=== PATIENT | male | born 1950 | race African-American/Black ===

== ENCOUNTER → 2016-12-09 | Outpatient (CLI) | payer MEDICARE, BC ==
[2016-10-29 12:58] VITALS: BP 147/98
[~2016-12-09] MED LIST: ALPR0.5T PO; AMLO10TA4 PO; ASPI-252 PO; ATOR40TA59 PO; BACL10TA PO; CARV25TA PO; CLON0.1T PO; CLOP75TA PO; DABI150C PO; FURO40TA4 PO; GABA600T2 PO; LANS30CA17 PO; LATA2.5D3 EACHEYE; LISI40TA PO; OLOP2.5D5 OP; OXYC10TA PO; PARO40TA45 PO; SPIR25TA3 PO; TAMS0.4C97 PO; TIZA4TAB PO
--- NOTE | 2016-12-11 20:16 | SLEEP ---
DATE OF STUDY: 12/09/2016 ATTENDING PHYSICIAN: Dr. Zamudio. The patient is a 66-year-old male who weighs 282 pounds with a BMI of 35. [place] score was 12. Sleep split night study was performed at [facility]. During the night study, the patient spent 412 minutes in bed and slept for 303 minutes with a sleep efficiency of 74%. Sleep latency was 40 minutes with an absent REM sleep. Overall, sleep architecture showed increased stage I and stage II sleep, absent slow wave and absent REM sleep. During the initial diagnostic portion of the study, the patient slept for 221 minutes. During this time, there were 29 obstructive apneas, 5 mixed and no central apneas. There were 176 hypopneas. The patient's apnea hypopnea index was 57 per hour with an absent REM and supine AHI due to lack of REM and supine sleep. EKG monitoring revealed irregular rhythm throughout. Appeared to be intermittent AFib. There were PACs were seen as well. I would recommend Cardiology followup. PLMS were seen at an index of 6 per hour and 2 per hour caused EEG arousals. Review of nocturnal oximetry study revealed a mean oxygen saturation of 80% with the lowest of 66%. 23% of time oxygen saturation remained between 80% and 89% and 77% of time between 70 and 79%. The patient met the criteria for CPAP initiation. He could not tolerate pressure lower than 9 cm of water and was placed on 9 cm of water; however, it did not correct his AHI at it was still 35 per hour from 35 minutes of sleep. The patient could not sleep further while on CPAP. Optimal CPAP pressure was not achieved. The patient also requested 2 liters of oxygen to be started on with the CPAP as he complained of shortness of breath. IMPRESSION: 1. Severe sleep apnea-hypopnea syndrome with an AHI of 57 per hour. 2. Nocturnal hypoxia secondary to obstructive sleep apnea. Not completely resolved with CPAP. 3. No clinically significant PLMS. RECOMMENDATIONS: 1. The patient should return to the sleep lab for CPAP/BiPAP titration study, starting at a CPAP pressure of 10 cm water and following the protocol. 2. Once optimum PAP pressure is achieved, then follow up in 4-6 weeks to assess compliance with a PAP therapy and to document clinical improvement. 3. Weight loss was strongly advised. 4. Avoid TIME RECORDER depressants. 5. Caution regarding driving until symptoms of sleep apnea have resolved with the use of PAP therapy. FANNY PAREDES MD DR: DASIA/veronica JOB#: [id number] / [id number] FELICITY
== END | disposition home or self-care (01) ==
LOC: SLPLAB 18:31
PROVIDERS: ATTEND Specialist
DX: R06.83 Snoring (principal); G47.30 Sleep apnea, unspecified; I48.91 Unspecified atrial fibrillation
CPT/HCPCS: 95810

== ENCOUNTER 2016-12-19 16:53 | Inpatient (IN) | payer MEDICARE, BC ==
[~2016-12-19] VITALS: Ht 190.5 cm; Wt 124.8 kg
[2016-12-19] MEDS ORDERED: IPRATRPIUM/ALBUTEROL 0.5/2.5MG 3 ML NEBU. NEB ONE (17:15)
[2016-12-19 17:24] LABS: BASO # 0.1 x10^3/uL (0.0-0.2); BASO % 1 % (0-3); EOS % 2 % (0-3); HEMATOCRIT 38.4 % (39.0-53.0); HEMOGLOBIN 12.6 g/dL (13.0-17.5); LYMPH # 1.5 x10^3/uL (1.0-4.8); LYMPH % 13 % (24-48); MEAN CORPUSCULAR HEMOGLOBIN 29 pg (25-35); MEAN CORPUSCULAR HGB CONC 33 g/dL (31-37); MEAN CORPUSCULAR VOLUME 88 fL (79-100); MONO % 6 % (0-9); NEUT % 78 % (31-73); PLATELET COUNT 256 x10^3/uL (140-400); RED BLOOD COUNT 4.37 x10^6/uL (4.30-5.70); RED CELL DISTRIBUTION WIDTH 15.8 % (11.5-14.5); WHITE BLOOD COUNT 11.8 x10^3/uL (4.0-11.0)
[2016-12-19 17:37] LABS: CALCIUM 9.1 mg/dL (8.5-10.1); CREATININE 1.2 mg/dL (0.7-1.3); GFR 72.9; POTASSIUM 3.5 mmol/L (3.5-5.1)
[2016-12-19 18:19] LABS: HCO3 ABG 27 mmol/L (21-28); PCO2 ABG 44 mmHg (35-46); PH ABG 7.41 (7.35-7.45); PO2 ABG 81 mmHg (65-108); SAT O2 ABG 94 % (92-99)
[2016-12-19 18:21] LABS: FIO2 ABG 40
--- NOTE | 2016-12-19 18:23 | PHYS DOC ---
Past Medical History Past Medical History: A-Fib, Anxiety, CAD, CHF, GERD, Hypertension Past Surgical History: Other Additional Past Surgical Histo: cardiac stents Alcohol Use: None Drug Use: None Adult General Chief Complaint Chief Complaint: SHORTNESS OF BREATH HPI HPI This is a 66 year-old male who was sent here for ongoing weakness and shortness of breath for the last few days and was sent here from Dr. Zamudio''s office. He does have history of atrial fibrillation and heart failure with an EF of 20- 30%. Patient does appear weak upon my exam but is in no acute distress and is mildly to. He is requiring supplementary oxygen at 3 L and he is normally not oxygen dependent. His O2 sat upon arrival was 92%. Eyes any fever or chills. He denies any abdominal pain. He denies any chest pain. Review of Systems Review of Systems Constitutional: Denies fever or chills [] Eyes: Denies change in visual acuity, redness, or eye pain [] HENT: Denies nasal congestion or sore throat [] Respiratory: Denies cough or shortness of breath [] Cardiovascular: No additional information not addressed in HPI [] GI: Denies abdominal pain, nausea, vomiting, bloody stools or diarrhea [] : Denies dysuria or hematuria [] Musculoskeletal: Denies back pain or joint pain [] Integument: Denies rash or skin lesions [] Neurologic: Denies headache, focal weakness or sensory changes [] Endocrine: Denies polyuria or polydipsia [] Current Medications Current Medications Current Medications Medications (Trade) Dose Ordered Sig/Manjula Start Time Stop Time Status Last Admin Dose Admin Albuterol/ Ipratropium (Duoneb) 3 ml 1X ONCE 12/19/16 17:15 12/19/16 17:16 DC 12/19/16 17:42 3 ML Allergies Allergies Allergies Coded Allergies Type Severity Reaction Last Updated Verified NSAIDS (Non-Steroidal Anti-Inflamma Adverse Reaction Mild BLEEDING 10/28/16 Yes Physical Exam Physical Exam Constitutional: Well developed, well nourished, no acute distress, non-toxic appearance. [] HENT: Normocephalic, atraumatic, bilateral external ears normal, oropharynx moist, no oral exudates, nose normal. [] Eyes: PERRLA, EOMI, conjunctiva normal, no discharge. [] Neck: Normal range of motion, no tenderness, supple, no stridor. [] Cardiovascular:Heart rate regular rhythm, no murmur [] Lungs & Thorax: Bilateral breath sounds clear to auscultation [] Abdomen: Bowel sounds normal, soft, no tenderness, no masses, no pulsatile masses. [] Skin: Warm, dry, no erythema, no rash. [] Back: No tenderness, no CVA tenderness. [] Extremities: No tenderness, no cyanosis, no clubbing, ROM intact, no edema. [] Neurologic: Alert and oriented X 3, normal motor function, normal sensory function, no focal deficits noted. [] Psychologic: Affect normal, judgement normal, mood normal. [] Current Patient Data Vital Signs Vital Signs Date Time Temp Pulse Resp B/P Pulse Ox O2 Delivery O2 Flow Rate FiO2 12/19/16 17:31 95 BiPAP/CPAP 12/19/16 17:05 98.4 73 24 161/101 4 98.4 Lab Values Laboratory Tests Test 12/19/16 17:14 12/19/16 17:25 12/19/16 18:15 White Blood Count 11.8x10^3/uL (4.0-11.0) H Red Blood Count 4.37x10^6/uL (4.30-5.70) Hemoglobin 12.6g/dL (13.0-17.5) L Hematocrit 38.4% (39.0-53.0) L Mean Corpuscular Volume 88fL (79-100) Mean Corpuscular Hemoglobin 29pg (25-35) Mean Corpuscular Hemoglobin Concent 33g/dL (31-37) Red Cell Distribution Width 15.8% (11.5-14.5) H Platelet Count 256x10^3/uL (140-400) Neutrophils (%) (Auto) 78% (31-73) H Lymphocytes (%) (Auto) 13% (24-48) L Monocytes (%) (Auto) 6% (0-9) Eosinophils (%) (Auto) 2% (0-3) Basophils (%) (Auto) 1% (0-3) Neutrophils # (Auto) 9.2x10^3uL (1.8-7.7) H Lymphocytes # (Auto) 1.5x10^3/uL (1.0-4.8) Monocytes # (Auto) 0.7x10^3/uL (0.0-1.1) Eosinophils # (Auto) 0.2x10^3/uL (0.0-0.7) Basophils # (Auto) 0.1x10^3/uL (0.0-0.2) Sodium Level 147mmol/L (136-145) H Potassium Level 3.5mmol/L (3.5-5.1) Chloride Level 107mmol/L (98-107) Carbon Dioxide Level 31mmol/L (21-32) Anion Gap 9 (6-14) Blood Urea Nitrogen 19mg/dL (8-26) Creatinine 1.2mg/dL (0.7-1.3) Estimated GFR (Cockcroft-Gault) 72.9 Glucose Level 113mg/dL (70-99) H Lactic Acid Level 0.8mmol/L (0.4-2.0) Calcium Level 9.1mg/dL (8.5-10.1) Troponin I Quantitative 0.028ng/mL (0.000-0.055) DB-Xkp-L-Type Natriuretic Peptide 1895pg/mL (0-124) H Influenza Type A Antigen Negative (NEGATIVE) Influenza Type B Antigen Positive (NEGATIVE) O2 Saturation 94% (92-99) Arterial Blood pH 7.41 (7.35-7.45) Arterial Blood pCO2 at Patient Temp 44mmHg (35-46) Arterial Blood pO2 at Patient Temp 81mmHg (65-108) Arterial Blood HCO3 27mmol/L (21-28) Arterial Blood Base Excess 2mmol/L (-3-3) FiO2 40 Laboratory Tests 12/19/16 17:14 Laboratory Tests 12/19/16 17:14 EKG EKG EKG shows an irregular rhythm with a rate of 85 bpm but no acute ST findings are seen. EKG is consistent with a rate controlled atrial fibrillation. Radiology/Procedures Radiology/Procedures Portable one view of the chest as interpreted by me shows signs consistent with mild congestive heart failure with cardiomegaly and vascular congestion seen. Course & Med Decision Making Course & Med Decision Making Pertinent Labs and Imaging studies reviewed. (See chart for details) This 66-year-old male with weakness and cough for the last 3-4 days has laboratory workup that is consistent with mild CHF exacerbation with a pro BNP of 1800 as well as influenza swabs that are positive for influenza type B. Patient is outside the window to treat. Influenza swabs did not result while in the ER. I discussed the case with Dr. mobley who agreed to accept the patient for ongoing shortness of breath. Patient was placed upon BiPAP therapy upon arrival to the ER and had significant improvement. He was sent to the [facility] on BiPAP therapy. His ABG was unremarkable. A dose of furosemide was given. Case is discussed with Dr. Zamudio, who agreed to accept for further evaluation and treatment. Dragon Disclaimer Dragon Disclaimer This electronic medical record was generated, in whole or in part, using a voice recognition dictation system. Departure Departure Impression: Primary Impression: CHF exacerbation Additional Impression: Influenza B Disposition: 09 ADMITTED INPATIENT Admitting Physician: Other Condition: STABLE Referrals: SAMANTHA LANGLEY (PCP) Problem Qualifiers JUAN R WINN DO Dec 19, 2016 18:23
[2016-12-19] MEDS ORDERED: ONDANSETRON PF 4 MG/2 ML VIAL. IV PRN (18:30)
[2016-12-19] MEDS ORDERED: FUROSEMIDE 40 MG/4 ML VIAL IVP ONE (18:30)
[2016-12-19 19:16] LABS: OBC FLU VALID
[2016-12-19 19:51] LABS: BILIRUBIN,URINE NEGATIVE (NEG); GLUCOSE,URINE NEGATIVE (NEG); NITRITE,URINE NEGATIVE (NEG); PROTEIN,URINE NEGATIVE (NEG-TRACE)
[2016-12-19 20:01] LABS: BACTERIA,URINE 0 /HPF (0-FEW); RBC,URINE 0 /HPF (0-2); SQUAMOUS EPITHELIAL CELL,UR FEW /LPF; WBC,URINE OCC /HPF (0-4)
[2016-12-19 20:47] VITALS: BP 145/96
[2016-12-19] MEDS ORDERED: ASPI81TA2 PO (21:03)
[2016-12-19] MEDS ORDERED: PARO20TA55 PO (21:15)
[2016-12-19] MEDS ORDERED: HYDR-2869 PO (21:15)
[2016-12-19] MEDS ORDERED: LOVA40TA2 PO (21:16)
[2016-12-19] MEDS ORDERED: NITR1PAT9 TD (21:28)
[2016-12-19] MEDS: IPRATRPIUM/ALBUTEROL 0.5/2.5MG 3 ML NEBU. NEB SCH (21:39)
[2016-12-19] MEDS ORDERED: TIZA4CAP3 PO (21:39)
[2016-12-19] MEDS ORDERED: BRIM5DRO EACHEYE (21:40)
--- NOTE | 2016-12-19 22:18 | ACF ---
Admission Forms Criteria HEART FAILURE Clinical Indications for Admission to Inpatient Care (Place 'X' for any and all applicable criteria): Admission is indicated by ANY ONE of the following(1)(2)(3)(4): [ ]I. Severe electrolyte abnormalities requiring inpatient care(9) [ ]II. Hemodynamic instability [ ]III. Anasarca [ ]IV. Acute cardiac ischemia causing or associated with failure (Also use Angina or Myocardial Infarction as appropriate) [ ]V. Cardiac arrhythmias of immediate concern [ ]. Precipitating cause for acute decompensation (eg, pneumonia, pulmonary embolism) requires inpatient care [X]VII. Pulmonary edema that is very severe (eg, mechanical ventilation needed, imminent or likely, need for 100% oxygen to keep oxygen saturation above 90%) [ ]VIII. Inpatient admission required rather than observation care (Also use Heart Failure: Observation Care as appropriate) because of ANY ONE of the following: [ ]a) Pulmonary edema that is severe or worsening as indicated by ALL of the following: [ ]i) New need for oxygen therapy to keep oxygen saturation above 90% (or increased FiO2 need from baseline) [ ]ii) Has not improved sufficiently with emergency department or observation care IV diuretics or other heart failure treatments[C] [ ]b) Cognitive impairment that is severe or persistent [ ]c) Increased creatinine (new on laboratory test) with reduction of more than 50% in estimated glomerular filtration rate from baseline. [ ]d) Acute renal insufficiency (progressively (ongoing) rising creatinine (known from past laboratory test) with reduction of more than 25% in estimated glomerular filtration rate from baseline) [ ]e) Acute peripheral ischemia (eg, pulseless, cool, mottled, or cyanotic extremity) [ ]f) Acute renal failure [ ]g) Supplemental O2 or respiratory treatment for >24 hr that are performable only in acute inpatient setting [ ]h) Pulmonary artery catheter monitoring [ ]i) Other condition, treatment or monitoring requiring inpatient admission [ ]IX. Contraindications and/or Inappropriate clinical situations for Observational Care in patients with Heart Failure, when ANY ONE of the following is required: [ ]a) Patient with High risk of cardiac embolism (e.g, patients with previous cardiac embolism, LVEF < 40%, age >75 and patients with prosthetic valve) 18 [ ]b) Patient with Moderate risk including DM patient, CAD and patient aged 65-75 [ ]c) Patient with any change in cardiac biomarker especially troponin should be managed as high risk in an inpatient setting 19 [ ]d) Physician judgement irrespective of ECG and other diagnostic findings 20 [ ]e) Patients with hyponatremia have high risk for mortality and require more extensive care and length of stay 21 [ ]f) Need for large volume diuresis 21 [ ]g) Presence of renal insufficiency or hypotension limiting speed of diuresis 21 [ ]h) Acute cardiac Ischemia in the elderly 21 [ ]i) Patients with a 30 day risk of mortality based on a multidimensional prognostic index (MPI) [J,]21 [ ]X. General contraindications and/or Inappropriate clinical situations for Observational Care in patients with Heart Failure, when ANY ONE of the following is required: [ ]a) Prediction of prolongation of LOS based on ANY ONE of the following may be considered as a contraindication for observational care 2, 3, 4, 5, 6, 7, 8 , 9, 10, 11 [ ]i) Age > 65 yrs. [ ]ii) Patient arriving by ambulance [ ]iii) Patient with high acuity [ ]iv) Patient requiring vital sign monitoring [ ]v) Patient on IV medication [ ]b) Systolic blood pressures 180mmHg 3,12 [ ]c) Patient with altered mental status including delirium and other alteration of consciousness, (3) [ ]d) Patient whose discharge disposition will be to a [place] [facility] home or rehabilitation home should not be managed in Emergency Department Observation Unit. CMS rule requires 3 days hospital stay before such placement.3,13 [ ]e) Patient with failure to thrive due to broad array of etiologies 3,16,17 [ ]f) Inability to ambulate 3,14 Extended stay beyond goal length of stay may be needed for(1)(3)(21)(25): [ ]a) Cardiac ischemia, confirmed or suspected as precipitant [ ]b) Cardiogenic shock or refractory pulmonary edema [ ]c) Acute kidney injury or renal failure [ ]d) Respiratory failure (eg, need for noninvasive or invasive mechanical ventilation) (23) [ ]e) Concomitant pneumonia or significant electrolyte abnormality (eg, severe hyponatremia) [ ]f) Newly diagnosed (new onset) atrial fibrillation [ ]g) Stage IV chronic kidney disease (estimated glomerular filtration rate of less than 30 mL/min/1.73m2 (0.50 mL/sec/1.73m2), and not previously on chronic dialysis The original [facility] content created by [facility] has been revised. The portions of the content which have been revised are identified through the use of italic text or in bold, and [facility] has neither reviewed nor approved the modified material. All other unmodified content is copyright [facility]. Please see references footnoted in the original [facility] edition 2016 Admission Criteria Met?: Yes GRAYSON BARFIELD Dec 19, 2016 22:18
[2016-12-19] MEDS ORDERED: CEFTRIAXONE 1GM IVPB FOR OMNI 50 ML IV SCH (22:30)
[2016-12-19] MEDS ORDERED: LEVOFLOXACIN 750 MG TABLET. PO SCH (23:00)
[2016-12-19 23:17] VITALS: BP 161/97
[2016-12-19] MEDS: CEFTRIAXONE SODIUM 1 GM in IV NORMAL SALINE 50ML 50 ML IV SCH (23:33)
[2016-12-19] MEDS: LEVOFLOXACIN 500 MG TABLET PO SCH (23:33)
[2016-12-19] MEDS: OSELTAMIVIR 75 MG CAPSULE PO SCH (23:33)
[2016-12-20] VITALS (10 sets, daily range): BP systolic 150–183; BP diastolic 95–110
[2016-12-20 04:33] LABS: BASO # 0.1 x10^3/uL (0.0-0.2); BASO % 1 % (0-3); EOS % 1 % (0-3); HEMATOCRIT 37.7 % (39.0-53.0); HEMOGLOBIN 12.2 g/dL (13.0-17.5); LYMPH # 1.3 x10^3/uL (1.0-4.8); LYMPH % 11 % (24-48); MEAN CORPUSCULAR HEMOGLOBIN 29 pg (25-35); MEAN CORPUSCULAR HGB CONC 32 g/dL (31-37); MEAN CORPUSCULAR VOLUME 90 fL (79-100); MONO % 6 % (0-9); NEUT % 80 % (31-73); PLATELET COUNT 238 x10^3/uL (140-400); RED CELL DISTRIBUTION WIDTH 15.7 % (11.5-14.5); WHITE BLOOD COUNT 11.5 x10^3/uL (4.0-11.0)
[2016-12-20 04:49] LABS: CALCIUM 9.2 mg/dL (8.5-10.1); CREATININE 1.1 mg/dL (0.7-1.3); GFR 80.5; POTASSIUM 3.5 mmol/L (3.5-5.1)
[2016-12-20] MEDS ORDERED: MORPHINE SULFATE 4 MG/ML DISP.SYRIN. IV ONE (06:00)
--- NOTE | 2016-12-20 06:26 | EKG ---
[facility] [address] [place] [address] Test Date: 2016-12-19 Test Time: 16:59:54 Pat Name: YAMILET BOLTON Department: Room: 267 1 Gender: M [employer] Supervisor: : [id number] Requested By: JUAN R WINN Order Number: [id number] Reading MD: Manas Dan Measurements Intervals [place] Rate: 85 P: MD: QRS: -21 QRSD: 94 T: -34 QT: 420 QTc: 500 Interpretive Statements ATRIAL FIBRILLATION. LEFTWARD AXIS R-S TRANSITION ZONE IN V LEADS DISPLACED TO THE LEFT PROLONGED QT RI6.01 Unconfirmed report No previous ECG available for comparison Electronically Signed On 12-23-2016 13:51:15 [employer] by Manas Dan
[2016-12-20] MEDS: IPRATRPIUM/ALBUTEROL 0.5/2.5MG 3 ML NEBU. NEB SCH ×4 (06:57→19:31)
[2016-12-20] MEDS: OXYCODONE IR 5 MG TABLET. PO PRN ×4 (08:25→20:23)
[2016-12-20] MEDS: OSELTAMIVIR 75 MG CAPSULE PO SCH ×2 (08:25→20:22)
--- NOTE | 2016-12-20 08:56 | RAD ---
Portable chest, 12/19/2016: History: Shortness of breath Comparison is made to a study from 04/20/2008. The heart is now enlarged. The pulmonary vascularity appears congested with loss of vascular margination. There are interstitial opacities in the lungs. There is left basilar infiltrate obscuring the hemidiaphragm. A calcified granuloma is present in the right base. No definite pleural fluid is seen. IMPRESSION: 1. Congestive heart failure with mild interstitial pulmonary edema. 2. Moderate left basilar infiltrate.
[2016-12-20] MEDS ORDERED: tiZANidine 4 MG TABLET. PO PRN (11:30)
[2016-12-20] MEDS ORDERED: ALPRAZOLAM 0.5 MG TABLET PO PRN (11:30)
[2016-12-20] MEDS ORDERED: ASPIRIN 81 MG TAB.CHEW PO ONE (12:00)
[2016-12-20] MEDS ORDERED: LISINOPRIL 20 MG TABLET PO SCH (12:00)
[2016-12-20] MEDS ORDERED: FUROSEMIDE 40 MG/4 ML VIAL IVP ONE ×2 (12:00→22:00)
[2016-12-20] MEDS ORDERED: AMLODIPINE BESYLATE 5 MG TABLET PO SCH (12:00)
[2016-12-20] MEDS: DABIGATRAN ETEXILATE 150 MG CAPSULE. PO SCH ×2 (12:05→20:22)
[2016-12-20] MEDS: PANTOPRAZOLE 40 MG TABLET. PO SCH (12:05)
[2016-12-20] MEDS: CLOPIDOGREL BISULFATE 75 MG TABLET PO SCH (14:18)
[2016-12-20] MEDS: CARVEDILOL 12.5 MG TABLET PO SCH ×2 (14:18→16:32)
[2016-12-20] MEDS ORDERED: CARVEDILOL 12.5 MG TABLET PO SCH (17:00)
[2016-12-20] MEDS: PAROXETINE 20 MG TABLET. PO SCH (17:52)
[2016-12-20] MEDS: ATORVASTATIN CALCIUM 40 MG TABLET. PO SCH (20:21)
--- NOTE | 2016-12-20 20:21 | CARD ---
APPROVED REPORT EXAM: Two-dimensional and M-mode echocardiogram with Doppler and color Doppler. Other Information Quality : Average INDICATION Congestive Heart Failure 2D DIMENSIONS RVDd3.5 (2.9-3.5cm)Left Atrium(2D)5.9 (1.6-4.0cm) IVSd1.1 (0.7-1.1cm)Aortic Root(2D)3.2 (2.0-3.7cm) LVDd6.7 (3.9-5.9cm)LVOT Diameter2.1 (1.8-2.4cm) PWd1.1 (0.7-1.1cm)LVDs5.7 (2.5-4.0cm) FS (%) 15.1 %SV71.2 ml LVEF(%)31.1 (>50%) Aortic Valve AoV Peak Marshal.115.4cm/sAoV VTI18.0cm AO Peak GR.5.3mmHgLVOT VTI 13.86cm AO Mean GR.3mmHgAVA (VTI)2.70cm2 Mitral Valve MV E Dcxlaynt531.7cm/sMV E Peak Gr.103mmHg MV DECEL [id number] E Mean Gr.4mmHg MV [id number] (PHT)5.24cm2 TDI Lateral E' P. V13.42cm/sMedial E' P. V9.38cm/s E/Lateral E'12.6E/Medial E'18.1 Tricuspid Valve TR P. [id number]/sRAP [id number] TR Peak Gr.89peBuDHDK58anRm LEFT VENTRICLE The Left Ventricle is severely dilated. There is normal left ventricular wall thickness. Left ventric le systolic function is moderately impaired. The Ejection Fraction is 25-30%. There is global hypokin esis of the left ventricle. Unable to assess diastolic function. RIGHT VENTRICLE The right ventricle is normal size. The right ventricular systolic function is normal. ATRIA The left atrium size is normal. The right atrium size is normal. The interatrial septum is intact wit h no evidence for an atrial septal defect or patent foramen ovale as noted on 2-D or Doppler imaging. AORTIC VALVE The aortic valve is calcified but opens well. The aortic valve is trileaflet. Doppler and Color Flow revealed no significant aortic regurgitation. There is no significant aortic valvular stenosis. MITRAL VALVE Mitral annular calcification is mild. The mitral valve leaflets are thickened. There is no mitral santiago ve stenosis. Doppler and Color Flow revealed severe mitral regurgitation. TRICUSPID VALVE The tricuspid valve is normal in structure. Doppler and Color Flow revealed moderate tricuspid regurg itation. The PA pressure was estimated at 56 mmHg moderate pulmonary hypertension There is no tricusp id valve stenosis. PULMONIC VALVE The pulmonic valve is not well visualized. Doppler and Color Flow revealed no pulmonic valvular regur gitation. There is no pulmonic valvular stenosis. GREAT VESSELS The aortic root is normal in size. The IVC is dilated and collapses <50% with inspiration. PERICARDIAL EFFUSION There is no evidence of significant pericardial effusion. Critical Notification Physician Notified Date: 12/20/2016 Time: 12:00 Physician Name:Dr. Zamudio Critical Value: Yes <Conclusion> The Left Ventricle is severely dilated. There is normal left ventricular wall thickness. Left ventricle systolic function is moderately impaired. The Ejection Fraction is 25-30%. There is global hypokinesis of the left ventricle. Unable to assess diastolic function but there is an increase ion the left atriak filling pressure There is no evidence of significant pericardial effusion. There is no mitral stenosis and a severe mitral regurgitation The left atrium is significantly enlarged to 6 cms. Doppler and Color Flow revealed moderate tricuspid regurgitation. The PA pressure was estimated at 56 mmHg. Doppler and Color Flow revealed moderate tricuspid regurgitation. The PA pressure was estimated at 56 mmHg moderate pulmonary hypertension The pulmonic valve is normal.
[2016-12-20] MEDS: LEVOFLOXACIN 500 MG TABLET PO SCH (20:22)
--- NOTE | 2016-12-20 21:53 | PDOC ---
Provider Note Provider Note Consult dictated STUART EMERY MD Dec 20, 2016 21:52
[2016-12-20] MEDS: CLONIDINE HCL 0.1 MG TABLET PO SCH (22:00)
[2016-12-20] MEDS ORDERED: AMLODIPINE BESYLATE 5 MG TABLET PO ONE (22:00)
[2016-12-20] MEDS ORDERED: LISINOPRIL 10 MG TABLET PO ONE (22:00)
[2016-12-20] MEDS ORDERED: CLONIDINE HCL 0.1 MG TABLET PO ONE (22:00)
[2016-12-20] MEDS ORDERED: CARVEDILOL 12.5 MG TABLET PO ONE (22:00)
[2016-12-20] MEDS ORDERED: POTASSIUM CHLORIDE 10 MEQ TABLET.ER. PO ONE (22:15)
[2016-12-20] MEDS: CEFTRIAXONE SODIUM 1 GM in IV NORMAL SALINE 50ML 50 ML IV SCH (22:36)
--- NOTE | 2016-12-20 23:00 | HP ---
ADMIT DATE: 12/20/2016 HISTORY OF PRESENT ILLNESS: This is a 66-year-old black male that I have known for several years. He first came to me about 10 years ago with hypertension. This was very difficult to control, but was controlled. Several years ago, he had chest pain. He underwent myocardial perfusion imaging study. It showed an inferior wall scar, but no ischemia. His ejection fraction was 40%. He did not want any further investigations or evaluation. In fact, I did not see him for several years. Last year around April, he was admitted to [facility] with congestive heart failure for the first time. There, he was told that his ejection fraction was 20%. He was given diuretics, LEI inhibitors and beta blockers, and sent home. He was asked to see his supervisor stripping and thus he came back to me. His ejection fraction was indeed low. He underwent a myocardial perfusion imaging study. He then underwent cardiac catheterization. He had a left main trunk obstruction. He was advised open heart surgery in another facility. He did not want to go to open heart surgery. I thus requested Dr. Moser to do stent with Impella support. This was carried out about 2 months ago. He was noted to be in atrial fibrillation. He continues to be in atrial fibrillation. He is on Coreg for his cardiomyopathy. The ventricular response is well controlled. He has had no episodes of RVR. Consideration was being given to cardioversion. He was placed on Pradaxa, which he has been taking regularly. The Pradaxa had to be discontinued both for his cardiac catheterization and for his coronary intervention temporarily. Because of this, any cardioversion was delayed. Recently, he saw me and said that he snores at night. He awakens at night all of a sudden. Because of this, I thought that he should have a sleep study before cardioverting him. He thus underwent a sleep study on 12/09. I do not have the report of it as of yet. I had placed him on amiodarone with the intention of cardioverting fairly soon. He said he could not tolerate the amiodarone and felt very poorly with it. I saw him in the office. He said that after the sleep study, the next morning he felt very poorly with aches and pains. He could not move around much. He was having trouble breathing. He has been having a cough, bringing up small amounts of yellowish sputum. When I saw him in the office, he appeared extremely weak. He could barely walk. He was being supported by his . This was very unusual for him. Whereas his oxygen saturation during his previous visits had always been more than 90%, it was only 86%, 82% and 80%. He was extremely short of breath and lethargic. The ambulance was called and he was sent to the Emergency Room. He gives history of hypertension which is under control. There is no history of diabetes mellitus. There is no history of myocardial infarction. There is no history of stroke. He does have a bad back and has severe pain from it. He takes narcotics for the same. He continues to smoke half a pack of cigarettes a day. PRESENT MEDICATIONS: 1. Alprazolam 3 times a day p.r.n. 2. Amlodipine 10 mg a day. 3. Aspirin 81 mg a day. 4. Atorvastatin 40 mg at night. 5. Baclofen 10 mg 4 times a day p.r.n. 6. Carvedilol 25 mg twice a day. 7. Clonidine 0.1 mg twice a day. 8. Plavix 75 mg a day. 9. Pradaxa 150 mg twice a day 10. Lasix 40 mg a day, which has kept him out of CHF for many months. 11. Gabapentin 600 mg 4 times a day. 12. Hydralazine 50 mg twice a day. 13. Prevacid. 14. Lisinopril 40 mg a day. 15. Oxycodone 10 mg p.r.n. 16. Paxil 40 mg twice a day. 17. Spironolactone 25 mg a day. 18. Tamsulosin 0.4 mg a day. 19. Tizanidine 4 mg at night. PHYSICAL EXAMINATION: GENERAL: As stated above, he was extremely lethargic. He had his eyes closed. He was tachypneic. VITAL SIGNS: The heart rate was 80 per minute and irregular. The blood pressure was 110/70. LUNGS: Showed decreased breath sounds. CARDIOVASCULAR: There is no edema. The heart sounds are normal. There was a grade 2/6 pansystolic murmur heard best at the apex. There was no S3. ABDOMEN: Soft. EXTREMITIES: There is no edema of the legs. IMAGING: A chest x-ray showed cardiomegaly and increased vascularity. LABORATORY DATA: The WBC count was 11,800. The hemoglobin was ____. The sodium was 147, potassium 3.5, BUN was 19, creatinine was 1.2. The troponin was normal at 0.028. The BNP was elevated to 1895. Influenza type A was negative. Influenza type B was positive. IMPRESSION: 1. Influenza type B. 2. ____ bronchitis in a smoker. 3. Nonischemic cardiomyopathy. 4. Congestive cardiac failure, probably precipitated by the influenza. 5. Chronic atrial fibrillation. 6. Severe coronary artery disease with recent stent placements. 7. Severe lumbar spondylosis. PLAN: We will place him on Tamiflu even though according to his history, the symptoms might have been more than 48 hours, but we do not know exactly when he contracted the flu. He said he did take the flu vaccine. We will also place him on antibiotics. We will diurese him. He would need to get over this acute illness before we cardiovert him. STUART EMERY MD DR: MARISABEL/veronica JOB#: [id number] / [id number]
[2016-12-20] MEDS ORDERED: ALBUTEROL SULFATE 2.5 MG/3 ML NEBU. NEB PRN (23:45)
[2016-12-21] VITALS (9 sets, daily range): BP systolic 144–172; BP diastolic 82–107
[2016-12-21] MEDS: ALPRAZOLAM 0.5 MG TABLET PO PRN ×2 (00:16→09:04)
[2016-12-21] MEDS: OXYCODONE IR 5 MG TABLET. PO PRN ×5 (00:17→22:07)
[2016-12-21] MEDS: CLONIDINE HCL 0.1 MG TABLET PO SCH ×3 (04:33→22:06)
[2016-12-21] MEDS: PAROXETINE 20 MG TABLET. PO SCH ×2 (04:33→18:14)
[2016-12-21] MEDS: IPRATRPIUM/ALBUTEROL 0.5/2.5MG 3 ML NEBU. NEB SCH ×4 (07:29→20:00)
[2016-12-21] MEDS: ASPIRIN 81 MG TAB.CHEW PO SCH (08:00)
[2016-12-21] MEDS ORDERED: CLOPIDOGREL BISULFATE 75 MG TABLET PO SCH (08:00)
[2016-12-21] MEDS: PANTOPRAZOLE 40 MG TABLET. PO SCH (08:08)
[2016-12-21] MEDS: CARVEDILOL 12.5 MG TABLET PO SCH ×2 (08:10→18:14)
[2016-12-21] MEDS: OSELTAMIVIR 75 MG CAPSULE PO SCH ×2 (08:11→20:32)
[2016-12-21] MEDS: AMLODIPINE BESYLATE 10 MG TABLET PO SCH (08:11)
[2016-12-21] MEDS: POTASSIUM CHLORIDE 20 MEQ TABLET.ER. PO SCH (08:11)
[2016-12-21] MEDS: DABIGATRAN ETEXILATE 150 MG CAPSULE. PO SCH ×2 (08:12→20:32)
[2016-12-21] MEDS: SPIRONOLACTONE 25 MG TABLET PO SCH (08:12)
[2016-12-21] MEDS: LISINOPRIL 40 MG TABLET. PO SCH (08:12)
[2016-12-21] MEDS: CLOPIDOGREL BISULFATE 75 MG TABLET PO SCH (08:12)
--- NOTE | 2016-12-21 10:17 | RAD ---
Examination: Single frontal view of the chest History: History of congestive heart failure. Comparison: 12/19/2016 Findings Moderate cardiomegaly. There is diffuse bilateral interstitial lung markings likely congestive changes with bibasal lung airspace opacities likely atelectasis or infiltrates. Impression: 1. Moderate congestive changes similar to prior exam. 2. Mild increase in bibasal lung airspace opacities likely atelectasis or infiltrates.
--- NOTE | 2016-12-21 10:37 | PDOC2 ---
CONSULT Date of Consult Date of Consult DATE: 12/21/16 TIME: 10:32 Reason for Consult Reason for Consult: medical mx Referring Physician [facility] Identification/Chief Complaint Chief Complaint none Source Source: Caregiver, Chart review, Patient History of Present Illness Reason for Visit: 66 y./o AA male with significant cardiac hx including cardiomyopathy low, ef, afib RVR, CAD? HTN, comes in bec of uri sxs, found to be Flu B positive, being treated with tamiflu though outside the window but given nevertheless given over all poor health (i agree). DEneis cp, soa or fevers now, just had a stool , significant , maybe constipated side - already has stool softener. BIPAP at bedside,. CIRILO and has done sleep study, unknown results. Afib rVR, now rate controlled, planned for rate control once over flu and respi status better/ compensated Past Medical History Cardiovascular: AFIB, CAD, CHF, HTN, Hyperlipidemia Pulmonary: Bronchitis Heme/Onc: Anemia NOS Musculoskeletal: low back pain ENT: Other (CIRILO) Past Surgical History Past Surgical History: Other (cardiac stents? IMpella) Family History Family History: No Significant Social History No ALCOHOL: none Drugs: None Lives: with Family Domestic Violence: Neg Current Problem List Problem List Problems Medical Problems: (1) CHF exacerbation Status: Acute (2) Influenza B Status: Acute Current Medications Current Medications Current Medications Albuterol/ Ipratropium (Duoneb) 3 ml 1X ONCE NEB Last administered on 17:42; Start 12/19/16 at 17:15; Stop 12/19/16 at 17:16; Status DC Furosemide (Lasix) 40 mg 1X ONCE IVP Last administered on 12/19/16 18:36; Start 12/19/16 at 18:30; Stop 12/19/16 at 18:31; Status DC Ondansetron HCl (Zofran) 4 mg PRN Q8HRS PRN IV NAUSEA/VOMITING; Start 12/19/16 at 18:30; Stop 12/20/16 at 18:29; Status DC Albuterol/ Ipratropium 3 ml 3 ml RTQID NEB Last administered on 12/21/16 07:29 ; Start 12/19/16 at 20:00; Stop 12/20/16 at 19:59; Status DC Ceftriaxone Sodium (Rocephin 1gm Ivpb For Omni) 50 ml @ 100 mls/hr DAILY IV ; Start 12/19/16 at 22:30; Status UNV Oseltamivir Phosphate (Tamiflu) 75 mg BID PO Last administered on 12/21/16 08: 11; Start 12/19/16 at 23:00; Stop 12/24/16 at 22:59 Levofloxacin 750 mg 750 mg QHS PO ; Start 12/19/16 at 23:00; Stop 12/19/16 at 23: 13; Status DC Ceftriaxone Sodium/Sodium Chloride (Rocephin/Iv Sodium Chloride 0.9% 50ml) 50 ml @ 100 mls/hr Q24H IV Last administered on 12/20/16 22:36; Start 12/19/16 at 23:00 Levofloxacin (Levaquin) 500 mg QHS PO Last administered on 12/20/16 20:22; Start 12/19/16 at 23:45 Oxycodone HCl (Roxicodone) 10 mg PRN Q4HRS PRN PO SEVERE PAIN Last administered on 12/21/16 04:34; Start 12/20/16 at 06:00 Morphine Sulfate 4 mg 1X ONCE IV Last administered on 12/20/16 06:03; Start at 06:00; Stop 12/20/16 at 06:01; Status DC Alprazolam (Xanax) 0.5 mg PRN Q8HRS PRN PO ANXIETY / AGITATION Last administered on 12/20/16 16:30; Start 12/20/16 at 11:30; Stop 12/20/16 at 23:34; Status DC Amlodipine Besylate (Norvasc) 5 mg DAILY PO Last administered on 12/20/16 12:05 ; Start 12/20/16 at 12:00; Stop 12/20/16 at 21:48; Status DC Aspirin (Children'S Aspirin) 81 mg 1X ONCE PO Last administered on 12/20/16 12 :01; Start 12/20/16 at 12:00; Stop 12/20/16 at 12:01; Status DC Aspirin (Children'S Aspirin) 81 mg DAILYWBKFT PO Last administered on 12/21/16 08:00; Start 12/21/16 at 08:00 Atorvastatin Calcium (Lipitor) 40 mg QHS PO Last administered on 12/20/16 20:21 ; Start 12/20/16 at 21:00 Carvedilol (Coreg) 12.5 mg BIDWMEALS PO ; Start 12/20/16 at 17:00; Stop 12/20/16 at 17:00; Status DC Clopidogrel Bisulfate (Plavix) 75 mg DAILYWBKFT PO ; Start 12/21/16 at 08:00; Stop 12/21/16 at 08:00; Status DC Dabigatran (Pradaxa) 150 mg BID PO Last administered on 12/21/16 08:12; Start 12/20/16 at 12:00 Furosemide (Lasix) 40 mg 1X ONCE IVP Last administered on 12/20/16 12:00; Start 12/20/16 at 12:00; Stop 12/20/16 at 12:01; Status DC Pantoprazole Sodium (Protonix) 40 mg DAILYAC PO Last administered on 12/21/16 08:08; Start 12/20/16 at 12:00 Lisinopril (Prinivil) 20 mg DAILY PO Last administered on 12/20/16 12:05; Start 12/20/16 at 12:00; Stop 12/20/16 at 21:48; Status DC Paroxetine HCl (Paxil) 40 mg BID76 PO Last administered on 12/21/16 04:33; Start 12/20/16 at 18:00 Tizanidine HCl (Zanaflex) 8 mg PRN Q8HRS PRN PO MUSCLE SPASMS; Start 12/20/16 at 11:30 Carvedilol (Coreg) 12.5 mg BIDWMEALS PO Last administered on 12/20/16 16:32; Start 12/20/16 at 08:00; Stop 12/20/16 at 21:52; Status DC Clopidogrel Bisulfate (Plavix) 75 mg DAILYWBKFT PO Last administered on 08:12; Start 12/20/16 at 12:30 Amlodipine Besylate (Norvasc) 5 mg 1X ONCE PO Last administered on 12/20/16 22 :47; Start 12/20/16 at 22:00; Stop 12/20/16 at 22:01; Status DC Amlodipine Besylate (Norvasc) 10 mg DAILY PO Last administered on 12/21/16 08: 11; Start 12/21/16 at 09:00 Carvedilol (Coreg) 12.5 mg 1X ONCE PO Last administered on 12/20/16 22:35; Start 12/20/16 at 22:00; Stop 12/20/16 at 22:01; Status DC Carvedilol (Coreg) 25 mg BIDWMEALS PO Last administered on 12/21/16 08:10; Start 12/21/16 at 08:00 Lisinopril (Prinivil) 20 mg 1X ONCE PO Last administered on 12/20/16 22:33; Start 12/20/16 at 22:00; Stop 12/20/16 at 22:01; Status DC Lisinopril (Prinivil) 40 mg DAILY PO Last administered on 12/21/16 08:12; Start 12/21/16 at 09:00 Clonidine HCl (Catapres) 0.1 mg 1X ONCE PO Last administered on 12/20/16 22:35 ; Start 12/20/16 at 22:00; Stop 12/20/16 at 22:01; Status DC Clonidine HCl (Catapres) 0.1 mg Q8HRS PO Last administered on 12/21/16 04:33; Start 12/20/16 at 22:00 Spironolactone (Aldactone) 25 mg DAILY PO Last administered on 12/21/16 08:12; Start 12/21/16 at 09:00 Furosemide (Lasix) 40 mg 1X ONCE IVP Last administered on 12/20/16 22:34; Start 12/20/16 at 22:00; Stop 12/20/16 at 22:01; Status DC Potassium Chloride (Klor-Con) 30 meq 1X ONCE PO Last administered on 12/20/16 22:34; Start 12/20/16 at 22:15; Stop 12/20/16 at 22:16; Status DC Potassium Chloride (Klor-Con) 20 meq DAILYWBKFT PO Last administered on 08:11; Start 12/21/16 at 08:00 Alprazolam (Xanax) 0.5 mg PRN Q6HRS PRN PO ANXIETY / AGITATION Last administered on 3/4/17at 09:04; Start 12/21/16 at 00:15 Albuterol Sulfate (Ventolin Neb Soln) 2.5 mg PRN Q2HR PRN NEB SHORTNESS OF BREATH; Start 12/20/16 at 23:45 Albuterol/ Ipratropium (Duoneb) 3 ml RTQID NEB ; Start 12/21/16 at 12:00 Active Scripts Active Reported Alphagan P (Brimonidine Tartrate) 5 Ml Drops 1 Drop EACHEYE BID Zanaflex (Tizanidine Hcl) 4 Mg Capsule 4 Mg PO PRN Q8HRS PRN NITRO-DUR 0.4mg/hr (Nitroglycerin) 1 Each Patch.td24 1 Each TD Lovastatin 40 Mg Tablet 40 Mg PO HS Hydralazine Hcl 50 Mg Tablet 1 Tab PO BID Paxil (Paroxetine Hcl) 20 Mg Tablet 1 Tab PO HS Aspirin 81 Mg Tab.chew 1 Tab PO DAILY Clopidogrel (Clopidogrel Bisulfate) 75 Mg Tablet 1 Tab PO DAILY Tizanidine Hcl 4 Mg Tablet 4 Mg PO TID PRN Atorvastatin Calcium 40 Mg Tablet 1 Tab PO DAILY Spironolactone 25 Mg Tablet 1 Tab PO HS Latanoprost 2.5 Ml Drops 1 Drop EACHEYE QHS [place] (Olopatadine HCl) 2.5 Ml Drops 2.5 Ml OP DAILY Furosemide 40 Mg Tablet 40 Mg PO [id number] Prevacid (Lansoprazole) 30 Mg Capsule.dr 1 Cap PO DAILY Oxycodone Hcl 10 Mg Tablet 1 Tab PO PRN Q4HRS PRN Lisinopril 40 Mg Tablet 0.5 Tab PO DAILY Coreg (Carvedilol) 25 Mg Tablet 1 Tab PO BIDBFRMEAL Norvasc (Amlodipine Besylate) 10 Mg Tablet 10 Mg PO DAILY Gabapentin 600 Mg Tablet 600 Mg PO QID Baclofen 10 Mg Tablet 1.5 Tab PO QID Xanax (Alprazolam) 0.5 Mg Tablet 1 Tab PO TID Paxil (Paroxetine Hcl) 40 Mg Tablet 1 Tab PO DAILY Clonidine Hcl 0.1 Mg Tablet 0.1 Mg PO BID Flomax (Tamsulosin Hcl) 0.4 Mg Cap.er.24h 0.4 Mg PO HS Pradaxa (Dabigatran Etexilate Mesylate) 150 Mg Capsule 150 Mg PO BID Allergies Allergies: Coded Allergies: NSAIDS (Non-Steroidal Anti-Inflamma (Verified Adverse Reaction, Mild, BLEEDING, 10/28/16) Bleeding ROS General: No: Appetite, Chills, Fatigue, Malaise, Night Sweats, Other PSYCHOLOGICAL ROS: No: Anxiety, Behavioral Disorder, Concentration difficultie , Decreased libido, Depression, Disorientation, Hallucinations, Hostility, Irritablity, Memory difficulties, Mood Swings, Obsessive thoughts, Other, Physical abuse, Sexual abuse, Sleep disturbances, Suicidal ideation Eyes: No Blurry vision, No Decreased vision, No Double vision, No Dry eyes, No Excessive tearing, No Eye Pain, No Itchy Eyes, No Loss of vision, No Other, No Photophobia, No Scotomata, No Uses contacts, No Uses glasses HEENT: No: Epistaxis, Heacaches, Hearing change, Nasal congestion, Nasal discharge, Oral lesions, Other, Sinus pain, Sneezing, Snoring, Sore Throat, Tinnitus, Vertigo, Visual Changes, Vocal changes ALLERGY AND IMMUNOLOGY: No: Hives, Insect Bite Sensitivity, Itchy/Watery Eyes, Nasal Congestion, Other, Post Nasal Drip, Seasonal Allergies Hematological and Lymphatic: No: Bleeding Problems, Blood Clots, Blood Transfusions, Brusing, Night Sweats, Other, Pallor, Swollen Lymph Nodes ENDOCRINE: No: Breast Changes, Galactorrhea, Hair Pattern Changes, Hot Flashes , Malaise/lethargy, Mood Swings, Other, Palpitations, Polydipsia/polyuria, Skin Changes, Temperature Intolerance, Unexpected Weight Changes Respiratory: No: Cough, Hemoptysis, Orthopnea, Other, Pleuritic Pain, SOB with excertion, Shortness of breath, Sputum Changes, Stridor, Tachypnea, Wheezing Cardiovascular: No Chest Pain, No Edema, No Lt Headedness, No Orthopnea, No Other, No Palpitations, No Paroxysmal Noc. Dyspnea Gastrointestinal: No Abdominal Pain, No Constipation, No Diarrhea, No Hematochezia, No Melena, No Nausea, No Other, No Vomiting Genitourinary: No , No , No , No , No , No , No , No Discharge, No Dysuria, No Flank Pain, No Frequency, No Hematuria, No Incontinence, No Other, No Pain, No Retention, No Urgency Musculoskeletal: No Gait Disturbance, No Joint Pain, No Joint Stiffness, No Joint Swelling, No Muscle Pain, No Muscular Weakness, No Other, No Pain In:, No Swelling In: Skin: No Acne, No Dry Skin, No Eczema, No Hair Changes, No Lumps, No Mole Changes, No Mottling, No Nail Changes, No Other, No Pruritus, No Rash, No Skin Lesion Changes Physical Exam General: Alert, Oriented X3, Cooperative, No acute distress HEENT: Atraumatic, PERRLA, EOMI, Other (dec BS) Lungs: Clear to auscultation, Normal air movement Heart: Regular rate, No murmurs Abdomen: Normal bowel sounds Extremities: No clubbing Skin: No rashes, No breakdown Neuro: Normal gait, Normal speech, Normal tone, Sensation intact, Reflexes 2+ Psych/Mental Status: Mental status NL, Mood NL MUSCULOSKELETAL: No joint tenderness Vitals VITALS Vital Signs Date Time Temp Pulse Resp B/P Pulse Ox O2 Delivery O2 Flow Rate FiO2 12/21/16 08:12 87 148/82 12/21/16 08:00 Nasal Cannula 5.0 12/21/16 07:25 95 12/21/16 06:50 97.1 97.1 12/21/16 05:36 22 Labs Labs Laboratory Tests Test 12/19/16 17:14 12/19/16 17:25 12/19/16 18:15 12/19/16 19:25 White Blood Count 11.8x10^3/uL (4.0-11.0) Red Blood Count 4.37x10^6/uL (4.30-5.70) Hemoglobin 12.6g/dL (13.0-17.5) Hematocrit 38.4% (39.0-53.0) Mean Corpuscular Volume 88fL (79-100) Mean Corpuscular Hemoglobin 29pg (25-35) Mean Corpuscular Hemoglobin Concent 33g/dL (31-37) Red Cell Distribution Width 15.8% (11.5-14.5) Platelet Count 256x10^3/uL (140-400) Neutrophils (%) (Auto) 78% (31-73) Lymphocytes (%) (Auto) 13% (24-48) Monocytes (%) (Auto) 6% (0-9) Eosinophils (%) (Auto) 2% (0-3) Basophils (%) (Auto) 1% (0-3) Neutrophils # (Auto) 9.2x10^3uL (1.8-7.7) Lymphocytes # (Auto) 1.5x10^3/uL (1.0-4.8) Monocytes # (Auto) 0.7x10^3/uL (0.0-1.1) Eosinophils # (Auto) 0.2x10^3/uL (0.0-0.7) Basophils # (Auto) 0.1x10^3/uL (0.0-0.2) Sodium Level 147mmol/L (136-145) Potassium Level 3.5mmol/L (3.5-5.1) Chloride Level 107mmol/L (98-107) Carbon Dioxide Level 31mmol/L (21-32) Anion Gap 9 (6-14) Blood Urea Nitrogen 19mg/dL (8-26) Creatinine 1.2mg/dL (0.7-1.3) Estimated GFR (Cockcroft-Gault) 72.9 Glucose Level 113mg/dL (70-99) Lactic Acid Level 0.8mmol/L (0.4-2.0) Calcium Level 9.1mg/dL (8.5-10.1) Troponin I Quantitative 0.028ng/mL (0.000-0.055) KM-Qto-C-Type Natriuretic Peptide 1895pg/mL (0-124) Influenza Type A Antigen Negative (NEGATIVE) Influenza Type B Antigen Positive (NEGATIVE) O2 Saturation 94% (92-99) Arterial Blood pH 7.41 (7.35-7.45) Arterial Blood pCO2 at Patient Temp 44mmHg (35-46) Arterial Blood pO2 at Patient Temp 81mmHg (65-108) Arterial Blood HCO3 27mmol/L (21-28) Arterial Blood Base Excess 2mmol/L (-3-3) FiO2 40 Urine Collection Type Unknown Urine Color Yellow Urine Clarity Clear Urine pH 6.0 Urine Specific [place] 1.015 Urine Protein Negativemg/dL (NEG-TRACE) Urine Glucose (UA) Negativemg/dL (NEG) Urine Ketones (Stick) Negativemg/dL (NEG) Urine Blood Negative (NEG) Urine Nitrite Negative (NEG) Urine Bilirubin Negative (NEG) Urine Urobilinogen Dipstick 1.0mg/dL (0.2 mg/dL) Urine Leukocyte Esterase Negative (NEG) Urine RBC 0/HPF (0-2) Urine WBC Occ/HPF (0-4) Urine Squamous Epithelial Cells Few/LPF Urine Bacteria 0/HPF (0-FEW) Urine Mucus Mod/LPF Test 12/20/16 04:00 White Blood Count 11.5x10^3/uL (4.0-11.0) Red Blood Count 4.20x10^6/uL (4.30-5.70) Hemoglobin 12.2g/dL (13.0-17.5) Hematocrit 37.7% (39.0-53.0) Mean Corpuscular Volume 90fL (79-100) Mean Corpuscular Hemoglobin 29pg (25-35) Mean Corpuscular Hemoglobin Concent 32g/dL (31-37) Red Cell Distribution Width 15.7% (11.5-14.5) Platelet Count 238x10^3/uL (140-400) Neutrophils (%) (Auto) 80% (31-73) Lymphocytes (%) (Auto) 11% (24-48) Monocytes (%) (Auto) 6% (0-9) Eosinophils (%) (Auto) 1% (0-3) Basophils (%) (Auto) 1% (0-3) Neutrophils # (Auto) 9.3x10^3uL (1.8-7.7) Lymphocytes # (Auto) 1.3x10^3/uL (1.0-4.8) Monocytes # (Auto) 0.7x10^3/uL (0.0-1.1) Eosinophils # (Auto) 0.1x10^3/uL (0.0-0.7) Basophils # (Auto) 0.1x10^3/uL (0.0-0.2) Sodium Level 148mmol/L (136-145) Potassium Level 3.5mmol/L (3.5-5.1) Chloride Level 108mmol/L (98-107) Carbon Dioxide Level 30mmol/L (21-32) Anion Gap 10 (6-14) Blood Urea Nitrogen 16mg/dL (8-26) Creatinine 1.1mg/dL (0.7-1.3) Estimated GFR (Cockcroft-Gault) 80.5 Glucose Level 136mg/dL (70-99) Calcium Level 9.2mg/dL (8.5-10.1) Assessment/Plan Assessment/Plan 1. Influenza type B. 2. Acute bronchitis in a smoker. 3. Nonischemic cardiomyopathy. 4. Congestive cardiac failure, probably precipitated by the influenza. 5. Chronic atrial fibrillation. 6. Severe coronary artery disease with recent stent placements. 7. Severe lumbar spondylosis. Plan: COnt tamiflu and other supportive meds CArdioversion planned by cards Resume meds PT/OT Thansk for consult, will follow Add pT/OT [place] pt and RN SIENA MARTEL MD Dec 21, 2016 10:37
[2016-12-21 10:43] LABS: ALBUMIN 3.1 g/dL (3.4-5.0); ALBUMIN/GLOBULIN RATIO 0.8 (1.0-1.7); CALCIUM 9.5 mg/dL (8.5-10.1); CREATININE 1.2 mg/dL (0.7-1.3); GFR 72.9; MAGNESIUM 1.7 mg/dL (1.8-2.4); TOTAL BILIRUBIN 1.4 mg/dL (0.2-1.0); TOTAL PROTEIN 6.9 g/dL (6.4-8.2)
[2016-12-21] MEDS ORDERED: ALPRAZOLAM 1 MG TABLET PO ONE (13:15)
--- NOTE | 2016-12-21 13:28 | PDOC ---
Provider Note Provider Note He feels much better and is more alert. BP is pressure elevated despite resuming all home meds. He is very anxious as usual. Lungs are clear. Chest x-ray continues to show pulmonary vascular congestion. Continue IV diuretics until his oxygenation improves. STUART EMERY MD Dec 21, 2016 13:28
[2016-12-21] MEDS ORDERED: FUROSEMIDE 40 MG/4 ML VIAL IVP ONE (14:00)
[2016-12-21] MEDS: LEVOFLOXACIN 500 MG TABLET PO SCH (20:33)
[2016-12-21] MEDS: ATORVASTATIN CALCIUM 40 MG TABLET. PO SCH (20:33)
[2016-12-21] MEDS ORDERED: ONDANSETRON PF 4 MG/2 ML VIAL. IV PRN (21:30)
[2016-12-21] MEDS: DOCUSATE SODIUM 100 MG CAPSULE PO PRN (22:06)
[2016-12-21] MEDS: CEFTRIAXONE SODIUM 1 GM in IV NORMAL SALINE 50ML 50 ML IV SCH (22:06)
[2016-12-21] MEDS: ALPRAZOLAM 1 MG TABLET PO PRN (22:07)
[2016-12-22 03:00] VITALS: BP 145/85
[2016-12-22] MEDS: DOCUSATE SODIUM 100 MG CAPSULE PO PRN (05:14)
[2016-12-22] MEDS: PAROXETINE 20 MG TABLET. PO SCH ×2 (05:14→17:53)
[2016-12-22] MEDS: OXYCODONE IR 5 MG TABLET. PO PRN ×3 (05:15→22:04)
[2016-12-22] MEDS: CLONIDINE HCL 0.1 MG TABLET PO SCH ×3 (05:15→22:03)
[2016-12-22 07:00] VITALS: BP 140/95
[2016-12-22] MEDS: CLOPIDOGREL BISULFATE 75 MG TABLET PO SCH (07:48)
[2016-12-22] MEDS: ASPIRIN 81 MG TAB.CHEW PO SCH (07:48)
[2016-12-22] MEDS: OSELTAMIVIR 75 MG CAPSULE PO SCH ×2 (07:48→20:53)
[2016-12-22] MEDS: AMLODIPINE BESYLATE 10 MG TABLET PO SCH (07:48)
[2016-12-22] MEDS: SPIRONOLACTONE 25 MG TABLET PO SCH (07:48)
[2016-12-22] MEDS: FUROSEMIDE 40 MG/4 ML VIAL IVP SCH (07:48)
[2016-12-22] MEDS: PANTOPRAZOLE 40 MG TABLET. PO SCH (07:48)
[2016-12-22] MEDS: CARVEDILOL 12.5 MG TABLET PO SCH ×2 (07:49→17:54)
[2016-12-22] MEDS: POTASSIUM CHLORIDE 20 MEQ TABLET.ER. PO SCH (07:49)
[2016-12-22] MEDS: ALPRAZOLAM 1 MG TABLET PO PRN ×2 (07:49→22:03)
[2016-12-22] MEDS: LISINOPRIL 40 MG TABLET. PO SCH (07:50)
[2016-12-22] MEDS: DABIGATRAN ETEXILATE 150 MG CAPSULE. PO SCH ×2 (07:50→20:53)
[2016-12-22] MEDS: IPRATRPIUM/ALBUTEROL 0.5/2.5MG 3 ML NEBU. NEB SCH ×4 (08:16→19:03)
[2016-12-22 11:00] VITALS: BP 165/112
--- NOTE | 2016-12-22 12:17 | PDOC ---
PROGRESS NOTES Chief Complaint Chief Complaint 1. Influenza type B. 2. Acute bronchitis in a smoker. 3. Nonischemic cardiomyopathy. 4. Congestive cardiac failure, probably precipitated by the influenza. 5. Chronic atrial fibrillation. 6. Severe coronary artery disease with recent stent placements. 7. Severe lumbar spondylosis. History of Present Illness History of Present Illness Breathing better Doing well GEtting IV lasix Also getting tamiflu- Flu positive Plan; per primary service WIll follow along with u NO new recs today Dw RN and pt Vitals Vitals Vital Signs Date Time Temp Pulse Resp B/P Pulse Ox O2 Delivery O2 Flow Rate FiO2 12/22/16 11:42 Nasal Cannula 4.0 12/22/16 11:00 98.5 94 22 165/112 90 98.5 Physical Exam General: Alert, Oriented X3, Cooperative, No acute distress Heart: Regular rate, No murmurs Abdomen: Normal bowel sounds Extremities: No clubbing Skin: No rashes, No breakdown Review of Systems Review of Systems no soa, cp or fevers Assessment and Plan Assessmemt and Plan Problems Medical Problems: (1) CHF exacerbation Status: Acute (2) Influenza B Status: Acute Problems: Comment Review of Relevant I have reviewed the following items rosas (where applicable) has been applied. Labs Laboratory Tests Test 12/21/16 10:20 Sodium Level 145mmol/L (136-145) Potassium Level 4.0mmol/L (3.5-5.1) Chloride Level 107mmol/L (98-107) Carbon Dioxide Level 30mmol/L (21-32) Anion Gap 8 (6-14) Blood Urea Nitrogen 18mg/dL (8-26) Creatinine 1.2mg/dL (0.7-1.3) Estimated GFR (Cockcroft-Gault) 72.9 BUN/Creatinine Ratio 15 (6-20) Glucose Level 178mg/dL (70-99) Calcium Level 9.5mg/dL (8.5-10.1) Magnesium Level 1.7mg/dL (1.8-2.4) Total Bilirubin 1.4mg/dL (0.2-1.0) Aspartate Amino Transf (AST/SGOT) 12U/L (15-37) Alanine Aminotransferase (ALT/SGPT) 20U/L (16-63) Alkaline Phosphatase 64U/L (46-116) Total Protein 6.9g/dL (6.4-8.2) Albumin 3.1g/dL (3.4-5.0) Albumin/Globulin Ratio 0.8 (1.0-1.7) Microbiology 12/19/16 Blood Culture - Preliminary, Resulted NO GROWTH AFTER 2 DAYS Medications Current Medications Albuterol/ Ipratropium (Duoneb) 3 ml 1X ONCE NEB Last administered on 17:42; Start 12/19/16 at 17:15; Stop 12/19/16 at 17:16; Status DC Furosemide (Lasix) 40 mg 1X ONCE IVP Last administered on 12/19/16 18:36; Start 12/19/16 at 18:30; Stop 12/19/16 at 18:31; Status DC Ondansetron HCl (Zofran) 4 mg PRN Q8HRS PRN IV NAUSEA/VOMITING; Start 12/19/16 at 18:30; Stop 12/20/16 at 18:29; Status DC Albuterol/ Ipratropium 3 ml 3 ml RTQID NEB Last administered on 12/21/16 07:29 ; Start 12/19/16 at 20:00; Stop 12/20/16 at 19:59; Status DC Ceftriaxone Sodium (Rocephin 1gm Ivpb For Omni) 50 ml @ 100 mls/hr DAILY IV ; Start 12/19/16 at 22:30; Status UNV Oseltamivir Phosphate (Tamiflu) 75 mg BID PO Last administered on 12/22/16 07: 48; Start 12/19/16 at 23:00; Stop 12/24/16 at 22:59 Levofloxacin 750 mg 750 mg QHS PO ; Start 12/19/16 at 23:00; Stop 12/19/16 at 23: 13; Status DC Ceftriaxone Sodium/Sodium Chloride (Rocephin/Iv Sodium Chloride 0.9% 50ml) 50 ml @ 100 mls/hr Q24H IV Last administered on 12/21/16 22:06; Start 12/19/16 at 23:00 Levofloxacin (Levaquin) 500 mg QHS PO Last administered on 12/21/16 20:33; Start 12/19/16 at 23:45 Oxycodone HCl (Roxicodone) 10 mg PRN Q4HRS PRN PO SEVERE PAIN Last administered on 12/22/16 05:15; Start 12/20/16 at 06:00 Morphine Sulfate 4 mg 1X ONCE IV Last administered on 12/20/16 06:03; Start at 06:00; Stop 12/20/16 at 06:01; Status DC Alprazolam (Xanax) 0.5 mg PRN Q8HRS PRN PO ANXIETY / AGITATION Last administered on 12/20/16 16:30; Start 12/20/16 at 11:30; Stop 12/20/16 at 23:34; Status DC Amlodipine Besylate (Norvasc) 5 mg DAILY PO Last administered on 12/20/16 12:05 ; Start 12/20/16 at 12:00; Stop 12/20/16 at 21:48; Status DC Aspirin (Children'S Aspirin) 81 mg 1X ONCE PO Last administered on 12/20/16 12 :01; Start 12/20/16 at 12:00; Stop 12/20/16 at 12:01; Status DC Aspirin (Children'S Aspirin) 81 mg DAILYWBKFT PO Last administered on 12/22/16 07:48; Start 12/21/16 at 08:00 Atorvastatin Calcium (Lipitor) 40 mg QHS PO Last administered on 12/21/16 20:33 ; Start 12/20/16 at 21:00 Carvedilol (Coreg) 12.5 mg BIDWMEALS PO ; Start 12/20/16 at 17:00; Stop 12/20/16 at 17:00; Status DC Clopidogrel Bisulfate (Plavix) 75 mg DAILYWBKFT PO ; Start 12/21/16 at 08:00; Stop 12/21/16 at 08:00; Status DC Dabigatran (Pradaxa) 150 mg BID PO Last administered on 12/22/16 07:50; Start 12/20/16 at 12:00 Furosemide (Lasix) 40 mg 1X ONCE IVP Last administered on 12/20/16 12:00; Start 12/20/16 at 12:00; Stop 12/20/16 at 12:01; Status DC Pantoprazole Sodium (Protonix) 40 mg DAILYAC PO Last administered on 12/22/16 07:48; Start 12/20/16 at 12:00 Lisinopril (Prinivil) 20 mg DAILY PO Last administered on 12/20/16 12:05; Start 12/20/16 at 12:00; Stop 12/20/16 at 21:48; Status DC Paroxetine HCl (Paxil) 40 mg [id number] PO Last administered on 12/22/16 05:14; Start 12/20/16 at 18:00 Tizanidine HCl (Zanaflex) 8 mg PRN Q8HRS PRN PO MUSCLE SPASMS; Start 12/20/16 at 11:30 Carvedilol (Coreg) 12.5 mg BIDWMEALS PO Last administered on 12/20/16 16:32; Start 12/20/16 at 08:00; Stop 12/20/16 at 21:52; Status DC Clopidogrel Bisulfate (Plavix) 75 mg DAILYWBKFT PO Last administered on 07:48; Start 12/20/16 at 12:30 Amlodipine Besylate (Norvasc) 5 mg 1X ONCE PO Last administered on 12/20/16 22 :47; Start 12/20/16 at 22:00; Stop 12/20/16 at 22:01; Status DC Amlodipine Besylate (Norvasc) 10 mg DAILY PO Last administered on 12/22/16 07: 48; Start 12/21/16 at 09:00 Carvedilol (Coreg) 12.5 mg 1X ONCE PO Last administered on 12/20/16 22:35; Start 12/20/16 at 22:00; Stop 12/20/16 at 22:01; Status DC Carvedilol (Coreg) 25 mg BIDWMEALS PO Last administered on 12/22/16 07:49; Start 12/21/16 at 08:00 Lisinopril (Prinivil) 20 mg 1X ONCE PO Last administered on 12/20/16 22:33; Start 12/20/16 at 22:00; Stop 12/20/16 at 22:01; Status DC Lisinopril (Prinivil) 40 mg DAILY PO Last administered on 12/22/16 07:50; Start 12/21/16 at 09:00 Clonidine HCl (Catapres) 0.1 mg 1X ONCE PO Last administered on 12/20/16 22:35 ; Start 12/20/16 at 22:00; Stop 12/20/16 at 22:01; Status DC Clonidine HCl (Catapres) 0.1 mg Q8HRS PO Last administered on 12/22/16 05:15; Start 12/20/16 at 22:00 Spironolactone (Aldactone) 25 mg DAILY PO Last administered on 12/22/16 07:48; Start 12/21/16 at 09:00 Furosemide (Lasix) 40 mg 1X ONCE IVP Last administered on 12/20/16 22:34; Start 12/20/16 at 22:00; Stop 12/20/16 at 22:01; Status DC Potassium Chloride (Klor-Con) 30 meq 1X ONCE PO Last administered on 12/20/16 22:34; Start 12/20/16 at 22:15; Stop 12/20/16 at 22:16; Status DC Potassium Chloride (Klor-Con) 20 meq DAILYWBKFT PO Last administered on 07:49; Start 12/21/16 at 08:00 Alprazolam (Xanax) 0.5 mg PRN Q6HRS PRN PO ANXIETY / AGITATION Last administered on 12/21/16 09:04; Start 12/21/16 at 00:15 Albuterol Sulfate (Ventolin Neb Soln) 2.5 mg PRN Q2HR PRN NEB SHORTNESS OF BREATH; Start 12/20/16 at 23:45 Albuterol/ Ipratropium (Duoneb) 3 ml RTQID NEB Last administered on 12/22/16 11 :38; Start 12/21/16 at 12:00 Alprazolam (Xanax) 1 mg Q8H PRN PO ANXIETY / AGITATION Last administered on 12/22 07:49; Start 12/21/16 at 13:15 Alprazolam (Xanax) 1 mg 1X ONCE PO Last administered on 12/21/16 13:38; Start 12/21/16 at 13:15; Stop 12/21/16 at 13:19; Status DC Furosemide (Lasix) 40 mg DAILY IVP Last administered on 12/22/16 07:48; Start 12/22/16 at 09:00 Furosemide (Lasix) 40 mg 1X ONCE IVP Last administered on 12/21/16 14:43; Start 12/21/16 at 14:00; Stop 12/21/16 at 14:02; Status DC Ondansetron HCl (Zofran) 4 mg PRN Q6HRS PRN IV NAUSEA/VOMITING Last administered on 12/21/16 22:07; Start 12/21/16 at 21:30 Docusate Sodium (Colace) 100 mg PRN DAILY PRN PO CONSTIPATION Last administered on 12/22/16 05:14; Start 12/21/16 at 21:30 Active Scripts Active Reported Alphagan P (Brimonidine Tartrate) 5 Ml Drops 1 Drop EACHEYE BID Zanaflex (Tizanidine Hcl) 4 Mg Capsule 4 Mg PO PRN Q8HRS PRN NITRO-DUR 0.4mg/hr (Nitroglycerin) 1 Each Patch.td24 1 Each TD Lovastatin 40 Mg Tablet 40 Mg PO HS Hydralazine Hcl 50 Mg Tablet 1 Tab PO BID Paxil (Paroxetine Hcl) 20 Mg Tablet 1 Tab PO HS Aspirin 81 Mg Tab.chew 1 Tab PO DAILY Clopidogrel (Clopidogrel Bisulfate) 75 Mg Tablet 1 Tab PO DAILY Tizanidine Hcl 4 Mg Tablet 4 Mg PO TID PRN Atorvastatin Calcium 40 Mg Tablet 1 Tab PO DAILY Spironolactone 25 Mg Tablet 1 Tab PO HS Latanoprost 2.5 Ml Drops 1 Drop EACHEYE QHS Pazeo (Olopatadine HCl) 2.5 Ml Drops 2.5 Ml OP DAILY Furosemide 40 Mg Tablet 40 Mg PO [id number] Prevacid (Lansoprazole) 30 Mg Capsule.dr 1 Cap PO DAILY Oxycodone Hcl 10 Mg Tablet 1 Tab PO PRN Q4HRS PRN Lisinopril 40 Mg Tablet 0.5 Tab PO DAILY Coreg (Carvedilol) 25 Mg Tablet 1 Tab PO BIDBFRMEAL Norvasc (Amlodipine Besylate) 10 Mg Tablet 10 Mg PO DAILY Gabapentin 600 Mg Tablet 600 Mg PO QID Baclofen 10 Mg Tablet 1.5 Tab PO QID Xanax (Alprazolam) 0.5 Mg Tablet 1 Tab PO TID Paxil (Paroxetine Hcl) 40 Mg Tablet 1 Tab PO DAILY Clonidine Hcl 0.1 Mg Tablet 0.1 Mg PO BID Flomax (Tamsulosin Hcl) 0.4 Mg Cap.er.24h 0.4 Mg PO HS Pradaxa (Dabigatran Etexilate Mesylate) 150 Mg Capsule 150 Mg PO BID Vitals/I & O Vital Sign - Last 24 Hours 12/21/16 12/21/16 12/21/16 12/21/16 13:32 15:00 16:10 18:14 Temp 97.9 97.9 Pulse 99 103 117 Resp 26 B/P 172/106 158/107 149/100 Pulse Ox 95 O2 Delivery Nasal Cannula Nasal Cannula O2 Flow Rate 5.0 3.0 12/21/16 12/21/16 12/21/16 12/21/16 19:00 19:15 21:03 22:06 Temp 98.1 98.1 Pulse 115 115 Resp 24 B/P 153/102 153/102 Pulse Ox 93 94 O2 Delivery Nasal Cannula Nasal Cannula Nasal Cannula O2 Flow Rate 5.0 5.0 3.0 12/21/16 12/21/16 12/21/16 12/22/16 22:07 23:07 23:13 03:00 Temp 98.1 97.8 98.1 97.8 Pulse 104 87 Resp 24 24 24 24 B/P 145/84 145/85 Pulse Ox 92 93 O2 Delivery Nasal Cannula Nasal Cannula Nasal Cannula O2 Flow Rate 5.0 5.0 5.0 12/22/16 12/22/16 12/22/16 12/22/16 05:15 05:15 06:15 07:00 Temp 98.2 98.2 Pulse 90 89 Resp 24 20 B/P 145/84 140/95 Pulse Ox 92 92 92 O2 Delivery Nasal Cannula Nasal Cannula Nasal Cannula O2 Flow Rate 5.0 5.0 5.0 12/22/16 12/22/16 12/22/16 12/22/16 07:48 07:49 07:50 08:00 Pulse 89 89 89 B/P 140/95 140/95 140/95 O2 Delivery Nasal Cannula O2 Flow Rate 5.0 12/22/16 12/22/16 12/22/16 08:16 11:00 11:42 Temp 98.5 98.5 Pulse 94 Resp 22 B/P 165/112 Pulse Ox 95 90 O2 Delivery Nasal Cannula Nasal Cannula O2 Flow Rate 3.0 5.0 4.0 Intake and Output 12/21/16 12/21/1617 15:00 23:00 07:00 Intake Total 1410 ml 0 ml Output Total 650 ml 1150 ml Balance 760 ml -1150 ml 0 ml SIENA MARTEL MD Dec 22, 2016 12:17
[2016-12-22 15:00] VITALS: BP 163/87
--- NOTE | 2016-12-22 15:52 | PDOC ---
PROGRESS NOTES Subjective Subjective Covering for Dr. Zamudio Patient feels very weak and has some dyspnea. Able to ambulate with physical therapy. Objective Objective Vital Signs Date Time Temp Pulse Resp B/P Pulse Ox O2 Delivery O2 Flow Rate FiO2 12/22/16 15:11 Nasal Cannula 3.0 12/22/16 15:00 98.1 101 14 163/87 97 98.1 Intake and Output 12/22/16 07:00 Intake Total 1410 ml Output Total 1800 ml Balance -390 ml Intake Oral 1410 ml Output Urine Total 1800 ml # Voids 1 Physical Exam Physical Exam No significant changes in cardiac exam Assessment Assessment Acute CHF improving. Home soon. Problems Medical Problems: (1) CHF exacerbation Status: Acute (2) Influenza B Status: Acute Comment Review of Relevant I have reviewed the following items rosas (where applicable) has been applied. Labs Laboratory Tests Test 12/21/16 10:20 Sodium Level 145mmol/L (136-145) Potassium Level 4.0mmol/L (3.5-5.1) Chloride Level 107mmol/L (98-107) Carbon Dioxide Level 30mmol/L (21-32) Anion Gap 8 (6-14) Blood Urea Nitrogen 18mg/dL (8-26) Creatinine 1.2mg/dL (0.7-1.3) Estimated GFR (Cockcroft-Gault) 72.9 BUN/Creatinine Ratio 15 (6-20) Glucose Level 178mg/dL (70-99) Calcium Level 9.5mg/dL (8.5-10.1) Magnesium Level 1.7mg/dL (1.8-2.4) Total Bilirubin 1.4mg/dL (0.2-1.0) Aspartate Amino Transf (AST/SGOT) 12U/L (15-37) Alanine Aminotransferase (ALT/SGPT) 20U/L (16-63) Alkaline Phosphatase 64U/L (46-116) Total Protein 6.9g/dL (6.4-8.2) Albumin 3.1g/dL (3.4-5.0) Albumin/Globulin Ratio 0.8 (1.0-1.7) Microbiology 12/19/16 Blood Culture - Preliminary, Resulted NO GROWTH AFTER 2 DAYS Medications Current Medications Albuterol/ Ipratropium (Duoneb) 3 ml 1X ONCE NEB Last administered on 17:42; Start 12/19/16 at 17:15; Stop 12/19/16 at 17:16; Status DC Furosemide (Lasix) 40 mg 1X ONCE IVP Last administered on 12/19/16 18:36; Start 12/19/16 at 18:30; Stop 12/19/16 at 18:31; Status DC Ondansetron HCl (Zofran) 4 mg PRN Q8HRS PRN IV NAUSEA/VOMITING; Start 12/19/16 at 18:30; Stop 12/20/16 at 18:29; Status DC Albuterol/ Ipratropium 3 ml 3 ml RTQID NEB Last administered on 12/21/16 07:29 ; Start 12/19/16 at 20:00; Stop 12/20/16 at 19:59; Status DC Ceftriaxone Sodium (Rocephin 1gm Ivpb For Omni) 50 ml @ 100 mls/hr DAILY IV ; Start 12/19/16 at 22:30; Status UNV Oseltamivir Phosphate (Tamiflu) 75 mg BID PO Last administered on 12/22/16 07: 48; Start 12/19/16 at 23:00; Stop 12/24/16 at 22:59 Levofloxacin 750 mg 750 mg QHS PO ; Start 12/19/16 at 23:00; Stop 12/19/16 at 23: 13; Status DC Ceftriaxone Sodium/Sodium Chloride (Rocephin/Iv Sodium Chloride 0.9% 50ml) 50 ml @ 100 mls/hr Q24H IV Last administered on 12/21/16 22:06; Start 12/19/16 at 23:00 Levofloxacin (Levaquin) 500 mg QHS PO Last administered on 12/21/16 20:33; Start 12/19/16 at 23:45 Oxycodone HCl (Roxicodone) 10 mg PRN Q4HRS PRN PO SEVERE PAIN Last administered on 12/22/16 05:15; Start 12/20/16 at 06:00 Morphine Sulfate 4 mg 1X ONCE IV Last administered on 12/20/16 06:03; Start at 06:00; Stop 12/20/16 at 06:01; Status DC Alprazolam (Xanax) 0.5 mg PRN Q8HRS PRN PO ANXIETY / AGITATION Last administered on 12/20/16 16:30; Start 12/20/16 at 11:30; Stop 12/20/16 at 23:34; Status DC Amlodipine Besylate (Norvasc) 5 mg DAILY PO Last administered on 12/20/16 12:05 ; Start 12/20/16 at 12:00; Stop 12/20/16 at 21:48; Status DC Aspirin (Children'S Aspirin) 81 mg 1X ONCE PO Last administered on 12/20/16 12 :01; Start 12/20/16 at 12:00; Stop 12/20/16 at 12:01; Status DC Aspirin (Children'S Aspirin) 81 mg DAILYWBKFT PO Last administered on 12/22/16 07:48; Start 12/21/16 at 08:00 Atorvastatin Calcium (Lipitor) 40 mg QHS PO Last administered on 12/21/16 20:33 ; Start 12/20/16 at 21:00 Carvedilol (Coreg) 12.5 mg BIDWMEALS PO ; Start 12/20/16 at 17:00; Stop 12/20/16 at 17:00; Status DC Clopidogrel Bisulfate (Plavix) 75 mg DAILYWBKFT PO ; Start 12/21/16 at 08:00; Stop 12/21/16 at 08:00; Status DC Dabigatran (Pradaxa) 150 mg BID PO Last administered on 12/22/16 07:50; Start 12/20/16 at 12:00 Furosemide (Lasix) 40 mg 1X ONCE IVP Last administered on 12/20/16 12:00; Start 12/20/16 at 12:00; Stop 12/20/16 at 12:01; Status DC Pantoprazole Sodium (Protonix) 40 mg DAILYAC PO Last administered on 12/22/16 07:48; Start 12/20/16 at 12:00 Lisinopril (Prinivil) 20 mg DAILY PO Last administered on 12/20/16 12:05; Start 12/20/16 at 12:00; Stop 12/20/16 at 21:48; Status DC Paroxetine HCl (Paxil) 40 mg [id number] PO Last administered on 12/22/16 05:14; Start 12/20/16 at 18:00 Tizanidine HCl (Zanaflex) 8 mg PRN Q8HRS PRN PO MUSCLE SPASMS; Start 12/20/16 at 11:30 Carvedilol (Coreg) 12.5 mg BIDWMEALS PO Last administered on 12/20/16 16:32; Start 12/20/16 at 08:00; Stop 12/20/16 at 21:52; Status DC Clopidogrel Bisulfate (Plavix) 75 mg DAILYWBKFT PO Last administered on 07:48; Start 12/20/16 at 12:30 Amlodipine Besylate (Norvasc) 5 mg 1X ONCE PO Last administered on 12/20/16 22 :47; Start 12/20/16 at 22:00; Stop 12/20/16 at 22:01; Status DC Amlodipine Besylate (Norvasc) 10 mg DAILY PO Last administered on 12/22/16 07: 48; Start 12/21/16 at 09:00 Carvedilol (Coreg) 12.5 mg 1X ONCE PO Last administered on 12/20/16 22:35; Start 12/20/16 at 22:00; Stop 12/20/16 at 22:01; Status DC Carvedilol (Coreg) 25 mg BIDWMEALS PO Last administered on 12/22/16 07:49; Start 12/21/16 at 08:00 Lisinopril (Prinivil) 20 mg 1X ONCE PO Last administered on 12/20/16 22:33; Start 12/20/16 at 22:00; Stop 12/20/16 at 22:01; Status DC Lisinopril (Prinivil) 40 mg DAILY PO Last administered on 12/22/16 07:50; Start 12/21/16 at 09:00 Clonidine HCl (Catapres) 0.1 mg 1X ONCE PO Last administered on 12/20/16 22:35 ; Start 12/20/16 at 22:00; Stop 12/20/16 at 22:01; Status DC Clonidine HCl (Catapres) 0.1 mg Q8HRS PO Last administered on 12/22/16 05:15; Start 12/20/16 at 22:00 Spironolactone (Aldactone) 25 mg DAILY PO Last administered on 12/22/16 07:48; Start 12/21/16 at 09:00 Furosemide (Lasix) 40 mg 1X ONCE IVP Last administered on 12/20/16 22:34; Start 12/20/16 at 22:00; Stop 12/20/16 at 22:01; Status DC Potassium Chloride (Klor-Con) 30 meq 1X ONCE PO Last administered on 12/20/16 22:34; Start 12/20/16 at 22:15; Stop 12/20/16 at 22:16; Status DC Potassium Chloride (Klor-Con) 20 meq DAILYWBKFT PO Last administered on 07:49; Start 12/21/16 at 08:00 Alprazolam (Xanax) 0.5 mg PRN Q6HRS PRN PO ANXIETY / AGITATION Last administered on 12/21/16 09:04; Start 12/21/16 at 00:15 Albuterol Sulfate (Ventolin Neb Soln) 2.5 mg PRN Q2HR PRN NEB SHORTNESS OF BREATH; Start 12/20/16 at 23:45 Albuterol/ Ipratropium (Duoneb) 3 ml RTQID NEB Last administered on 12/22/16 15 :09; Start 12/21/16 at 12:00 Alprazolam (Xanax) 1 mg Q8H PRN PO ANXIETY / AGITATION Last administered on 12/22 07:49; Start 12/21/16 at 13:15 Alprazolam (Xanax) 1 mg 1X ONCE PO Last administered on 12/21/16 13:38; Start 12/21/16 at 13:15; Stop 12/21/16 at 13:19; Status DC Furosemide (Lasix) 40 mg DAILY IVP Last administered on 12/22/16 07:48; Start 12/22/16 at 09:00 Furosemide (Lasix) 40 mg 1X ONCE IVP Last administered on 12/21/16 14:43; Start 12/21/16 at 14:00; Stop 12/21/16 at 14:02; Status DC Ondansetron HCl (Zofran) 4 mg PRN Q6HRS PRN IV NAUSEA/VOMITING Last administered on 12/21/16 22:07; Start 12/21/16 at 21:30 Docusate Sodium (Colace) 100 mg PRN DAILY PRN PO CONSTIPATION Last administered on 12/22/16t 05:14; Start 12/21/16 at 21:30 Active Scripts Active Reported Alphagan P (Brimonidine Tartrate) 5 Ml Drops 1 Drop EACHEYE BID Zanaflex (Tizanidine Hcl) 4 Mg Capsule 4 Mg PO PRN Q8HRS PRN NITRO-DUR 0.4mg/hr (Nitroglycerin) 1 Each Patch.td24 1 Each TD Lovastatin 40 Mg Tablet 40 Mg PO HS Hydralazine Hcl 50 Mg Tablet 1 Tab PO BID Paxil (Paroxetine Hcl) 20 Mg Tablet 1 Tab PO HS Aspirin 81 Mg Tab.chew 1 Tab PO DAILY Clopidogrel (Clopidogrel Bisulfate) 75 Mg Tablet 1 Tab PO DAILY Tizanidine Hcl 4 Mg Tablet 4 Mg PO TID PRN Atorvastatin Calcium 40 Mg Tablet 1 Tab PO DAILY Spironolactone 25 Mg Tablet 1 Tab PO HS Latanoprost 2.5 Ml Drops 1 Drop EACHEYE QHS Pazeo (Olopatadine HCl) 2.5 Ml Drops 2.5 Ml OP DAILY Furosemide 40 Mg Tablet 40 Mg PO [id number] Prevacid (Lansoprazole) 30 Mg Capsule.dr 1 Cap PO DAILY Oxycodone Hcl 10 Mg Tablet 1 Tab PO PRN Q4HRS PRN Lisinopril 40 Mg Tablet 0.5 Tab PO DAILY Coreg (Carvedilol) 25 Mg Tablet 1 Tab PO BIDBFRMEAL Norvasc (Amlodipine Besylate) 10 Mg Tablet 10 Mg PO DAILY Gabapentin 600 Mg Tablet 600 Mg PO QID Baclofen 10 Mg Tablet 1.5 Tab PO QID Xanax (Alprazolam) 0.5 Mg Tablet 1 Tab PO TID Paxil (Paroxetine Hcl) 40 Mg Tablet 1 Tab PO DAILY Clonidine Hcl 0.1 Mg Tablet 0.1 Mg PO BID Flomax (Tamsulosin Hcl) 0.4 Mg Cap.er.24h 0.4 Mg PO HS Pradaxa (Dabigatran Etexilate Mesylate) 150 Mg Capsule 150 Mg PO BID Vitals/I & O Vital Sign - Last 24 Hours 12/21/16 12/21/16 12/21/16 12/21/16 16:10 18:14 19:00 19:15 Temp 98.1 98.1 Pulse 117 115 Resp 24 B/P 149/100 153/102 Pulse Ox 95 93 O2 Delivery Nasal Cannula Nasal Cannula Nasal Cannula O2 Flow Rate 3.0 5.0 5.0 12/21/16 12/21/16 12/21/16 12/21/16 21:03 22:06 22:07 23:07 Pulse 115 Resp 24 24 B/P 153/102 Pulse Ox 94 O2 Delivery Nasal Cannula Nasal Cannula O2 Flow Rate 3.0 5.0 12/21/16 12/22/16 12/22/16 12/22/16 23:13 03:00 05:15 05:15 Temp 98.1 97.8 98.1 97.8 Pulse 104 87 90 Resp 24 24 B/P 145/84 145/85 145/84 Pulse Ox 92 93 92 O2 Delivery Nasal Cannula Nasal Cannula Nasal Cannula O2 Flow Rate 5.0 5.0 5.0 12/22/16 12/22/16 12/22/16 12/22/16 06:15 07:00 07:48 07:49 Temp 98.2 98.2 Pulse 89 89 89 Resp 20 B/P 140/95 140/95 140/95 Pulse Ox 92 92 O2 Delivery Nasal Cannula Nasal Cannula O2 Flow Rate 5.0 5.0 12/22/16 12/22/16 12/22/16 12/22/16 07:50 08:00 08:16 11:00 Temp 98.5 98.5 Pulse 89 94 Resp 22 B/P 140/95 165/112 Pulse Ox 95 90 O2 Delivery Nasal Cannula Nasal Cannula O2 Flow Rate 5.0 3.0 5.0 12/22/16 12/22/16 12/22/16 11:42 15:00 15:11 Temp 98.1 98.1 Pulse 101 Resp 14 B/P 163/87 Pulse Ox 97 O2 Delivery Nasal Cannula Nasal Cannula Nasal Cannula O2 Flow Rate 4.0 5.0 3.0 Intake and Output 12/21/16 12/21/16 12/22/16 15:00 23:00 07:00 Intake Total 1410 ml 0 ml Output Total 650 ml 1150 ml Balance 760 ml -1150 ml 0 ml REYNA WHITEHEAD MD Dec 22, 2016 15:52
[2016-12-22 19:00] VITALS: BP 134/90
[2016-12-22] MEDS: ATORVASTATIN CALCIUM 40 MG TABLET. PO SCH (20:53)
[2016-12-22] MEDS: LEVOFLOXACIN 500 MG TABLET PO SCH (20:54)
[2016-12-22] MEDS: CEFTRIAXONE SODIUM 1 GM in IV NORMAL SALINE 50ML 50 ML IV SCH (22:03)
[2016-12-22 22:43] VITALS: BP 137/93
[2016-12-23 03:00] VITALS: BP 157/101
[2016-12-23] MEDS: CLONIDINE HCL 0.1 MG TABLET PO SCH ×2 (04:59→13:16)
[2016-12-23] MEDS: PAROXETINE 20 MG TABLET. PO SCH (05:00)
[2016-12-23] MEDS: DOCUSATE SODIUM 100 MG CAPSULE PO PRN (05:00)
[2016-12-23] MEDS: OXYCODONE IR 5 MG TABLET. PO PRN ×2 (05:00→10:18)
[2016-12-23 07:00] VITALS: BP 146/68
[2016-12-23] MEDS: DABIGATRAN ETEXILATE 150 MG CAPSULE. PO SCH (07:58)
[2016-12-23] MEDS: IPRATRPIUM/ALBUTEROL 0.5/2.5MG 3 ML NEBU. NEB SCH ×3 (08:04→16:00)
--- NOTE | 2016-12-23 09:21 | PDOC ---
PROGRESS NOTES Subjective Subjective Covering for Dr. Zamudio Patient says he is breathing 100% better, would like to go home. States he does not feel he will get any better by staying in hospital. Denies dyspnea, fevers/ chills. Continues to use 3L oxygen by nasal canula, which he does not use at home. Patient denies any cardiac complaints. Objective Objective Vital Signs Date Time Temp Pulse Resp B/P Pulse Ox O2 Delivery O2 Flow Rate FiO2 12/23/16 08:05 96 Nasal Cannula 3.0 12/23/16 07:00 97.7 85 16 146/68 97.7 Intake and Output 12/23/16 07:00 Intake Total 1070 ml Output Total 1025 ml Balance 45 ml Intake Oral 1070 ml Output Urine Total 1025 ml Physical Exam Physical Exam No significant changes in cardiac exam Abdomen: No tenderness General: Alert, Cooperative, No acute distress Lungs: Clear to auscultation Assessment Assessment Problems Medical Problems: (1) CHF exacerbation Status: Acute (2) Influenza B Status: Acute Comment Review of Relevant I have reviewed the following items rosas (where applicable) has been applied. Labs Laboratory Tests Test 12/21/16 10:20 Sodium Level 145mmol/L (136-145) Potassium Level 4.0mmol/L (3.5-5.1) Chloride Level 107mmol/L (98-107) Carbon Dioxide Level 30mmol/L (21-32) Anion Gap 8 (6-14) Blood Urea Nitrogen 18mg/dL (8-26) Creatinine 1.2mg/dL (0.7-1.3) Estimated GFR (Cockcroft-Gault) 72.9 BUN/Creatinine Ratio 15 (6-20) Glucose Level 178mg/dL (70-99) Calcium Level 9.5mg/dL (8.5-10.1) Magnesium Level 1.7mg/dL (1.8-2.4) Total Bilirubin 1.4mg/dL (0.2-1.0) Aspartate Amino Transf (AST/SGOT) 12U/L (15-37) Alanine Aminotransferase (ALT/SGPT) 20U/L (16-63) Alkaline Phosphatase 64U/L (46-116) Total Protein 6.9g/dL (6.4-8.2) Albumin 3.1g/dL (3.4-5.0) Albumin/Globulin Ratio 0.8 (1.0-1.7) Microbiology 12/19/16 Blood Culture - Preliminary, Resulted NO GROWTH AFTER 3 DAYS Medications Current Medications Albuterol/ Ipratropium (Duoneb) 3 ml 1X ONCE NEB Last administered on 17:42; Start 12/19/16 at 17:15; Stop 12/19/16 at 17:16; Status DC Furosemide (Lasix) 40 mg 1X ONCE IVP Last administered on 12/19/16 18:36; Start 12/19/16 at 18:30; Stop 12/19/16 at 18:31; Status DC Ondansetron HCl (Zofran) 4 mg PRN Q8HRS PRN IV NAUSEA/VOMITING; Start 12/19/16 at 18:30; Stop 12/20/16 at 18:29; Status DC Albuterol/ Ipratropium 3 ml 3 ml RTQID NEB Last administered on 12/21/16 07:29 ; Start 12/19/16 at 20:00; Stop 12/20/16 at 19:59; Status DC Ceftriaxone Sodium (Rocephin 1gm Ivpb For Omni) 50 ml @ 100 mls/hr DAILY IV ; Start 12/19/16 at 22:30; Status UNV Oseltamivir Phosphate (Tamiflu) 75 mg BID PO Last administered on 12/22/16 20: 53; Start 12/19/16 at 23:00; Stop 12/24/16 at 22:59 Levofloxacin 750 mg 750 mg QHS PO ; Start 12/19/16 at 23:00; Stop 12/19/16 at 23: 13; Status DC Ceftriaxone Sodium/Sodium Chloride (Rocephin/Iv Sodium Chloride 0.9% 50ml) 50 ml @ 100 mls/hr Q24H IV Last administered on 12/22/16 22:03; Start 12/19/16 at 23:00 Levofloxacin (Levaquin) 500 mg QHS PO Last administered on 12/22/16 20:54; Start 12/19/16 at 23:45 Oxycodone HCl (Roxicodone) 10 mg PRN Q4HRS PRN PO SEVERE PAIN Last administered on 12/23/16 05:00; Start 12/20/16 at 06:00 Morphine Sulfate 4 mg 1X ONCE IV Last administered on 12/20/16 06:03; Start at 06:00; Stop 12/20/16 at 06:01; Status DC Alprazolam (Xanax) 0.5 mg PRN Q8HRS PRN PO ANXIETY / AGITATION Last administered on 12/20/16 16:30; Start 12/20/16 at 11:30; Stop 12/20/16 at 23:34; Status DC Amlodipine Besylate (Norvasc) 5 mg DAILY PO Last administered on 12/20/16 12:05 ; Start 12/20/16 at 12:00; Stop 12/20/16 at 21:48; Status DC Aspirin (Children'S Aspirin) 81 mg 1X ONCE PO Last administered on 12/20/16 12 :01; Start 12/20/16 at 12:00; Stop 12/20/16 at 12:01; Status DC Aspirin (Children'S Aspirin) 81 mg DAILYWBKFT PO Last administered on 12/22/16 07:48; Start 12/21/16 at 08:00 Atorvastatin Calcium (Lipitor) 40 mg QHS PO Last administered on 12/22/16 20:53 ; Start 12/20/16 at 21:00 Carvedilol (Coreg) 12.5 mg BIDWMEALS PO ; Start 12/20/16 at 17:00; Stop 12/20/16 at 17:00; Status DC Clopidogrel Bisulfate (Plavix) 75 mg DAILYWBKFT PO ; Start 12/21/16 at 08:00; Stop 12/21/16 at 08:00; Status DC Dabigatran (Pradaxa) 150 mg BID PO Last administered on 12/22/16 20:53; Start 12/20/16 at 12:00 Furosemide (Lasix) 40 mg 1X ONCE IVP Last administered on 12/20/16 12:00; Start 12/20/16 at 12:00; Stop 12/20/16 at 12:01; Status DC Pantoprazole Sodium (Protonix) 40 mg DAILYAC PO Last administered on 12/22/16 07:48; Start 12/20/16 at 12:00 Lisinopril (Prinivil) 20 mg DAILY PO Last administered on 12/20/16 12:05; Start 12/20/16 at 12:00; Stop 12/20/16 at 21:48; Status DC Paroxetine HCl (Paxil) 40 mg [id number] PO Last administered on 12/23/16 05:00; Start 12/20/16 at 18:00 Tizanidine HCl (Zanaflex) 8 mg PRN Q8HRS PRN PO MUSCLE SPASMS; Start 12/20/16 at 11:30 Carvedilol (Coreg) 12.5 mg BIDWMEALS PO Last administered on 12/20/16 16:32; Start 12/20/16 at 08:00; Stop 12/20/16 at 21:52; Status DC Clopidogrel Bisulfate (Plavix) 75 mg DAILYWBKFT PO Last administered on 07:48; Start 12/20/16 at 12:30 Amlodipine Besylate (Norvasc) 5 mg 1X ONCE PO Last administered on 12/20/16 22 :47; Start 12/20/16 at 22:00; Stop 12/20/16 at 22:01; Status DC Amlodipine Besylate (Norvasc) 10 mg DAILY PO Last administered on 12/22/16 07: 48; Start 12/21/16 at 09:00 Carvedilol (Coreg) 12.5 mg 1X ONCE PO Last administered on 12/20/16 22:35; Start 12/20/16 at 22:00; Stop 12/20/16 at 22:01; Status DC Carvedilol (Coreg) 25 mg BIDWMEALS PO Last administered on 12/22/16 17:54; Start 12/21/16 at 08:00 Lisinopril (Prinivil) 20 mg 1X ONCE PO Last administered on 12/20/16 22:33; Start 12/20/16 at 22:00; Stop 12/20/16 at 22:01; Status DC Lisinopril (Prinivil) 40 mg DAILY PO Last administered on 12/22/16 07:50; Start 12/21/16 at 09:00 Clonidine HCl (Catapres) 0.1 mg 1X ONCE PO Last administered on 12/20/16 22:35 ; Start 12/20/16 at 22:00; Stop 12/20/16 at 22:01; Status DC Clonidine HCl (Catapres) 0.1 mg Q8HRS PO Last administered on 12/23/16 04:59; Start 12/20/16 at 22:00 Spironolactone (Aldactone) 25 mg DAILY PO Last administered on 12/22/16 07:48; Start 12/21/16 at 09:00 Furosemide (Lasix) 40 mg 1X ONCE IVP Last administered on 12/20/16 22:34; Start 12/20/16 at 22:00; Stop 12/20/16 at 22:01; Status DC Potassium Chloride (Klor-Con) 30 meq 1X ONCE PO Last administered on 12/20/16 22:34; Start 12/20/16 at 22:15; Stop 12/20/16 at 22:16; Status DC Potassium Chloride (Klor-Con) 20 meq DAILYWBKFT PO Last administered on 07:49; Start 12/21/16 at 08:00 Alprazolam (Xanax) 0.5 mg PRN Q6HRS PRN PO ANXIETY / AGITATION Last administered on 12/21/16 09:04; Start 12/21/16 at 00:15 Albuterol Sulfate (Ventolin Neb Soln) 2.5 mg PRN Q2HR PRN NEB SHORTNESS OF BREATH; Start 12/20/16 at 23:45 Albuterol/ Ipratropium (Duoneb) 3 ml RTQID NEB Last administered on 12/23/16 08 :04; Start 12/21/16 at 12:00 Alprazolam (Xanax) 1 mg Q8H PRN PO ANXIETY / AGITATION Last administered on 12/22 22:03; Start 12/21/16 at 13:15 Alprazolam (Xanax) 1 mg 1X ONCE PO Last administered on 12/21/16 13:38; Start 12/21/16 at 13:15; Stop 12/21/16 at 13:19; Status DC Furosemide (Lasix) 40 mg DAILY IVP Last administered on 12/22/16 07:48; Start 12/22/16 at 09:00 Furosemide (Lasix) 40 mg 1X ONCE IVP Last administered on 12/21/16 14:43; Start 12/21/16 at 14:00; Stop 12/21/16 at 14:02; Status DC Ondansetron HCl (Zofran) 4 mg PRN Q6HRS PRN IV NAUSEA/VOMITING Last administered on 12/21/16 22:07; Start 12/21/16 at 21:30 Docusate Sodium (Colace) 100 mg PRN DAILY PRN PO CONSTIPATION Last administered on 12/23/16 05:00; Start 12/21/16 at 21:30 Active Scripts Active Reported Alphagan P (Brimonidine Tartrate) 5 Ml Drops 1 Drop EACHEYE BID Zanaflex (Tizanidine Hcl) 4 Mg Capsule 4 Mg PO PRN Q8HRS PRN NITRO-DUR 0.4mg/hr (Nitroglycerin) 1 Each Patch.td24 1 Each TD Lovastatin 40 Mg Tablet 40 Mg PO HS Hydralazine Hcl 50 Mg Tablet 1 Tab PO BID Paxil (Paroxetine Hcl) 20 Mg Tablet 1 Tab PO HS Aspirin 81 Mg Tab.chew 1 Tab PO DAILY Clopidogrel (Clopidogrel Bisulfate) 75 Mg Tablet 1 Tab PO DAILY Tizanidine Hcl 4 Mg Tablet 4 Mg PO TID PRN Atorvastatin Calcium 40 Mg Tablet 1 Tab PO DAILY Spironolactone 25 Mg Tablet 1 Tab PO HS Latanoprost 2.5 Ml Drops 1 Drop EACHEYE QHS Pazeo (Olopatadine HCl) 2.5 Ml Drops 2.5 Ml OP DAILY Furosemide 40 Mg Tablet 40 Mg PO [id number] Prevacid (Lansoprazole) 30 Mg Capsule.dr 1 Cap PO DAILY Oxycodone Hcl 10 Mg Tablet 1 Tab PO PRN Q4HRS PRN Lisinopril 40 Mg Tablet 0.5 Tab PO DAILY Coreg (Carvedilol) 25 Mg Tablet 1 Tab PO BIDBFRMEAL Norvasc (Amlodipine Besylate) 10 Mg Tablet 10 Mg PO DAILY Gabapentin 600 Mg Tablet 600 Mg PO QID Baclofen 10 Mg Tablet 1.5 Tab PO QID Xanax (Alprazolam) 0.5 Mg Tablet 1 Tab PO TID Paxil (Paroxetine Hcl) 40 Mg Tablet 1 Tab PO DAILY Clonidine Hcl 0.1 Mg Tablet 0.1 Mg PO BID Flomax (Tamsulosin Hcl) 0.4 Mg Cap.er.24h 0.4 Mg PO HS Pradaxa (Dabigatran Etexilate Mesylate) 150 Mg Capsule 150 Mg PO BID Vitals/I & O Vital Sign - Last 24 Hours 12/22/16 12/22/16 12/22/16 12/22/16 11:00 11:42 15:00 15:11 Temp 98.5 98.1 98.5 98.1 Pulse 94 101 Resp 22 14 B/P 165/112 163/87 Pulse Ox 90 97 O2 Delivery Nasal Cannula Nasal Cannula Nasal Cannula O2 Flow Rate 5.0 4.0 5.0 3.0 12/22/16 12/22/16 12/22/16 12/22/16 15:44 15:50 17:54 19:00 Temp 98.0 98.0 Pulse 101 101 98 Resp 18 B/P 163/87 163/87 134/90 Pulse Ox 95 O2 Delivery Nasal Cannula Nasal Cannula O2 Flow Rate 5.0 4.0 12/22/16 12/22/16 12/22/16 12/22/16 19:05 19:40 22:03 22:04 Pulse 98 Resp 20 B/P 134/90 Pulse Ox 99 95 O2 Delivery Nasal Cannula Nasal Cannula Nasal Cannula O2 Flow Rate 4.0 4.0 5.0 12/22/16 12/23/16 12/23/16 12/23/16 22:43 03:00 04:59 05:00 Temp 98.4 98.0 98.4 98.0 Pulse 96 96 96 Resp 20 20 20 B/P 137/93 157/101 157/101 Pulse Ox 96 96 95 O2 Delivery Nasal Cannula Nasal Cannula Nasal Cannula O2 Flow Rate 5.0 5.0 5.0 12/23/16 12/23/16 12/23/16 12/23/16 06:00 07:00 08:00 08:05 Temp 97.7 97.7 Pulse 85 Resp 24 16 B/P 146/68 Pulse Ox 95 96 96 O2 Delivery Nasal Cannula Nasal Cannula Nasal Cannula Nasal Cannula O2 Flow Rate 5.0 5.0 5.0 3.0 Intake and Output 12/22/16 12/22/16 12/23/16 15:00 23:00 07:00 Intake Total 470 ml 600 ml Output Total 650 ml 200 ml 175 ml Balance -650 ml 270 ml 425 ml REYNA WHITEHEAD MD Dec 23, 2016 09:21
--- NOTE | 2016-12-23 10:09 | PDOC ---
PROGRESS NOTES Chief Complaint Chief Complaint 1. Influenza type B. 2. Acute bronchitis in a smoker. 3. Nonischemic cardiomyopathy. 4. Congestive cardiac failure, probably precipitated by the influenza. 5. Chronic atrial fibrillation. 6. Severe coronary artery disease with recent stent placements. 7. Severe lumbar spondylosis. History of Present Illness History of Present Illness Breathing better Doing well GEtting IV lasix Also getting tamiflu- Flu positive Planned for cardioversion? PT recs home independent Plan; per primary service WIll follow along with u NO new recs today Dw RN and pt Vitals Vitals Vital Signs Date Time Temp Pulse Resp B/P Pulse Ox O2 Delivery O2 Flow Rate FiO2 12/23/16 08:05 96 Nasal Cannula 3.0 12/23/16 07:00 97.7 85 16 146/68 97.7 Physical Exam General: Alert, Cooperative, No acute distress Heart: Regular rate, No murmurs Abdomen: No tenderness Extremities: No clubbing Skin: No rashes, No breakdown Review of Systems Review of Systems no soa, cp or emesis Assessment and Plan Assessmemt and Plan Problems Medical Problems: (1) CHF exacerbation Status: Acute (2) Influenza B Status: Acute Problems: Comment Review of Relevant I have reviewed the following items rosas (where applicable) has been applied. Labs Laboratory Tests Test 12/21/16 10:20 Sodium Level 145mmol/L (136-145) Potassium Level 4.0mmol/L (3.5-5.1) Chloride Level 107mmol/L (98-107) Carbon Dioxide Level 30mmol/L (21-32) Anion Gap 8 (6-14) Blood Urea Nitrogen 18mg/dL (8-26) Creatinine 1.2mg/dL (0.7-1.3) Estimated GFR (Cockcroft-Gault) 72.9 BUN/Creatinine Ratio 15 (6-20) Glucose Level 178mg/dL (70-99) Calcium Level 9.5mg/dL (8.5-10.1) Magnesium Level 1.7mg/dL (1.8-2.4) Total Bilirubin 1.4mg/dL (0.2-1.0) Aspartate Amino Transf (AST/SGOT) 12U/L (15-37) Alanine Aminotransferase (ALT/SGPT) 20U/L (16-63) Alkaline Phosphatase 64U/L (46-116) Total Protein 6.9g/dL (6.4-8.2) Albumin 3.1g/dL (3.4-5.0) Albumin/Globulin Ratio 0.8 (1.0-1.7) Microbiology 12/19/16 Blood Culture - Preliminary, Resulted NO GROWTH AFTER 3 DAYS Medications Current Medications Albuterol/ Ipratropium (Duoneb) 3 ml 1X ONCE NEB Last administered on 17:42; Start 12/19/16 at 17:15; Stop 12/19/16 at 17:16; Status DC Furosemide (Lasix) 40 mg 1X ONCE IVP Last administered on 12/19/16 18:36; Start 12/19/16 at 18:30; Stop 12/19/16 at 18:31; Status DC Ondansetron HCl (Zofran) 4 mg PRN Q8HRS PRN IV NAUSEA/VOMITING; Start 12/19/16 at 18:30; Stop 12/20/16 at 18:29; Status DC Albuterol/ Ipratropium 3 ml 3 ml RTQID NEB Last administered on 12/21/16 07:29 ; Start 12/19/16 at 20:00; Stop 12/20/16 at 19:59; Status DC Ceftriaxone Sodium (Rocephin 1gm Ivpb For Omni) 50 ml @ 100 mls/hr DAILY IV ; Start 12/19/16 at 22:30; Status UNV Oseltamivir Phosphate (Tamiflu) 75 mg BID PO Last administered on 12/22/16 20: 53; Start 12/19/16 at 23:00; Stop 12/24/16 at 22:59 Levofloxacin 750 mg 750 mg QHS PO ; Start 12/19/16 at 23:00; Stop 12/19/16 at 23: 13; Status DC Ceftriaxone Sodium/Sodium Chloride (Rocephin/Iv Sodium Chloride 0.9% 50ml) 50 ml @ 100 mls/hr Q24H IV Last administered on 12/22/16 22:03; Start 12/19/16 at 23:00 Levofloxacin (Levaquin) 500 mg QHS PO Last administered on 12/22/16 20:54; Start 12/19/16 at 23:45 Oxycodone HCl (Roxicodone) 10 mg PRN Q4HRS PRN PO SEVERE PAIN Last administered on 12/23/16 05:00; Start 12/20/16 at 06:00 Morphine Sulfate 4 mg 1X ONCE IV Last administered on 12/20/16 06:03; Start at 06:00; Stop 12/20/16 at 06:01; Status DC Alprazolam (Xanax) 0.5 mg PRN Q8HRS PRN PO ANXIETY / AGITATION Last administered on 12/20/16 16:30; Start 12/20/16 at 11:30; Stop 12/20/16 at 23:34; Status DC Amlodipine Besylate (Norvasc) 5 mg DAILY PO Last administered on 12/20/16 12:05 ; Start 12/20/16 at 12:00; Stop 12/20/16 at 21:48; Status DC Aspirin (Children'S Aspirin) 81 mg 1X ONCE PO Last administered on 12/20/16 12 :01; Start 12/20/16 at 12:00; Stop 12/20/16 at 12:01; Status DC Aspirin (Children'S Aspirin) 81 mg DAILYWBKFT PO Last administered on 12/22/16 07:48; Start 12/21/16 at 08:00 Atorvastatin Calcium (Lipitor) 40 mg QHS PO Last administered on 12/22/16 20:53 ; Start 12/20/16 at 21:00 Carvedilol (Coreg) 12.5 mg BIDWMEALS PO ; Start 12/20/16 at 17:00; Stop 12/20/16 at 17:00; Status DC Clopidogrel Bisulfate (Plavix) 75 mg DAILYWBKFT PO ; Start 12/21/16 at 08:00; Stop 12/21/16 at 08:00; Status DC Dabigatran (Pradaxa) 150 mg BID PO Last administered on 12/22/16 20:53; Start 12/20/16 at 12:00 Furosemide (Lasix) 40 mg 1X ONCE IVP Last administered on 12/20/16 12:00; Start 12/20/16 at 12:00; Stop 12/20/16 at 12:01; Status DC Pantoprazole Sodium (Protonix) 40 mg DAILYAC PO Last administered on 12/22/16 07:48; Start 12/20/16 at 12:00 Lisinopril (Prinivil) 20 mg DAILY PO Last administered on 12/20/16 12:05; Start 12/20/16 at 12:00; Stop 12/20/16 at 21:48; Status DC Paroxetine HCl (Paxil) 40 mg [id number] PO Last administered on 12/23/16 05:00; Start 12/20/16 at 18:00 Tizanidine HCl (Zanaflex) 8 mg PRN Q8HRS PRN PO MUSCLE SPASMS; Start 12/20/16 at 11:30 Carvedilol (Coreg) 12.5 mg BIDWMEALS PO Last administered on 12/20/16 16:32; Start 12/20/16 at 08:00; Stop 12/20/16 at 21:52; Status DC Clopidogrel Bisulfate (Plavix) 75 mg DAILYWBKFT PO Last administered on 07:48; Start 12/20/16 at 12:30 Amlodipine Besylate (Norvasc) 5 mg 1X ONCE PO Last administered on 12/20/16 22 :47; Start 12/20/16 at 22:00; Stop 12/20/16 at 22:01; Status DC Amlodipine Besylate (Norvasc) 10 mg DAILY PO Last administered on 12/22/16 07: 48; Start 12/21/16 at 09:00 Carvedilol (Coreg) 12.5 mg 1X ONCE PO Last administered on 12/20/16 22:35; Start 12/20/16 at 22:00; Stop 12/20/16 at 22:01; Status DC Carvedilol (Coreg) 25 mg BIDWMEALS PO Last administered on 12/22/16 17:54; Start 12/21/16 at 08:00 Lisinopril (Prinivil) 20 mg 1X ONCE PO Last administered on 12/20/16 22:33; Start 12/20/16 at 22:00; Stop 12/20/16 at 22:01; Status DC Lisinopril (Prinivil) 40 mg DAILY PO Last administered on 12/22/16 07:50; Start 12/21/16 at 09:00 Clonidine HCl (Catapres) 0.1 mg 1X ONCE PO Last administered on 12/20/16 22:35 ; Start 12/20/16 at 22:00; Stop 12/20/16 at 22:01; Status DC Clonidine HCl (Catapres) 0.1 mg Q8HRS PO Last administered on 12/23/16 04:59; Start 12/20/16 at 22:00 Spironolactone (Aldactone) 25 mg DAILY PO Last administered on 12/22/16 07:48; Start 12/21/16 at 09:00 Furosemide (Lasix) 40 mg 1X ONCE IVP Last administered on 12/20/16 22:34; Start 12/20/16 at 22:00; Stop 12/20/16 at 22:01; Status DC Potassium Chloride (Klor-Con) 30 meq 1X ONCE PO Last administered on 12/20/16 22:34; Start 12/20/16 at 22:15; Stop 12/20/16 at 22:16; Status DC Potassium Chloride (Klor-Con) 20 meq DAILYWBKFT PO Last administered on 07:49; Start 12/21/16 at 08:00 Alprazolam (Xanax) 0.5 mg PRN Q6HRS PRN PO ANXIETY / AGITATION Last administered on 12/21/16 09:04; Start 12/21/16 at 00:15 Albuterol Sulfate (Ventolin Neb Soln) 2.5 mg PRN Q2HR PRN NEB SHORTNESS OF BREATH; Start 12/20/16 at 23:45 Albuterol/ Ipratropium (Duoneb) 3 ml RTQID NEB Last administered on 12/23/16 08 :04; Start 12/21/16 at 12:00 Alprazolam (Xanax) 1 mg Q8H PRN PO ANXIETY / AGITATION Last administered on 12/22 22:03; Start 12/21/16 at 13:15 Alprazolam (Xanax) 1 mg 1X ONCE PO Last administered on 12/21/16 13:38; Start 12/21/16 at 13:15; Stop 12/21/16 at 13:19; Status DC Furosemide (Lasix) 40 mg DAILY IVP Last administered on 12/22/16 07:48; Start 3/5/17 at 09:00 Furosemide (Lasix) 40 mg 1X ONCE IVP Last administered on 12/21/16 14:43; Start 12/21/16 at 14:00; Stop 12/21/16 at 14:02; Status DC Ondansetron HCl (Zofran) 4 mg PRN Q6HRS PRN IV NAUSEA/VOMITING Last administered on 12/21/16 22:07; Start 12/21/16 at 21:30 Docusate Sodium (Colace) 100 mg PRN DAILY PRN PO CONSTIPATION Last administered on 12/23/16 05:00; Start 12/21/16 at 21:30 Active Scripts Active Reported Alphagan P (Brimonidine Tartrate) 5 Ml Drops 1 Drop EACHEYE BID Zanaflex (Tizanidine Hcl) 4 Mg Capsule 4 Mg PO PRN Q8HRS PRN NITRO-DUR 0.4mg/hr (Nitroglycerin) 1 Each Patch.td24 1 Each TD Lovastatin 40 Mg Tablet 40 Mg PO HS Hydralazine Hcl 50 Mg Tablet 1 Tab PO BID Paxil (Paroxetine Hcl) 20 Mg Tablet 1 Tab PO HS Aspirin 81 Mg Tab.chew 1 Tab PO DAILY Clopidogrel (Clopidogrel Bisulfate) 75 Mg Tablet 1 Tab PO DAILY Tizanidine Hcl 4 Mg Tablet 4 Mg PO TID PRN Atorvastatin Calcium 40 Mg Tablet 1 Tab PO DAILY Spironolactone 25 Mg Tablet 1 Tab PO HS Latanoprost 2.5 Ml Drops 1 Drop EACHEYE QHS Pazeo (Olopatadine HCl) 2.5 Ml Drops 2.5 Ml OP DAILY Furosemide 40 Mg Tablet 40 Mg PO [id number] Prevacid (Lansoprazole) 30 Mg Capsule.dr 1 Cap PO DAILY Oxycodone Hcl 10 Mg Tablet 1 Tab PO PRN Q4HRS PRN Lisinopril 40 Mg Tablet 0.5 Tab PO DAILY Coreg (Carvedilol) 25 Mg Tablet 1 Tab PO BIDBFRMEAL Norvasc (Amlodipine Besylate) 10 Mg Tablet 10 Mg PO DAILY Gabapentin 600 Mg Tablet 600 Mg PO QID Baclofen 10 Mg Tablet 1.5 Tab PO QID Xanax (Alprazolam) 0.5 Mg Tablet 1 Tab PO TID Paxil (Paroxetine Hcl) 40 Mg Tablet 1 Tab PO DAILY Clonidine Hcl 0.1 Mg Tablet 0.1 Mg PO BID Flomax (Tamsulosin Hcl) 0.4 Mg Cap.er.24h 0.4 Mg PO HS Pradaxa (Dabigatran Etexilate Mesylate) 150 Mg Capsule 150 Mg PO BID Vitals/I & O Vital Sign - Last 24 Hours 12/22/16 12/22/16 12/22/16 12/22/16 11:00 11:42 15:00 15:11 Temp 98.5 98.1 98.5 98.1 Pulse 94 101 Resp 22 14 B/P 165/112 163/87 Pulse Ox 90 97 O2 Delivery Nasal Cannula Nasal Cannula Nasal Cannula O2 Flow Rate 5.0 4.0 5.0 3.0 12/22/16 12/22/16 12/22/16 12/22/16 15:44 15:50 17:54 19:00 Temp 98.0 98.0 Pulse 101 101 98 Resp 18 B/P 163/87 163/87 134/90 Pulse Ox 95 O2 Delivery Nasal Cannula Nasal Cannula O2 Flow Rate 5.0 4.0 12/22/16 12/22/16 12/22/16 12/22/16 19:05 19:40 22:03 22:04 Pulse 98 Resp 20 B/P 134/90 Pulse Ox 99 95 O2 Delivery Nasal Cannula Nasal Cannula Nasal Cannula O2 Flow Rate 4.0 4.0 5.0 12/22/16 12/23/16 12/23/16 12/23/16 22:43 03:00 04:59 05:00 Temp 98.4 98.0 98.4 98.0 Pulse 96 96 96 Resp 20 20 20 B/P 137/93 157/101 157/101 Pulse Ox 96 96 95 O2 Delivery Nasal Cannula Nasal Cannula Nasal Cannula O2 Flow Rate 5.0 5.0 5.0 12/23/16 12/23/16 12/23/16 12/23/16 06:00 07:00 08:00 08:05 Temp 97.7 97.7 Pulse 85 Resp 24 16 B/P 146/68 Pulse Ox 95 96 96 O2 Delivery Nasal Cannula Nasal Cannula Nasal Cannula Nasal Cannula O2 Flow Rate 5.0 5.0 5.0 3.0 Intake and Output 12/22/16 12/22/16 12/23/16 15:00 23:00 07:00 Intake Total 470 ml 600 ml Output Total 650 ml 200 ml 175 ml Balance -650 ml 270 ml 425 ml TERMULO,SIENA Y MD Dec 23, 2016 10:09
[2016-12-23] MEDS: ASPIRIN 81 MG TAB.CHEW PO SCH (10:16)
[2016-12-23] MEDS: CLOPIDOGREL BISULFATE 75 MG TABLET PO SCH (10:16)
[2016-12-23] MEDS: OSELTAMIVIR 75 MG CAPSULE PO SCH ×2 (10:16→16:34)
[2016-12-23] MEDS: AMLODIPINE BESYLATE 10 MG TABLET PO SCH (10:16)
[2016-12-23] MEDS: POTASSIUM CHLORIDE 20 MEQ TABLET.ER. PO SCH (10:16)
[2016-12-23] MEDS: PANTOPRAZOLE 40 MG TABLET. PO SCH (10:16)
[2016-12-23] MEDS: LISINOPRIL 40 MG TABLET. PO SCH (10:17)
[2016-12-23] MEDS: CARVEDILOL 12.5 MG TABLET PO SCH (10:17)
[2016-12-23] MEDS: SPIRONOLACTONE 25 MG TABLET PO SCH (10:18)
[2016-12-23] MEDS: FUROSEMIDE 40 MG/4 ML VIAL IVP SCH (10:19)
[2016-12-23 13:16] VITALS: BP 146/68
[2016-12-23] MEDS: ALPRAZOLAM 1 MG TABLET PO PRN (13:16)
[2016-12-23] MEDS ORDERED: CHOL100013 PO (15:39)
[2016-12-23] MEDS ORDERED: MULT-690 PO (15:40)
[2016-12-23] MEDS ORDERED: NICO1PAT21 TP (15:41)
[2016-12-23] MEDS ORDERED: CEFPODOXIME PROXETIL 200 MG TABLET PO SCH (21:00)
== END 2016-12-23 17:12 | disposition home or self-care (01) | DRG 871 ==
LOC: ER 16:53 → CVICU 18:21
PROVIDERS: ADMIT Specialist; ATTEND Specialist
PROC: 5A09357 Assistance with Respiratory Ventilation, Less than 24 Consecutive Hours, Continuous Positive Airway Pressure (ICD-10-PCS; principal; 2016-12-19)
DX: A41.9 Sepsis, unspecified organism (principal); I50.23 Acute on chronic systolic (congestive) heart failure; J96.00 Acute respiratory failure, unspecified whether with hypoxia or hypercapnia; I42.9 Cardiomyopathy, unspecified; J10.1 Influenza due to other identified influenza virus with other respiratory manifestations; J20.9 Acute bronchitis, unspecified; E78.5 Hyperlipidemia, unspecified; F17.210 Nicotine dependence, cigarettes, uncomplicated; G47.33 Obstructive sleep apnea (adult) (pediatric); I11.0 Hypertensive heart disease with heart failure; I25.10 Atherosclerotic heart disease of native coronary artery without angina pectoris; I48.2 Chronic atrial fibrillation; K21.9 Gastro-esophageal reflux disease without esophagitis; M47.816 Spondylosis without myelopathy or radiculopathy, lumbar region; Z79.899 Other long term (current) drug therapy; Z79.02 Long term (current) use of antithrombotics/antiplatelets; Z79.82 Long term (current) use of aspirin; Z95.5 Presence of coronary angioplasty implant and graft
CPT/HCPCS: 36415; 36600; 71010; 80048; 80053; 81001; 82805; 83605; 83735; 83880; 84484; 85027; 87040; 87804; 93005; 93306; 94250; 94620; 94640; 94660; 96374; 99406; J0696; J1940; J2270; J2405; J7620; 97116; 97530; 99285-25

== ENCOUNTER 2017-01-04 21:07 | Inpatient (IN) | payer MEDICARE, BC ==
[~2017-01-04] VITALS: Ht 190.5 cm; Wt 119.3 kg
[~2017-01-04 21:07] MED LIST changes: +ASPI81TA2 PO; +BRIM5DRO EACHEYE; +CHOL100013 PO; +HYDR-2869 PO; +LOVA40TA2 PO; +MULT-690 PO; +NICO1PAT21 TP; +NITR1PAT9 TD; +PARO20TA55 PO; +TIZA4CAP3 PO
[2017-01-04 22:01] LABS: BASO # 0.1 x10^3/uL (0.0-0.2); BASO % 1 % (0-3); EOS % 2 % (0-3); HEMATOCRIT 34.3 % (39.0-53.0); HEMOGLOBIN 11.3 g/dL (13.0-17.5); LYMPH # 1.3 x10^3/uL (1.0-4.8); LYMPH % 12 % (24-48); MEAN CORPUSCULAR HEMOGLOBIN 29 pg (25-35); MEAN CORPUSCULAR HGB CONC 33 g/dL (31-37); MEAN CORPUSCULAR VOLUME 89 fL (79-100); MONO % 7 % (0-9); NEUT % 78 % (31-73); PLATELET COUNT 439 x10^3/uL (140-400); RED BLOOD COUNT 3.86 x10^6/uL (4.30-5.70); WHITE BLOOD COUNT 11.7 x10^3/uL (4.0-11.0)
[2017-01-04 22:08] LABS: INR 1.8 (0.8-1.1); PROTHROMBIN TIME PATIENT 19.9 SEC (11.7-14.0)
[2017-01-04 22:23] LABS: OBC FLU VALID
--- NOTE | 2017-01-04 22:27 | RAD ---
INDICATION: Status post fall, on Plavix. COMPARISON: None TECHNIQUE: Axial, noncontrast CT images obtained through the head. One or more of the following individualized dose reduction techniques were utilized for this examination: 1. Automated exposure control; 2. Adjustment of the mA and/or kV according to patient size; 3. Use of iterative reconstruction technique. FINDINGS: No acute intracranial process is identified, specifically no acute blood products, midline shift, mass effect or extra-axial fluid collections. Ventricles and sulci appear appropriate for patient's age. Basilar cisterns are maintained. The visualized paranasal sinuses are clear. Mastoid air cells are clear. No calvarial fracture is present. Overlying scalp is intact. IMPRESSION: No acute intracranial process. Electronically signed by: Latonya Gamble (Jan 04, 2017 22:25:57)
[2017-01-04 23:07] LABS: CALCIUM 8.5 mg/dL (8.5-10.1); CREATININE 1.3 mg/dL (0.7-1.3); GFR 66.4; POTASSIUM 3.7 mmol/L (3.5-5.1)
[2017-01-04 23:13] LABS: ALBUMIN 2.8 g/dL (3.4-5.0); ALBUMIN/GLOBULIN RATIO 0.8 (1.0-1.7); TOTAL BILIRUBIN 0.9 mg/dL (0.2-1.0); TOTAL PROTEIN 6.3 g/dL (6.4-8.2)
[2017-01-05] VITALS (9 sets, daily range): BP systolic 102–147; BP diastolic 60–89
[2017-01-05] MEDS ORDERED: FUROSEMIDE 100 MG/10 ML VIAL IVP ONE (00:30)
--- NOTE | 2017-01-05 01:21 | ED.ADGEN ---
Past Medical History Past Medical History: A-Fib, Anxiety, CAD, CHF, GERD, Hypertension Past Surgical History: Other Additional Past Surgical Histo: cardiac stents Alcohol Use: None Drug Use: None Adult General Chief Complaint Chief Complaint: LOWER EXTREMITY EDEMA HPI HPI Patient is a 66 year old man, history of CHF, COPD on 3 L nasal cannula at baseline, atrial fibrillation on Pradaxa, hypertension, who presents to the emergency department with a complaint of swelling in his lower extremities, weakness, dyspnea on exertion over the past several days. Patient states that he fell yesterday, stated he attempted to stand up and "my legs gave out", he did strike his shoulder on the carpeted floor, denies striking his head, denies loss of consciousness. States he is feeling slightly weak all over, with significant swelling in his lower extremity, concern for recurrent congestive heart failure exacerbation. Patient denies any chest pain, nausea or vomiting, any focal weakness numbness or tingling, any headache, any blurry vision, states he has been compliant with all medications. No recent travel or surgery, history of DVT or PE. Patient's is at bedside. Patient states that he spoke to his surveillance monitor, Dr. Zamudio, who advised he come to the ED for evaluation. Review of Systems Review of Systems Constitutional: Denies fever or chills. [] Eyes: Denies change in visual acuity. [] HENT: Denies nasal congestion or sore throat. [] Respiratory: Denies cough, shortness of breath, dyspnea on exertion. Cardiovascular: Denies chest pain or edema. [] GI: Denies abdominal pain, nausea, vomiting, bloody stools or diarrhea. [] : Denies dysuria. [] Musculoskeletal: Denies back pain or joint pain. Swelling in the bilateral lower extremities. Integument: Denies rash. [] Neurologic: Denies headache, focal weakness or sensory changes. [] Endocrine: Denies polyuria or polydipsia. [] Lymphatic: Denies swollen glands. [] Psychiatric: Denies depression or anxiety. [] Current Medications Current Medications Current Medications Medications (Trade) Dose Ordered Sig/Manjula Start Time Stop Time Status Last Admin Dose Admin Furosemide (Lasix) 160 mg 1X ONCE 01/05/17 00:30 01/05/17 00:31 DC 01/05/17 00:32 160 MG Allergies Allergies Allergies Coded Allergies Type Severity Reaction Last Updated Verified NSAIDS (Non-Steroidal Anti-Inflamma Adverse Reaction Mild BLEEDING 10/28/16 Yes Physical Exam Physical Exam Constitutional: Well developed, well nourished, no acute distress, non-toxic appearance. Nasal cannula in place. HENT: Normocephalic, atraumatic, bilateral external ears normal, oropharynx moist, no oral exudates, nose normal. [] Eyes: PERRLA, EOMI, conjunctiva normal, no discharge. [] Neck: Normal range of motion, no tenderness, supple, no stridor. [] Cardiovascular:Heart rate regular rhythm, no murmur, S1, S2, rubs or gallops. Soft heart sounds. [] Lungs & Thorax: Diminished breath sounds at bases bilaterally, no rhonchi or rales identified. No crepitus. No tenderness. Abdomen: Bowel sounds normal, soft, no tenderness, no rebound, rigidity, no guarding, no masses, no pulsatile masses. [] Skin: Warm, dry, no erythema, no rash. [] Back: No tenderness, no CVA tenderness. [] Extremities: No tenderness, no cyanosis, no clubbing, ROM intact, patient with 2 + pitting pretibial edema bilaterally. Neurologic: Alert and oriented X 3, normal motor function, normal sensory function, no focal deficits noted. [] Psychologic: Affect normal, judgement normal, mood normal. [] Current Patient Data Vital Signs Vital Signs Date Time Temp Pulse Resp B/P Pulse Ox O2 Delivery O2 Flow Rate FiO2 01/05/17 00:33 56 16 125/79 94 Nasal Cannula 3 01/04/17 21:18 97.4 97.4 Lab Values Laboratory Tests Test 01/04/17 21:45 01/04/17 21:55 01/04/17 22:30 White Blood Count 11.7x10^3/uL (4.0-11.0) H Red Blood Count 3.86x10^6/uL (4.30-5.70) L Hemoglobin 11.3g/dL (13.0-17.5) L Hematocrit 34.3% (39.0-53.0) L Mean Corpuscular Volume 89fL (79-100) Mean Corpuscular Hemoglobin 29pg (25-35) Mean Corpuscular Hemoglobin Concent 33g/dL (31-37) Red Cell Distribution Width 16.0% (11.5-14.5) H Platelet Count 439x10^3/uL (140-400) H Neutrophils (%) (Auto) 78% (31-73) H Lymphocytes (%) (Auto) 12% (24-48) L Monocytes (%) (Auto) 7% (0-9) Eosinophils (%) (Auto) 2% (0-3) Basophils (%) (Auto) 1% (0-3) Neutrophils # (Auto) 9.1x10^3uL (1.8-7.7) H Lymphocytes # (Auto) 1.3x10^3/uL (1.0-4.8) Monocytes # (Auto) 0.8x10^3/uL (0.0-1.1) Eosinophils # (Auto) 0.3x10^3/uL (0.0-0.7) Basophils # (Auto) 0.1x10^3/uL (0.0-0.2) Prothrombin Time 19.9SEC (11.7-14.0) H Prothrombin Time INR 1.8 (0.8-1.1) H PTT 71SEC (24-38) H Influenza Type A Antigen Negative (NEGATIVE) Influenza Type B Antigen Negative (NEGATIVE) Sodium Level 147mmol/L (136-145) H Potassium Level 3.7mmol/L (3.5-5.1) Chloride Level 108mmol/L (98-107) H Carbon Dioxide Level 33mmol/L (21-32) H Anion Gap 6 (6-14) Blood Urea Nitrogen 15mg/dL (8-26) Creatinine 1.3mg/dL (0.7-1.3) Estimated GFR (Cockcroft-Gault) 66.4 BUN/Creatinine Ratio 12 (6-20) Glucose Level 143mg/dL (70-99) H Calcium Level 8.5mg/dL (8.5-10.1) Total Bilirubin 0.9mg/dL (0.2-1.0) Aspartate Amino Transferase (AST) 13U/L (15-37) L Alanine Aminotransferase (ALT) 19U/L (16-63) Alkaline Phosphatase 71U/L (46-116) Troponin I Quantitative 0.021ng/mL (0.000-0.055) EX-Duj-D-Type Natriuretic Peptide 1401pg/mL (0-124) H Total Protein 6.3g/dL (6.4-8.2) L Albumin 2.8g/dL (3.4-5.0) L Albumin/Globulin Ratio 0.8 (1.0-1.7) L Laboratory Tests 01/04/17 21:45 Laboratory Tests 01/04/17 22:30 EKG EKG EC: Irregular rhythm, atrial fibrillation, heart rate 64 beats minute, with moderate baseline artifact noted, QTc prolonged at 540, QRS of 96, patient with contour abnormalities noted in the inferior leads, left axis deviation. Abnormal ECG, does not meet STEMI criteria. As interpreted by me. [] Radiology/Procedures Radiology/Procedures [] [facility] [address] [place] [address] IMAGING REPORT Signed PATIENT: YAIMLET MOTA ACCOUNT: [id number] : 1950 LOCATION: ER AGE: 66 SEX: M EXAM STATUS: PRE ER ORD. PHYSICIAN: KEREN TAYLOR DO REASON: Fall/on Pradaxa PROCEDURE: HEAD WO CONTRAST INDICATION: Status post fall, on Plavix. COMPARISON: None TECHNIQUE: Axial, noncontrast CT images obtained through the head. One or more of the following individualized dose reduction techniques were utilized for this examination: 1. Automated exposure control; 2. Adjustment of the mA and/or kV according to patient size; 3. Use of iterative reconstruction technique. FINDINGS: No acute intracranial process is identified, specifically no acute blood products, midline shift, mass effect or extra-axial fluid collections. Ventricles and sulci appear appropriate for patient's age. Basilar cisterns are maintained. The visualized paranasal sinuses are clear. Mastoid air cells are clear. No calvarial fracture is present. Overlying scalp is intact. IMPRESSION: No acute intracranial process. Electronically signed by: Taj Gamble (Jan 04, 2017 22:25:57) DICTATED and SIGNED BY: TAJ GAMBLE MD DATE: 01/04/176 CC: SAMANTHA LANGLEY; KEREN TAYLOR DO ~ Chest x-ray: One view: Cardiomegaly, with cephalization noted, no pneumothorax, no infiltrate. Congestive heart failure. As interpreted by me. Course & Med Decision Making Course & Med Decision Making Pertinent Labs and Imaging studies reviewed. (See chart for details) Patient with significant pitting pretibial edema noted, which he states is new for him. Patient is stable on his baseline 2 L nasal cannula in the ED, chest x- ray concerning for cephalization consistent with CHF exacerbation, patient with a proBNP of greater than 1000. After discussion at bedside, as patient is on anticoagulation, with fall, complaining of weakness, CT of the head obtained which not reveal any evidence of acutely concerning findings. With diagnosis of congestive heart failure exacerbation, findings as above were discussed with Dr. Zamudio, who requested the patient be admitted to the cardiac telemetry floor as a full admission to her service, with administration of Lasix. As patient takes 40 mg twice a day daily, a total of 160 mg of Lasix IV was given. Patient's electrolytes are otherwise stable, repeat laboratory studies ordered for the morning per discussion with bridge orders entered as stated. Patient agreeable with plan, resting comfortably, awaiting transfer to floor. Dragon Disclaimer Dragon Disclaimer This electronic medical record was generated, in whole or in part, using a voice recognition dictation system. Departure Impression: Primary Impression: CHF exacerbation Disposition: ADMITTED INPATIENT Admitting Physician: Other Condition: IMPROVED KEREN TAYLOR DO Jan 05, 2017 01:21
--- NOTE | 2017-01-05 01:28 | ACF ---
Admit Criteria Forms Admit Criteria Forms Admit Criteria Forms HEART FAILURE: COMMON COMPLICATIONS Clinical Indications for Inpatient Care (Place 'X' for any and all applicable criteria): Ongoing inpatient care may be indicated for heart failure with ANY ONE of the following (1)(2)(3)(4)(5): [ ]I. Ongoing need for care for primary condition requiring frequent therapy adjustments because of changes in cardiac function (eg, drug dosage changes for drugs that are renally metabolized) [ ]II. New-onset heart failure [ ]III. Heart failure with decreased urine output not responsive to attempts to optimize volume status [ ]IV. Acute cardiac ischemia causing or associated with failure [X]V. Complications of heart failure, including ANY ONE of the following: [ ]a) Pericardial effusion [ ]b) Symptomatic pleural effusion [ ]c) O2 saturation <90% or PO2 < 60 mm Hg (8.0 kPa) on room air or require baseline supplemental O2 [ ]d) Tachypnea [X]e) Dyspnea [ ]f) Syncope [ ]g) Change in mental status [ ]h) Acute renal insufficiency that is severe (reduction of more than 50% in estimated glomerular filtration rate from baseline) or progressive reduction of more than 25% in estimated glomerular filtration rate from baseline, with creatinine continuing to rise) [ ]i) Hemodynamic instability [ ]j) Anasarca [ ]k) Clinically significant metabolic abnormalities due to heart failure (eg, new-onset metabolic acidosis) Extended stay beyond goal length of stay for primary condition may be needed until ALL of the following are present(1)(3): [ ]a) Stable and effective diuretic regimen established (or patient on stable dialysis regimen if in chronic renal failure) [ ]b) Breathing comfortably at rest [ ]c) Saturation of arterial oxygen greater than 90% or at acceptable baseline [ ]d) Pulmonary edema absent or improved [ ]e) Hemodynamic stability [ ]f) Volume status acceptable on oral medication [ ]g) Peripheral or sacral edema absent or improved [ ]h) Renal function stable and manageable at a lower level of care [ ]i) Complications (eg, pleural effusion) resolved or manageable at a lower level of care [ ]j) Patient or caregiver has received written discharge instructions or educational material addressing activity level, diet, discharge medications, follow-up appointment, weight monitoring, and what to do if symptoms worsen The original [employer] content created by [employer]ren[employer] has been revised. The portions of the content which have been revised are identified through the use of italic text or in bold, and [facility] has neither reviewed nor approved the modified material.All other unmodified content is copyright [facility] [employer]. Please see references footnoted in the original [facility] [employer] edition 2016 SANJANA HOLBROOK Jan 05, 2017 01:28
[2017-01-05] MEDS ORDERED: ACETAMINOPHEN 325 MG TABLET. PO PRN (02:00)
[2017-01-05] MEDS ORDERED: ALPRAZOLAM 1 MG TABLET PO PRN (02:00)
[2017-01-05] MEDS ORDERED: NITROGLYCERIN SUBLINGUAL 0.4 MG BOTTLE OF 25. SL PRN (02:00)
[2017-01-05] MEDS: HYDROCODONE/APAP 5/325MG TABLET. PO PRN ×4 (02:54→20:55)
--- NOTE | 2017-01-05 08:20 | RAD ---
Indication: Short of air. Weakness. Technique: Upright portable chest radiograph was obtained and compared to a study from 2 weeks earlier. Findings: Heart is enlarged. Pulmonary vasculature appears cephalized. Mild interstitial prominence is noted. Bony structures are intact. Leads overlie the patient. Impression: Mild CHF suspected, slightly improved from prior.
[2017-01-05] MEDS: IPRATRPIUM/ALBUTEROL 0.5/2.5MG 3 ML NEBU. NEB SCH ×4 (08:32→19:11)
--- NOTE | 2017-01-05 11:15 | EKG ---
[facility] [address] [place] [address] Test Date: 2017-01-04 Test Time: 21:48:42 Pat Name: YAMILET MOTA Department: Room: 201 1 Gender: M Zmt Operator: : 1950 Requested By: KEREN TAYLOR Order Number: [id number] Reading MD: Denise Zamudio Measurements Intervals [place] Rate: 64 P: MD: QRS: -19 QRSD: 96 T: -14 QT: 526 QTc: 548 Interpretive Statements ATRIAL FIBRILLATION LEFTWARD AXIS LOW LIMB LEAD VOLTAGE PROLONGED QT RI6.01 Unconfirmed report No previous ECG available for comparison Electronically Signed On 01-05-2017 15:18:38 CDT by Denise Zamudio
[2017-01-05] MEDS: GABAPENTIN 300 MG CAPSULE. PO SCH ×3 (13:33→20:55)
[2017-01-05] MEDS: ALPRAZOLAM 0.5 MG TABLET PO SCH ×2 (13:33→20:54)
[2017-01-05] MEDS ORDERED: HEPARIN PF for SUB-Q USE 5,000 UNIT/0.5 ML VIAL. SQ SCH (14:00)
[2017-01-05] MEDS ORDERED: FUROSEMIDE 40 MG TABLET PO SCH (16:00)
[2017-01-05] MEDS: OXYCODONE IR 5 MG TABLET. PO PRN (16:10)
[2017-01-05] MEDS: FUROSEMIDE 100 MG/10 ML VIAL IVP SCH (16:10)
[2017-01-05] MEDS: CARVEDILOL 12.5 MG TABLET PO SCH (17:30)
[2017-01-05] MEDS: AMIODARONE HCL 200 MG TABLET PO SCH (17:31)
--- NOTE | 2017-01-05 19:29 | HP ---
ADMIT DATE: 01/05/2017 HISTORY OF PRESENT ILLNESS: This is a 66-year-old black male who had been discharged on 12/23/2016 in my absence after he had come in with influenza and CHF. Since then, he had undergone a sleep study. It is significantly abnormal. He was to see Dr. Jimenez for this. I received a call from his stating that he had fallen. He had gone to the restroom and had come back and as coming back when his legs gave out and he fell. He was able to get up. He had no injuries. He was not short of breath. He fell because his legs gave out. When he was here the last time, he came in with no oxygen supplements but went home with O2 at I believe 3 liters per minute. This patient has a significant cardiac history. He was admitted to [facility] for the first time in around 05/2016 with CHF. He had never been in CHF before. He was in ejection fraction of 20%. He was discharged on beta blockers, LEI inhibitors, and diuretics. When he came to see me, I investigated him for an underlying coronary artery disease as the reason for the poor EF. He underwent a myocardial perfusion imaging study, thereafter cardiac catheterization. He had a left main trunk obstruction. Dr. Moser put a stent with Impella support in 11/2016. When I saw her in around June he was in atrial fibrillation for the first time. The ventricular response was controlled with carvedilol. Consultation was being given for cardioversion and he was placed on Pradaxa. Thereafter, he underwent stent placement and since then he has had the influenza and the pneumonia and I did not want to cardiovert him at that time. Now, he has sleep apnea. With sleep apnea even if I did cardioversion there would be a greater chance of recurrence. Thus the cardioversion has not been done until the sleep apnea is corrected. Also his left atrium is 6 cm in diameter, which is significantly enlarged. Sometime around October, I gave him amiodarone to be taken as an outpatient. He called back a few days later and said that the medication almost killed him. He is very difficult to get a history form. He could not tell me exactly what was the problem with amiodarone. He simply stopped taking the medication. He is very anxious to undergo the cardioversion because he believes that will make her feel better. He did feel much better after the stenting. He had been asked to take the Pradaxa, and he has been taking it very regularly. He has had hypertension for the last several years. He about 7 years ago had undergone myocardial perfusion imaging study, which showed scar in the inferior wall and mild cardiomyopathy with ejection fraction of 40%. He was totally asymptomatic and in fact I did not see him for several years until he came back to me after his hospitalization in [place]. MEDICATIONS: 1. Alprazolam 0.5 mg 3 times a day p.r.n. 2. Amlodipine 10 mg a day. 3. Aspirin 81 mg a day. 4. Atorvastatin 40 mg a day. 5. Baclofen 10 mg 4 times a day. 6. Carvedilol 25 mg twice a day. 7. Clonidine 0.1 mg twice a day. 8. Plavix 75 mg a day. 9. Pradaxa 150 mg twice a day. 10. Lasix 40 mg twice a day. 11. Gabapentin 600 mg 4 times a day. 12. Hydralazine 50 mg twice a day. 13. Prevacid. 14. Lisinopril 40 mg a day. 15. Oxycodone 10 mg q. 6 hours p.r.n. 16. Paxil 40 mg a day. 17. Spironolactone 25 mg a day. 18. Tamsulosin 0.4 mg a day. 19. Tizanidine 4 mg at night. PHYSICAL EXAMINATION: GENERAL: He was in no distress. He was able to lie down flat. VITAL SIGNS: The heart rate was 74 per minute and irregular. He was in atrial fibrillation. The QRS complexes were narrow. The blood pressure is 130/70. LUNGS: Clear. HEART: The heart sounds are normal with no murmur or gallop. EXTREMITIES: There is 1-2+ edema of the legs. IMPRESSION: 1. Ischemic cardiomyopathy with an ejection fraction of 25-30%. 2. Probable diastolic dysfunction. 3. Severe mitral regurgitation. 4. Left atrial enlargement. 5. Moderate pulmonary hypertension. 6. Lumbar spondylosis. 7. Gait abnormality and fall. 8. Probable permanent atrial fibrillation. During this hospitalization, we will give him IV diuretics to clear his CHF. When he was here the last time, he insisted on going home and thus he was sent home even while he was still in CHF. We will request Dr. Jimenez to see him during this hospitalization. He has very bad sleep apnea. He could not tolerate the BiPAP. We could put him on a BiPAP here and try to help him to adjust to it. Cardioversion is being given a consideration, but the obstacles to that are: A. Uncorrected sleep apnea. B. Severe enlargement of the left atrium. C. Intolerance to amiodarone. D. Severe mitral regurgitation. STUART EMERY MD DR: MARISABEL/veronica JOB#: [id number] / [id number]
[2017-01-05] MEDS: DABIGATRAN ETEXILATE 150 MG CAPSULE. PO SCH (20:54)
[2017-01-05] MEDS: SPIRONOLACTONE 25 MG TABLET PO SCH (20:54)
[2017-01-05] MEDS: TAMSULOSIN 0.4 MG CAP.ER.24H. PO SCH (20:55)
[2017-01-05] MEDS: CLONIDINE HCL 0.1 MG TABLET PO SCH (20:56)
[2017-01-05] MEDS: HYDRALAZINE 50 MG TABLET PO SCH (20:57)
[2017-01-05] MEDS: LATANOPROST 0.005% OPHTH SOLUTION 2.5ML BOTTLE. OU SCH (20:57)
[2017-01-05] MEDS: KETOTIFEN FUMARATE 0.025% OPHT SOLUTION 5ML BOTTLE. OU SCH (20:57)
[2017-01-05] MEDS: BRIMONIDINE 0.2% OPHTH SOLUTION 5ML BOTTLE. OU SCH (20:57)
[2017-01-05] MEDS ORDERED: ATORVASTATIN CALCIUM 10 MG TABLET. PO SCH (21:00)
--- NOTE | 2017-01-05 22:43 | CONS ---
DATE OF CONSULTATION: 01/05/2017 CONSULTING PHYSICIAN: Dr. Zamudio. CHIEF COMPLAINT: CHF exacerbation. HISTORY OF PRESENT ILLNESS: The patient is a 66-year-old current smoker with O2 dependent COPD, CHF, atrial fibrillation who presents to the Emergency Room with onset of lower extremity swelling for about one day. He relates that he was doing fairly well yesterday and suddenly noticed his leg swelling. He was very concerned. He denies any shortness of breath at rest; however, he had an episode with walking where his "legs gave out" and he fell to the floor. Denies any loss of consciousness, but felt generalized weakness. The patient therefore presented to the Emergency Room for further evaluation. PAST MEDICAL HISTORY: COPD, 3 liters O2 at home; CAD; atrial fibrillation on Pradaxa; CHF; hypertension; GERD and anxiety. FAMILY HISTORY: Positive for diabetes and heart disease. SOCIAL HISTORY: Continues to smoke a few cigarettes, even now denies any alcohol or drug use. ALLERGIES: NSAIDs. MEDICATIONS: Home medications reconciled with MAR. REVIEW OF SYSTEMS: The patient currently only complains of lower extremity edema, which apparently is improved. Denies any shortness of breath above baseline. PHYSICAL EXAMINATION: VITAL SIGNS: From today show a blood pressure of 132/80, heart rate of 64, respiratory rate at 24. He is afebrile. GENERAL: This is an obese 66-year-old -[place] gentleman, alert and oriented, in no acute distress. HEENT: Shows no scleral icterus. NECK: Supple. LUNGS: Fairly clear bilaterally. CARDIOVASCULAR: Has a regular rate and rhythm, mildly jose antonio. ABDOMEN: Obese, positive bowel sounds. EXTREMITIES: Show 1+ edema. Compression stockings in place. LABORATORY DATA: CBC with WBC of 11.7, hemoglobin 11.3, platelets of 439. Chemistries with a BUN and creatinine of 15 and 1.3, sodium at 147, potassium 3.7, chloride 108. BNP 1401. Troponin stable. Serology for flu is negative. IMAGING STUDIES: CT of the head was negative. Chest x-ray shows pulmonary vasculature with cephalization, interstitial prominence is noted. ASSESSMENT AND PLAN: The patient is a 66-year-old -[place] gentleman with chronic obstructive pulmonary disease, coronary artery disease, congestive heart failure, presenting with signs of fluid overload. He did receive IV Lasix dose of 160 mg. It is diuresing well. We will continue all his home medications otherwise. They will closely monitor his renal status with Lasix including his potassium level. He has mild hypernatremia, which will more than likely correct with diuresis. Monitor for now. For his COPD, he is on his home O2 at 3 liters. He will receive nebulizers as well. Continue all eye drops. Prophylaxis will be instituted with H2 blockers and heparin. CHUCKY VILLEGAS MD DR: LIVE/nts JOB#: [id number] / [id number] FELICITY
[2017-01-06] MEDS: OXYCODONE IR 5 MG TABLET. PO PRN ×4 (01:47→18:16)
[2017-01-06 03:50] VITALS: BP 147/81
[2017-01-06 04:42] LABS: BASO # 0.1 x10^3/uL (0.0-0.2); BASO % 1 % (0-3); EOS % 2 % (0-3); HEMATOCRIT 37.1 % (39.0-53.0); HEMOGLOBIN 11.8 g/dL (13.0-17.5); LYMPH # 1.6 x10^3/uL (1.0-4.8); LYMPH % 15 % (24-48); MEAN CORPUSCULAR HEMOGLOBIN 29 pg (25-35); MEAN CORPUSCULAR HGB CONC 32 g/dL (31-37); MEAN CORPUSCULAR VOLUME 91 fL (79-100); MONO % 7 % (0-9); NEUT % 75 % (31-73); PLATELET COUNT 261 x10^3/uL (140-400); RED BLOOD COUNT 4.09 x10^6/uL (4.30-5.70); RED CELL DISTRIBUTION WIDTH 16.1 % (11.5-14.5); WHITE BLOOD COUNT 10.3 x10^3/uL (4.0-11.0)
[2017-01-06 05:14] LABS: CALCIUM 9.2 mg/dL (8.5-10.1); CREATININE 1.2 mg/dL (0.7-1.3); GFR 72.9; POTASSIUM 3.3 mmol/L (3.5-5.1)
[2017-01-06 07:16] VITALS: BP 157/100
[2017-01-06] MEDS: IPRATRPIUM/ALBUTEROL 0.5/2.5MG 3 ML NEBU. NEB SCH ×3 (07:48→19:28)
[2017-01-06] MEDS: DABIGATRAN ETEXILATE 150 MG CAPSULE. PO SCH ×2 (08:53→21:35)
[2017-01-06] MEDS: PANTOPRAZOLE 40 MG TABLET. PO SCH (08:54)
[2017-01-06] MEDS: GABAPENTIN 300 MG CAPSULE. PO SCH ×4 (08:54→21:35)
[2017-01-06] MEDS: CHOLECALCIFEROL (VITAMIN D3) 1,000 UNIT TABLET PO SCH (08:54)
[2017-01-06] MEDS: PAROXETINE 20 MG TABLET. PO SCH (08:54)
[2017-01-06] MEDS: HYDRALAZINE 50 MG TABLET PO SCH ×2 (08:54→21:37)
[2017-01-06] MEDS: AMIODARONE HCL 200 MG TABLET PO SCH ×3 (08:54→16:55)
[2017-01-06] MEDS: ASPIRIN 81 MG TAB.CHEW PO SCH (08:55)
[2017-01-06] MEDS: ALPRAZOLAM 0.5 MG TABLET PO SCH ×3 (08:55→21:35)
[2017-01-06] MEDS: CLOPIDOGREL BISULFATE 75 MG TABLET PO SCH (08:55)
[2017-01-06] MEDS: CARVEDILOL 12.5 MG TABLET PO SCH ×2 (08:55→16:55)
[2017-01-06] MEDS: MULTIVITAMIN EYE FORMULA CAPSULE. PO SCH (08:55)
[2017-01-06] MEDS: CLONIDINE HCL 0.1 MG TABLET PO SCH ×2 (08:55→21:36)
[2017-01-06] MEDS: FUROSEMIDE 100 MG/10 ML VIAL IVP SCH ×2 (08:56→16:55)
[2017-01-06] MEDS: AMLODIPINE BESYLATE 10 MG TABLET PO SCH (08:56)
[2017-01-06] MEDS: ATORVASTATIN CALCIUM 40 MG TABLET. PO SCH (08:56)
[2017-01-06] MEDS: LISINOPRIL 40 MG TABLET. PO SCH (08:56)
[2017-01-06] MEDS: BRIMONIDINE 0.2% OPHTH SOLUTION 5ML BOTTLE. OU SCH ×2 (09:04→21:34)
[2017-01-06] MEDS: KETOTIFEN FUMARATE 0.025% OPHT SOLUTION 5ML BOTTLE. OU SCH ×2 (09:05→21:33)
[2017-01-06 10:12] VITALS: BP 160/84
[2017-01-06] MEDS ORDERED: POTASSIUM CHLORIDE 20 MEQ TABLET.ER. PO ONE ×2 (10:30→17:00)
--- NOTE | 2017-01-06 10:43 | PDOC ---
PROGRESS NOTES Subjective Subjective Covering for Dr. Zamudio No acute distress overnight. Pt resting in bed on 3L of O2 NC. Reports swelling in LE and unable to wear bipap mask bc of discomfort. Denies chest pain, shortness of breath or palpitation. Objective Objective Vital Signs Date Time Temp Pulse Resp B/P Pulse Ox O2 Delivery O2 Flow Rate FiO2 01/06/17 10:12 98.2 90 20 160/84 96 Nasal Cannula 3.0 98.2 Intake and Output 01/06/17 07:00 Intake Total 400 ml Output Total 3200 ml Balance -2800 ml Intake Oral 400 ml Output Urine Total 3200 ml # Bowel Movements 3 Physical Exam Physical Exam No changes in cardiac exam Assessment Assessment Problems Medical Problems: (1) CHF exacerbation Status: Acute Plan Plan of Care LE edema, improving COPD CAD CHF continue home meds continue cardiac monitoring per floor protocol Comment Review of Relevant I have reviewed the following items rosas (where applicable) has been applied. Labs Laboratory Tests Test 01/04/17 21:45 01/04/17 21:55 01/04/17 22:30 01/05/17 03:00 White Blood Count 11.7x10^3/uL (4.0-11.0) Red Blood Count 3.86x10^6/uL (4.30-5.70) Hemoglobin 11.3g/dL (13.0-17.5) Hematocrit 34.3% (39.0-53.0) Mean Corpuscular Volume 89fL (79-100) Mean Corpuscular Hemoglobin 29pg (25-35) Mean Corpuscular Hemoglobin Concent 33g/dL (31-37) Red Cell Distribution Width 16.0% (11.5-14.5) Platelet Count 439x10^3/uL (140-400) Neutrophils (%) (Auto) 78% (31-73) Lymphocytes (%) (Auto) 12% (24-48) Monocytes (%) (Auto) 7% (0-9) Eosinophils (%) (Auto) 2% (0-3) Basophils (%) (Auto) 1% (0-3) Neutrophils # (Auto) 9.1x10^3uL (1.8-7.7) Lymphocytes # (Auto) 1.3x10^3/uL (1.0-4.8) Monocytes # (Auto) 0.8x10^3/uL (0.0-1.1) Eosinophils # (Auto) 0.3x10^3/uL (0.0-0.7) Basophils # (Auto) 0.1x10^3/uL (0.0-0.2) Prothrombin Time 19.9SEC (11.7-14.0) Prothromb Time International Ratio 1.8 (0.8-1.1) Activated Partial Thromboplast Time 71SEC (24-38) Influenza Type A Antigen Negative (NEGATIVE) Influenza Type B Antigen Negative (NEGATIVE) Sodium Level 147mmol/L (136-145) Potassium Level 3.7mmol/L (3.5-5.1) Chloride Level 108mmol/L (98-107) Carbon Dioxide Level 33mmol/L (21-32) Anion Gap 6 (6-14) Blood Urea Nitrogen 15mg/dL (8-26) Creatinine 1.3mg/dL (0.7-1.3) Estimated GFR (Cockcroft-Gault) 66.4 BUN/Creatinine Ratio 12 (6-20) Glucose Level 143mg/dL (70-99) Calcium Level 8.5mg/dL (8.5-10.1) Total Bilirubin 0.9mg/dL (0.2-1.0) Aspartate Amino Transf (AST/SGOT) 13U/L (15-37) Alanine Aminotransferase (ALT/SGPT) 19U/L (16-63) Alkaline Phosphatase 71U/L (46-116) Troponin I Quantitative 0.021ng/mL (0.000-0.055) 0.030ng/mL (0.000-0.055) YP-Eqv-P-Type Natriuretic Peptide 1401pg/mL (0-124) Total Protein 6.3g/dL (6.4-8.2) Albumin 2.8g/dL (3.4-5.0) Albumin/Globulin Ratio 0.8 (1.0-1.7) Test 01/05/17 09:00 01/06/17 03:25 01/06/17 03:28 Troponin I Quantitative 0.028ng/mL (0.000-0.055) White Blood Count 10.3x10^3/uL (4.0-11.0) Red Blood Count 4.09x10^6/uL (4.30-5.70) Hemoglobin 11.8g/dL (13.0-17.5) Hematocrit 37.1% (39.0-53.0) Mean Corpuscular Volume 91fL (79-100) Mean Corpuscular Hemoglobin 29pg (25-35) Mean Corpuscular Hemoglobin Concent 32g/dL (31-37) Red Cell Distribution Width 16.1% (11.5-14.5) Platelet Count 261x10^3/uL (140-400) Neutrophils (%) (Auto) 75% (31-73) Lymphocytes (%) (Auto) 15% (24-48) Monocytes (%) (Auto) 7% (0-9) Eosinophils (%) (Auto) 2% (0-3) Basophils (%) (Auto) 1% (0-3) Neutrophils # (Auto) 7.7x10^3uL (1.8-7.7) Lymphocytes # (Auto) 1.6x10^3/uL (1.0-4.8) Monocytes # (Auto) 0.7x10^3/uL (0.0-1.1) Eosinophils # (Auto) 0.2x10^3/uL (0.0-0.7) Basophils # (Auto) 0.1x10^3/uL (0.0-0.2) Sodium Level 148mmol/L (136-145) Potassium Level 3.3mmol/L (3.5-5.1) Chloride Level 106mmol/L (98-107) Carbon Dioxide Level 34mmol/L (21-32) Anion Gap 8 (6-14) Blood Urea Nitrogen 14mg/dL (8-26) Creatinine 1.2mg/dL (0.7-1.3) Estimated GFR (Cockcroft-Gault) 72.9 Glucose Level 117mg/dL (70-99) Calcium Level 9.2mg/dL (8.5-10.1) Magnesium Level 2.0mg/dL (1.8-2.4) Laboratory Tests Test 01/06/17 03:25 01/06/17 03:28 White Blood Count 10.3x10^3/uL (4.0-11.0) Red Blood Count 4.09x10^6/uL (4.30-5.70) Hemoglobin 11.8g/dL (13.0-17.5) Hematocrit 37.1% (39.0-53.0) Mean Corpuscular Volume 91fL (79-100) Mean Corpuscular Hemoglobin 29pg (25-35) Mean Corpuscular Hemoglobin Concent 32g/dL (31-37) Red Cell Distribution Width 16.1% (11.5-14.5) Platelet Count 261x10^3/uL (140-400) Neutrophils (%) (Auto) 75% (31-73) Lymphocytes (%) (Auto) 15% (24-48) Monocytes (%) (Auto) 7% (0-9) Eosinophils (%) (Auto) 2% (0-3) Basophils (%) (Auto) 1% (0-3) Neutrophils # (Auto) 7.7x10^3uL (1.8-7.7) Lymphocytes # (Auto) 1.6x10^3/uL (1.0-4.8) Monocytes # (Auto) 0.7x10^3/uL (0.0-1.1) Eosinophils # (Auto) 0.2x10^3/uL (0.0-0.7) Basophils # (Auto) 0.1x10^3/uL (0.0-0.2) Sodium Level 148mmol/L (136-145) Potassium Level 3.3mmol/L (3.5-5.1) Chloride Level 106mmol/L (98-107) Carbon Dioxide Level 34mmol/L (21-32) Anion Gap 8 (6-14) Blood Urea Nitrogen 14mg/dL (8-26) Creatinine 1.2mg/dL (0.7-1.3) Estimated GFR (Cockcroft-Gault) 72.9 Glucose Level 117mg/dL (70-99) Calcium Level 9.2mg/dL (8.5-10.1) Magnesium Level 2.0mg/dL (1.8-2.4) Medications Current Medications Furosemide (Lasix) 160 mg 1X ONCE IVP Last administered on 01/05/17t 00:32; Start 01/05/17 at 00:30; Stop 01/05/17 at 00:31; Status DC Acetaminophen (Tylenol) 650 mg PRN Q4HRS PRN PO FEVER Last administered on 01/05 02:53; Start 01/05/17 at 02:00; Stop 01/06/17 at 01:59; Status DC Nitroglycerin (Nitrostat) 0.4 mg PRN Q5MIN PRN SL CHEST PAIN; Start 01/05/17 at 02:00; Stop 01/06/17 at 01:59; Status DC Albuterol/ Ipratropium (Duoneb) 3 ml RTQID NEB Last administered on 01/06/17 07:48; Start 01/05/17 at 08:00; Stop 01/06/17 at 07:59; Status DC Acetaminophen/ Hydrocodone Bitart (Lortab 5/325) 1 tab PRN Q4HRS PRN PO SEVERE PAIN Last administered on 01/05/17 20:55; Start 01/05/17 at 02:00 Alprazolam (Xanax) 2 mg PRN Q8HRS PRN PO ANXIETY / AGITATION; Start 01/05/17 at 02:00 Alprazolam (Xanax) 0.5 mg TID PO Last administered on 01/06/17 08:55; Start at 14:00 Amlodipine Besylate (Norvasc) 10 mg DAILY PO Last administered on 01/06/17 08: 56; Start 01/06/17 at 09:00 Aspirin (Children'S Aspirin) 81 mg DAILY PO Last administered on 01/06/17 08: 55; Start 01/06/17 at 09:00 Atorvastatin Calcium (Lipitor) 40 mg DAILY PO Last administered on 01/06/17 08 :56; Start 01/06/17 at 09:00 Clonidine HCl (Catapres) 0.1 mg BID PO Last administered on 01/06/17 08:55; Start 01/05/17 at 21:00 Clopidogrel Bisulfate (Plavix) 75 mg DAILY PO Last administered on 01/06/17 08 :55; Start 01/06/17 at 09:00 Dabigatran (Pradaxa) 150 mg BID PO Last administered on 01/06/17 08:53; Start 01/05/17 at 21:00 Furosemide (Lasix) 40 mg [id number] PO ; Start 01/05/17 at 16:00; Stop 01/05/17 at 16 :00; Status DC Hydralazine HCl (Apresoline) 50 mg BID PO Last administered on 01/06/17 08:54 ; Start 01/05/17 at 21:00 Latanoprost (Xalatan) 1 drop QHS OU Last administered on 01/05/17 20:57; Start 01/05/17 at 21:00 Lisinopril (Prinivil) 40 mg DAILY PO Last administered on 01/06/17 08:56; Start 01/06/17 at 09:00 Spironolactone (Aldactone) 25 mg HS PO Last administered on 01/05/17 20:54; Start 01/05/17 at 21:00 Tamsulosin HCl (Flomax) 0.4 mg HS PO Last administered on 01/05/17 20:55; Start 01/05/17 at 21:00 Brimonidine Tartrate (Alphagan) 1 drop BID OU Last administered on 01/06/17 09 :04; Start 01/05/17 at 21:00 Carvedilol (Coreg) 12.5 mg BIDWMEALS PO Last administered on 01/06/17 08:55; Start 01/05/17 at 17:00 Vitamin D (Vitamin D3) 1,000 unit DAILY PO Last administered on 01/06/17 08:54 ; Start 01/06/17 at 09:00 Gabapentin (Neurontin) 600 mg QID PO Last administered on 01/06/17 08:54; Start 01/05/17 at 14:00 Pantoprazole Sodium (Protonix) 40 mg DAILYAC PO Last administered on 01/06/17 08:54; Start 01/06/17 at 07:30 Atorvastatin Calcium (Lipitor) 10 mg QHS PO ; Start 01/05/17 at 21:00; Stop at 21:00; Status DC Multivitamins/ Minerals (Ocuvite Lutein) 1 cap DAILY PO Last administered on 08:55; Start 01/06/17 at 09:00 Ketotifen Fumarate (Zaditor) 1 drop BID OU Last administered on 01/06/17 09:05 ; Start 01/05/17 at 21:00 Oxycodone HCl (Roxicodone) 10 mg PRN Q4HRS PRN PO PAIN Last administered on 09:11; Start 01/05/17 at 13:15 Paroxetine HCl (Paxil) 40 mg DAILY PO Last administered on 01/06/17 08:54; Start 01/06/17 at 09:00 Heparin Sodium (Porcine) 5,000 unit Q8HRS SQ ; Start 01/05/17 at 14:00; Stop at 14:00; Status DC Furosemide (Lasix) 80 mg [id number] IVP Last administered on 01/06/17 08:56; Start 01/05/17 at 16:00 Amiodarone HCl (Cordarone) 200 mg TIDAC PO Last administered on 01/06/17 08:54 ; Start 01/05/17 at 17:30 Potassium Chloride (Klor-Con) 40 meq 1X ONCE PO ; Start 01/06/17 at 10:30; Stop 01/06/17 at 10:31; Status DC Active Scripts Active Reported NICODERM CQ 21mg (Nicotine) 1 Each Patch.td24 1 Patch TP DAILY Centrum Silver Men Tablet (Multivit-Min/FA/Lycopen/Lutein) 1 Each Tablet 1 Each PO DAILY Vitamin D (Cholecalciferol (Vitamin D3)) 1,000 Unit Capsule 5 Cap PO DAILY Alphagan P (Brimonidine Tartrate) 5 Ml Drops 1 Drop EACHEYE BID Lovastatin 40 Mg Tablet 40 Mg PO HS Hydralazine Hcl 50 Mg Tablet 1 Tab PO BID Paxil (Paroxetine Hcl) 20 Mg Tablet 1 Tab PO HS Aspirin 81 Mg Tab.chew 1 Tab PO DAILY Clopidogrel (Clopidogrel Bisulfate) 75 Mg Tablet 1 Tab PO DAILY Atorvastatin Calcium 40 Mg Tablet 1 Tab PO DAILY Spironolactone 25 Mg Tablet 1 Tab PO HS Latanoprost 2.5 Ml Drops 1 Drop EACHEYE QHS [place] (Olopatadine HCl) 2.5 Ml Drops 2.5 Ml OP DAILY Furosemide 40 Mg Tablet 40 Mg PO [id number] Prevacid (Lansoprazole) 30 Mg Capsule.dr 1 Cap PO DAILY Oxycodone Hcl 10 Mg Tablet 1 Tab PO PRN Q4HRS PRN Lisinopril 40 Mg Tablet 0.5 Tab PO DAILY Coreg (Carvedilol) 25 Mg Tablet 1 Tab PO BIDBFRMEAL Norvasc (Amlodipine Besylate) 10 Mg Tablet 10 Mg PO DAILY Gabapentin 600 Mg Tablet 600 Mg PO QID Baclofen 10 Mg Tablet 1.5 Tab PO QID Xanax (Alprazolam) 0.5 Mg Tablet 1 Tab PO TID Paxil (Paroxetine Hcl) 40 Mg Tablet 1 Tab PO DAILY Clonidine Hcl 0.1 Mg Tablet 0.1 Mg PO BID Flomax (Tamsulosin Hcl) 0.4 Mg Cap.er.24h 0.4 Mg PO HS Pradaxa (Dabigatran Etexilate Mesylate) 150 Mg Capsule 150 Mg PO BID Vitals/I & O Vital Sign - Last 24 Hours 01/05/17 01/05/17 01/05/17 01/05/17 11:11 11:29 12:17 13:15 Temp 97.7 97.7 Pulse 64 B/P 132/80 Pulse Ox 93 93 93 O2 Delivery Nasal Cannula Nasal Cannula Nasal Cannula Nasal Cannula O2 Flow Rate 3.0 2.0 2.0 2.0 01/05/17 01/05/17 01/05/17 01/05/17 14:37 15:50 15:55 16:00 Temp 97.3 97.3 Pulse 78 70 80 82 Resp 20 B/P 129/73 131/78 125/74 143/82 O2 Delivery Room Air 01/05/17 01/05/17 01/05/17 01/05/17 16:04 16:10 17:10 17:30 Pulse 75 B/P 136/80 Pulse Ox 93 93 O2 Delivery Nasal Cannula Nasal Cannula Nasal Cannula O2 Flow Rate 2.0 2.0 2.0 01/05/17 01/05/17 01/05/17 01/05/17 17:31 19:11 19:30 20:13 Temp 97.9 97.9 Pulse 75 68 Resp 18 B/P 136/80 142/89 Pulse Ox 95 O2 Delivery Nasal Cannula Nasal Cannula Nasal Cannula O2 Flow Rate 2.0 2.0 2.0 01/05/17 01/05/17 01/05/17 01/06/17 20:56 20:57 22:50 03:50 Temp 97.2 98.3 97.2 98.3 Pulse 68 68 75 80 Resp 20 20 B/P 142/89 142/89 141/81 147/81 Pulse Ox 96 92 O2 Delivery BiPAP/CPAP Nasal Cannula O2 Flow Rate 2.0 01/06/17 01/06/17 01/06/17 01/06/17 07:16 07:50 08:54 08:54 Temp 98.1 98.1 Pulse 77 87 91 Resp 20 B/P 157/100 157/100 157/100 Pulse Ox 92 95 O2 Delivery Nasal Cannula Nasal Cannula O2 Flow Rate 3.0 3.0 01/06/17 01/06/17 01/06/17 01/06/17 08:55 08:55 08:56 08:56 Pulse 82 82 81 82 B/P 157/100 157/100 157/100 157/100 01/06/17 01/06/17 09:11 10:12 Temp 98.2 98.2 Pulse 90 Resp 18 20 B/P 160/84 Pulse Ox 96 O2 Delivery Nasal Cannula Nasal Cannula O2 Flow Rate 3.0 3.0 Intake and Output 01/05/17 01/05/17 01/06/17 15:00 23:00 07:00 Intake Total 0 ml 400 ml Output Total 2550 ml 650 ml Balance -2550 ml -250 ml REYNA WHITEHEAD MD Jan 06, 2017 10:42
--- NOTE | 2017-01-06 11:23 | PDOC ---
PROGRESS NOTES Chief Complaint Chief Complaint 1. Ischemic cardiomyopathy with an ejection fraction of 25-30%. 2. Probable diastolic dysfunction. 3. Severe mitral regurgitation. 4. Left atrial enlargement. 5. Moderate pulmonary hypertension. 6. Lumbar spondylosis. 7. Gait abnormality and fall. 8. Probable permanent atrial fibrillation. 9. hypokalemia History of Present Illness History of Present Illness No inc in SOA no CP K 3.3 on lasix Eager to go home today PLAN: Start PO kcl 40 qD Non objections to dc per primary Need O2 script? has home O2 already Vitals Vitals Vital Signs Date Time Temp Pulse Resp B/P Pulse Ox O2 Delivery O2 Flow Rate FiO2 01/06/17 10:12 98.2 90 20 160/84 96 Nasal Cannula 3.0 98.2 Physical Exam General: Alert, Oriented X3, Cooperative Heart: Regular rate, Normal S1, Normal S2 Lungs: Clear Abdomen: Normal bowel sounds, Soft Extremities: No clubbing, No cyanosis Skin: No rashes, No breakdown Labs LABS Laboratory Tests Test 01/06/17 03:25 01/06/17 03:28 White Blood Count 10.3x10^3/uL (4.0-11.0) Red Blood Count 4.09x10^6/uL (4.30-5.70) Hemoglobin 11.8g/dL (13.0-17.5) Hematocrit 37.1% (39.0-53.0) Mean Corpuscular Volume 91fL (79-100) Mean Corpuscular Hemoglobin 29pg (25-35) Mean Corpuscular Hemoglobin Concent 32g/dL (31-37) Red Cell Distribution Width 16.1% (11.5-14.5) Platelet Count 261x10^3/uL (140-400) Neutrophils (%) (Auto) 75% (31-73) Lymphocytes (%) (Auto) 15% (24-48) Monocytes (%) (Auto) 7% (0-9) Eosinophils (%) (Auto) 2% (0-3) Basophils (%) (Auto) 1% (0-3) Neutrophils # (Auto) 7.7x10^3uL (1.8-7.7) Lymphocytes # (Auto) 1.6x10^3/uL (1.0-4.8) Monocytes # (Auto) 0.7x10^3/uL (0.0-1.1) Eosinophils # (Auto) 0.2x10^3/uL (0.0-0.7) Basophils # (Auto) 0.1x10^3/uL (0.0-0.2) Sodium Level 148mmol/L (136-145) Potassium Level 3.3mmol/L (3.5-5.1) Chloride Level 106mmol/L (98-107) Carbon Dioxide Level 34mmol/L (21-32) Anion Gap 8 (6-14) Blood Urea Nitrogen 14mg/dL (8-26) Creatinine 1.2mg/dL (0.7-1.3) Estimated GFR (Cockcroft-Gault) 72.9 Glucose Level 117mg/dL (70-99) Calcium Level 9.2mg/dL (8.5-10.1) Magnesium Level 2.0mg/dL (1.8-2.4) Review of Systems Review of Systems no SOA, no CP, no abd pain Assessment and Plan Assessmemt and Plan Problems Medical Problems: (1) CHF exacerbation Status: Acute Problems: Comment Review of Relevant I have reviewed the following items rosas (where applicable) has been applied. Labs Laboratory Tests Test 01/04/17 21:45 01/04/17 21:55 01/04/17 22:30 01/05/17 03:00 White Blood Count 11.7x10^3/uL (4.0-11.0) Red Blood Count 3.86x10^6/uL (4.30-5.70) Hemoglobin 11.3g/dL (13.0-17.5) Hematocrit 34.3% (39.0-53.0) Mean Corpuscular Volume 89fL (79-100) Mean Corpuscular Hemoglobin 29pg (25-35) Mean Corpuscular Hemoglobin Concent 33g/dL (31-37) Red Cell Distribution Width 16.0% (11.5-14.5) Platelet Count 439x10^3/uL (140-400) Neutrophils (%) (Auto) 78% (31-73) Lymphocytes (%) (Auto) 12% (24-48) Monocytes (%) (Auto) 7% (0-9) Eosinophils (%) (Auto) 2% (0-3) Basophils (%) (Auto) 1% (0-3) Neutrophils # (Auto) 9.1x10^3uL (1.8-7.7) Lymphocytes # (Auto) 1.3x10^3/uL (1.0-4.8) Monocytes # (Auto) 0.8x10^3/uL (0.0-1.1) Eosinophils # (Auto) 0.3x10^3/uL (0.0-0.7) Basophils # (Auto) 0.1x10^3/uL (0.0-0.2) Prothrombin Time 19.9SEC (11.7-14.0) Prothromb Time International Ratio 1.8 (0.8-1.1) Activated Partial Thromboplast Time 71SEC (24-38) Influenza Type A Antigen Negative (NEGATIVE) Influenza Type B Antigen Negative (NEGATIVE) Sodium Level 147mmol/L (136-145) Potassium Level 3.7mmol/L (3.5-5.1) Chloride Level 108mmol/L (98-107) Carbon Dioxide Level 33mmol/L (21-32) Anion Gap 6 (6-14) Blood Urea Nitrogen 15mg/dL (8-26) Creatinine 1.3mg/dL (0.7-1.3) Estimated GFR (Cockcroft-Gault) 66.4 BUN/Creatinine Ratio 12 (6-20) Glucose Level 143mg/dL (70-99) Calcium Level 8.5mg/dL (8.5-10.1) Total Bilirubin 0.9mg/dL (0.2-1.0) Aspartate Amino Transf (AST/SGOT) 13U/L (15-37) Alanine Aminotransferase (ALT/SGPT) 19U/L (16-63) Alkaline Phosphatase 71U/L (46-116) Troponin I Quantitative 0.021ng/mL (0.000-0.055) 0.030ng/mL (0.000-0.055) VN-Sov-X-Type Natriuretic Peptide 1401pg/mL (0-124) Total Protein 6.3g/dL (6.4-8.2) Albumin 2.8g/dL (3.4-5.0) Albumin/Globulin Ratio 0.8 (1.0-1.7) Test 01/05/17 09:00 01/06/17 03:25 01/06/17 03:28 Troponin I Quantitative 0.028ng/mL (0.000-0.055) White Blood Count 10.3x10^3/uL (4.0-11.0) Red Blood Count 4.09x10^6/uL (4.30-5.70) Hemoglobin 11.8g/dL (13.0-17.5) Hematocrit 37.1% (39.0-53.0) Mean Corpuscular Volume 91fL (79-100) Mean Corpuscular Hemoglobin 29pg (25-35) Mean Corpuscular Hemoglobin Concent 32g/dL (31-37) Red Cell Distribution Width 16.1% (11.5-14.5) Platelet Count 261x10^3/uL (140-400) Neutrophils (%) (Auto) 75% (31-73) Lymphocytes (%) (Auto) 15% (24-48) Monocytes (%) (Auto) 7% (0-9) Eosinophils (%) (Auto) 2% (0-3) Basophils (%) (Auto) 1% (0-3) Neutrophils # (Auto) 7.7x10^3uL (1.8-7.7) Lymphocytes # (Auto) 1.6x10^3/uL (1.0-4.8) Monocytes # (Auto) 0.7x10^3/uL (0.0-1.1) Eosinophils # (Auto) 0.2x10^3/uL (0.0-0.7) Basophils # (Auto) 0.1x10^3/uL (0.0-0.2) Sodium Level 148mmol/L (136-145) Potassium Level 3.3mmol/L (3.5-5.1) Chloride Level 106mmol/L (98-107) Carbon Dioxide Level 34mmol/L (21-32) Anion Gap 8 (6-14) Blood Urea Nitrogen 14mg/dL (8-26) Creatinine 1.2mg/dL (0.7-1.3) Estimated GFR (Cockcroft-Gault) 72.9 Glucose Level 117mg/dL (70-99) Calcium Level 9.2mg/dL (8.5-10.1) Magnesium Level 2.0mg/dL (1.8-2.4) Laboratory Tests Test 01/06/17 03:25 01/06/17 03:28 White Blood Count 10.3x10^3/uL (4.0-11.0) Red Blood Count 4.09x10^6/uL (4.30-5.70) Hemoglobin 11.8g/dL (13.0-17.5) Hematocrit 37.1% (39.0-53.0) Mean Corpuscular Volume 91fL (79-100) Mean Corpuscular Hemoglobin 29pg (25-35) Mean Corpuscular Hemoglobin Concent 32g/dL (31-37) Red Cell Distribution Width 16.1% (11.5-14.5) Platelet Count 261x10^3/uL (140-400) Neutrophils (%) (Auto) 75% (31-73) Lymphocytes (%) (Auto) 15% (24-48) Monocytes (%) (Auto) 7% (0-9) Eosinophils (%) (Auto) 2% (0-3) Basophils (%) (Auto) 1% (0-3) Neutrophils # (Auto) 7.7x10^3uL (1.8-7.7) Lymphocytes # (Auto) 1.6x10^3/uL (1.0-4.8) Monocytes # (Auto) 0.7x10^3/uL (0.0-1.1) Eosinophils # (Auto) 0.2x10^3/uL (0.0-0.7) Basophils # (Auto) 0.1x10^3/uL (0.0-0.2) Sodium Level 148mmol/L (136-145) Potassium Level 3.3mmol/L (3.5-5.1) Chloride Level 106mmol/L (98-107) Carbon Dioxide Level 34mmol/L (21-32) Anion Gap 8 (6-14) Blood Urea Nitrogen 14mg/dL (8-26) Creatinine 1.2mg/dL (0.7-1.3) Estimated GFR (Cockcroft-Gault) 72.9 Glucose Level 117mg/dL (70-99) Calcium Level 9.2mg/dL (8.5-10.1) Magnesium Level 2.0mg/dL (1.8-2.4) Medications Current Medications Furosemide (Lasix) 160 mg 1X ONCE IVP Last administered on 01/05/17 00:32; Start 01/05/17 at 00:30; Stop 01/05/17 at 00:31; Status DC Acetaminophen (Tylenol) 650 mg PRN Q4HRS PRN PO FEVER Last administered on 01/05 02:53; Start 01/05/17 at 02:00; Stop 01/06/17 at 01:59; Status DC Nitroglycerin (Nitrostat) 0.4 mg PRN Q5MIN PRN SL CHEST PAIN; Start 01/05/17 at 02:00; Stop 01/06/17 at 01:59; Status DC Albuterol/ Ipratropium (Duoneb) 3 ml RTQID NEB Last administered on 01/06/17 07:48; Start 01/05/17 at 08:00; Stop 01/06/17 at 07:59; Status DC Acetaminophen/ Hydrocodone Bitart (Lortab 5/325) 1 tab PRN Q4HRS PRN PO SEVERE PAIN Last administered on 01/05/17 20:55; Start 01/05/17 at 02:00 Alprazolam (Xanax) 2 mg PRN Q8HRS PRN PO ANXIETY / AGITATION; Start 01/05/17 at 02:00 Alprazolam (Xanax) 0.5 mg TID PO Last administered on 01/06/17 08:55; Start at 14:00 Amlodipine Besylate (Norvasc) 10 mg DAILY PO Last administered on 01/06/17 08: 56; Start 01/06/17 at 09:00 Aspirin (Children'S Aspirin) 81 mg DAILY PO Last administered on 01/06/17 08: 55; Start 01/06/17 at 09:00 Atorvastatin Calcium (Lipitor) 40 mg DAILY PO Last administered on 01/06/17 08 :56; Start 01/06/17 at 09:00 Clonidine HCl (Catapres) 0.1 mg BID PO Last administered on 01/06/17 08:55; Start 01/05/17 at 21:00 Clopidogrel Bisulfate (Plavix) 75 mg DAILY PO Last administered on 01/06/17 08 :55; Start 01/06/17 at 09:00 Dabigatran (Pradaxa) 150 mg BID PO Last administered on 01/06/17 08:53; Start 01/05/17 at 21:00 Furosemide (Lasix) 40 mg BID94 PO ; Start 01/05/17 at 16:00; Stop 01/05/17 at 16 :00; Status DC Hydralazine HCl (Apresoline) 50 mg BID PO Last administered on 01/06/17 08:54 ; Start 01/05/17 at 21:00 Latanoprost (Xalatan) 1 drop QHS OU Last administered on 01/05/17 20:57; Start 01/05/17 at 21:00 Lisinopril (Prinivil) 40 mg DAILY PO Last administered on 01/06/17 08:56; Start 01/06/17 at 09:00 Spironolactone (Aldactone) 25 mg HS PO Last administered on 01/05/17 20:54; Start 01/05/17 at 21:00 Tamsulosin HCl (Flomax) 0.4 mg HS PO Last administered on 01/05/17 20:55; Start 01/05/17 at 21:00 Brimonidine Tartrate (Alphagan) 1 drop BID OU Last administered on 01/06/17 09 :04; Start 01/05/17 at 21:00 Carvedilol (Coreg) 12.5 mg BIDWMEALS PO Last administered on 01/06/17 08:55; Start 01/05/17 at 17:00 Vitamin D (Vitamin D3) 1,000 unit DAILY PO Last administered on 01/06/17 08:54 ; Start 01/06/17 at 09:00 Gabapentin (Neurontin) 600 mg QID PO Last administered on 01/06/17 08:54; Start 01/05/17 at 14:00 Pantoprazole Sodium (Protonix) 40 mg DAILYAC PO Last administered on 01/06/17 08:54; Start 01/06/17 at 07:30 Atorvastatin Calcium (Lipitor) 10 mg QHS PO ; Start 01/05/17 at 21:00; Stop at 21:00; Status DC Multivitamins/ Minerals (Ocuvite Lutein) 1 cap DAILY PO Last administered on 08:55; Start 01/06/17 at 09:00 Ketotifen Fumarate (Zaditor) 1 drop BID OU Last administered on 01/06/17 09:05 ; Start 01/05/17 at 21:00 Oxycodone HCl (Roxicodone) 10 mg PRN Q4HRS PRN PO PAIN Last administered on 09:11; Start 01/05/17 at 13:15 Paroxetine HCl (Paxil) 40 mg DAILY PO Last administered on 01/06/17 08:54; Start 01/06/17 at 09:00 Heparin Sodium (Porcine) 5,000 unit Q8HRS SQ ; Start 01/05/17 at 14:00; Stop at 14:00; Status DC Furosemide (Lasix) 80 mg BID94 IVP Last administered on 01/06/17 08:56; Start 01/05/17 at 16:00 Amiodarone HCl (Cordarone) 200 mg TIDAC PO Last administered on 01/06/17 08:54 ; Start 01/05/17 at 17:30 Potassium Chloride (Klor-Con) 40 meq 1X ONCE PO ; Start 01/06/17 at 10:30; Stop 01/06/17 at 10:31; Status DC Potassium Chloride (Klor-Con) 40 meq DAILYWBKFT PO ; Start 01/06/17 at 11:00 Active Scripts Active Reported NICODERM CQ 21mg (Nicotine) 1 Each Patch.td24 1 Patch TP DAILY Centrum Silver Men Tablet (Multivit-Min/FA/Lycopen/Lutein) 1 Each Tablet 1 Each PO DAILY Vitamin D (Cholecalciferol (Vitamin D3)) 1,000 Unit Capsule 5 Cap PO DAILY Alphagan P (Brimonidine Tartrate) 5 Ml Drops 1 Drop EACHEYE BID Lovastatin 40 Mg Tablet 40 Mg PO HS Hydralazine Hcl 50 Mg Tablet 1 Tab PO BID Paxil (Paroxetine Hcl) 20 Mg Tablet 1 Tab PO HS Aspirin 81 Mg Tab.chew 1 Tab PO DAILY Clopidogrel (Clopidogrel Bisulfate) 75 Mg Tablet 1 Tab PO DAILY Atorvastatin Calcium 40 Mg Tablet 1 Tab PO DAILY Spironolactone 25 Mg Tablet 1 Tab PO HS Latanoprost 2.5 Ml Drops 1 Drop EACHEYE QHS Pazeo (Olopatadine HCl) 2.5 Ml Drops 2.5 Ml OP DAILY Furosemide 40 Mg Tablet 40 Mg PO BID94 Prevacid (Lansoprazole) 30 Mg Capsule.dr 1 Cap PO DAILY Oxycodone Hcl 10 Mg Tablet 1 Tab PO PRN Q4HRS PRN Lisinopril 40 Mg Tablet 0.5 Tab PO DAILY Coreg (Carvedilol) 25 Mg Tablet 1 Tab PO BIDBFRMEAL Norvasc (Amlodipine Besylate) 10 Mg Tablet 10 Mg PO DAILY Gabapentin 600 Mg Tablet 600 Mg PO QID Baclofen 10 Mg Tablet 1.5 Tab PO QID Xanax (Alprazolam) 0.5 Mg Tablet 1 Tab PO TID Paxil (Paroxetine Hcl) 40 Mg Tablet 1 Tab PO DAILY Clonidine Hcl 0.1 Mg Tablet 0.1 Mg PO BID Flomax (Tamsulosin Hcl) 0.4 Mg Cap.er.24h 0.4 Mg PO HS Pradaxa (Dabigatran Etexilate Mesylate) 150 Mg Capsule 150 Mg PO BID Vitals/I & O Vital Sign - Last 24 Hours 01/05/17 01/05/17 01/05/17 01/05/17 11:29 12:17 13:15 14:37 Temp 97.3 97.3 Pulse 78 Resp 20 B/P 129/73 Pulse Ox 93 93 O2 Delivery Nasal Cannula Nasal Cannula Nasal Cannula Room Air O2 Flow Rate 2.0 2.0 2.0 01/05/17 01/05/17 01/05/17 01/05/17 15:50 15:55 16:00 16:04 Pulse 70 80 82 B/P 131/78 125/74 143/82 O2 Delivery Nasal Cannula O2 Flow Rate 2.0 01/05/17 01/05/17 01/05/17 01/05/17 16:10 17:10 17:30 17:31 Pulse 75 75 B/P 136/80 136/80 Pulse Ox 93 93 O2 Delivery Nasal Cannula Nasal Cannula O2 Flow Rate 2.0 2.0 01/05/17 01/05/17 01/05/17 01/05/17 19:11 19:30 20:13 20:56 Temp 97.9 97.9 Pulse 68 68 Resp 18 B/P 142/89 142/89 Pulse Ox 95 O2 Delivery Nasal Cannula Nasal Cannula Nasal Cannula O2 Flow Rate 2.0 2.0 2.0 01/05/17 01/05/17 01/06/17 01/06/17 20:57 22:50 03:50 07:16 Temp 97.2 98.3 98.1 97.2 98.3 98.1 Pulse 68 75 80 77 Resp 20 20 20 B/P 142/89 141/81 147/81 157/100 Pulse Ox 96 92 92 O2 Delivery BiPAP/CPAP Nasal Cannula Nasal Cannula O2 Flow Rate 2.0 3.0 01/06/17 01/06/17 01/06/17 01/06/17 07:50 08:00 08:54 08:54 Pulse 87 91 B/P 157/100 157/100 Pulse Ox 95 O2 Delivery Nasal Cannula Nasal Cannula O2 Flow Rate 3.0 3.0 01/06/17 01/06/17 01/06/17 01/06/17 08:55 08:55 08:56 08:56 Pulse 82 82 81 82 B/P 157/100 157/100 157/100 157/100 01/06/17 01/06/17 09:11 10:12 Temp 98.2 98.2 Pulse 90 Resp 18 20 B/P 160/84 Pulse Ox 96 O2 Delivery Nasal Cannula Nasal Cannula O2 Flow Rate 3.0 3.0 Intake and Output 01/05/17 01/05/17 01/06/17 15:00 23:00 07:00 Intake Total 0 ml 400 ml Output Total 2550 ml 650 ml Balance -2550 ml -250 ml SIENA MARTEL MD Jan 06, 2017 11:23
--- NOTE | 2017-01-06 12:10 | PDOC ---
PULMONARY PROGRESS NOTES Vitals Vital Signs Date Time Temp Pulse Resp B/P Pulse Ox O2 Delivery O2 Flow Rate FiO2 01/06/17 10:12 98.2 90 20 160/84 96 Nasal Cannula 3.0 98.2 Lungs: Clear Labs Laboratory Tests Test 01/04/17 21:45 01/04/17 21:55 01/04/17 22:30 01/05/17 03:00 White Blood Count 11.7x10^3/uL (4.0-11.0) Red Blood Count 3.86x10^6/uL (4.30-5.70) Hemoglobin 11.3g/dL (13.0-17.5) Hematocrit 34.3% (39.0-53.0) Mean Corpuscular Volume 89fL (79-100) Mean Corpuscular Hemoglobin 29pg (25-35) Mean Corpuscular Hemoglobin Concent 33g/dL (31-37) Red Cell Distribution Width 16.0% (11.5-14.5) Platelet Count 439x10^3/uL (140-400) Neutrophils (%) (Auto) 78% (31-73) Lymphocytes (%) (Auto) 12% (24-48) Monocytes (%) (Auto) 7% (0-9) Eosinophils (%) (Auto) 2% (0-3) Basophils (%) (Auto) 1% (0-3) Neutrophils # (Auto) 9.1x10^3uL (1.8-7.7) Lymphocytes # (Auto) 1.3x10^3/uL (1.0-4.8) Monocytes # (Auto) 0.8x10^3/uL (0.0-1.1) Eosinophils # (Auto) 0.3x10^3/uL (0.0-0.7) Basophils # (Auto) 0.1x10^3/uL (0.0-0.2) Prothrombin Time 19.9SEC (11.7-14.0) Prothromb Time International Ratio 1.8 (0.8-1.1) Activated Partial Thromboplast Time 71SEC (24-38) Influenza Type A Antigen Negative (NEGATIVE) Influenza Type B Antigen Negative (NEGATIVE) Sodium Level 147mmol/L (136-145) Potassium Level 3.7mmol/L (3.5-5.1) Chloride Level 108mmol/L (98-107) Carbon Dioxide Level 33mmol/L (21-32) Anion Gap 6 (6-14) Blood Urea Nitrogen 15mg/dL (8-26) Creatinine 1.3mg/dL (0.7-1.3) Estimated GFR (Cockcroft-Gault) 66.4 BUN/Creatinine Ratio 12 (6-20) Glucose Level 143mg/dL (70-99) Calcium Level 8.5mg/dL (8.5-10.1) Total Bilirubin 0.9mg/dL (0.2-1.0) Aspartate Amino Transf (AST/SGOT) 13U/L (15-37) Alanine Aminotransferase (ALT/SGPT) 19U/L (16-63) Alkaline Phosphatase 71U/L (46-116) Troponin I Quantitative 0.021ng/mL (0.000-0.055) 0.030ng/mL (0.000-0.055) GF-Rsz-[id number]-Type Natriuretic Peptide 1401pg/mL (0-124) Total Protein 6.3g/dL (6.4-8.2) Albumin 2.8g/dL (3.4-5.0) Albumin/Globulin Ratio 0.8 (1.0-1.7) Test 01/05/17 09:00 01/06/17 03:25 01/06/17 03:28 Troponin I Quantitative 0.028ng/mL (0.000-0.055) White Blood Count 10.3x10^3/uL (4.0-11.0) Red Blood Count 4.09x10^6/uL (4.30-5.70) Hemoglobin 11.8g/dL (13.0-17.5) Hematocrit 37.1% (39.0-53.0) Mean Corpuscular Volume 91fL (79-100) Mean Corpuscular Hemoglobin 29pg (25-35) Mean Corpuscular Hemoglobin Concent 32g/dL (31-37) Red Cell Distribution Width 16.1% (11.5-14.5) Platelet Count 261x10^3/uL (140-400) Neutrophils (%) (Auto) 75% (31-73) Lymphocytes (%) (Auto) 15% (24-48) Monocytes (%) (Auto) 7% (0-9) Eosinophils (%) (Auto) 2% (0-3) Basophils (%) (Auto) 1% (0-3) Neutrophils # (Auto) 7.7x10^3uL (1.8-7.7) Lymphocytes # (Auto) 1.6x10^3/uL (1.0-4.8) Monocytes # (Auto) 0.7x10^3/uL (0.0-1.1) Eosinophils # (Auto) 0.2x10^3/uL (0.0-0.7) Basophils # (Auto) 0.1x10^3/uL (0.0-0.2) Sodium Level 148mmol/L (136-145) Potassium Level 3.3mmol/L (3.5-5.1) Chloride Level 106mmol/L (98-107) Carbon Dioxide Level 34mmol/L (21-32) Anion Gap 8 (6-14) Blood Urea Nitrogen 14mg/dL (8-26) Creatinine 1.2mg/dL (0.7-1.3) Estimated GFR (Cockcroft-Gault) 72.9 Glucose Level 117mg/dL (70-99) Calcium Level 9.2mg/dL (8.5-10.1) Magnesium Level 2.0mg/dL (1.8-2.4) Laboratory Tests Test 01/06/17 03:25 01/06/17 03:28 White Blood Count 10.3x10^3/uL (4.0-11.0) Red Blood Count 4.09x10^6/uL (4.30-5.70) Hemoglobin 11.8g/dL (13.0-17.5) Hematocrit 37.1% (39.0-53.0) Mean Corpuscular Volume 91fL (79-100) Mean Corpuscular Hemoglobin 29pg (25-35) Mean Corpuscular Hemoglobin Concent 32g/dL (31-37) Red Cell Distribution Width 16.1% (11.5-14.5) Platelet Count 261x10^3/uL (140-400) Neutrophils (%) (Auto) 75% (31-73) Lymphocytes (%) (Auto) 15% (24-48) Monocytes (%) (Auto) 7% (0-9) Eosinophils (%) (Auto) 2% (0-3) Basophils (%) (Auto) 1% (0-3) Neutrophils # (Auto) 7.7x10^3uL (1.8-7.7) Lymphocytes # (Auto) 1.6x10^3/uL (1.0-4.8) Monocytes # (Auto) 0.7x10^3/uL (0.0-1.1) Eosinophils # (Auto) 0.2x10^3/uL (0.0-0.7) Basophils # (Auto) 0.1x10^3/uL (0.0-0.2) Sodium Level 148mmol/L (136-145) Potassium Level 3.3mmol/L (3.5-5.1) Chloride Level 106mmol/L (98-107) Carbon Dioxide Level 34mmol/L (21-32) Anion Gap 8 (6-14) Blood Urea Nitrogen 14mg/dL (8-26) Creatinine 1.2mg/dL (0.7-1.3) Estimated GFR (Cockcroft-Gault) 72.9 Glucose Level 117mg/dL (70-99) Calcium Level 9.2mg/dL (8.5-10.1) Magnesium Level 2.0mg/dL (1.8-2.4) Medications Active Scripts Medications Dose Route/Sig Days Date Category NICODERM CQ 21mg (Nicotine) 1 Each Patch.td24 1 Patch TP DAILY 12/23/16 Reported Centrum Silver Men Tablet (Multivit-Min/FA/Lycopen/Lutein) 1 Each Tablet 1 Each PO DAILY 12/23/16 Reported Vitamin D (Cholecalciferol (Vitamin D3)) 1,000 Unit Capsule 5 Cap PO DAILY 12/23/16 Reported Alphagan P (Brimonidine Tartrate) 5 Ml Drops 1 Drop EACHEYE BID 12/19/16 Reported Lovastatin 40 Mg Tablet 40 Mg PO HS 12/19/16 Reported Hydralazine Hcl 50 Mg Tablet 1 Tab PO BID 12/19/16 Reported Paxil (Paroxetine Hcl) 20 Mg Tablet 1 Tab PO HS 12/19/16 Reported Aspirin 81 Mg Tab.chew 1 Tab PO DAILY 12/19/16 Reported Clopidogrel (Clopidogrel Bisulfate) 75 Mg Tablet 1 Tab PO DAILY 10/29/16 Reported Atorvastatin Calcium 40 Mg Tablet 1 Tab PO DAILY 10/28/16 Reported Spironolactone 25 Mg Tablet 1 Tab PO HS 10/28/16 Reported Latanoprost 2.5 Ml Drops 1 Drop EACHEYE QHS 10/28/16 Reported [place]azeo (Olopatadine HCl) 2.5 Ml Drops 2.5 Ml OP DAILY 10/28/16 Reported Furosemide 40 Mg Tablet 40 Mg PO BID94 10/28/16 Reported Prevacid (Lansoprazole) 30 Mg Capsule.dr 1 Cap PO DAILY 10/28/16 Reported Oxycodone Hcl 10 Mg Tablet 1 Tab PO PRN Q4HRS PRN 10/28/16 Reported Lisinopril 40 Mg Tablet 0.5 Tab PO DAILY 10/28/16 Reported Coreg (Carvedilol) 25 Mg Tablet 1 Tab PO BIDBFRMEAL 10/28/16 Reported Norvasc (Amlodipine Besylate) 10 Mg Tablet 10 Mg PO DAILY 10/28/16 Reported Gabapentin 600 Mg Tablet 600 Mg PO QID 10/28/16 Reported Baclofen 10 Mg Tablet 1.5 Tab PO QID 10/28/16 Reported Xanax (Alprazolam) 0.5 Mg Tablet 1 Tab PO TID 10/28/16 Reported Paxil (Paroxetine Hcl) 40 Mg Tablet 1 Tab PO DAILY 10/28/16 Reported Clonidine Hcl 0.1 Mg Tablet 0.1 Mg PO BID 10/28/16 Reported Flomax (Tamsulosin Hcl) 0.4 Mg Cap.er.24h 0.4 Mg PO HS 10/28/16 Reported Pradaxa (Dabigatran Etexilate Mesylate) 150 Mg Capsule 150 Mg PO BID 10/28/16 Reported Impression . CIRILO will try Nasal Pillows acute resp failure multifactorial D/W BINA Blevins MD Jan 06, 2017 12:10
[2017-01-06] MEDS: POTASSIUM CHLORIDE 20 MEQ TABLET.ER. PO SCH (12:19)
[2017-01-06 15:10] VITALS: BP 143/81
[2017-01-06] MEDS: ANTI-COAG MONITOR BY PHARMACY. MC PRN (15:23)
[2017-01-06] MEDS ORDERED: NICOTINE 21MG PATCH. TD PRN (16:15)
[2017-01-06] MEDS: NICOTINE 14MG PATCH. TD SCH (16:53)
[2017-01-06 19:20] VITALS: BP 134/83
[2017-01-06] MEDS: LATANOPROST 0.005% OPHTH SOLUTION 2.5ML BOTTLE. OU SCH (21:33)
[2017-01-06] MEDS: TAMSULOSIN 0.4 MG CAP.ER.24H. PO SCH (21:35)
[2017-01-06] MEDS: SPIRONOLACTONE 25 MG TABLET PO SCH (21:35)
[2017-01-06] MEDS: HYDROCODONE/APAP 5/325MG TABLET. PO PRN (21:37)
[2017-01-06 23:05] VITALS: BP 144/77
[2017-01-07 03:35] VITALS: BP 149/100
[2017-01-07] MEDS: OXYCODONE IR 5 MG TABLET. PO PRN ×4 (03:53→21:28)
[2017-01-07] MEDS: CLONIDINE HCL 0.1 MG TABLET PO SCH (03:54)
--- NOTE | 2017-01-07 04:52 | CONS ---
DATE OF CONSULTATION: ATTENDING PHYSICIAN: Dr. Zamudio. DATE OF SERVICE: 01/06/2017 REASON FOR CONSULTATION: The patient is seen in pulmonary consultation at the request of Dr. Zamudio for obstructive sleep apnea. HISTORY OF PRESENT ILLNESS: The patient is a 66-year-old that had a sleep study approximately 3 weeks ago, was diagnosed with CIRILO. He does not have a CPAP machine at home, presented with lower extremity edema. He is currently in acute heart failure and new onset AFib. I was asked to see him in consultation. He is intolerant to the current mask. In fact, last evening, he was placed on CPAP at 8 cm of water pressure and could not tolerate the mask. The patient reports oxygen use at home, smoking 3-4 cigarettes, no productive cough. PAST MEDICAL HISTORY: Otherwise remarkable for ischemic cardiomyopathy, ejection fraction 25-30%, severe mitral regurg, left atrial enlargement, moderate pulmonary hypertension, COPD, hypertension, gastroesophageal reflux and anxiety. PAST SURGICAL HISTORY: No recent major surgeries. FAMILY HISTORY: Remarkable for diabetes and heart failure. SOCIAL HISTORY: He smokes a few cigarettes a day. ALLERGIES: NSAIDS. HOME MEDICATIONS: List was reviewed. Please see the MRAD. CURRENT MEDICATIONS: List was likewise reviewed. REVIEW OF SYSTEMS: As indicated above, otherwise a 10-point system was reviewed and negative. PHYSICAL EXAMINATION: GENERAL: The patient was in no respiratory distress. VITAL SIGNS: Stable. O2 saturation was greater than 92%. HEENT: Eyes, the sclerae were nonicteric. NECK: Jugular venous distention was not elevated. No lymphadenopathy. CHEST: Full expansion. LUNGS: Crackles bilaterally with no wheezes. CARDIOVASCULAR: Regular rate and rhythm with S1, S2, no S3. ABDOMEN: Obese. EXTREMITIES: 1+ edema. NEUROLOGIC: The patient was awake, alert, following commands. A detailed neuro exam was not performed. LABORATORY DATA: Reviewed. Chest x-ray revealed bilateral infiltrates compatible with CHF. IMPRESSION: 1. Acute on chronic hypoxemic respiratory failure, multifactorial secondary to chronic obstructive pulmonary disease and acute heart failure. 2. Cardiomyopathy, ejection fraction 25-30%. 3. Acute on chronic systolic and diastolic congestive heart failure. 4. Obstructive sleep apnea. 5. Secondary pulmonary hypertension. 6. Tobacco dependence. 7. Obesity. 8. Atrial fibrillation. PLAN: 1. We will attempt CPAP tonight with nasal pillows. 2. Obtain polysomnogram results. 3. Continue diuresis. 4. Continue oxygen supplementation. 5. The patient instructed on the importance of discontinuing his tobacco use. 6. Nicotine patch. Dr. Zamudio, I do appreciate the privilege in sharing in this patient's care. BINA EDWARD MD DR: MEE/veronica JOB#: [id number] / [id number]
[2017-01-07 07:15] VITALS: BP 148/87
[2017-01-07] MEDS: IPRATRPIUM/ALBUTEROL 0.5/2.5MG 3 ML NEBU. NEB SCH ×4 (08:08→19:20)
[2017-01-07] MEDS: GABAPENTIN 300 MG CAPSULE. PO SCH ×4 (08:22→21:29)
[2017-01-07] MEDS: MULTIVITAMIN EYE FORMULA CAPSULE. PO SCH (08:22)
[2017-01-07] MEDS: POTASSIUM CHLORIDE 20 MEQ TABLET.ER. PO SCH (08:23)
[2017-01-07] MEDS: CARVEDILOL 12.5 MG TABLET PO SCH ×2 (08:23→17:38)
[2017-01-07] MEDS: DABIGATRAN ETEXILATE 150 MG CAPSULE. PO SCH ×2 (08:23→21:28)
[2017-01-07] MEDS: AMLODIPINE BESYLATE 10 MG TABLET PO SCH (08:24)
[2017-01-07] MEDS: HYDRALAZINE 50 MG TABLET PO SCH ×2 (08:24→21:00)
[2017-01-07] MEDS: ALPRAZOLAM 0.5 MG TABLET PO SCH ×3 (08:24→21:29)
[2017-01-07] MEDS: CLOPIDOGREL BISULFATE 75 MG TABLET PO SCH (08:25)
[2017-01-07] MEDS: PAROXETINE 20 MG TABLET. PO SCH (08:25)
[2017-01-07] MEDS: ATORVASTATIN CALCIUM 40 MG TABLET. PO SCH (08:25)
[2017-01-07] MEDS: CHOLECALCIFEROL (VITAMIN D3) 1,000 UNIT TABLET PO SCH (08:25)
[2017-01-07] MEDS: LISINOPRIL 40 MG TABLET. PO SCH (08:25)
[2017-01-07] MEDS: ASPIRIN 81 MG TAB.CHEW PO SCH (08:25)
[2017-01-07] MEDS: NICOTINE 14MG PATCH. TD SCH (08:26)
[2017-01-07] MEDS: AMIODARONE HCL 200 MG TABLET PO SCH ×4 (08:26→21:29)
[2017-01-07] MEDS: BRIMONIDINE 0.2% OPHTH SOLUTION 5ML BOTTLE. OU SCH ×2 (08:26→21:27)
[2017-01-07] MEDS: PANTOPRAZOLE 40 MG TABLET. PO SCH (08:26)
[2017-01-07] MEDS: KETOTIFEN FUMARATE 0.025% OPHT SOLUTION 5ML BOTTLE. OU SCH ×2 (08:26→21:26)
[2017-01-07] MEDS: FUROSEMIDE 100 MG/10 ML VIAL IVP SCH ×2 (08:26→16:24)
[2017-01-07 10:22] VITALS: BP 151/87
--- NOTE | 2017-01-07 10:38 | PDOC ---
PULMONARY PROGRESS NOTES Subjective PT FEELS BETTER Vitals Vital Signs Date Time Temp Pulse Resp B/P Pulse Ox O2 Delivery O2 Flow Rate FiO2 01/07/17 10:22 98.5 76 20 151/87 93 Nasal Cannula 2.0 98.5 ROS: No Nausea, No Chest Pain, No Abdominal Pain, No Increase Cough Lungs: Clear Cardiovascular: S1, S2 Abdomen: Soft Neuro Exam: Alert Extremities: No Edema Skin: Warm Labs Laboratory Tests Test 01/06/17 03:25 01/06/17 03:28 White Blood Count 10.3x10^3/uL (4.0-11.0) Red Blood Count 4.09x10^6/uL (4.30-5.70) Hemoglobin 11.8g/dL (13.0-17.5) Hematocrit 37.1% (39.0-53.0) Mean Corpuscular Volume 91fL (79-100) Mean Corpuscular Hemoglobin 29pg (25-35) Mean Corpuscular Hemoglobin Concent 32g/dL (31-37) Red Cell Distribution Width 16.1% (11.5-14.5) Platelet Count 261x10^3/uL (140-400) Neutrophils (%) (Auto) 75% (31-73) Lymphocytes (%) (Auto) 15% (24-48) Monocytes (%) (Auto) 7% (0-9) Eosinophils (%) (Auto) 2% (0-3) Basophils (%) (Auto) 1% (0-3) Neutrophils # (Auto) 7.7x10^3uL (1.8-7.7) Lymphocytes # (Auto) 1.6x10^3/uL (1.0-4.8) Monocytes # (Auto) 0.7x10^3/uL (0.0-1.1) Eosinophils # (Auto) 0.2x10^3/uL (0.0-0.7) Basophils # (Auto) 0.1x10^3/uL (0.0-0.2) Sodium Level 148mmol/L (136-145) Potassium Level 3.3mmol/L (3.5-5.1) Chloride Level 106mmol/L (98-107) Carbon Dioxide Level 34mmol/L (21-32) Anion Gap 8 (6-14) Blood Urea Nitrogen 14mg/dL (8-26) Creatinine 1.2mg/dL (0.7-1.3) Estimated GFR (Cockcroft-Gault) 72.9 Glucose Level 117mg/dL (70-99) Calcium Level 9.2mg/dL (8.5-10.1) Magnesium Level 2.0mg/dL (1.8-2.4) Medications Active Scripts Medications Dose Route/Sig Days Date Category NICODERM CQ 21mg (Nicotine) 1 Each Patch.td24 1 Patch TP DAILY 12/23/16 Reported Centrum Silver Men Tablet (Multivit-Min/FA/Lycopen/Lutein) 1 Each Tablet 1 Each PO DAILY 12/23/16 Reported Vitamin D (Cholecalciferol (Vitamin D3)) 1,000 Unit Capsule 5 Cap PO DAILY 12/23/16 Reported Alphagan P (Brimonidine Tartrate) 5 Ml Drops 1 Drop EACHEYE BID 12/19/16 Reported Lovastatin 40 Mg Tablet 40 Mg PO HS 12/19/16 Reported Hydralazine Hcl 50 Mg Tablet 1 Tab PO BID 12/19/16 Reported Paxil (Paroxetine Hcl) 20 Mg Tablet 1 Tab PO HS 12/19/16 Reported Aspirin 81 Mg Tab.chew 1 Tab PO DAILY 12/19/16 Reported Clopidogrel (Clopidogrel Bisulfate) 75 Mg Tablet 1 Tab PO DAILY 10/29/16 Reported Atorvastatin Calcium 40 Mg Tablet 1 Tab PO DAILY 10/28/16 Reported Spironolactone 25 Mg Tablet 1 Tab PO HS 10/28/16 Reported Latanoprost 2.5 Ml Drops 1 Drop EACHEYE QHS 10/28/16 Reported Pazeo (Olopatadine HCl) 2.5 Ml Drops 2.5 Ml OP DAILY 10/28/16 Reported Furosemide 40 Mg Tablet 40 Mg PO BID94 10/28/16 Reported Prevacid (Lansoprazole) 30 Mg Capsule.dr 1 Cap PO DAILY 10/28/16 Reported Oxycodone Hcl 10 Mg Tablet 1 Tab PO PRN Q4HRS PRN 10/28/16 Reported Lisinopril 40 Mg Tablet 0.5 Tab PO DAILY 10/28/16 Reported Coreg (Carvedilol) 25 Mg Tablet 1 Tab PO BIDBFRMEAL 10/28/16 Reported Norvasc (Amlodipine Besylate) 10 Mg Tablet 10 Mg PO DAILY 10/28/16 Reported Gabapentin 600 Mg Tablet 600 Mg PO QID 10/28/16 Reported Baclofen 10 Mg Tablet 1.5 Tab PO QID 10/28/16 Reported Xanax (Alprazolam) 0.5 Mg Tablet 1 Tab PO TID 10/28/16 Reported Paxil (Paroxetine Hcl) 40 Mg Tablet 1 Tab PO DAILY 10/28/16 Reported Clonidine Hcl 0.1 Mg Tablet 0.1 Mg PO BID 10/28/16 Reported Flomax (Tamsulosin Hcl) 0.4 Mg Cap.er.24h 0.4 Mg PO HS 10/28/16 Reported Pradaxa (Dabigatran Etexilate Mesylate) 150 Mg Capsule 150 Mg PO BID 10/28/16 Reported Impression . 1. Acute on chronic hypoxemic respiratory failure, multifactorial secondary to chronic obstructive pulmonary disease and acute heart failure. 2. Cardiomyopathy, ejection fraction 25-30%. 3. Acute on chronic systolic and diastolic congestive heart failure. 4. Obstructive sleep apnea. 5. Secondary pulmonary hypertension. 6. Tobacco dependence. 7. Obesity. 8. Atrial fibrillation. Plan . PT DID WELL WITH NASAL PILLOWS SPOKE WITH LAB HE WILL RETURN FOR BIPAP TITRATION FOR NOW HOME WITH CPAP AT 10 CM D/W DR EMERY 1. We will attempt CPAP tonight with nasal pillows. 2. Polysomnogram results NOTED 3. Continue diuresis. 4. Continue oxygen supplementation. 5. The patient instructed on the importance of discontinuing his tobacco use. 6. Nicotine patch. BINA EDWARD MD Jan 07, 2017 10:38
[2017-01-07 14:35] VITALS: BP 141/81
[2017-01-07 19:05] VITALS: BP 149/95
--- NOTE | 2017-01-07 20:14 | PDOC ---
Provider Note Provider Note He feels better probably after the diuresis. Edema of the legs is much better. He walked the hallways on oxygen. He tolerated the nasal pillows BiPAP last night. Discussed with Dr. Cedeño. As per his note we will place him on CPAP tonight at 10 cm water. Arrangements have already been made for his CPAP titration on 01/13/17. Lungs are clear. Atrial fibrillation with a ventricular response of 82 bpm. Plan to discharge him tomorrow Bring him back next week for an outpatient cardioversion. He will follow-up with Dr. Harrington regarding the results of his CPAP. Hopefully RT would be able to arrange for him to get nasal CPAP when he is discharged tomorrow. STUART EMERY MD Jan 07, 2017 20:14
[2017-01-07] MEDS ORDERED: CLONIDINE HCL 0.1 MG TABLET PO SCH (21:00)
[2017-01-07] MEDS: LATANOPROST 0.005% OPHTH SOLUTION 2.5ML BOTTLE. OU SCH (21:26)
[2017-01-07] MEDS: TAMSULOSIN 0.4 MG CAP.ER.24H. PO SCH (21:27)
[2017-01-07] MEDS: SPIRONOLACTONE 25 MG TABLET PO SCH (21:28)
[2017-01-07 22:40] VITALS: BP 141/84
[2017-01-08 02:45] VITALS: BP 153/93
[2017-01-08 04:50] LABS: CALCIUM 9.3 mg/dL (8.5-10.1); CREATININE 1.3 mg/dL (0.7-1.3); GFR 66.4; MAGNESIUM 1.9 mg/dL (1.8-2.4); POTASSIUM 3.7 mmol/L (3.5-5.1)
[2017-01-08] MEDS: OXYCODONE IR 5 MG TABLET. PO PRN ×2 (06:07→10:55)
[2017-01-08] MEDS: IPRATRPIUM/ALBUTEROL 0.5/2.5MG 3 ML NEBU. NEB SCH ×2 (07:06→11:41)
[2017-01-08 07:32] VITALS: BP 156/102
[2017-01-08] MEDS ORDERED: CARVEDILOL 6.25 MG TABLET PO SCH (08:00)
[2017-01-08] MEDS: ANTI-COAG MONITOR BY PHARMACY. MC PRN (08:05)
[2017-01-08] MEDS: PANTOPRAZOLE 40 MG TABLET. PO SCH (08:39)
[2017-01-08] MEDS: NICOTINE 14MG PATCH. TD SCH (08:39)
[2017-01-08] MEDS: CLOPIDOGREL BISULFATE 75 MG TABLET PO SCH (08:39)
[2017-01-08] MEDS: POTASSIUM CHLORIDE 20 MEQ TABLET.ER. PO SCH (08:40)
[2017-01-08] MEDS: HYDRALAZINE 50 MG TABLET PO SCH (08:40)
[2017-01-08] MEDS: LISINOPRIL 40 MG TABLET. PO SCH (08:42)
[2017-01-08] MEDS: DABIGATRAN ETEXILATE 150 MG CAPSULE. PO SCH (08:42)
[2017-01-08] MEDS: ASPIRIN 81 MG TAB.CHEW PO SCH (08:42)
[2017-01-08] MEDS: GABAPENTIN 300 MG CAPSULE. PO SCH ×2 (08:44→13:00)
[2017-01-08] MEDS: ALPRAZOLAM 0.5 MG TABLET PO SCH (08:44)
[2017-01-08] MEDS: CHOLECALCIFEROL (VITAMIN D3) 1,000 UNIT TABLET PO SCH (08:46)
[2017-01-08] MEDS: PAROXETINE 20 MG TABLET. PO SCH (08:46)
[2017-01-08] MEDS: MULTIVITAMIN EYE FORMULA CAPSULE. PO SCH (08:47)
[2017-01-08] MEDS ORDERED: FUROSEMIDE 80 MG TABLET PO SCH (09:00)
[2017-01-08] MEDS ORDERED: AMLODIPINE BESYLATE 5 MG TABLET PO SCH (09:00)
[2017-01-08] MEDS: KETOTIFEN FUMARATE 0.025% OPHT SOLUTION 5ML BOTTLE. OU SCH (09:03)
--- NOTE | 2017-01-08 09:03 | RAD ---
Chest, 2 views, 01/08/2017: History: Shortness of breath, congestive heart failure Comparison is made to a study from 01/04/2017. The heart is enlarged. The aorta is mildly tortuous. There is mild interstitial and fissural prominence in the lungs, more so on the right, compatible with mild ongoing pulmonary edema. Similar findings were present on the previous study. No pulmonary consolidation is seen. No definite pleural fluid is evident. IMPRESSION: Ongoing congestive heart failure with mild interstitial pulmonary edema.
[2017-01-08] MEDS: BRIMONIDINE 0.2% OPHTH SOLUTION 5ML BOTTLE. OU SCH (09:04)
[2017-01-08] MEDS: HYDROCODONE/APAP 5/325MG TABLET. PO PRN (09:11)
--- NOTE | 2017-01-08 09:38 | PDOC ---
PULMONARY PROGRESS NOTES Subjective PT FEELS BETTER Vitals Vital Signs Date Time Temp Pulse Resp B/P Pulse Ox O2 Delivery O2 Flow Rate FiO2 01/08/17 09:11 18 93 Nasal Cannula 3.0 01/08/17 08:42 101 156/102 01/08/17 07:32 98.1 98.1 ROS: No Nausea, No Chest Pain, No Abdominal Pain, No Increase Cough Lungs: Clear Cardiovascular: S1, S2 Abdomen: Soft Neuro Exam: Alert Extremities: No Edema Skin: Warm Labs Laboratory Tests Test 01/08/17 04:00 Sodium Level 145mmol/L (136-145) Potassium Level 3.7mmol/L (3.5-5.1) Chloride Level 105mmol/L (98-107) Carbon Dioxide Level 33mmol/L (21-32) Anion Gap 7 (6-14) Blood Urea Nitrogen 16mg/dL (8-26) Creatinine 1.3mg/dL (0.7-1.3) Estimated GFR (Cockcroft-Gault) 66.4 Glucose Level 126mg/dL (70-99) Calcium Level 9.3mg/dL (8.5-10.1) Magnesium Level 1.9mg/dL (1.8-2.4) Thyroid Stimulating Hormone (TSH) 3.528uIU/mL (0.358-3.74) Laboratory Tests Test 01/08/17 04:00 Sodium Level 145mmol/L (136-145) Potassium Level 3.7mmol/L (3.5-5.1) Chloride Level 105mmol/L (98-107) Carbon Dioxide Level 33mmol/L (21-32) Anion Gap 7 (6-14) Blood Urea Nitrogen 16mg/dL (8-26) Creatinine 1.3mg/dL (0.7-1.3) Estimated GFR (Cockcroft-Gault) 66.4 Glucose Level 126mg/dL (70-99) Calcium Level 9.3mg/dL (8.5-10.1) Magnesium Level 1.9mg/dL (1.8-2.4) Thyroid Stimulating Hormone (TSH) 3.528uIU/mL (0.358-3.74) Medications Active Scripts Medications Dose Route/Sig Days Date Category NICODERM CQ 21mg (Nicotine) 1 Each Patch.td24 1 Patch TP DAILY 12/23/16 Reported Centrum Silver Men Tablet (Multivit-Min/FA/Lycopen/Lutein) 1 Each Tablet 1 Each PO DAILY 12/23/16 Reported Vitamin D (Cholecalciferol (Vitamin D3)) 1,000 Unit Capsule 5 Cap PO DAILY 12/23/16 Reported Alphagan P (Brimonidine Tartrate) 5 Ml Drops 1 Drop EACHEYE BID 12/19/16 Reported Lovastatin 40 Mg Tablet 40 Mg PO HS 12/19/16 Reported Hydralazine Hcl 50 Mg Tablet 1 Tab PO BID 12/19/16 Reported Paxil (Paroxetine Hcl) 20 Mg Tablet 1 Tab PO HS 12/19/16 Reported Aspirin 81 Mg Tab.chew 1 Tab PO DAILY 12/19/16 Reported Clopidogrel (Clopidogrel Bisulfate) 75 Mg Tablet 1 Tab PO DAILY 10/29/16 Reported Atorvastatin Calcium 40 Mg Tablet 1 Tab PO DAILY 10/28/16 Reported Spironolactone 25 Mg Tablet 1 Tab PO HS 10/28/16 Reported Latanoprost 2.5 Ml Drops 1 Drop EACHEYE QHS 10/28/16 Reported Pazeo (Olopatadine HCl) 2.5 Ml Drops 2.5 Ml OP DAILY 10/28/16 Reported Furosemide 40 Mg Tablet 40 Mg PO BID94 10/28/16 Reported Prevacid (Lansoprazole) 30 Mg Capsule.dr 1 Cap PO DAILY 10/28/16 Reported Oxycodone Hcl 10 Mg Tablet 1 Tab PO PRN Q4HRS PRN 10/28/16 Reported Lisinopril 40 Mg Tablet 0.5 Tab PO DAILY 10/28/16 Reported Coreg (Carvedilol) 25 Mg Tablet 1 Tab PO BIDBFRMEAL 10/28/16 Reported Norvasc (Amlodipine Besylate) 10 Mg Tablet 10 Mg PO DAILY 10/28/16 Reported Gabapentin 600 Mg Tablet 600 Mg PO QID 10/28/16 Reported Baclofen 10 Mg Tablet 1.5 Tab PO QID 10/28/16 Reported Xanax (Alprazolam) 0.5 Mg Tablet 1 Tab PO TID 10/28/16 Reported Paxil (Paroxetine Hcl) 40 Mg Tablet 1 Tab PO DAILY 10/28/16 Reported Clonidine Hcl 0.1 Mg Tablet 0.1 Mg PO BID 10/28/16 Reported Flomax (Tamsulosin Hcl) 0.4 Mg Cap.er.24h 0.4 Mg PO HS 10/28/16 Reported Pradaxa (Dabigatran Etexilate Mesylate) 150 Mg Capsule 150 Mg PO BID 10/28/16 Reported Impression . 1. Acute on chronic hypoxemic respiratory failure, multifactorial secondary to chronic obstructive pulmonary disease and acute heart failure. 2. Cardiomyopathy, ejection fraction 25-30%. 3. Acute on chronic systolic and diastolic congestive heart failure. 4. Obstructive sleep apnea. 5. Secondary pulmonary hypertension. 6. Tobacco dependence. 7. Obesity. 8. Atrial fibrillation. Plan . OK TO D/C FOR NOW HOME WITH CPAP AT 10 CM D/W BINA LYNN MD Jan 08, 2017 09:38
[2017-01-08 10:15] VITALS: BP 130/70
[2017-01-08 10:54] VITALS: BP 130/70
[2017-01-08] MEDS: AMIODARONE HCL 200 MG TABLET PO SCH (10:54)
[2017-01-08] MEDS ORDERED: POTA10TA PO (13:28)
[2017-01-08] MEDS ORDERED: FURO80TA72 PO (13:35)
[2017-01-08] MEDS ORDERED: AMIODARONE HCL 200 MG TABLET. PO SCH (16:30)
[2017-01-08] MEDS ORDERED: ATORVASTATIN CALCIUM 40 MG TABLET. PO SCH (21:00)
--- NOTE | 2017-01-09 02:09 | DS ---
DATE OF DISCHARGE: HOSPITAL COURSE: This is a 66-year-old black male who came into the Emergency Room with severe swelling of the legs and having fallen. He has systolic congestive heart failure with EF of 20%. He was recently hospitalized after flu like syndrome and having flu positive. This had decreased his EF to 20%. He was in congestive heart failure for the first time after about 8 months. He was diuresed. His chest x-ray continued to show pulmonary vascular congestion, but he was very anxious to go home and thus he was discharged. Whereas he was taking Lasix 40 mg once a day, he was asked to take it twice a day. This was not sufficient. His legs got swollen. He thus came in. He was placed on IV Lasix. With this, he did improve. He had had a sleep study done which showed that he has severe sleep apnea. He was placed on a CPAP at 8 cm of water. He could not tolerate it. He was seen in consultation by Dr. Iraheta who placed him on BiPAP with nasal pillows. He tolerated that very well and kept it on for about 6 hours. The next day, he was placed on CPAP at 10 cm of water with nasal pillows. Again, he tolerated it well. He was very anxious to go home. He required 2-3 liters of oxygen at rest. He was able to walk the length of the [place] with oxygen with no significant shortness of breath. The edema of legs had subsided. The chest x-ray which showed pulmonary vascular congestion had not significantly improved. His labs on admission showed sodium of 147, potassium 3.7, BUN of 15 and creatinine of 1.3. His BNP was elevated to 1401. His troponin was 0.03, but this was all due to congestive heart failure. The albumin was 2.8. After diuresis, the sodium was 145, potassium 3.7, BUN 16 and creatinine was 1.3. The TSH was 3.5. The total cholesterol was 107, triglycerides 67, LDL cholesterol 67 and HDL cholesterol was 27. He had informed me that he could not take the amiodarone when I prescribed it at home. Here, he was placed on amiodarone 200 mg 3 times a day with food and he tolerated it well. He has been in atrial fibrillation for the last several months. We have been wanting to cardiovert him. He first had the stent placed in his left main trunk. We then found out that he has symptoms of severe sleep apnea and we wanted that corrected before we cardiovert him. He has been taking the Pradaxa regularly at 150 mg twice a day. FINAL DIAGNOSES: 1. Acute on chronic systolic congestive heart failure. 2. Ischemic and nonischemic cardiomyopathy. 3. Coronary artery disease. 4. Atrial fibrillation. 5. Hypertension. 6. Severe lumbar spondylosis. He has received several injections and has had surgery. It was felt that that was the reason why his legs give out. He was seen by physical therapy who thought that he could go home with home health. HOMEGOING INSTRUCTIONS: 1. Activities to tolerance. 2. A 2-gram sodium diet. 3. Alprazolam 1 mg twice a day. 4. Aspirin 81 mg a day. 5. Lovastatin 40 mg a day. 6. Baclofen 10 mg 4 times a day. 7. Eye drops. 8. Calcium with vitamin D. 9. Clonidine 0.1 mg twice a day. 10. Plavix 75 mg a day. 11. Dabigatran 150 mg twice a day 12. Lasix 80 mg twice a day. 13. Gabapentin 600 mg 4 times a day. 14. Hydralazine 50 mg twice a day. 15. Prevacid 30 mg a day. 16. Lisinopril 40 mg a day. 17. Nicotine patches. 18. Oxycodone 10 mg q. 4 hours p.r.n. 19. Paxil 40 mg in the morning and 20 mg at night. 20. Spironolactone 25 mg twice a day 21. Potassium chloride 20 mEq twice a day Flomax 0.4 mg a day.22. 23. Amlodipine 20 mg a day 24. Coreg 12.5 mg twice a day. Arrangements were made for him to be seen by the [facility]. He will have his blood drawn at least once a week and fax it to me. That way we can keep an eye on his potassium. He was to see me on the . He was to have the sleep study done on the . We will see if we can correct his sleep apnea before we cardiovert him. Obstacles to the cardioversion: 1. Sleep apnea which has not been corrected. 2. Left atrium that is significantly enlarged to 6 cm. 3. His initial reluctance to take amiodarone, but he is now taking it. 4. Severe mitral regurgitation. STUART EMERY MD DR: MARISABEL/veronica JOB#: [id number] / [id number]
== END 2017-01-08 19:00 | disposition home health service (06) | DRG 291 ==
LOC: ER 21:07 → 2 NORTH 01-05 00:16 → ER 01-05 01:00
PROVIDERS: ADMIT Specialist; ATTEND Specialist
PROC: 5A09357 Assistance with Respiratory Ventilation, Less than 24 Consecutive Hours, Continuous Positive Airway Pressure (ICD-10-PCS; principal; 2017-01-06)
DX: I50.43 Acute on chronic combined systolic (congestive) and diastolic (congestive) heart failure (principal); J96.21 Acute and chronic respiratory failure with hypoxia; E87.0 Hyperosmolality and hypernatremia; I11.0 Hypertensive heart disease with heart failure; E66.9 Obesity, unspecified; W18.30XA Fall on same level, unspecified, initial encounter; M47.816 Spondylosis without myelopathy or radiculopathy, lumbar region; K21.9 Gastro-esophageal reflux disease without esophagitis; J44.9 Chronic obstructive pulmonary disease, unspecified; I48.2 Chronic atrial fibrillation; I27.2 Other secondary pulmonary hypertension; I25.5 Ischemic cardiomyopathy; I25.10 Atherosclerotic heart disease of native coronary artery without angina pectoris; G47.33 Obstructive sleep apnea (adult) (pediatric); F17.210 Nicotine dependence, cigarettes, uncomplicated; E87.6 Hypokalemia; I34.0 Nonrheumatic mitral (valve) insufficiency; Z99.81 Dependence on supplemental oxygen; Z95.5 Presence of coronary angioplasty implant and graft; Z83.3 Family history of diabetes mellitus; Z82.49 Family history of ischemic heart disease and other diseases of the circulatory system; Z79.899 Other long term (current) drug therapy; Z79.82 Long term (current) use of aspirin; Z79.02 Long term (current) use of antithrombotics/antiplatelets; Z68.32 Body mass index [BMI] 32.0-32.9, adult; Z88.8 Allergy status to other drugs, medicaments and biological substances
CPT/HCPCS: 36415; 70450; 71010; 71020; 80048; 80053; 80061; 83735; 83880; 84443; 84484; 85027; 85610; 85730; 87804; 93005; 94250; 94640; 94660; 94760; 96374; J7620; 97116; 99285-25

== ENCOUNTER → 2017-01-13 | Outpatient (CLI) | payer MEDICARE, BC ==
[2017-01-08 10:54] VITALS: BP 130/70
[~2017-01-13] MED LIST changes: +FURO80TA72 PO; +POTA10TA PO
--- NOTE | 2017-01-14 20:35 | SLEEP ---
DATE OF STUDY: 01/13/2017 ATTENDING PHYSICIAN: Dr. Zamudio. The patient is a 66-year-old, who weighs 280 pounds with a BMI of 35. The patient had a previous sleep study on 12/09/2016, and was found to have severe CIRILO with an AHI of 57 per hour. He was advised to return to the sleep lab for CPAP /BiPAP titration study as optimum CPAP pressure was not achieved on the split night study. Review of the patient's medications also reveals use of oxycodone on a chronic basis. During the night study, the patient spent 421 minutes in bed and slept for 388 minutes with a sleep efficiency of 92%. Sleep latency was 14 minutes with the absence of REM sleep. Overall, sleep architecture showed increased stage I and stage II sleep, absent slow wave and absent REM sleep. The patient was started on CPAP at a pressure of 10 cm of water and the pressure was gradually increased up to 15 cm of water. However, due to persistent respiratory events with predominantly mixed apneas with a long central component, BiPAP was initiated at a rate of 17/12. Later the patient was added with a backup rate of 12 due to persistent hypoventilation. BiPAP was titrated all the way up to 30/21 with a backup rate of 12. The best results were seen at this pressure. The patient had 52 minutes of sleep. Supine sleep was seen, but no REM sleep was observed. AHI was reduced to 5 per hour, mostly from the leak and oxygen saturations remained above 88%, which was a significant improvement. The patient used medium size nasal pillows. PLMS were not seen. EKG monitoring revealed normal sinus rhythm with occasional PACs, average heart rate was 66 beats per minute. IMPRESSION: 1. Severe sleep apnea diagnosed by previous sleep study. 2. No clinically significant PLMS. 3. Nocturnal hypoxia secondary to obstructive sleep apnea, and suspected obesity hypoventilation syndrome. Significantly improved with final BiPAP pressure. RECOMMENDATIONS: 1. BiPAP at 30/21 with a backup rate of 12 should be used on a nightly basis. 2. Follow up in 4-6 weeks to assess compliance with BiPAP and to document clinical improvement. 3. Weight loss is strongly advised. 4. Minimize the use of narcotics to avoid narcotic induced hypoventilation. 5. Caution regarding driving until symptoms of sleep apnea resolve with the use of BiPAP. 6. The patient used medium size nasal pillows [employer]. FANNY PAREDES MD DR: DASIA/veronica JOB#: [id number] / [id number] STUART Jones MD MTDD
== END | disposition home or self-care (01) ==
LOC: RT 18:49
PROVIDERS: ATTEND Specialist
DX: G47.33 Obstructive sleep apnea (adult) (pediatric) (principal)
CPT/HCPCS: 95811

== ENCOUNTER → 2017-04-25 | Outpatient (CLI) | payer MEDICARE, BC ==
[~2017-04-25] MED LIST changes: +ASPI-630 PO; -ASPI81TA2 PO; -LANS30CA17 PO; +LANS30CA66 PO; -PARO20TA55 PO; +PARO20TA99 PO; -PARO40TA45 PO; +PARO40TA61 PO
[2017-04-25 14:25] LABS: CALCIUM 8.9 mg/dL (8.5-10.1); CREATININE 1.5 mg/dL (0.7-1.3); GFR 56.3; MAGNESIUM 1.7 mg/dL (1.8-2.4); POTASSIUM 3.4 mmol/L (3.5-5.1)
== END | disposition home or self-care (01) ==
LOC: LAB 13:36
PROVIDERS: ATTEND Specialist
DX: I50.9 Heart failure, unspecified (principal)
CPT/HCPCS: 36415; 80048; 83735; 84443

== ENCOUNTER → 2017-05-13 | Outpatient (CLI) | payer MEDICARE, BC ==
--- NOTE | 2017-05-13 16:29 | KCIC ---
EXAM: Chest 2 views. HISTORY: Shortness of breath. COMPARISON: None. FINDINGS: Frontal and lateral views of the chest are obtained. There are mild diffuse interstitial and airspace opacities. There is a calcified granuloma on the right. There is no pneumothorax or pleural effusion. The heart is moderately enlarged. IMPRESSION: 1. Mild diffuse infiltrates indicate mild pulmonary edema or atypical pneumonia. 2. Moderate cardiomegaly. Electronically signed by: Jhon Winkler MD (05/13/2017 4:25 PM) [facility]
== END | disposition home or self-care (01) ==
LOC: KCIC 16:00
PROVIDERS: ATTEND Specialist
DX: I51.7 Cardiomegaly (principal); R91.8 Other nonspecific abnormal finding of lung field; J81.1 Chronic pulmonary edema
CPT/HCPCS: 71020

== ENCOUNTER 2018-08-23 22:53 | Inpatient (IN) | payer MEDICARE, BC ==
[~2018-08-23] VITALS: Ht 190.5 cm; Wt 137.0 kg
[~2018-08-23 22:53] MED LIST changes: +LISI-130 PO; -LISI40TA PO; -SPIR25TA3 PO; +SPIR25TA5 PO
[2018-08-23] MEDS ORDERED: IV NORMAL SALINE 1000ML BAG 1,000 ML IV ONE (23:00)
[2018-08-23] MEDS ORDERED: ACETAMINOPHEN 500 MG TABLET PO ONE (23:15)
[2018-08-23] MEDS ORDERED: IPRATRPIUM/ALBUTEROL 0.5/2.5MG 3 ML NEBU. NEB ONE (23:15)
--- NOTE | 2018-08-23 23:15 | EKG ---
[facility] [address] [place] [address] Test Date: 2018-08-23 Test Time: 23:04:09 Pat Name: YAMILET MOTA Department: Room: Gender: M Infrastructure Architect: : [id number] Requested By: GAYLA PRADO Order Number: [id number] Reading MD: Jarocho Hu MD Measurements Intervals [place] Rate: 83 P: 51 AL: 176 QRS: -20 QRSD: 106 T: 9 QT: 396 QTc: 471 Interpretive Statements SINUS RHYTHM NON-SPECIFIC ST/T CHANGES Electronically Signed On 08-24-2018 15:32:58 ENGRAVER PANTOGRAPH by Jarocho Hu MD
--- NOTE | 2018-08-23 23:34 | PHYS DOC ---
Past Medical History Past Medical History: A-Fib, Anxiety, CAD, CHF, GERD, Hypertension Past Surgical History: Other Additional Past Surgical Histo: cardiac stents Smoking: Quit Less Than 1 Year Alcohol Use: None Drug Use: None Adult General Chief Complaint Chief Complaint: WEAKNESS/GENERALIZED HPI HPI Patient is a 67 year old male presenting to the ED due to weakness. His symptoms started yesterday when he started feeling cold. He states that when he tried to get out of bed to go to the bathroom today, his legs gave out and he slid out of bed. He denies head trauma. He states that similar symptoms happened to him last year when he had his HI. He denies loss consciousness. Currently he feels weak and dizzy. Denies chest pain, headache, abdominal pain, leg swelling, leg pain. Reports shortness of breath. Patient lives at home with , and is walker dependent. Patient does not wear oxygen at home, but does use CPAP at night for sleep apnea. Review of Systems Review of Systems Constitutional: Reports fever and chills. Eyes: Denies change in visual acuity, redness, or eye pain [] HENT: Denies nasal congestion or sore throat [] Respiratory: Reports shortness of breath and cough Cardiovascular Denies chest pain or palpitations] GI: Denies abdominal pain, nausea, vomiting, or diarrhea [] : Denies dysuria or hematuria [] Musculoskeletal: Denies back pain or joint pain [] Integument: Denies rash or skin lesions [] Neurologic: Denies headache, focal weakness or sensory changes; Reports generalized weakness and dizziness Complete systems were reviewed and found to be within normal limits, except as documented in this note. Current Medications Current Medications Current Medications Medications (Trade) Dose Ordered Sig/Manjula Start Time Stop Time Status Last Admin Dose Admin Acetaminophen (Tylenol) 650 mg PRN Q4HRS PRN 08/24/18 01:00 08/25/18 00:59 Albuterol/ Ipratropium (Duoneb) 3 ml 1X ONCE 08/23/18 23:15 08/23/18 23:16 DC 08/23/18 23:20 3 ML Aspirin (Theo Aspirin) 325 mg 1X ONCE 08/24/18 00:45 08/24/18 00:46 DC 08/24/18 01:01 325 MG Dexamethasone Sodium Phosphate (Decadron) 10 mg 1X ONCE 08/24/18 01:00 08/24/18 01:02 DC 08/24/18 01:13 10 MG Fentanyl Citrate (Fentanyl 2ml Vial) 50 mcg PRN Q2HR PRN 08/24/18 01:00 08/25/18 00:59 Levofloxacin/ Dextrose 150 ml @ 100 mls/hr 1X ONCE 08/24/18 00:30 08/24/18 01:59 DC 08/24/18 00:48 100 MLS/HR Ondansetron HCl (Zofran) 4 mg PRN Q8HRS PRN 08/24/18 01:00 08/25/18 00:59 Piperacillin Sod/ Tazobactam Sod 4.5 gm/Sodium Chloride 100 ml @ 200 mls/hr 1X ONCE 08/24/18 00:30 08/24/18 00:59 DC 08/24/18 00:47 200 MLS/HR Sodium Chloride 1,000 ml @ 1,000 mls/hr 1X ONCE 08/23/18 23:00 08/23/18 23:59 DC 08/23/18 23:44 1,000 MLS/HR Allergies Allergies Allergies Coded Allergies Type Severity Reaction Last Updated Verified NSAIDS (Non-Steroidal Anti-Inflamma Adverse Reaction Intermediate BLEEDING Yes Physical Exam Physical Exam Constitutional: Well developed, well nourished, moderate distress HENT: Normocephalic, atraumatic, bilateral external ears normal, oropharynx dry Eyes: PERRL, EOMI, conjunctiva normal, no discharge. [] Neck: Normal range of motion, no tenderness, supple, no stridor. [] Cardiovascular:Heart rate regular rhythm, no murmur [] Lungs & Thorax: Coarse breath sounds bilaterally with rhonchi Abdomen: Bowel sounds normal, nontender, distended. Skin: Warm, dry, no erythema, no rash. [] Back: No tenderness, no CVA tenderness. [] Extremities: No tenderness, no cyanosis, no clubbing, ROM intact, no edema. [] Neurologic: Alert and oriented X 3, normal motor function, normal sensory function, no focal deficits noted. [] Psychologic: Affect normal, judgement normal, mood normal. [] Current Patient Data Vital Signs Vital Signs Date Time Temp Pulse Resp B/P (MAP) Pulse Ox O2 Delivery O2 Flow Rate FiO2 08/24/18 01:00 20 92 08/24/18 00:44 Venturi Mask 15.0 08/23/18 23:00 102.2 81 148/60 (89) 102.2 Lab Values Laboratory Tests Test 08/23/18 23:30 08/24/18 00:10 08/24/18 00:55 White Blood Count 18.8 x10^3/uL (4.0-11.0) H Red Blood Count 4.05 x10^6/uL (4.30-5.70) L Hemoglobin 12.1 g/dL (13.0-17.5) L Hematocrit 36.0 % (39.0-53.0) L Mean Corpuscular Volume 89 fL (79-100) Mean Corpuscular Hemoglobin 30 pg (25-35) Mean Corpuscular Hemoglobin Concent 34 g/dL (31-37) Red Cell Distribution Width 14.9 % (11.5-14.5) H Platelet Count 194 x10^3/uL (140-400) Neutrophils (%) (Auto) 87 % (31-73) H Lymphocytes (%) (Auto) 7 % (24-48) L Monocytes (%) (Auto) 5 % (0-9) Eosinophils (%) (Auto) 1 % (0-3) Basophils (%) (Auto) 1 % (0-3) Neutrophils # (Auto) 16.2 x10^3uL (1.8-7.7) H Lymphocytes # (Auto) 1.3 x10^3/uL (1.0-4.8) Monocytes # (Auto) 1.0 x10^3/uL (0.0-1.1) Eosinophils # (Auto) 0.1 x10^3/uL (0.0-0.7) Basophils # (Auto) 0.2 x10^3/uL (0.0-0.2) Segmented Neutrophils % 90 % (35-66) H Band Neutrophils % 2 % (0-9) Lymphocytes % 4 % (24-48) L Monocytes % 4 % (0-10) Platelet Estimate Adequate (ADEQUATE) Giant Platelets Occ Sodium Level 140 mmol/L (136-145) Potassium Level 3.6 mmol/L (3.5-5.1) Chloride Level 100 mmol/L (98-107) Carbon Dioxide Level 30 mmol/L (21-32) Anion Gap 10 (6-14) Blood Urea Nitrogen 24 mg/dL (8-26) Creatinine 1.9 mg/dL (0.7-1.3) H Estimated GFR (Cockcroft-Gault) 42.7 BUN/Creatinine Ratio 13 (6-20) Glucose Level 235 mg/dL (70-99) H Lactic Acid Level 1.3 mmol/L (0.4-2.0) Calcium Level 8.6 mg/dL (8.5-10.1) Magnesium Level 1.8 mg/dL (1.8-2.4) Total Bilirubin 0.6 mg/dL (0.2-1.0) Aspartate Amino Transferase (AST) 22 U/L (15-37) Alanine Aminotransferase (ALT) 23 U/L (16-63) Alkaline Phosphatase 63 U/L (46-116) Ammonia 20 mcmol/L (11-34) Creatine Kinase 274 U/L (39-308) Creatine Kinase MB (Mass) 1.2 ng/mL (0.0-3.6) Creatine Kinase MB Relative Index 0.4 % (0-4) Troponin I Quantitative 0.119 ng/mL (0.000-0.055) VO-[id number]-G-Type Natriuretic Peptide 584 pg/mL (0-124) H Total Protein 6.6 g/dL (6.4-8.2) Albumin 3.0 g/dL (3.4-5.0) L Albumin/Globulin Ratio 0.8 (1.0-1.7) L Urine Collection Type Unknown Urine Color Yellow Urine Clarity Clear Urine pH 5.5 Urine Specific [place] 1.020 Urine Protein Negative mg/dL (NEG-TRACE) Urine Glucose (UA) Negative mg/dL (NEG) Urine Ketones (Stick) Negative mg/dL (NEG) Urine Blood Negative (NEG) Urine Nitrite Negative (NEG) Urine Bilirubin Negative (NEG) Urine Urobilinogen Dipstick 1.0 mg/dL (0.2 mg/dL) Urine Leukocyte Esterase Negative (NEG) Urine RBC 0 /HPF (0-2) Urine WBC Occ /HPF (0-4) Urine Squamous Epithelial Cells Occ /LPF Urine Bacteria 0 /HPF (0-FEW) Urine Hyaline Casts Few /HPF Urine Mucus Slight /LPF Urine Sperm Present /HPF Influenza Type A Antigen Negative (NEGATIVE) Influenza Type B Antigen Negative (NEGATIVE) Laboratory Tests 08/23/18 23:30 Laboratory Tests 08/23/18 23:30 EKG EKG @2204:NSR at 83 bpm, no ST elevations Radiology/Procedures Radiology/Procedures PROCEDURE: CT HEAD WO CONTRAST PQRS Compliance Statement: One or more of the following individualized dose reduction techniques were utilized for this examination: 1. Automated exposure control 2. Adjustment of the mA and/or kV according to patient size 3. Use of iterative reconstruction technique CT HEAD WITHOUT CONTRAST History: altered mental status, confusion, weakness Comparison: CT head without contrast, January 04, 2017. Procedure: Axial images are obtained of the head from the skull base through the vertex without IV contrast. Findings: The ventricles and sulci are normal for the patient's age. No mass-effect, midline shift, hemorrhage, extra-axial fluid collection, or obvious acute infarction is identified. Basilar cisterns are patent. Bone windows demonstrate no acute calvarial abnormality. The visualized paranasal sinuses are clear. Mastoid air cells are well aerated. IMPRESSION: No acute intracranial abnormality. Electronically signed by: Alverto Parra MD (08/24/2018 12:08 AM) [facility] CXR AP: (preliminary interpretation by ED physician): Prominent interstitial markings noted, LLL opacity/infiltration noted concerning for pneumonia. Course & Med Decision Making Course & Med Decision Making Pertinent Labs and Imaging studies reviewed. (See chart for details) Patient presents with report of generalized weakness. Auscultation notes significant rhonchi and patient found to be hypoxic. Supplemental O2 provided as well as DuoNeb with stabilization. Fever addressed. EKG stable. Chest x-ray concerning for pneumonia was some bilateral interstitial markings. Labs obtained and posted to chart. WBC greater than 18.8 with 2% bands. Lactic acid within normal limits. Troponin 0.11. Aspirin provided. BNP 586. SIRS criteria met with source of infection = Sepsis. Empiric antibiotics given with Zosyn and Levaquin. IVF hydration given. Patient requiring admission for further evaluation and treatment. Cardiology consult placed. Discussed with Dr. Nieto (hospitalist) who is in agreement with admission. Discussed findings and plan with patient and family, who acknowledge understanding and agreement. Dragon Disclaimer Dragon Disclaimer This electronic medical record was generated, in whole or in part, using a voice recognition dictation system. Departure Departure Impression: Primary Impression: Sepsis Additional Impressions: Pneumonia Elevated troponin Acute renal insufficiency Hypoxia Weakness Disposition: 09 ADMITTED INPATIENT Admitting Physician: Tl Escobedo Condition: GUARDED Referrals: SAMANTHA LANGLEY MD (PCP) NIHSS Stroke Scale NIH Stroke Scale: NIH Stroke Scale Response (Comments) Value Level of Consciousness: 0 Alert/Responsive 0 LOC Questions: 0 Answers both correctly 0 LOC Commands: 0 Performs both tasks 0 Best Gaze: 0 Normal 0 Visual: 0 No visual loss 0 Facial Palsy: 0 Normal, symmetrical 0 Motor - Left Arm 0 No drift 0 Motor - Right Arm 0 No drift 0 Motor - Left Leg 0 No drift 0 Motor: Right Leg 0 No drift 0 Limb Ataxia: 0 Absent 0 Sensory: 0 No loss 0 Best Language: 0 Normal 0 Dysathria: 0 Normal 0 Extinction and Inattention: 0 Normal 0 Total 0 Critical Care Time Critical care time was 30 minutes which includes time at bedside, spent in discussion of patient's care with specialists and/or family members, with interpretation of laboratory and/or radiological studies and is exclusive of procedures. Problem Qualifiers Primary Impression: Sepsis Sepsis type: sepsis due to unspecified organism Qualified Codes: A41.9 - Sepsis, unspecified organism Additional Impressions: Pneumonia Pneumonia type: due to unspecified organism Laterality: left Lung location : lower lobe of lung Qualified Codes: J18.1 - Lobar pneumonia, unspecified organism GAYLA PRADO DO Aug 23, 2018 23:34
[2018-08-23 23:47] LABS: BASO # 0.2 x10^3/uL (0.0-0.2); BASO % 1 % (0-3); EOS # 0.1 x10^3/uL (0.0-0.7); EOS % 1 % (0-3); HEMOGLOBIN 12.1 g/dL (13.0-17.5); LYMPH # 1.3 x10^3/uL (1.0-4.8); LYMPH % 7 % (24-48); MEAN CORPUSCULAR HEMOGLOBIN 30 pg (25-35); MEAN CORPUSCULAR HGB CONC 34 g/dL (31-37); MEAN CORPUSCULAR VOLUME 89 fL (79-100); MONO % 5 % (0-9); NEUT # 16.2 x10^3uL (1.8-7.7); NEUT % 87 % (31-73); PLATELET COUNT 194 x10^3/uL (140-400); RED BLOOD COUNT 4.05 x10^6/uL (4.30-5.70); RED CELL DISTRIBUTION WIDTH 14.9 % (11.5-14.5); WHITE BLOOD COUNT 18.8 x10^3/uL (4.0-11.0)
[2018-08-23 23:57] LABS: CALCIUM 8.6 mg/dL (8.5-10.1); CREATININE 1.9 mg/dL (0.7-1.3); GFR 42.7; POTASSIUM 3.6 mmol/L (3.5-5.1)
[2018-08-24 00:11] LABS: ALBUMIN/GLOBULIN RATIO 0.8 (1.0-1.7); MAGNESIUM 1.8 mg/dL (1.8-2.4); TOTAL BILIRUBIN 0.6 mg/dL (0.2-1.0); TOTAL PROTEIN 6.6 g/dL (6.4-8.2)
--- NOTE | 2018-08-24 00:11 | RAD ---
RS Compliance Statement: One or more of the following individualized dose reduction techniques were utilized for this examination: 1. Automated exposure control 2. Adjustment of the mA and/or kV according to patient size 3. Use of iterative reconstruction technique CT HEAD WITHOUT CONTRAST History: altered mental status, confusion, weakness Comparison: CT head without contrast, January 04, 2017. Procedure: Axial images are obtained of the head from the skull base through the vertex without IV contrast. Findings: The ventricles and sulci are normal for the patient's age. No mass-effect, midline shift, hemorrhage, extra-axial fluid collection, or obvious acute infarction is identified. Basilar cisterns are patent. Bone windows demonstrate no acute calvarial abnormality. The visualized paranasal sinuses are clear. Mastoid air cells are well aerated. IMPRESSION: No acute intracranial abnormality. Electronically signed by: Alverto Parra MD (08/24/2018 12:08 AM) [facility]
[2018-08-24 00:27] LABS: BILIRUBIN,URINE NEGATIVE (NEG); CLARITY,URINE CLEAR; COLOR,URINE YELLOW; NITRITE,URINE NEGATIVE (NEG); PH,URINE 5.5; PROTEIN,URINE NEGATIVE (NEG-TRACE)
[2018-08-24] MEDS ORDERED: PIPERACILLIN/TAZOBACTAM 4.5 GM in IV NORMAL SALINE 100ML 100 ML IV ONE (00:30)
[2018-08-24] MEDS ORDERED: fentaNYL PF VIAL 100 MCG/2 ML VIAL IV ONE (00:30)
[2018-08-24 00:42] LABS: BACTERIA,URINE 0 /HPF (0-FEW); HYALINE CASTS, URINE FEW /HPF; RBC,URINE 0 /HPF (0-2); SPERM,URINE PRESENT /HPF; SQUAMOUS EPITHELIAL CELL,UR OCC /LPF; WBC,URINE OCC /HPF (0-4)
[2018-08-24] MEDS ORDERED: ASPIRIN 325 MG TABLET PO ONE (00:45)
[2018-08-24 00:46] LABS: % BANDS 2 % (0-9); % LYMPHS 4 % (24-48); % MONOS 4 % (0-10); % SEGS 90 % (35-66)
[2018-08-24 00:47] LABS: PLT ESTIMATE ADEQUATE (ADEQUATE)
[2018-08-24] MEDS ORDERED: ACETAMINOPHEN 325 MG TABLET. PO PRN ×2 (01:00→11:00)
[2018-08-24] MEDS ORDERED: fentaNYL PF VIAL 100 MCG/2 ML VIAL IV PRN (01:00)
[2018-08-24] MEDS ORDERED: DEXAMETHASONE SOD PHOS 20 MG/5 ML VIAL. IV ONE (01:00)
[2018-08-24] MEDS ORDERED: ONDANSETRON PF 4 MG/2 ML VIAL. IV PRN ×2 (01:00→11:00)
[2018-08-24 01:22] LABS: INFLUENZA A PATIENT NEGATIVE (NEGATIVE); INFLUENZA B PATIENT NEGATIVE (NEGATIVE)
[2018-08-24 02:17] VITALS: BP 126/49
--- NOTE | 2018-08-24 02:37 | RAD ---
CHEST AP ONLY Clinical Indication: COUGH, SHORT OF BREATH, WEAKNESS, FEVER Comparison: Two-view chest, May 13, 2017. Findings: Stable cardiomegaly. Pulmonary vasculature upper limits of normal. Interstitial opacities in the left midlung and bilateral lung bases. Left hemidiaphragm is partially obscured. No pleural effusion or pneumothorax. IMPRESSION: Left midlung and bibasilar interstitial opacities. Considerations include pulmonary edema or interstitial pneumonia. Electronically signed by: Alverto Parra MD (08/24/2018 2:33 AM) [facility]
[2018-08-24 07:00] VITALS: BP 140/61
[2018-08-24] MEDS: IPRATRPIUM/ALBUTEROL 0.5/2.5MG 3 ML NEBU. NEB SCH ×4 (07:52→18:26)
[2018-08-24] MEDS ORDERED: INSULIN LISPRO 300 UNITS/3 ML INSULN.PEN. SQ ONE ×2 (08:00→21:30)
[2018-08-24 09:44] LABS: CALCIUM 8.8 mg/dL (8.5-10.1); CREATININE 1.8 mg/dL (0.7-1.3); GFR 45.5; MAGNESIUM 2.1 mg/dL (1.8-2.4); POTASSIUM 4.4 mmol/L (3.5-5.1)
--- NOTE | 2018-08-24 09:50 | PDOC2 ---
CARDIAC CONSULT DATE OF CONSULT Date of Consult DATE: 08/24/18 TIME: 09:17 REASON FOR CONSULT Reason for Consult: indeterminate trop REFERRING PHYSICIAN Referring Physician: Mariano SOURCE Source: Chart review, Patient HISTORY OF PRESENT ILLNESS HISTORY OF PRESENT ILLNESS This is a 67 yo male admitted for complains of weakness. Reports initially noted self with nasal congestion. He has been feeling weak and sometimes dizzy in the last 2 days. Positive for chills. Positive for cough with brownish sputum. No complains of any chest pain, nausea or vomiting. There has been no complains of significant SOA. 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 He is compliant with his medications. PAST MEDICAL HISTORY Cardiovascular: AFIB, CAD, CHF, HTN, Hyperlipidemia, Valve insufficiency ( severe MR), Pulmonary hypertension, Other (ICM;NICM) Pulmonary: Other (CIRILO) CENTRAL NERVOUS SYSTEM: Other (No pertinent history) GI: GERD Psych: Anxiety Musculoskeletal: low back pain, Osteoarthritis Infectious disease: No pertinent hx ENT: Other (glaucoma) Renal/: Benign prostatic enlarg. Endocrine: No pertinent hx Dermatology: No pertinent hx PAST SURGICAL HISTORY Past Surgical History: Other (Cardiac ablation; PCI/stents; back surgery) SOCIAL HISTORY Smoke: Quit CURRENT MEDICATIONS CURRENT MEDICATIONS Current Medications Medications (Trade) Dose Ordered Sig/Manjula Route PRN Reason Start Time Stop Time Status Last Admin Dose Admin Sodium Chloride 1,000 ml @ 1,000 mls/hr 1X ONCE IV 08/23/18 23:00 08/23/18 23:59 DC 08/23/18 23:44 Acetaminophen (Tylenol) 500 mg 1X ONCE PO 08/23/18 23:15 08/23/18 23:16 DC 08/23/18 23:42 Albuterol/ Ipratropium (Duoneb) 3 ml 1X ONCE NEB 08/23/18 23:15 08/23/18 23:16 DC 08/23/18 23:20 Piperacillin Sod/ Tazobactam Sod 4.5 gm/Sodium Chloride 100 ml @ 200 mls/hr 1X ONCE IV 08/24/18 00:30 08/24/18 00:59 DC 08/24/18 00:47 Levofloxacin/ Dextrose 150 ml @ 100 mls/hr 1X ONCE IV 08/24/18 00:30 11/5/18 01:59 DC 08/24/18 00:48 Fentanyl Citrate (Fentanyl 2ml Vial) 50 mcg 1X ONCE IV 08/24/18 00:30 08/24/18 00:31 DC 08/24/18 00:44 Aspirin (Theo Aspirin) 325 mg 1X ONCE PO 08/24/18 00:45 08/24/18 00:46 DC 08/24/18 01:01 Fentanyl Citrate (Fentanyl 2ml Vial) 50 mcg PRN Q2HR PRN IV PAIN 08/24/18 01:00 08/25/18 00:59 08/24/18 08:19 Albuterol/ Ipratropium (Duoneb) 3 ml RTQID NEB 08/24/18 08:00 08/25/18 07:59 08/24/18 07:52 Dexamethasone Sodium Phosphate (Decadron) 10 mg 1X ONCE IV 08/24/18 01:00 08/24/18 01:02 DC 08/24/18 01:13 Influenza Virus Vaccine (Afluria Trivalent [id number] Syringe) 0.5 ml ONCE ONCE VAX IM 08/24/18 09:00 08/24/18 09:01 DC 08/24/18 08:23 ALLERGIES ALLERGIES: Coded Allergies: NSAIDS (Non-Steroidal Anti-Inflamma (Verified Adverse Reaction, Intermediate, BLEEDING, 01/08/17) Bleeding ROS Review of System 14 point ROS evaluated with pertinent positives noted per HPI PHYSICAL EXAM General: Alert, Oriented X3, Cooperative, No acute distress HEENT: Atraumatic, Mucous membr. moist/pink Lungs: Other (faint basilar crackles) Heart: Regular rate (SR), Other (distant heart sounds) Abdomen: Soft, No tenderness, Other (obese) Extremities: No cyanosis Skin: No breakdown, No significant lesion Neuro: Normal speech, Sensation intact Psych/Mental Status: Mental status NL, Mood NL MUSCULOSKELETAL: Osteoarthritic changes both hands VITALS VITALS Vital Signs Date Time Temp Pulse Resp B/P (MAP) Pulse Ox O2 Delivery O2 Flow Rate FiO2 08/24/18 08:19 94 Nasal Cannula 9.0 08/24/18 07:00 97.2 56 17 140/61 (87) 97.2 LABS Lab: Laboratory Tests Test 08/23/18 23:30 08/24/18 00:10 08/24/18 00:55 08/24/18 03:50 White Blood Count 18.8 x10^3/uL (4.0-11.0) Red Blood Count 4.05 x10^6/uL (4.30-5.70) Hemoglobin 12.1 g/dL (13.0-17.5) Hematocrit 36.0 % (39.0-53.0) Mean Corpuscular Volume 89 fL (79-100) Mean Corpuscular Hemoglobin 30 pg (25-35) Mean Corpuscular Hemoglobin Concent 34 g/dL (31-37) Red Cell Distribution Width 14.9 % (11.5-14.5) Platelet Count 194 x10^3/uL (140-400) Neutrophils (%) (Auto) 87 % (31-73) Lymphocytes (%) (Auto) 7 % (24-48) Monocytes (%) (Auto) 5 % (0-9) Eosinophils (%) (Auto) 1 % (0-3) Basophils (%) (Auto) 1 % (0-3) Neutrophils # (Auto) 16.2 x10^3uL (1.8-7.7) Lymphocytes # (Auto) 1.3 x10^3/uL (1.0-4.8) Monocytes # (Auto) 1.0 x10^3/uL (0.0-1.1) Eosinophils # (Auto) 0.1 x10^3/uL (0.0-0.7) Basophils # (Auto) 0.2 x10^3/uL (0.0-0.2) Segmented Neutrophils % 90 % (35-66) Band Neutrophils % 2 % (0-9) Lymphocytes % 4 % (24-48) Monocytes % 4 % (0-10) Platelet Estimate Adequate (ADEQUATE) Giant Platelets Occ Sodium Level 140 mmol/L (136-145) Potassium Level 3.6 mmol/L (3.5-5.1) Chloride Level 100 mmol/L (98-107) Carbon Dioxide Level 30 mmol/L (21-32) Anion Gap 10 (6-14) Blood Urea Nitrogen 24 mg/dL (8-26) Creatinine 1.9 mg/dL (0.7-1.3) Estimated GFR (Cockcroft-Gault) 42.7 BUN/Creatinine Ratio 13 (6-20) Glucose Level 235 mg/dL (70-99) Lactic Acid Level 1.3 mmol/L (0.4-2.0) Calcium Level 8.6 mg/dL (8.5-10.1) Magnesium Level 1.8 mg/dL (1.8-2.4) Total Bilirubin 0.6 mg/dL (0.2-1.0) Aspartate Amino Transf (AST/SGOT) 22 U/L (15-37) Alanine Aminotransferase (ALT/SGPT) 23 U/L (16-63) Alkaline Phosphatase 63 U/L (46-116) Ammonia 20 mcmol/L (11-34) Creatine Kinase 274 U/L (39-308) Creatine Kinase MB (Mass) 1.2 ng/mL (0.0-3.6) Creatine Kinase MB Relative Index 0.4 % (0-4) Troponin I Quantitative 0.119 ng/mL (0.000-0.055) 0.128 ng/mL (0.000-0.055) [id number]-Type Natriuretic Peptide 584 pg/mL (0-124) Total Protein 6.6 g/dL (6.4-8.2) Albumin 3.0 g/dL (3.4-5.0) Albumin/Globulin Ratio 0.8 (1.0-1.7) Urine Collection Type Unknown Urine Color Yellow Urine Clarity Clear Urine pH 5.5 Urine Specific [place] 1.020 Urine Protein Negative mg/dL (NEG-TRACE) Urine Glucose (UA) Negative mg/dL (NEG) Urine Ketones (Stick) Negative mg/dL (NEG) Urine Blood Negative (NEG) Urine Nitrite Negative (NEG) Urine Bilirubin Negative (NEG) Urine Urobilinogen Dipstick 1.0 mg/dL (0.2 mg/dL) Urine Leukocyte Esterase Negative (NEG) Urine RBC 0 /HPF (0-2) Urine WBC Occ /HPF (0-4) Urine Squamous Epithelial Cells Occ /LPF Urine Bacteria 0 /HPF (0-FEW) Urine Hyaline Casts Few /HPF Urine Mucus Slight /LPF Urine Sperm Present /HPF Influenza Type A Antigen Negative (NEGATIVE) Influenza Type B Antigen Negative (NEGATIVE) Test 08/24/18 07:05 Troponin I Quantitative 0.070 ng/mL (0.000-0.055) ECHOCARDIOGRAM ECHOCARDIOGRAM <Conclusion> The Left Ventricle is severely dilated. There is normal left ventricular wall thickness. Left ventricle systolic function is moderately impaired. The Ejection Fraction is 25-30%. There is global hypokinesis of the left ventricle. Unable to assess diastolic function but there is an increase ion the left atriak filling pressure There is no evidence of significant pericardial effusion. There is no mitral stenosis and a severe mitral regurgitation The left atrium is significantly enlarged to 6 cms. Doppler and Color Flow revealed moderate tricuspid regurgitation. The PA pressure was estimated at 56 mmHg. Doppler and Color Flow revealed moderate tricuspid regurgitation. The PA pressure was estimated at 56 mmHg moderate pulmonary hypertension The pulmonic valve is normal. DATE: 12/20/162020 HEART CATH HEART CATH Conclusion Successful high risk PCI/drug-eluting stent placement to the left main coronary artery extending into the left anterior descending artery and successful PTCA to the left circumflex artery with hemodynamic support from Impella percutaneous ventricular assist device. Recommendations 1. Aspirin 81 mg daily (patient has history of GI bleeding and hence baby aspirin) 2. Plavix 75 mg daily for atleast one year 3. Cardiovascular risk factor modification. 4. Repeat 2D echo in three months to evaluate the need for AICD implantation. DATE: 10/28/16 1623 ASSESSMENT/PLAN ASSESSMENT/PLAN 1. Fever with possible pneumonia 2. Weakness with aborted mechanical fall 3. Renal insufficiency: Cr at 1.9, possible volume depletion 4. Elevated troponin: minimal peaked at 0.12, EKG SR without acute changes. No cardiac symptoms. suspect demand mediated type 2 5. Hx of NICM/ICM: past known EF at 40%. Compensated 6. CAD; 2017 PCI as noted above 7. PAFIB: prior ablation Maintaining SR. no ectopies. 8. HTN: controlled 9. HLP 10. Morbid obesity with CIRILO: CPAP use at home 11. New DM Recommendations 1. TTE, BMP, Mg. A1C 2. Maintain hydration adequacy. 3. Antibiotics per PCP. 4. Continue pradaxa, will eval CrCl and will make changes if need. Continue home plavix and secondary prevention measures. 5. Continue daily amiodarone. PANDA PULIDO SENSOR TECHNICIAN Aug 24, 2018 09:50
[2018-08-24] MEDS ORDERED: AMIO200T4 PO (09:56)
[2018-08-24] MEDS ORDERED: ATOR20TA58 PO (09:56)
[2018-08-24] MEDS ORDERED: TIMO10DR5 EACHEYE (09:56)
[2018-08-24] MEDS ORDERED: AMLO5TAB7 PO (09:56)
[2018-08-24] MEDS ORDERED: HYDR100T24 PO (09:56)
[2018-08-24] MEDS ORDERED: ISOS60TA2 PO (09:56)
[2018-08-24] MEDS ORDERED: GABA800T2 PO (09:56)
[2018-08-24] MEDS ORDERED: TIZA4CAP PO (09:56)
[2018-08-24 10:59] VITALS: BP 151/68
[2018-08-24] MEDS ORDERED: MORPHINE SULFATE 2 MG/ML VIAL. IV PRN (11:00)
[2018-08-24] MEDS ORDERED: PIP/TAZO PER PHARMACY MC PRN (11:00)
[2018-08-24] MEDS ORDERED: traMADol 50 MG TABLET PO PRN (11:00)
[2018-08-24] MEDS ORDERED: DOCUSATE SODIUM 100 MG CAPSULE. PO PRN (11:00)
[2018-08-24] MEDS ORDERED: tiZANidine 4 MG TABLET. PO PRN (11:15)
[2018-08-24] MEDS ORDERED: oxyCODONE IR 5 MG TABLET PO PRN (11:15)
[2018-08-24] MEDS ORDERED: PARO30TA3 PO (11:20)
[2018-08-24] MEDS: TIMOLOL 0.5% OPHTH SOLUTION 5ML BOTTLE. OU SCH ×2 (11:30→21:00)
[2018-08-24] MEDS: NICOTINE 21MG PATCH. TD SCH (11:30)
[2018-08-24] MEDS: amLODIPine BESYLATE 5 MG TABLET PO SCH (12:15)
[2018-08-24] MEDS: PANTOPRAZOLE 40 MG TABLET.DR. PO SCH (12:15)
[2018-08-24] MEDS: CLOPIDOGREL BISULFATE 75 MG TABLET PO SCH (12:15)
[2018-08-24] MEDS: FUROSEMIDE 80 MG TABLET. PO SCH ×2 (12:15→16:00)
[2018-08-24] MEDS: ASPIRIN CHEWABLE 81 MG TABLET. PO SCH (12:15)
[2018-08-24] MEDS: ISOSORBIDE MONONITRATE ER 30 MG TAB.ER.24H PO SCH (12:16)
[2018-08-24] MEDS: AMIODARONE HCL 200 MG TABLET. PO SCH (12:16)
[2018-08-24] MEDS: POTASSIUM CHLORIDE 20 MEQ TABLET.ER. PO SCH (12:16)
[2018-08-24] MEDS: cloNIDine HCL 0.1 MG TABLET PO SCH ×2 (12:16→20:39)
--- NOTE | 2018-08-24 12:16 | CARD ---
MR#: [id number] Date of Study: 08/24/2018 Ordering Physician: PANDA PULIDO, Referring Physician: RAMBO CALL, Tech: Latonya Peralta APPROVED REPORT EXAM: Two-dimensional and M-mode echocardiogram with Doppler and color Doppler. Other Information Quality : GoodHR: 60bpm INDICATION Cardiomyopathy 2D DIMENSIONS Left Atrium(2D)4.6 (1.6-4.0cm)IVSd1.1 (0.7-1.1cm) Aortic Root(2D)3.6 (2.0-3.7cm)LVDd6.8 (3.9-5.9cm) LVOT Diameter2.3 (1.8-2.4cm)PWd1.3 (0.7-1.1cm) LVDs3.4 (2.5-4.0cm)FS (%) 50.4 % SV194.1 ml Aortic Valve AoV Peak Marshal.208.6cm/sAoV VTI41.9cm AO Peak GR.17.4mmHgLVOT Peak Marshal.134.7cm/s LVOT VTI 30.76cmAO Mean GR.8mmHg JOSE (VMAX)1.78dh8UBR (VTI)3.06cm2 Mitral Valve MV E Czdunhjn521.2cm/sMV DECEL FKJO238hx MV A Zmsavnri426.9cm/sMV GFF28nb E/A Ratio0.9MVA (PHT)2.59cm2 TDI E/Lateral E'15.1E/Medial E'16.8 Pulmonary Valve PV Peak Bijjnemc796.0cm/sPV Peak Grad.7mmHg Tricuspid Valve TR P. Lczwkaqb571ym/sRAP VOOXOLBY4zjYn TR Peak Gr.78dlZeXADM77gxAd Pulmonary Vein S1 Zymirqmg74.3cm/sD2 Qpfkeued54.3cm/s PVa [id number] LEFT VENTRICLE The Left Ventricle is borderline dilated. There is borderline to mild concentric left ventricular hyp ertrophy. The left ventricular systolic function is normal and the ejection fraction is within normal range. The Ejection Fraction is 50-55%. There is normal LV segmental wall motion. Transmitral Dopple r flow pattern is Grade I-abnormal relaxation pattern. RIGHT VENTRICLE The right ventricle is normal size. There is normal right ventricular wall thickness. The right ventr icular systolic function is normal. ATRIA The left atrium size is normal. The right atrium size is normal. The interatrial septum is intact wit h no evidence for an atrial septal defect or patent foramen ovale as noted on 2-D or Doppler imaging. AORTIC VALVE The aortic valve is thickened but opens well. Doppler and Color Flow revealed trace aortic regurgitat ion. There is no significant aortic valvular stenosis. Calculated aortic valve area is 3 cm2 with max imum pressure gradient of 18 mmHg and mean pressure gradient of 8 mmHg. MITRAL VALVE The mitral valve is normal in structure and function. Doppler and Color-flow revealed mild mitral reg urgitation. TRICUSPID VALVE The tricuspid valve is not well visualized. Doppler and Color Flow revealed trace to mild tricuspid r egurgitation. PULMONIC VALVE The pulmonic valve is not well visualized. Doppler and Color Flow revealed no pulmonic valvular regur gitation. GREAT VESSELS The aortic root is normal in size. Normal pulmonary venous flow (Doppler). The IVC is normal in size and collapses >50% with inspiration. PERICARDIAL EFFUSION There is no evidence of significant pericardial effusion. Critical Notification Critical Value: No <Conclusion> The Left Ventricle is borderline dilated. The left ventricular systolic function is normal and the ejection fraction is within normal range. The Ejection Fraction is 50-55%. There is borderline to mild concentric left ventricular hypertrophy. There is no significant aortic valvular stenosis. Doppler and Color Flow revealed trace aortic regurgitation. Doppler and Color-flow revealed mild mitral regurgitation. Doppler and Color Flow revealed trace to mild tricuspid regurgitation. Signed by : Manas Dan MD Electronically Approved : 08/24/2018 12:16:06
[2018-08-24] MEDS ORDERED: CHOL100013 PO (12:19)
--- NOTE | 2018-08-24 12:58 | PDOC ---
PULMONARY PROGRESS NOTES Vitals Vital Signs Date Time Temp Pulse Resp B/P (MAP) Pulse Ox O2 Delivery O2 Flow Rate FiO2 08/24/18 12:29 Nasal Cannula 5.0 08/24/18 12:16 63 151/68 08/24/18 12:03 92 08/24/18 10:59 98.3 17 98.3 Lungs: Clear Cardiovascular: S1, S2 Abdomen: Soft Extremities: No Edema Labs Laboratory Tests Test 08/23/18 23:30 08/24/18 00:10 08/24/18 00:55 08/24/18 03:50 White Blood Count 18.8 x10^3/uL (4.0-11.0) Red Blood Count 4.05 x10^6/uL (4.30-5.70) Hemoglobin 12.1 g/dL (13.0-17.5) Hematocrit 36.0 % (39.0-53.0) Mean Corpuscular Volume 89 fL (79-100) Mean Corpuscular Hemoglobin 30 pg (25-35) Mean Corpuscular Hemoglobin Concent 34 g/dL (31-37) Red Cell Distribution Width 14.9 % (11.5-14.5) Platelet Count 194 x10^3/uL (140-400) Neutrophils (%) (Auto) 87 % (31-73) Lymphocytes (%) (Auto) 7 % (24-48) Monocytes (%) (Auto) 5 % (0-9) Eosinophils (%) (Auto) 1 % (0-3) Basophils (%) (Auto) 1 % (0-3) Neutrophils # (Auto) 16.2 x10^3uL (1.8-7.7) Lymphocytes # (Auto) 1.3 x10^3/uL (1.0-4.8) Monocytes # (Auto) 1.0 x10^3/uL (0.0-1.1) Eosinophils # (Auto) 0.1 x10^3/uL (0.0-0.7) Basophils # (Auto) 0.2 x10^3/uL (0.0-0.2) Segmented Neutrophils % 90 % (35-66) Band Neutrophils % 2 % (0-9) Lymphocytes % 4 % (24-48) Monocytes % 4 % (0-10) Platelet Estimate Adequate (ADEQUATE) Giant Platelets Occ Sodium Level 140 mmol/L (136-145) Potassium Level 3.6 mmol/L (3.5-5.1) Chloride Level 100 mmol/L (98-107) Carbon Dioxide Level 30 mmol/L (21-32) Anion Gap 10 (6-14) Blood Urea Nitrogen 24 mg/dL (8-26) Creatinine 1.9 mg/dL (0.7-1.3) Estimated GFR (Cockcroft-Gault) 42.7 BUN/Creatinine Ratio 13 (6-20) Glucose Level 235 mg/dL (70-99) Lactic Acid Level 1.3 mmol/L (0.4-2.0) Calcium Level 8.6 mg/dL (8.5-10.1) Magnesium Level 1.8 mg/dL (1.8-2.4) Total Bilirubin 0.6 mg/dL (0.2-1.0) Aspartate Amino Transf (AST/SGOT) 22 U/L (15-37) Alanine Aminotransferase (ALT/SGPT) 23 U/L (16-63) Alkaline Phosphatase 63 U/L (46-116) Ammonia 20 mcmol/L (11-34) Creatine Kinase 274 U/L (39-308) Creatine Kinase MB (Mass) 1.2 ng/mL (0.0-3.6) Creatine Kinase MB Relative Index 0.4 % (0-4) Troponin I Quantitative 0.119 ng/mL (0.000-0.055) 0.128 ng/mL (0.000-0.055) JP-Iww-C-Type Natriuretic Peptide 584 pg/mL (0-124) Total Protein 6.6 g/dL (6.4-8.2) Albumin 3.0 g/dL (3.4-5.0) Albumin/Globulin Ratio 0.8 (1.0-1.7) Urine Collection Type Unknown Urine Color Yellow Urine Clarity Clear Urine pH 5.[address] 1.020 Urine Protein Negative mg/dL (NEG-TRACE) Urine Glucose (UA) Negative mg/dL (NEG) Urine Ketones (Stick) Negative mg/dL (NEG) Urine Blood Negative (NEG) Urine Nitrite Negative (NEG) Urine Bilirubin Negative (NEG) Urine Urobilinogen Dipstick 1.0 mg/dL (0.2 mg/dL) Urine Leukocyte Esterase Negative (NEG) Urine RBC 0 /HPF (0-2) Urine WBC Occ /HPF (0-4) Urine Squamous Epithelial Cells Occ /LPF Urine Bacteria 0 /HPF (0-FEW) Urine Hyaline Casts Few /HPF Urine Mucus Slight /LPF Urine Sperm Present /HPF Influenza Type A Antigen Negative (NEGATIVE) Influenza Type B Antigen Negative (NEGATIVE) Test 08/24/18 07:05 Sodium Level 142 mmol/L (136-145) Potassium Level 4.4 mmol/L (3.5-5.1) Chloride Level 103 mmol/L (98-107) Carbon Dioxide Level 29 mmol/L (21-32) Anion Gap 10 (6-14) Blood Urea Nitrogen 22 mg/dL (8-26) Creatinine 1.8 mg/dL (0.7-1.3) Estimated GFR (Cockcroft-Gault) 45.5 Glucose Level 252 mg/dL (70-99) Calcium Level 8.8 mg/dL (8.5-10.1) Magnesium Level 2.1 mg/dL (1.8-2.4) Troponin I Quantitative 0.070 ng/mL (0.000-0.055) Laboratory Tests Test 08/23/18 23:30 08/24/18 00:10 08/24/18 00:55 08/24/18 03:50 White Blood Count 18.8 x10^3/uL (4.0-11.0) Red Blood Count 4.05 x10^6/uL (4.30-5.70) Hemoglobin 12.1 g/dL (13.0-17.5) Hematocrit 36.0 % (39.0-53.0) Mean Corpuscular Volume 89 fL (79-100) Mean Corpuscular Hemoglobin 30 pg (25-35) Mean Corpuscular Hemoglobin Concent 34 g/dL (31-37) Red Cell Distribution Width 14.9 % (11.5-14.5) Platelet Count 194 x10^3/uL (140-400) Neutrophils (%) (Auto) 87 % (31-73) Lymphocytes (%) (Auto) 7 % (24-48) Monocytes (%) (Auto) 5 % (0-9) Eosinophils (%) (Auto) 1 % (0-3) Basophils (%) (Auto) 1 % (0-3) Neutrophils # (Auto) 16.2 x10^3uL (1.8-7.7) Lymphocytes # (Auto) 1.3 x10^3/uL (1.0-4.8) Monocytes # (Auto) 1.0 x10^3/uL (0.0-1.1) Eosinophils # (Auto) 0.1 x10^3/uL (0.0-0.7) Basophils # (Auto) 0.2 x10^3/uL (0.0-0.2) Segmented Neutrophils % 90 % (35-66) Band Neutrophils % 2 % (0-9) Lymphocytes % 4 % (24-48) Monocytes % 4 % (0-10) Platelet Estimate Adequate (ADEQUATE) Giant Platelets Occ Sodium Level 140 mmol/L (136-145) Potassium Level 3.6 mmol/L (3.5-5.1) Chloride Level 100 mmol/L (98-107) Carbon Dioxide Level 30 mmol/L (21-32) Anion Gap 10 (6-14) Blood Urea Nitrogen 24 mg/dL (8-26) Creatinine 1.9 mg/dL (0.7-1.3) Estimated GFR (Cockcroft-Gault) 42.7 BUN/Creatinine Ratio 13 (6-20) Glucose Level 235 mg/dL (70-99) Lactic Acid Level 1.3 mmol/L (0.4-2.0) Calcium Level 8.6 mg/dL (8.5-10.1) Magnesium Level 1.8 mg/dL (1.8-2.4) Total Bilirubin 0.6 mg/dL (0.2-1.0) Aspartate Amino Transf (AST/SGOT) 22 U/L (15-37) Alanine Aminotransferase (ALT/SGPT) 23 U/L (16-63) Alkaline Phosphatase 63 U/L (46-116) Ammonia 20 mcmol/L (11-34) Creatine Kinase 274 U/L (39-308) Creatine Kinase MB (Mass) 1.2 ng/mL (0.0-3.6) Creatine Kinase MB Relative Index 0.4 % (0-4) Troponin I Quantitative 0.119 ng/mL (0.000-0.055) 0.128 ng/mL (0.000-0.055) DN-Ast-P-Type Natriuretic Peptide 584 pg/mL (0-124) Total Protein 6.6 g/dL (6.4-8.2) Albumin 3.0 g/dL (3.4-5.0) Albumin/Globulin Ratio 0.8 (1.0-1.7) Urine Collection Type Unknown Urine Color Yellow Urine Clarity Clear Urine pH 5.[address] 1.020 Urine Protein Negative mg/dL (NEG-TRACE) Urine Glucose (UA) Negative mg/dL (NEG) Urine Ketones (Stick) Negative mg/dL (NEG) Urine Blood Negative (NEG) Urine Nitrite Negative (NEG) Urine Bilirubin Negative (NEG) Urine Urobilinogen Dipstick 1.0 mg/dL (0.2 mg/dL) Urine Leukocyte Esterase Negative (NEG) Urine RBC 0 /HPF (0-2) Urine WBC Occ /HPF (0-4) Urine Squamous Epithelial Cells Occ /LPF Urine Bacteria 0 /HPF (0-FEW) Urine Hyaline Casts Few /HPF Urine Mucus Slight /LPF Urine Sperm Present /HPF Influenza Type A Antigen Negative (NEGATIVE) Influenza Type B Antigen Negative (NEGATIVE) Test 08/24/18 07:05 Sodium Level 142 mmol/L (136-145) Potassium Level 4.4 mmol/L (3.5-5.1) Chloride Level 103 mmol/L (98-107) Carbon Dioxide Level 29 mmol/L (21-32) Anion Gap 10 (6-14) Blood Urea Nitrogen 22 mg/dL (8-26) Creatinine 1.8 mg/dL (0.7-1.3) Estimated GFR (Cockcroft-Gault) 45.5 Glucose Level 252 mg/dL (70-99) Calcium Level 8.8 mg/dL (8.5-10.1) Magnesium Level 2.1 mg/dL (1.8-2.4) Troponin I Quantitative 0.070 ng/mL (0.000-0.055) Medications Active Scripts Medications Dose Route/Sig Max Daily Dose Days Date Category Vitamin D (Cholecalciferol (Vitamin D3)) 1,000 Unit Capsule 1 Cap PO DAILY 08/24/18 Reported Paroxetine Hcl 30 Mg Tablet 30 Mg PO DAILY 08/24/18 Reported Tizanidine Hcl 4 Mg Capsule 4 Mg PO QID PRN 08/24/18 Reported Isosorbide Mononitrate Er (Isosorbide Mononitrate) 60 Mg Tab.er.24h 1 Tab PO DAILY 08/24/18 Reported Timoptic 0.5% (Timolol Maleate) 10 Ml Drops 1 Drop EACHEYE BID 08/24/18 Reported Amiodarone Hcl 200 Mg Tablet 1 Tab PO DAILY 08/24/18 Reported Amlodipine Besylate 5 Mg Tablet 5 Mg PO DAILY 08/24/18 Reported Gabapentin 800 Mg Tablet 800 Mg PO QID 08/24/18 Reported Hydralazine Hcl 100 Mg Tablet 1 Tab PO TID 08/24/18 Reported Atorvastatin Calcium 20 Mg Tablet 1 Tab PO QHS 08/24/18 Reported Lasix (Furosemide) 80 Mg Tablet 1 Tab PO BID 01/08/17 Reported K-Tab (Potassium Chloride) 10 Meq Tablet.er 20 Meq PO DAILY 01/08/17 Reported NICODERM CQ 21mg (Nicotine) 1 Each Patch.td24 1 Patch TP DAILY 12/23/16 Reported Alphagan P (Brimonidine Tartrate) 5 Ml Drops 1 Drop EACHEYE BID 12/19/16 Reported Paxil (Paroxetine Hcl) 20 Mg Tablet 1 Tab PO HS 12/19/16 Reported Aspirin 81 Mg Tab.chew 1 Tab PO DAILY 12/19/16 Reported Clopidogrel (Clopidogrel Bisulfate) 75 Mg Tablet 1 Tab PO DAILY 10/29/16 Reported Spironolactone 25 Mg Tablet 1 Tab PO HS 10/28/16 Reported Latanoprost 2.5 Ml Drops 1 Drop EACHEYE QHS 10/28/16 Reported Pazeo (Olopatadine HCl) 2.5 Ml Drops 2.5 Ml OP DAILY 10/28/16 Reported Prevacid (Lansoprazole) 30 Mg Capsule.dr 1 Cap PO DAILY 10/28/16 Reported Oxycodone Hcl 10 Mg Tablet 1 Tab PO PRN Q4HRS PRN 10/28/16 Reported Baclofen 10 Mg Tablet 1.5 Tab PO QID 10/28/16 Reported Xanax (Alprazolam) 0.5 Mg Tablet 1 Tab PO TID 10/28/16 Reported Clonidine Hcl 0.1 Mg Tablet 0.1 Mg PO BID 10/28/16 Reported Pradaxa (Dabigatran Etexilate Mesylate) 150 Mg Capsule 150 Mg PO BID 10/28/16 Reported Impression . FULL CONSULT DICTATED ACUTE RESP FAILURE/CHF PNEUMONIA HEMOPTYSIS SEE ORDERS THANKS BINA EDWARD MD Aug 24, 2018 12:58
[2018-08-24] MEDS: BRIMONIDINE 0.2% OPHTH SOLUTION 5ML BOTTLE. OU SCH ×2 (13:28→20:42)
[2018-08-24] MEDS: KETOTIFEN FUMARATE 0.025% OPHTH SOLUTION BOTTLE. OU SCH ×2 (13:29→20:30)
[2018-08-24] MEDS: AZITHROMYCIN 250 MG TABLET. PO SCH (13:29)
[2018-08-24] MEDS: PARoxetine 10 MG TABLET PO SCH (13:29)
[2018-08-24] MEDS: DABIGATRAN ETEXILATE 150 MG CAPSULE. PO SCH ×2 (13:29→20:37)
[2018-08-24] MEDS: BACLOFEN 10 MG TABLET. PO SCH ×3 (13:30→20:38)
[2018-08-24] MEDS: GABAPENTIN 400 MG CAPSULE. PO SCH ×3 (13:30→20:37)
[2018-08-24] MEDS: PIPERACILLIN/TAZOBACTAM 3.375 GM in IV NORMAL SALINE 50ML 50 ML IV SCH ×3 (13:31→23:52)
[2018-08-24] MEDS ORDERED: TAMS0.4C97 PO (13:49)
[2018-08-24] MEDS ORDERED: ALPRAZolam 0.5 MG TABLET PO SCH (14:00)
[2018-08-24] MEDS ORDERED: DEXTROSE 50% 25 GM / 50ML DISP.SYRIN. IV PRN ×2 (15:15→17:15)
--- NOTE | 2018-08-24 15:20 | PDOC1 ---
History and Physical Date of Admission Date of Admission 08/24/18 Identification/Chief Complaint Chief Complaint weakness Source Source: Chart review, Patient History of Present Illness History of Present Illness HPI HPI Patient is a 67 year old male presenting to the ED due to weakness. PT STARTED to feel generalized weakness yesterday, could not get out of bed. has chronic cough for months, with brownish sputum. Denies chest pain, denies fever, chills, T 102 in ER. denies runny nose, sore throat, sick contact. He coughed some bloody today. Denies chest pain, headache, abdominal pain, leg swelling, leg pain. Reports shortness of breath. Patient lives at home with , and is walker dependent. Patient does not wear oxygen at home, but does use CPAP at night for sleep apnea. wbc 18 in ER. Past Medical History Cardiovascular: AFIB, CAD, CHF, HTN, Hyperlipidemia, Valve insufficiency ( severe MR), Pulmonary hypertension, Other (ICM;NICM) Pulmonary: Other (CIRILO) CENTRAL NERVOUS SYSTEM: Other (No pertinent history) GI: GERD Heme/Onc: Anemia NOS Psych: Anxiety Infectious disease: No pertinent hx ENT: Other (glaucoma) Renal/: Benign prostatic enlarg. Endocrine: No pertinent hx Dermatology: No pertinent hx Past Surgical History Past Surgical History: Other (Cardiac ablation; PCI/stents; back surgery) Family History Family History: Hypertension Social History Smoke: No ALCOHOL: none Drugs: None Current Problem List Problem List Problems Medical Problems: (1) Acute renal insufficiency Status: Acute (2) Elevated troponin Status: Acute (3) Hypoxia Status: Acute (4) Pneumonia Status: Acute (5) Weakness Status: Acute Current Medications Current Medications Current Medications Medications (Trade) Dose Ordered Sig/Manjula Start Time Stop Time Status Last Admin Dose Admin Acetaminophen (Tylenol) 650 mg PRN Q6HRS PRN 08/24/18 11:00 Albuterol/ Ipratropium (Duoneb) 3 ml RTQID 08/24/18 08:00 08/25/18 07:59 08/24/18 12:02 3 ML Alprazolam (Xanax) 0.5 mg TID 08/24/18 14:00 08/24/18 13:34 0.5 MG Amiodarone HCl (Cordarone) 200 mg DAILY 08/24/18 11:30 08/24/18 12:16 200 MG Amlodipine Besylate (Norvasc) 5 mg DAILY 08/24/18 11:30 08/24/18 12:15 5 MG Aspirin (Theo Aspirin) 325 mg 1X ONCE 08/24/18 00:45 08/24/18 00:46 DC 08/24/18 01:01 325 MG Aspirin (Children'S Aspirin) 81 mg DAILY 08/24/18 11:30 08/24/18 12:15 81 MG Atorvastatin Calcium (Lipitor) 20 mg QHS 08/24/18 21:00 Azithromycin (Zithromax) 250 mg DAILY 08/24/18 13:00 08/24/18 13:29 250 MG Baclofen (Lioresal) 15 mg QID 08/24/18 13:00 08/24/18 13:30 15 MG Brimonidine Tartrate (Alphagan) 1 drop BID 08/24/18 11:30 08/24/18 13:28 1 DROP Clonidine HCl (Catapres) 0.1 mg BID 08/24/18 11:30 08/24/18 12:16 0.1 MG Clopidogrel Bisulfate (Plavix) 75 mg DAILY 08/24/18 11:30 08/24/18 12:15 75 MG Dabigatran (Pradaxa) 150 mg BID 08/24/18 11:30 08/24/18 13:29 150 MG Dexamethasone Sodium Phosphate (Decadron) 10 mg 1X ONCE 08/24/18 01:00 08/24/18 01:02 DC 08/24/18 01:13 10 MG Docusate Sodium (Colace) 100 mg PRN DAILY PRN 08/24/18 11:00 08/24/18 12:29 100 MG Fentanyl Citrate (Fentanyl 2ml Vial) 50 mcg PRN Q2HR PRN 08/24/18 01:00 08/25/18 00:59 08/24/18 08:19 50 MCG Furosemide (Lasix) 80 mg [id number] 08/24/18 11:30 08/24/18 12:15 80 MG Gabapentin (Neurontin) 800 mg QID 08/24/18 13:00 08/24/18 13:30 800 MG Hydralazine HCl (Apresoline) 100 mg TID 08/24/18 14:00 08/24/18 13:34 100 MG Influenza Virus Vaccine (Afluria Trivalent [id number] Syringe) 0.5 ml ONCE ONCE 08/24/18 09:00 08/24/18 09:01 DC 08/24/18 08:23 0.5 ML Isosorbide Mononitrate (Imdur) 60 mg DAILY 08/24/18 11:30 08/24/18 12:16 60 MG Ketotifen Fumarate (Zaditor) 1 drop BID 08/24/18 11:30 08/24/18 13:29 1 DROP Latanoprost (Xalatan) 1 drop QHS 08/24/18 21:00 Levofloxacin/ Dextrose 150 ml @ 100 mls/hr 1X ONCE 08/24/18 00:30 08/24/18 01:59 DC 08/24/18 00:48 100 MLS/HR Linezolid/Dextrose 300 ml @ 300 mls/hr Q12HR 08/24/18 11:30 08/24/18 12:52 DC 08/24/18 12:14 300 MLS/HR Morphine Sulfate (Morphine Sulfate) 2 mg PRN Q2HR PRN 08/24/18 11:00 Nicotine (Nicoderm Cq 21mg) 1 patch DAILY 08/24/18 11:30 Ondansetron HCl (Zofran) 4 mg PRN Q6HRS PRN 08/24/18 11:00 Oxycodone HCl (Roxicodone) 10 mg PRN Q4HRS PRN 08/24/18 11:15 08/24/18 12:29 10 MG Pantoprazole Sodium (Protonix) 40 mg DAILYAC 08/24/18 11:30 08/24/18 12:15 40 MG Paroxetine HCl (Paxil) 30 mg DAILY 08/24/18 11:30 08/24/18 13:29 30 MG Piperacillin Sod/ Tazobactam Sod (Zosyn Per Pharmacy) 1 each PRN DAILY PRN 08/24/18 11:00 Piperacillin Sod/ Tazobactam Sod 3.375 gm/Sodium Chloride 50 ml @ 100 mls/hr Q6HRS 08/24/18 12:00 08/24/18 13:31 100 MLS/HR Piperacillin Sod/ Tazobactam Sod 4.5 gm/Sodium Chloride 100 ml @ 200 mls/hr 1X ONCE 08/24/18 00:30 08/24/18 00:59 DC 08/24/18 00:47 200 MLS/HR Potassium Chloride (Klor-Con) 20 meq [id number] 08/24/18 11:30 08/24/18 12:16 20 MEQ Sodium Chloride 1,000 ml @ 1,000 mls/hr 1X ONCE 08/23/18 23:00 08/23/18 23:59 DC 08/23/18 23:44 1,000 MLS/HR Spironolactone (Aldactone) 25 mg QHS 08/24/18 21:00 Timolol Maleate (Timoptic 0.5% Ophth) 1 drop BID 08/24/18 11:30 Tizanidine HCl (Zanaflex) 4 mg PRN QID PRN 08/24/18 11:15 Tramadol HCl (Ultram) 50 mg PRN Q6HRS PRN 08/24/18 11:00 Allergies Allergies Allergies Coded Allergies Type Severity Reaction Last Updated Verified No Known Medication Allergies Allergy Unknown 08/24/18 Yes NSAIDS (Non-Steroidal Anti-Inflamma Adverse Reaction Intermediate BLEEDING Yes ROS Review of System CONSTITUTIONAL: No fever or chills EYES: No recent changes SKIN: No rash or itching CARDIOVASCULAR: No chest pain, syncope, palpitations, or edema RESPIRATORY: No SOB or cough GASTROINTESTINAL: No nausea, vomiting or abdominal pain NEUROLOGICAL: No headaches or weakness ENDOCRINE: No cold or heat intolerance GENITOURINARY: No urgency or frequency of urination MUSCULOSKELETAL: No back pain or joint pain LYMPHATICS: No enlarged lymph nodes PSYCHIATRIC: No anxiety or depression Physical Exam Physical Exam GEN.: No apparent distress. Alert and oriented. HEENT: Head is normocephalic, atraumatic NECK: Supple. LUNGS: bl coarse bs. HEART: RRR, S1, S2 present. Peripheral pulses intact ABDOMEN: Soft, nontender. Positive bowel sounds. EXTREMITIES: Without any cyanosis. NEUROLOGIC: Normal speech, normal tone PSYCHIATRIC: Normal affect, normal mood. SKIN: No ulcerations Vitals Vitals Vital Signs Date Time Temp Pulse Resp B/P (MAP) Pulse Ox O2 Delivery O2 Flow Rate FiO2 08/24/18 13:35 92 Nasal Cannula 5.0 08/24/18 13:34 63 151/68 08/24/18 10:59 98.3 17 98.3 Labs Labs Laboratory Tests Test 08/23/18 23:30 08/24/18 00:10 08/24/18 00:55 08/24/18 03:50 White Blood Count 18.8 x10^3/uL (4.0-11.0) Red Blood Count 4.05 x10^6/uL (4.30-5.70) Hemoglobin 12.1 g/dL (13.0-17.5) Hematocrit 36.0 % (39.0-53.0) Mean Corpuscular Volume 89 fL (79-100) Mean Corpuscular Hemoglobin 30 pg (25-35) Mean Corpuscular Hemoglobin Concent 34 g/dL (31-37) Red Cell Distribution Width 14.9 % (11.5-14.5) Platelet Count 194 x10^3/uL (140-400) Neutrophils (%) (Auto) 87 % (31-73) Lymphocytes (%) (Auto) 7 % (24-48) Monocytes (%) (Auto) 5 % (0-9) Eosinophils (%) (Auto) 1 % (0-3) Basophils (%) (Auto) 1 % (0-3) Neutrophils # (Auto) 16.2 x10^3uL (1.8-7.7) Lymphocytes # (Auto) 1.3 x10^3/uL (1.0-4.8) Monocytes # (Auto) 1.0 x10^3/uL (0.0-1.1) Eosinophils # (Auto) 0.1 x10^3/uL (0.0-0.7) Basophils # (Auto) 0.2 x10^3/uL (0.0-0.2) Segmented Neutrophils % 90 % (35-66) Band Neutrophils % 2 % (0-9) Lymphocytes % 4 % (24-48) Monocytes % 4 % (0-10) Platelet Estimate Adequate (ADEQUATE) Giant Platelets Occ Sodium Level 140 mmol/L (136-145) Potassium Level 3.6 mmol/L (3.5-5.1) Chloride Level 100 mmol/L (98-107) Carbon Dioxide Level 30 mmol/L (21-32) Anion Gap 10 (6-14) Blood Urea Nitrogen 24 mg/dL (8-26) Creatinine 1.9 mg/dL (0.7-1.3) Estimated GFR (Cockcroft-Gault) 42.7 BUN/Creatinine Ratio 13 (6-20) Glucose Level 235 mg/dL (70-99) Lactic Acid Level 1.3 mmol/L (0.4-2.0) Calcium Level 8.6 mg/dL (8.5-10.1) Magnesium Level 1.8 mg/dL (1.8-2.4) Total Bilirubin 0.6 mg/dL (0.2-1.0) Aspartate Amino Transf (AST/SGOT) 22 U/L (15-37) Alanine Aminotransferase (ALT/SGPT) 23 U/L (16-63) Alkaline Phosphatase 63 U/L (46-116) Ammonia 20 mcmol/L (11-34) Creatine Kinase 274 U/L (39-308) Creatine Kinase MB (Mass) 1.2 ng/mL (0.0-3.6) Creatine Kinase MB Relative Index 0.4 % (0-4) Troponin I Quantitative 0.119 ng/mL (0.000-0.055) 0.128 ng/mL (0.000-0.055) SJ-Ctg-J-Type Natriuretic Peptide 584 pg/mL (0-124) Total Protein 6.6 g/dL (6.4-8.2) Albumin 3.0 g/dL (3.4-5.0) Albumin/Globulin Ratio 0.8 (1.0-1.7) Urine Collection Type Unknown Urine Color Yellow Urine Clarity Clear Urine pH 5.5 Urine Specific Dagmar 1.020 Urine Protein Negative mg/dL (NEG-TRACE) Urine Glucose (UA) Negative mg/dL (NEG) Urine Ketones (Stick) Negative mg/dL (NEG) Urine Blood Negative (NEG) Urine Nitrite Negative (NEG) Urine Bilirubin Negative (NEG) Urine Urobilinogen Dipstick 1.0 mg/dL (0.2 mg/dL) Urine Leukocyte Esterase Negative (NEG) Urine RBC 0 /HPF (0-2) Urine WBC Occ /HPF (0-4) Urine Squamous Epithelial Cells Occ /LPF Urine Bacteria 0 /HPF (0-FEW) Urine Hyaline Casts Few /HPF Urine Mucus Slight /LPF Urine Sperm Present /HPF Influenza Type A Antigen Negative (NEGATIVE) Influenza Type B Antigen Negative (NEGATIVE) Test 08/24/18 07:05 Sodium Level 142 mmol/L (136-145) Potassium Level 4.4 mmol/L (3.5-5.1) Chloride Level 103 mmol/L (98-107) Carbon Dioxide Level 29 mmol/L (21-32) Anion Gap 10 (6-14) Blood Urea Nitrogen 22 mg/dL (8-26) Creatinine 1.8 mg/dL (0.7-1.3) Estimated GFR (Cockcroft-Gault) 45.5 Glucose Level 252 mg/dL (70-99) Calcium Level 8.8 mg/dL (8.5-10.1) Magnesium Level 2.1 mg/dL (1.8-2.4) Troponin I Quantitative 0.070 ng/mL (0.000-0.055) Laboratory Tests Test 08/23/18 23:30 08/24/18 00:10 08/24/18 00:55 08/24/18 03:50 White Blood Count 18.8 x10^3/uL (4.0-11.0) Red Blood Count 4.05 x10^6/uL (4.30-5.70) Hemoglobin 12.1 g/dL (13.0-17.5) Hematocrit 36.0 % (39.0-53.0) Mean Corpuscular Volume 89 fL (79-100) Mean Corpuscular Hemoglobin 30 pg (25-35) Mean Corpuscular Hemoglobin Concent 34 g/dL (31-37) Red Cell Distribution Width 14.9 % (11.5-14.5) Platelet Count 194 x10^3/uL (140-400) Neutrophils (%) (Auto) 87 % (31-73) Lymphocytes (%) (Auto) 7 % (24-48) Monocytes (%) (Auto) 5 % (0-9) Eosinophils (%) (Auto) 1 % (0-3) Basophils (%) (Auto) 1 % (0-3) Neutrophils # (Auto) 16.2 x10^3uL (1.8-7.7) Lymphocytes # (Auto) 1.3 x10^3/uL (1.0-4.8) Monocytes # (Auto) 1.0 x10^3/uL (0.0-1.1) Eosinophils # (Auto) 0.1 x10^3/uL (0.0-0.7) Basophils # (Auto) 0.2 x10^3/uL (0.0-0.2) Segmented Neutrophils % 90 % (35-66) Band Neutrophils % 2 % (0-9) Lymphocytes % 4 % (24-48) Monocytes % 4 % (0-10) Platelet Estimate Adequate (ADEQUATE) Giant Platelets Occ Sodium Level 140 mmol/L (136-145) Potassium Level 3.6 mmol/L (3.5-5.1) Chloride Level 100 mmol/L (98-107) Carbon Dioxide Level 30 mmol/L (21-32) Anion Gap 10 (6-14) Blood Urea Nitrogen 24 mg/dL (8-26) Creatinine 1.9 mg/dL (0.7-1.3) Estimated GFR (Cockcroft-Gault) 42.7 BUN/Creatinine Ratio 13 (6-20) Glucose Level 235 mg/dL (70-99) Lactic Acid Level 1.3 mmol/L (0.4-2.0) Calcium Level 8.6 mg/dL (8.5-10.1) Magnesium Level 1.8 mg/dL (1.8-2.4) Total Bilirubin 0.6 mg/dL (0.2-1.0) Aspartate Amino Transf (AST/SGOT) 22 U/L (15-37) Alanine Aminotransferase (ALT/SGPT) 23 U/L (16-63) Alkaline Phosphatase 63 U/L (46-116) Ammonia 20 mcmol/L (11-34) Creatine Kinase 274 U/L (39-308) Creatine Kinase MB (Mass) 1.2 ng/mL (0.0-3.6) Creatine Kinase MB Relative Index 0.4 % (0-4) Troponin I Quantitative 0.119 ng/mL (0.000-0.055) 0.128 ng/mL (0.000-0.055) VQ-Gpf-C-Type Natriuretic Peptide 584 pg/mL (0-124) Total Protein 6.6 g/dL (6.4-8.2) Albumin 3.0 g/dL (3.4-5.0) Albumin/Globulin Ratio 0.8 (1.0-1.7) Urine Collection Type Unknown Urine Color Yellow Urine Clarity Clear Urine pH 5.5 Urine Specific Dagmar 1.020 Urine Protein Negative mg/dL (NEG-TRACE) Urine Glucose (UA) Negative mg/dL (NEG) Urine Ketones (Stick) Negative mg/dL (NEG) Urine Blood Negative (NEG) Urine Nitrite Negative (NEG) Urine Bilirubin Negative (NEG) Urine Urobilinogen Dipstick 1.0 mg/dL (0.2 mg/dL) Urine Leukocyte Esterase Negative (NEG) Urine RBC 0 /HPF (0-2) Urine WBC Occ /HPF (0-4) Urine Squamous Epithelial Cells Occ /LPF Urine Bacteria 0 /HPF (0-FEW) Urine Hyaline Casts Few /HPF Urine Mucus Slight /LPF Urine Sperm Present /HPF Influenza Type A Antigen Negative (NEGATIVE) Influenza Type B Antigen Negative (NEGATIVE) Test 08/24/18 07:05 Sodium Level 142 mmol/L (136-145) Potassium Level 4.4 mmol/L (3.5-5.1) Chloride Level 103 mmol/L (98-107) Carbon Dioxide Level 29 mmol/L (21-32) Anion Gap 10 (6-14) Blood Urea Nitrogen 22 mg/dL (8-26) Creatinine 1.8 mg/dL (0.7-1.3) Estimated GFR (Cockcroft-Gault) 45.5 Glucose Level 252 mg/dL (70-99) Calcium Level 8.8 mg/dL (8.5-10.1) Magnesium Level 2.1 mg/dL (1.8-2.4) Troponin I Quantitative 0.070 ng/mL (0.000-0.055) VTE Prophylaxis Ordered VTE Prophylaxis Devices: Yes VTE Pharmacological Prophylaxi: Yes Assessment/Plan Assessment/Plan generalized weakness, 2/2 CAP possibly sepsis with CAP leukocytosis, fever pafib on pradaxa h/o CAD h/o CHF diastolic gerd HTN anxiety quit smoking morbid obesity chronic lumbago on opoids elevated trop, possible diastolic CHF exacerbation, also sepsis plan: fu with card, pulm cont home meds check hba1c given hyperglycemia monitor hemoptysis, on pradaxa add zosyn, add maycol , chest CT as per pulm labs daily NICOLAS FLYNN MD Aug 24, 2018 15:20
[2018-08-24 15:39] VITALS: BP 156/71
--- NOTE | 2018-08-24 16:29 | RAD ---
CT of the chest without contrast 08/24/2018 INDICATION: Hemoptysis COMPARISON STUDY: Chest radiograph, earlier today Discussion: Noncontrast enhanced CT of the chest was obtained. Heart size is top normal. No significant pericardial effusion is seen. Dense coronary calcification noted. Scattered small mediastinal lymph nodes are noted. These nodes are not individually pathologically enlarged but are somewhat prominent in regards number. Be reactive. Small hypodensity noted in the right thyroid gland. Ultrasound could be performed for further characterization as clinically indicated. There is no pneumothorax. No significant pleural effusion is identified. Centrilobular emphysematous changes are noted. Groundglass infiltrate appears to be present throughout the left lung including the upper and lower lobes. Also seen are areas of apparent septal thickening. The appearance is nonspecific and can be associated with multiple conditions. Given unilateral nature of findings, pulmonary hemorrhage, lymphangitic carcinomatosis in patients with a primary malignancy, interstitial pneumonia, including infectious pneumonia with atypical organisms such as mycoplasma or viral infections as well as bacterial infections, should be considered. Evidence of prior granulomatous disease including calcified granuloma in the right lower lobe as well as hilar calcifications on the right noted. Limited visualization of the upper abdomen demonstrates no acute abnormality. A renal cyst is noted on the right. No acute osseous changes are seen IMPRESSION: Diffuse left-sided groundglass infiltrates with areas of intralobular septal thickening. Differential considerations include but are not limited to pulmonary alveolar hemorrhage, interstitial pneumonia, infectious pneumonia with atypical organisms such as mycoplasma or viral infections , and lymphangitic carcinomatosis (in patients with a primary malignancy), should be considered. CT DOSING PQRS STATEMENT: One or more of the following individualized dose reduction techniques were utilized for this examination: 1. Automated exposure control 2. Adjustment of the mA and/or kV according to patient size 3. Use of iterative reconstruction technique Electronically signed by: London Gill MD (08/24/2018 4:26 PM) [id number]
[2018-08-24] MEDS ORDERED: INSULIN LISPRO 300 UNITS/3 ML INSULN.PEN. SQ SCH (17:00)
[2018-08-24] MEDS: ALPRAZolam 0.5 MG TABLET PO SCH ×2 (17:31→20:38)
[2018-08-24] MEDS: oxyCODONE IR 5 MG TABLET PO SCH ×2 (17:32→20:36)
[2018-08-24 19:59] VITALS: BP 119/57
[2018-08-24] MEDS: PARoxetine 20 MG TABLET PO SCH (20:37)
[2018-08-24] MEDS: SPIRONOLACTONE 25 MG TABLET PO SCH (20:38)
[2018-08-24] MEDS: ATORVASTATIN CALCIUM 20 MG TABLET PO SCH (20:38)
[2018-08-24] MEDS ORDERED: INSULIN GLARGINE 300 UNITS/3 ML INSULN.PEN. SQ SCH ×2 (21:00→22:00)
[2018-08-24] MEDS: LATANOPROST 0.005% OPHTH SOLUTION 2.5ML BOTTLE. OU SCH (21:00)
[2018-08-24 23:11] VITALS: BP 113/56
[2018-08-24 23:13] LABS: HEMOGLOBIN A1C 9.1 % (4.8-5.6)
--- NOTE | 2018-08-25 01:12 | CONS ---
DATE OF CONSULTATION: 08/24/2018 ATTENDING PHYSICIAN: Tl Nieto M.D. REASON FOR CONSULTATION: The patient seen in Pulmonary consultation at the request of Dr. Nieto for abnormal x-ray and possible pneumonia. HISTORY OF PRESENT ILLNESS: The patient is a 67-year-old male who presented to the Emergency Room with increasing shortness of breath, has been going on now for quite some time. He has been coughing up some discolored mucus. Today, he had a cough productive of mucus mixed in with blood. He was concerned and he presented to the Emergency Room. He normally does not wear oxygen except for while napping; otherwise, he uses CPAP at bedtime for obstructive sleep apnea. He has chronic heart failure. Quit tobacco a year ago. Does not utilize any metered dose inhalers at home. His x-ray was obtained. A chest x-ray reviewed, left mid lung and basilar interstitial opacities compatible with either pneumonia or CHF. His white count was elevated at 18,000. Serology was negative. His troponin level was elevated. His BNP was elevated. I was asked to see him in consultation for further evaluation and management. PAST MEDICAL HISTORY: Otherwise remarkable for ischemic cardiomyopathy, ejection fraction 25%-30% and severe mitral regurg. He has had moderate pulmonary hypertension; COPD; systemic hypertension; gastric esophageal reflux; anxiety and tobacco dependence, quit approximately a year ago. PAST SURGICAL HISTORY: No recent major surgeries. ALLERGIES: To NONSTEROIDALS. FAMILY HISTORY: No family history of lung cancer. There is a history of diabetes and heart failure. SOCIAL HISTORY: Socially, he quit tobacco a year ago HOME MEDICATIONS: List was reviewed. CURRENT MEDICATIONS: List was reviewed. REVIEW OF SYSTEMS: CONSTITUTIONAL: No fever. EYES: No change in visual acuity. HENT: No nasal congestion or sore throat. PULMONARY: As indicated above. CARDIOVASCULAR: No chest pain. No pressure. GASTROINTESTINAL: No nausea, vomiting or diarrhea. GENITOURINARY: No dysuria or frequency. MUSCULOSKELETAL: No localized muscle aches or joint pains. SKIN: No new skin rashes. NEUROLOGICAL: No headaches, diplopia or blurred vision. LABORATORY DATA: Labs as indicated above. RADIOLOGICAL DATA: Chest x-ray as indicated above. IMPRESSION: 1. Acute respiratory failure. 2. [id number] systolic heart failure. 3. Possible pneumonia. 4. Hemoptysis. 5. Acute exacerbation of chronic obstructive pulmonary disease. 6. Fever. 7. Chronic renal insufficiency. 8. Elevated troponin secondary to a type 2 demand ischemia. 9. History of nonischemic or ischemic cardiomyopathy. 10. Systemic hypertension. 11. Morbid obesity. 12. Obstructive sleep apnea. PLAN: 1. We will continue antibiotics, discontinue Zyvox and add Zithromax. 2. Continue Zosyn. 3. CT chest. 4. Follow Cardiology input. 5. The patient on amiodarone. We will consider possibility of amiodarone-induced lung injury. 6. DVT and GI prophylaxis. 7. Nebulized treatments. 8. The patient instructed on the importance of avoiding tobacco, weight reduction and exercise program. I do appreciate the privilege in sharing in the patient's care. BINA EDWARD MD DR: MEE/veronica JOB#: [id number] / [id number]
[2018-08-25 03:37] VITALS: BP 143/71
[2018-08-25 04:29] LABS: BASO % 0 % (0-3); EOS % 0 % (0-3); HEMATOCRIT 34.1 % (39.0-53.0); HEMOGLOBIN 11.3 g/dL (13.0-17.5); LYMPH # 0.9 x10^3/uL (1.0-4.8); LYMPH % 5 % (24-48); MEAN CORPUSCULAR HEMOGLOBIN 29 pg (25-35); MEAN CORPUSCULAR HGB CONC 33 g/dL (31-37); MEAN CORPUSCULAR VOLUME 89 fL (79-100); MONO # 0.9 x10^3/uL (0.0-1.1); MONO % 5 % (0-9); NEUT # 15.3 x10^3uL (1.8-7.7); NEUT % 90 % (31-73); PLATELET COUNT 184 x10^3/uL (140-400); RED BLOOD COUNT 3.85 x10^6/uL (4.30-5.70); RED CELL DISTRIBUTION WIDTH 14.8 % (11.5-14.5); WHITE BLOOD COUNT 17.1 x10^3/uL (4.0-11.0)
[2018-08-25 04:52] LABS: CREATININE 1.6 mg/dL (0.7-1.3); GFR 52.1; POTASSIUM 4.1 mmol/L (3.5-5.1)
[2018-08-25] MEDS: PIPERACILLIN/TAZOBACTAM 3.375 GM in IV NORMAL SALINE 50ML 50 ML IV SCH ×4 (05:59→21:28)
[2018-08-25 07:00] VITALS: BP 146/74
[2018-08-25] MEDS: amLODIPine BESYLATE 5 MG TABLET PO SCH (07:59)
[2018-08-25] MEDS: PANTOPRAZOLE 40 MG TABLET.DR. PO SCH (07:59)
[2018-08-25] MEDS: oxyCODONE IR 5 MG TABLET PO SCH ×4 (08:00→21:26)
[2018-08-25] MEDS: AMIODARONE HCL 200 MG TABLET. PO SCH (08:01)
[2018-08-25] MEDS: POTASSIUM CHLORIDE 20 MEQ TABLET.ER. PO SCH (08:01)
[2018-08-25] MEDS: DABIGATRAN ETEXILATE 150 MG CAPSULE. PO SCH ×2 (08:01→21:25)
[2018-08-25] MEDS: ISOSORBIDE MONONITRATE ER 30 MG TAB.ER.24H PO SCH (08:01)
[2018-08-25] MEDS: GABAPENTIN 400 MG CAPSULE. PO SCH ×4 (08:02→21:22)
[2018-08-25] MEDS: cloNIDine HCL 0.1 MG TABLET PO SCH ×2 (08:02→21:23)
[2018-08-25] MEDS: AZITHROMYCIN 250 MG TABLET. PO SCH (08:02)
[2018-08-25] MEDS: BACLOFEN 10 MG TABLET. PO SCH ×4 (08:02→21:22)
[2018-08-25] MEDS: ALPRAZolam 0.5 MG TABLET PO SCH ×5 (08:03→21:23)
[2018-08-25] MEDS: CLOPIDOGREL BISULFATE 75 MG TABLET PO SCH (08:03)
[2018-08-25] MEDS: FUROSEMIDE 80 MG TABLET. PO SCH ×2 (08:03→15:05)
[2018-08-25] MEDS: ASPIRIN CHEWABLE 81 MG TABLET. PO SCH (08:03)
[2018-08-25] MEDS: PARoxetine 10 MG TABLET PO SCH (08:04)
[2018-08-25] MEDS: KETOTIFEN FUMARATE 0.025% OPHTH SOLUTION BOTTLE. OU SCH ×2 (08:05→21:17)
[2018-08-25] MEDS: BRIMONIDINE 0.2% OPHTH SOLUTION 5ML BOTTLE. OU SCH ×2 (08:05→21:16)
[2018-08-25] MEDS: TIMOLOL 0.5% OPHTH SOLUTION 5ML BOTTLE. OU SCH ×2 (08:05→21:17)
[2018-08-25] MEDS: IPRATRPIUM/ALBUTEROL 0.5/2.5MG 3 ML NEBU. NEB SCH ×4 (08:15→19:29)
[2018-08-25] MEDS: INSULIN LISPRO 300 UNITS/3 ML INSULN.PEN. SQ SCH ×5 (08:16→18:00)
[2018-08-25] MEDS: NICOTINE 21MG PATCH. TD SCH (08:17)
--- NOTE | 2018-08-25 08:36 | PDOC ---
PULMONARY PROGRESS NOTES Subjective PT WITH SMALL AMOUNT OF OLD BLOOD MIXED WITH MUCUS Vitals Vital Signs Date Time Temp Pulse Resp B/P (MAP) Pulse Ox O2 Delivery O2 Flow Rate FiO2 08/25/18 08:15 92 Nasal Cannula 3.0 08/25/18 08:03 60 08/25/18 07:00 97.4 20 146/74 (98) 97.4 ROS: No Nausea, No Chest Pain, No Abdominal Pain, No Increase Cough General: Alert Lungs: Crackles Cardiovascular: S1, S2 Abdomen: Soft Neuro Exam: Alert Extremities: No Edema Skin: Warm Labs Laboratory Tests Test 08/23/18 23:30 08/24/18 00:10 08/24/18 00:55 08/24/18 03:50 White Blood Count 18.8 x10^3/uL (4.0-11.0) Red Blood Count 4.05 x10^6/uL (4.30-5.70) Hemoglobin 12.1 g/dL (13.0-17.5) Hematocrit 36.0 % (39.0-53.0) Mean Corpuscular Volume 89 fL (79-100) Mean Corpuscular Hemoglobin 30 pg (25-35) Mean Corpuscular Hemoglobin Concent 34 g/dL (31-37) Red Cell Distribution Width 14.9 % (11.5-14.5) Platelet Count 194 x10^3/uL (140-400) Neutrophils (%) (Auto) 87 % (31-73) Lymphocytes (%) (Auto) 7 % (24-48) Monocytes (%) (Auto) 5 % (0-9) Eosinophils (%) (Auto) 1 % (0-3) Basophils (%) (Auto) 1 % (0-3) Neutrophils # (Auto) 16.2 x10^3uL (1.8-7.7) Lymphocytes # (Auto) 1.3 x10^3/uL (1.0-4.8) Monocytes # (Auto) 1.0 x10^3/uL (0.0-1.1) Eosinophils # (Auto) 0.1 x10^3/uL (0.0-0.7) Basophils # (Auto) 0.2 x10^3/uL (0.0-0.2) Segmented Neutrophils % 90 % (35-66) Band Neutrophils % 2 % (0-9) Lymphocytes % 4 % (24-48) Monocytes % 4 % (0-10) Platelet Estimate Adequate (ADEQUATE) Giant Platelets Occ Sodium Level 140 mmol/L (136-145) Potassium Level 3.6 mmol/L (3.5-5.1) Chloride Level 100 mmol/L (98-107) Carbon Dioxide Level 30 mmol/L (21-32) Anion Gap 10 (6-14) Blood Urea Nitrogen 24 mg/dL (8-26) Creatinine 1.9 mg/dL (0.7-1.3) Estimated GFR (Cockcroft-Gault) 42.7 BUN/Creatinine Ratio 13 (6-20) Glucose Level 235 mg/dL (70-99) Lactic Acid Level 1.3 mmol/L (0.4-2.0) Calcium Level 8.6 mg/dL (8.5-10.1) Magnesium Level 1.8 mg/dL (1.8-2.4) Total Bilirubin 0.6 mg/dL (0.2-1.0) Aspartate Amino Transf (AST/SGOT) 22 U/L (15-37) Alanine Aminotransferase (ALT/SGPT) 23 U/L (16-63) Alkaline Phosphatase 63 U/L (46-116) Ammonia 20 mcmol/L (11-34) Creatine Kinase 274 U/L (39-308) Creatine Kinase MB (Mass) 1.2 ng/mL (0.0-3.6) Creatine Kinase MB Relative Index 0.4 % (0-4) Troponin I Quantitative 0.119 ng/mL (0.000-0.055) 0.128 ng/mL (0.000-0.055) DG-Spx-S-Type Natriuretic Peptide 584 pg/mL (0-124) Total Protein 6.6 g/dL (6.4-8.2) Albumin 3.0 g/dL (3.4-5.0) Albumin/Globulin Ratio 0.8 (1.0-1.7) Urine Collection Type Unknown Urine Color Yellow Urine Clarity Clear Urine pH 5.5 Urine Specific Wendell 1.020 Urine Protein Negative mg/dL (NEG-TRACE) Urine Glucose (UA) Negative mg/dL (NEG) Urine Ketones (Stick) Negative mg/dL (NEG) Urine Blood Negative (NEG) Urine Nitrite Negative (NEG) Urine Bilirubin Negative (NEG) Urine Urobilinogen Dipstick 1.0 mg/dL (0.2 mg/dL) Urine Leukocyte Esterase Negative (NEG) Urine RBC 0 /HPF (0-2) Urine WBC Occ /HPF (0-4) Urine Squamous Epithelial Cells Occ /LPF Urine Bacteria 0 /HPF (0-FEW) Urine Hyaline Casts Few /HPF Urine Mucus Slight /LPF Urine Sperm Present /HPF Influenza Type A Antigen Negative (NEGATIVE) Influenza Type B Antigen Negative (NEGATIVE) Test 08/24/18 07:05 08/24/18 16:59 08/24/18 20:53 08/25/18 04:05 Sodium Level 142 mmol/L (136-145) 142 mmol/L (136-145) Potassium Level 4.4 mmol/L (3.5-5.1) 4.1 mmol/L (3.5-5.1) Chloride Level 103 mmol/L (98-107) 104 mmol/L (98-107) Carbon Dioxide Level 29 mmol/L (21-32) 29 mmol/L (21-32) Anion Gap 10 (6-14) 9 (6-14) Blood Urea Nitrogen 22 mg/dL (8-26) 25 mg/dL (8-26) Creatinine 1.8 mg/dL (0.7-1.3) 1.6 mg/dL (0.7-1.3) Estimated GFR (Cockcroft-Gault) 45.5 52.1 Glucose Level 252 mg/dL (70-99) 260 mg/dL (70-99) Hemoglobin A1c 9.1 % (4.8-5.6) Calcium Level 8.8 mg/dL (8.5-10.1) 9.0 mg/dL (8.5-10.1) Magnesium Level 2.1 mg/dL (1.8-2.4) Troponin I Quantitative 0.070 ng/mL (0.000-0.055) Glucose (Fingerstick) 403 mg/dL (70-99) 366 mg/dL (70-99) White Blood Count 17.1 x10^3/uL (4.0-11.0) Red Blood Count 3.85 x10^6/uL (4.30-5.70) Hemoglobin 11.3 g/dL (13.0-17.5) Hematocrit 34.1 % (39.0-53.0) Mean Corpuscular Volume 89 fL (79-100) Mean Corpuscular Hemoglobin 29 pg (25-35) Mean Corpuscular Hemoglobin Concent 33 g/dL (31-37) Red Cell Distribution Width 14.8 % (11.5-14.5) Platelet Count 184 x10^3/uL (140-400) Neutrophils (%) (Auto) 90 % (31-73) Lymphocytes (%) (Auto) 5 % (24-48) Monocytes (%) (Auto) 5 % (0-9) Eosinophils (%) (Auto) 0 % (0-3) Basophils (%) (Auto) 0 % (0-3) Neutrophils # (Auto) 15.3 x10^3uL (1.8-7.7) Lymphocytes # (Auto) 0.9 x10^3/uL (1.0-4.8) Monocytes # (Auto) 0.9 x10^3/uL (0.0-1.1) Eosinophils # (Auto) 0.0 x10^3/uL (0.0-0.7) Basophils # (Auto) 0.0 x10^3/uL (0.0-0.2) Test 08/25/18 07:46 Glucose (Fingerstick) 272 mg/dL (70-99) Laboratory Tests Test 08/24/18 16:59 08/24/18 20:53 08/25/18 04:05 08/25/18 07:46 Glucose (Fingerstick) 403 mg/dL (70-99) 366 mg/dL (70-99) 272 mg/dL (70-99) White Blood Count 17.1 x10^3/uL (4.0-11.0) Red Blood Count 3.85 x10^6/uL (4.30-5.70) Hemoglobin 11.3 g/dL (13.0-17.5) Hematocrit 34.1 % (39.0-53.0) Mean Corpuscular Volume 89 fL (79-100) Mean Corpuscular Hemoglobin 29 pg (25-35) Mean Corpuscular Hemoglobin Concent 33 g/dL (31-37) Red Cell Distribution Width 14.8 % (11.5-14.5) Platelet Count 184 x10^3/uL (140-400) Neutrophils (%) (Auto) 90 % (31-73) Lymphocytes (%) (Auto) 5 % (24-48) Monocytes (%) (Auto) 5 % (0-9) Eosinophils (%) (Auto) 0 % (0-3) Basophils (%) (Auto) 0 % (0-3) Neutrophils # (Auto) 15.3 x10^3uL (1.8-7.7) Lymphocytes # (Auto) 0.9 x10^3/uL (1.0-4.8) Monocytes # (Auto) 0.9 x10^3/uL (0.0-1.1) Eosinophils # (Auto) 0.0 x10^3/uL (0.0-0.7) Basophils # (Auto) 0.0 x10^3/uL (0.0-0.2) Sodium Level 142 mmol/L (136-145) Potassium Level 4.1 mmol/L (3.5-5.1) Chloride Level 104 mmol/L (98-107) Carbon Dioxide Level 29 mmol/L (21-32) Anion Gap 9 (6-14) Blood Urea Nitrogen 25 mg/dL (8-26) Creatinine 1.6 mg/dL (0.7-1.3) Estimated GFR (Cockcroft-Gault) 52.1 Glucose Level 260 mg/dL (70-99) Calcium Level 9.0 mg/dL (8.5-10.1) Medications Active Scripts Medications Dose Route/Sig Max Daily Dose Days Date Category Vitamin D (Cholecalciferol (Vitamin D3)) 1,000 Unit Capsule 1 Cap PO DAILY 08/24/18 Reported Paroxetine Hcl 30 Mg Tablet 30 Mg PO DAILY 08/24/18 Reported Tizanidine Hcl 4 Mg Capsule 4 Mg PO QID PRN 08/24/18 Reported Isosorbide Mononitrate Er (Isosorbide Mononitrate) 60 Mg Tab.er.24h 1 Tab PO DAILY 08/24/18 Reported Timoptic 0.5% (Timolol Maleate) 10 Ml Drops 1 Drop EACHEYE BID 08/24/18 Reported Amiodarone Hcl 200 Mg Tablet 1 Tab PO DAILY 08/24/18 Reported Amlodipine Besylate 5 Mg Tablet 5 Mg PO DAILY 11/5/18 Reported Gabapentin 800 Mg Tablet 800 Mg PO QID 08/24/18 Reported Hydralazine Hcl 100 Mg Tablet 1 Tab PO TID 08/24/18 Reported Atorvastatin Calcium 20 Mg Tablet 1 Tab PO QHS 08/24/18 Reported Lasix (Furosemide) 80 Mg Tablet 1 Tab PO BID 01/08/17 Reported K-Tab (Potassium Chloride) 10 Meq Tablet.er 20 Meq PO DAILY 01/08/17 Reported NICODERM CQ 21mg (Nicotine) 1 Each Patch.td24 1 Patch TP DAILY 12/23/16 Reported Alphagan P (Brimonidine Tartrate) 5 Ml Drops 1 Drop EACHEYE BID 12/19/16 Reported Paxil (Paroxetine Hcl) 20 Mg Tablet 1 Tab PO HS 12/19/16 Reported Aspirin 81 Mg Tab.chew 1 Tab PO DAILY 12/19/16 Reported Clopidogrel (Clopidogrel Bisulfate) 75 Mg Tablet 1 Tab PO DAILY 10/29/16 Reported Spironolactone 25 Mg Tablet 1 Tab PO HS 10/28/16 Reported Latanoprost 2.5 Ml Drops 1 Drop EACHEYE QHS 10/28/16 Reported Pazeo (Olopatadine HCl) 2.5 Ml Drops 2.5 Ml OP DAILY 10/28/16 Reported Prevacid (Lansoprazole) 30 Mg Capsule.dr 1 Cap PO DAILY 10/28/16 Reported Oxycodone Hcl 10 Mg Tablet 1 Tab PO PRN Q4HRS PRN 10/28/16 Reported Baclofen 10 Mg Tablet 1.5 Tab PO QID 10/28/16 Reported Xanax (Alprazolam) 0.5 Mg Tablet 1 Tab PO TID 10/28/16 Reported Clonidine Hcl 0.1 Mg Tablet 0.1 Mg PO BID 10/28/16 Reported Pradaxa (Dabigatran Etexilate Mesylate) 150 Mg Capsule 150 Mg PO BID 10/28/16 Reported Impression . 1. Acute respiratory failure. 2. Msxeq-do-horlumv systolic heart failure. 3. Possible pneumonia. 4. Hemoptysis. 5. Acute exacerbation of chronic obstructive pulmonary disease. 6. Fever. 7. Chronic renal insufficiency. 8. Elevated troponin secondary to a type 2 demand ischemia. 9. History of nonischemic or ischemic cardiomyopathy. 10. Systemic hypertension. 11. Morbid obesity. 12. Obstructive sleep apnea. Plan . CT REVIEWED COMPATIBLE WITH ALVEOLAR HEMORRHAGE AND PNEUMOBILIA WILL D/W CARD ON USE OF PRADAXA OR DIFFERENT AGENT FOR NOW CLINICALLY PT HAS LESS HEMOPTYSIS 1. We will continue antibiotics, discontinue Zyvox and add Zithromax. 2. Continue Zosyn. 3. CT chest.REVIEWED 4. Follow Cardiology input. 5. NOT AMIODARONE LUNG INJURY 6. DVT and GI prophylaxis. 7. Nebulized treatments. 8. The patient instructed on the importance of avoiding tobacco, weight reduction and exercise program. BINA EDWARD MD Aug 25, 2018 08:35
--- NOTE | 2018-08-25 09:28 | PDOC ---
CARDIO Progress Notes Date and Time Date of Service 08/25/18 Time of Evaluation 0920 Subjective Subjective: No Chest Pain, No shortness of breath, Other (anxious- complains that Xanax was decreased) Vitals Vitals Vital Signs Date Time Temp Pulse Resp B/P (MAP) Pulse Ox O2 Delivery O2 Flow Rate FiO2 08/25/18 08:15 92 Nasal Cannula 3.0 08/25/18 08:03 60 08/25/18 07:00 97.4 20 146/74 (98) 97.4 Weight Weight [ ] Input and Output Intake and Output Intake and Output 08/25/18 07:00 Intake Total 1170 ml Output Total 1825 ml Balance -655 ml Intake Oral 820 ml IV Total 350 ml Output Urine Total 1825 ml # Voids 1 # Bowel Movements 1 Laboratory Labs Laboratory Tests Test 08/24/18 16:59 08/24/18 20:53 08/25/18 04:05 08/25/18 07:46 Glucose (Fingerstick) 403 mg/dL (70-99) 366 mg/dL (70-99) 272 mg/dL (70-99) White Blood Count 17.1 x10^3/uL (4.0-11.0) Red Blood Count 3.85 x10^6/uL (4.30-5.70) Hemoglobin 11.3 g/dL (13.0-17.5) Hematocrit 34.1 % (39.0-53.0) Mean Corpuscular Volume 89 fL (79-100) Mean Corpuscular Hemoglobin 29 pg (25-35) Mean Corpuscular Hemoglobin Concent 33 g/dL (31-37) Red Cell Distribution Width 14.8 % (11.5-14.5) Platelet Count 184 x10^3/uL (140-400) Neutrophils (%) (Auto) 90 % (31-73) Lymphocytes (%) (Auto) 5 % (24-48) Monocytes (%) (Auto) 5 % (0-9) Eosinophils (%) (Auto) 0 % (0-3) Basophils (%) (Auto) 0 % (0-3) Neutrophils # (Auto) 15.3 x10^3uL (1.8-7.7) Lymphocytes # (Auto) 0.9 x10^3/uL (1.0-4.8) Monocytes # (Auto) 0.9 x10^3/uL (0.0-1.1) Eosinophils # (Auto) 0.0 x10^3/uL (0.0-0.7) Basophils # (Auto) 0.0 x10^3/uL (0.0-0.2) Sodium Level 142 mmol/L (136-145) Potassium Level 4.1 mmol/L (3.5-5.1) Chloride Level 104 mmol/L (98-107) Carbon Dioxide Level 29 mmol/L (21-32) Anion Gap 9 (6-14) Blood Urea Nitrogen 25 mg/dL (8-26) Creatinine 1.6 mg/dL (0.7-1.3) Estimated GFR (Cockcroft-Gault) 52.1 Glucose Level 260 mg/dL (70-99) Calcium Level 9.0 mg/dL (8.5-10.1) Microbiology Micro Microbiology 08/23/18 Blood Culture - Preliminary, Resulted NO GROWTH AFTER 1 DAY Physical Exam HEENT: Neck Supple W Full Motion Chest: Symmetric LUNGS: Clear to Auscultation Heart: S1S2, RRR, murmurs (2/6 systolic murmur ) Abdomen: Soft N/T Extremities: Other (trace bilateral LE edema ) Neurology: alert, oriented, follow commands, other (anxious ) Assessment Assessment 1. Acute respiratory failure secondary to PNA; fevers resolved. pulmonary following 2. Renal insufficiency: improved Cr at 1.6 3. Elevated troponin: 0.12, most probably type II, demand ischemia. EKG SR without acute changes. No cardiac symptoms. Echo shows improvement in LV systolic function. 4. Hx of NICM/ICM: LVEF previously 40%- now 50-55% per echo.Compensated 5. CAD; 2017 PCI as noted above. Continue secondary prevention measures. 6. PAFIB: previous ablation. Maintaining SR. no ectopies. Continue Amiodarone for rhythm maintenance. Pradaxa for stroke prevention. 7. HTN: controlled 8. HLP; statin 9. Morbid obesity with CIRILO: CPAP use at home 10. DM, II; new. Management as per PCP HELDER FRANCIS APRN Aug 25, 2018 09:28
[2018-08-25] MEDS ORDERED: ALPRAZolam 0.5 MG TABLET PO ONE (09:45)
[2018-08-25 11:00] VITALS: BP 138/76
--- NOTE | 2018-08-25 13:41 | PDOC ---
PROGRESS NOTES Chief Complaint Chief Complaint generalized weakness, 2/2 CAP possibly sepsis with CAP leukocytosis, fever pafib on pradaxa h/o CAD h/o CHF diastolic gerd HTN anxiety quit smoking morbid obesity chronic lumbago on opoids elevated trop, possible diastolic CHF exacerbation, also sepsis PTSD , anxiety new onset DM2, hba1c 9 plan: fu with card, pulm cont home meds check sputum cx, legi and strep urine IGg add lantus 30u qhs, aspart 10u tid, glimepiride, ssi monitor hemoptysis, on pradaxa,. asa, plavix add zosyn, add maycol , chest CT as per pulm showed left lung infiltrates with multiple possibilities increase xanax to 1mg qid as home dose, but told pt many times if pulm functions decrease, will only give 0.5mg labs daily PTOT recommend home with assistance History of Present Illness History of Present Illness ROS: no fever, chills chest pain still hemoptysis, mild home on o2 NC 2l WHEN taking a nap, CPAP now NC 3l c/o on xanax 1mg qid at home for PTSD, here 0.5mg which didnot help Vitals Vitals Vital Signs Date Time Temp Pulse Resp B/P (MAP) Pulse Ox O2 Delivery O2 Flow Rate FiO2 08/25/18 11:33 91 Nasal Cannula 3.0 08/25/18 11:00 97.5 57 20 138/76 (96) 97.5 Physical Exam General: Alert, Oriented X3, Cooperative, No acute distress Heart: Regular rate (SR), Other (distant heart sounds) Lungs: Clear Abdomen: Soft, No tenderness, Other (obese) Extremities: No cyanosis Skin: No breakdown, No significant lesion Labs LABS Laboratory Tests Test 08/24/18 16:59 08/24/18 20:53 08/25/18 04:05 08/25/18 07:46 Glucose (Fingerstick) 403 mg/dL (70-99) 366 mg/dL (70-99) 272 mg/dL (70-99) White Blood Count 17.1 x10^3/uL (4.0-11.0) Red Blood Count 3.85 x10^6/uL (4.30-5.70) Hemoglobin 11.3 g/dL (13.0-17.5) Hematocrit 34.1 % (39.0-53.0) Mean Corpuscular Volume 89 fL (79-100) Mean Corpuscular Hemoglobin 29 pg (25-35) Mean Corpuscular Hemoglobin Concent 33 g/dL (31-37) Red Cell Distribution Width 14.8 % (11.5-14.5) Platelet Count 184 x10^3/uL (140-400) Neutrophils (%) (Auto) 90 % (31-73) Lymphocytes (%) (Auto) 5 % (24-48) Monocytes (%) (Auto) 5 % (0-9) Eosinophils (%) (Auto) 0 % (0-3) Basophils (%) (Auto) 0 % (0-3) Neutrophils # (Auto) 15.3 x10^3uL (1.8-7.7) Lymphocytes # (Auto) 0.9 x10^3/uL (1.0-4.8) Monocytes # (Auto) 0.9 x10^3/uL (0.0-1.1) Eosinophils # (Auto) 0.0 x10^3/uL (0.0-0.7) Basophils # (Auto) 0.0 x10^3/uL (0.0-0.2) Sodium Level 142 mmol/L (136-145) Potassium Level 4.1 mmol/L (3.5-5.1) Chloride Level 104 mmol/L (98-107) Carbon Dioxide Level 29 mmol/L (21-32) Anion Gap 9 (6-14) Blood Urea Nitrogen 25 mg/dL (8-26) Creatinine 1.6 mg/dL (0.7-1.3) Estimated GFR (Cockcroft-Gault) 52.1 Glucose Level 260 mg/dL (70-99) Calcium Level 9.0 mg/dL (8.5-10.1) Test 08/25/18 11:49 Glucose (Fingerstick) 227 mg/dL (70-99) Assessment and Plan Assessmemt and Plan Problems Medical Problems: (1) Acute renal insufficiency Status: Acute (2) Elevated troponin Status: Acute (3) Hypoxia Status: Acute (4) Pneumonia Status: Acute (5) Weakness Status: Acute Comment Review of Relevant I have reviewed the following items rosas (where applicable) has been applied. Labs Laboratory Tests Test 08/23/18 23:30 08/24/18 00:10 08/24/18 00:55 08/24/18 03:50 White Blood Count 18.8 x10^3/uL (4.0-11.0) Red Blood Count 4.05 x10^6/uL (4.30-5.70) Hemoglobin 12.1 g/dL (13.0-17.5) Hematocrit 36.0 % (39.0-53.0) Mean Corpuscular Volume 89 fL (79-100) Mean Corpuscular Hemoglobin 30 pg (25-35) Mean Corpuscular Hemoglobin Concent 34 g/dL (31-37) Red Cell Distribution Width 14.9 % (11.5-14.5) Platelet Count 194 x10^3/uL (140-400) Neutrophils (%) (Auto) 87 % (31-73) Lymphocytes (%) (Auto) 7 % (24-48) Monocytes (%) (Auto) 5 % (0-9) Eosinophils (%) (Auto) 1 % (0-3) Basophils (%) (Auto) 1 % (0-3) Neutrophils # (Auto) 16.2 x10^3uL (1.8-7.7) Lymphocytes # (Auto) 1.3 x10^3/uL (1.0-4.8) Monocytes # (Auto) 1.0 x10^3/uL (0.0-1.1) Eosinophils # (Auto) 0.1 x10^3/uL (0.0-0.7) Basophils # (Auto) 0.2 x10^3/uL (0.0-0.2) Segmented Neutrophils % 90 % (35-66) Band Neutrophils % 2 % (0-9) Lymphocytes % 4 % (24-48) Monocytes % 4 % (0-10) Platelet Estimate Adequate (ADEQUATE) Giant Platelets Occ Sodium Level 140 mmol/L (136-145) Potassium Level 3.6 mmol/L (3.5-5.1) Chloride Level 100 mmol/L (98-107) Carbon Dioxide Level 30 mmol/L (21-32) Anion Gap 10 (6-14) Blood Urea Nitrogen 24 mg/dL (8-26) Creatinine 1.9 mg/dL (0.7-1.3) Estimated GFR (Cockcroft-Gault) 42.7 BUN/Creatinine Ratio 13 (6-20) Glucose Level 235 mg/dL (70-99) Lactic Acid Level 1.3 mmol/L (0.4-2.0) Calcium Level 8.6 mg/dL (8.5-10.1) Magnesium Level 1.8 mg/dL (1.8-2.4) Total Bilirubin 0.6 mg/dL (0.2-1.0) Aspartate Amino Transf (AST/SGOT) 22 U/L (15-37) Alanine Aminotransferase (ALT/SGPT) 23 U/L (16-63) Alkaline Phosphatase 63 U/L (46-116) Ammonia 20 mcmol/L (11-34) Creatine Kinase 274 U/L (39-308) Creatine Kinase MB (Mass) 1.2 ng/mL (0.0-3.6) Creatine Kinase MB Relative Index 0.4 % (0-4) Troponin I Quantitative 0.119 ng/mL (0.000-0.055) 0.128 ng/mL (0.000-0.055) KS-Wmf-S-Type Natriuretic Peptide 584 pg/mL (0-124) Total Protein 6.6 g/dL (6.4-8.2) Albumin 3.0 g/dL (3.4-5.0) Albumin/Globulin Ratio 0.8 (1.0-1.7) Urine Collection Type Unknown Urine Color Yellow Urine Clarity Clear Urine pH 5.5 Urine Specific [place] 1.020 Urine Protein Negative mg/dL (NEG-TRACE) Urine Glucose (UA) Negative mg/dL (NEG) Urine Ketones (Stick) Negative mg/dL (NEG) Urine Blood Negative (NEG) Urine Nitrite Negative (NEG) Urine Bilirubin Negative (NEG) Urine Urobilinogen Dipstick 1.0 mg/dL (0.2 mg/dL) Urine Leukocyte Esterase Negative (NEG) Urine RBC 0 /HPF (0-2) Urine WBC Occ /HPF (0-4) Urine Squamous Epithelial Cells Occ /LPF Urine Bacteria 0 /HPF (0-FEW) Urine Hyaline Casts Few /HPF Urine Mucus Slight /LPF Urine Sperm Present /HPF Influenza Type A Antigen Negative (NEGATIVE) Influenza Type B Antigen Negative (NEGATIVE) Test 08/24/18 07:05 08/24/18 16:59 08/24/18 20:53 08/25/18 04:05 Sodium Level 142 mmol/L (136-145) 142 mmol/L (136-145) Potassium Level 4.4 mmol/L (3.5-5.1) 4.1 mmol/L (3.5-5.1) Chloride Level 103 mmol/L (98-107) 104 mmol/L (98-107) Carbon Dioxide Level 29 mmol/L (21-32) 29 mmol/L (21-32) Anion Gap 10 (6-14) 9 (6-14) Blood Urea Nitrogen 22 mg/dL (8-26) 25 mg/dL (8-26) Creatinine 1.8 mg/dL (0.7-1.3) 1.6 mg/dL (0.7-1.3) Estimated GFR (Cockcroft-Gault) 45.5 52.1 Glucose Level 252 mg/dL (70-99) 260 mg/dL (70-99) Hemoglobin A1c 9.1 % (4.8-5.6) Calcium Level 8.8 mg/dL (8.5-10.1) 9.0 mg/dL (8.5-10.1) Magnesium Level 2.1 mg/dL (1.8-2.4) Troponin I Quantitative 0.070 ng/mL (0.000-0.055) Glucose (Fingerstick) 403 mg/dL (70-99) 366 mg/dL (70-99) White Blood Count 17.1 x10^3/uL (4.0-11.0) Red Blood Count 3.85 x10^6/uL (4.30-5.70) Hemoglobin 11.3 g/dL (13.0-17.5) Hematocrit 34.1 % (39.0-53.0) Mean Corpuscular Volume 89 fL (79-100) Mean Corpuscular Hemoglobin 29 pg (25-35) Mean Corpuscular Hemoglobin Concent 33 g/dL (31-37) Red Cell Distribution Width 14.8 % (11.5-14.5) Platelet Count 184 x10^3/uL (140-400) Neutrophils (%) (Auto) 90 % (31-73) Lymphocytes (%) (Auto) 5 % (24-48) Monocytes (%) (Auto) 5 % (0-9) Eosinophils (%) (Auto) 0 % (0-3) Basophils (%) (Auto) 0 % (0-3) Neutrophils # (Auto) 15.3 x10^3uL (1.8-7.7) Lymphocytes # (Auto) 0.9 x10^3/uL (1.0-4.8) Monocytes # (Auto) 0.9 x10^3/uL (0.0-1.1) Eosinophils # (Auto) 0.0 x10^3/uL (0.0-0.7) Basophils # (Auto) 0.0 x10^3/uL (0.0-0.2) Test 08/25/18 07:46 08/25/18 11:49 Glucose (Fingerstick) 272 mg/dL (70-99) 227 mg/dL (70-99) Laboratory Tests Test 08/24/18 16:59 08/24/18 20:53 08/25/18 04:05 08/25/18 07:46 Glucose (Fingerstick) 403 mg/dL (70-99) 366 mg/dL (70-99) 272 mg/dL (70-99) White Blood Count 17.1 x10^3/uL (4.0-11.0) Red Blood Count 3.85 x10^6/uL (4.30-5.70) Hemoglobin 11.3 g/dL (13.0-17.5) Hematocrit 34.1 % (39.0-53.0) Mean Corpuscular Volume 89 fL (79-100) Mean Corpuscular Hemoglobin 29 pg (25-35) Mean Corpuscular Hemoglobin Concent 33 g/dL (31-37) Red Cell Distribution Width 14.8 % (11.5-14.5) Platelet Count 184 x10^3/uL (140-400) Neutrophils (%) (Auto) 90 % (31-73) Lymphocytes (%) (Auto) 5 % (24-48) Monocytes (%) (Auto) 5 % (0-9) Eosinophils (%) (Auto) 0 % (0-3) Basophils (%) (Auto) 0 % (0-3) Neutrophils # (Auto) 15.3 x10^3uL (1.8-7.7) Lymphocytes # (Auto) 0.9 x10^3/uL (1.0-4.8) Monocytes # (Auto) 0.9 x10^3/uL (0.0-1.1) Eosinophils # (Auto) 0.0 x10^3/uL (0.0-0.7) Basophils # (Auto) 0.0 x10^3/uL (0.0-0.2) Sodium Level 142 mmol/L (136-145) Potassium Level 4.1 mmol/L (3.5-5.1) Chloride Level 104 mmol/L (98-107) Carbon Dioxide Level 29 mmol/L (21-32) Anion Gap 9 (6-14) Blood Urea Nitrogen 25 mg/dL (8-26) Creatinine 1.6 mg/dL (0.7-1.3) Estimated GFR (Cockcroft-Gault) 52.1 Glucose Level 260 mg/dL (70-99) Calcium Level 9.0 mg/dL (8.5-10.1) Test 08/25/18 11:49 Glucose (Fingerstick) 227 mg/dL (70-99) Microbiology 08/23/18 Blood Culture - Preliminary, Resulted NO GROWTH AFTER 1 DAY Medications Current Medications Sodium Chloride 1,000 ml @ 1,000 mls/hr 1X ONCE IV Last administered on at 23:44; Start 08/23/18 at 23:00; Stop 08/23/18 at 23:59; Status DC Acetaminophen (Tylenol) 500 mg 1X ONCE PO Last administered on 08/23/18at 23:42 ; Start 08/23/18 at 23:15; Stop 08/23/18 at 23:16; Status DC Albuterol/ Ipratropium (Duoneb) 3 ml 1X ONCE NEB Last administered on at 23:20; Start 08/23/18 at 23:15; Stop 08/23/18 at 23:16; Status DC Piperacillin Sod/ Tazobactam Sod 4.5 gm/Sodium Chloride 100 ml @ 200 mls/hr 1X ONCE IV Last administered on 08/24/18at 00:47; Start 08/24/18 at 00:30; Stop 08/24/18 at 00:59; Status DC Levofloxacin/ Dextrose 150 ml @ 100 mls/hr 1X ONCE IV Last administered on at 00:48; Start 08/24/18 at 00:30; Stop 08/24/18 at 01:59; Status DC Fentanyl Citrate (Fentanyl 2ml Vial) 50 mcg 1X ONCE IV Last administered on at 00:44; Start 08/24/18 at 00:30; Stop 08/24/18 at 00:31; Status DC Aspirin (Theo Aspirin) 325 mg 1X ONCE PO Last administered on 08/24/18at 01:01 ; Start 08/24/18 at 00:45; Stop 08/24/18 at 00:46; Status DC Ondansetron HCl (Zofran) 4 mg PRN Q8HRS PRN IV NAUSEA/VOMITING; Start 08/24/18 at 01:00; Stop 08/24/18 at 11:04; Status DC Fentanyl Citrate (Fentanyl 2ml Vial) 50 mcg PRN Q2HR PRN IV PAIN Last administered on 08/24/18at 08:19; Start 08/24/18 at 01:00; Stop 08/25/18 at 00:59 ; Status DC Acetaminophen (Tylenol) 650 mg PRN Q4HRS PRN PO FEVER; Start 08/24/18 at 01:00 ; Stop 08/24/18 at 11:04; Status DC Albuterol/ Ipratropium (Duoneb) 3 ml RTQID NEB Last administered on 08/25/18at 08:15; Start 08/24/18 at 08:00; Stop 08/25/18 at 07:59; Status DC Dexamethasone Sodium Phosphate (Decadron) 10 mg 1X ONCE IV Last administered on 08/24/18at 01:13; Start 08/24/18 at 01:00; Stop 08/24/18 at 01:02; Status DC Influenza Virus Vaccine (Afluria Trivalent [id number] Syringe) 0.5 ml ONCE ONCE VAX IM Last administered on 08/24/18at 08:23; Start 08/24/18 at 09:00; Stop 08/24/18 at 09:01; Status DC Alprazolam (Xanax) 0.5 mg TID PO Last administered on 08/24/18at 13:34; Start 08/24/18 at 14:00; Stop 08/24/18 at 17:10; Status DC Amiodarone HCl (Cordarone) 200 mg DAILY PO Last administered on 08/25/18 08:01 ; Start 08/24/18 at 11:30 Amlodipine Besylate (Norvasc) 5 mg DAILY PO Last administered on 08/25/18 07: 59; Start 08/24/18 at 11:30 Aspirin (Children'S Aspirin) 81 mg DAILY PO Last administered on 08/25/18 08: 03; Start 08/24/18 at 11:30 Atorvastatin Calcium (Lipitor) 20 mg QHS PO Last administered on 08/24/18at 20: 38; Start 08/24/18 at 21:00 Baclofen (Lioresal) 15 mg QID PO Last administered on 08/25/18 13:13; Start 08/24/18 at 13:00 Clonidine HCl (Catapres) 0.1 mg BID PO Last administered on 08/25/18 08:02; Start 08/24/18 at 11:30 Clopidogrel Bisulfate (Plavix) 75 mg DAILY PO Last administered on 08/25/18 08 :03; Start 08/24/18 at 11:30 Dabigatran (Pradaxa) 150 mg BID PO Last administered on 08/25/18 08:01; Start 08/24/18 at 11:30 Furosemide (Lasix) 80 mg [id number] PO Last administered on 08/25/18 08:03; Start 08/24/18 at 11:30 Brimonidine Tartrate (Alphagan) 1 drop BID OU Last administered on 08/25/18 08 :05; Start 08/24/18 at 11:30 Gabapentin (Neurontin) 800 mg QID PO Last administered on 08/25/18 13:13; Start 08/24/18 at 13:00 Hydralazine HCl (Apresoline) 100 mg TID PO Last administered on 08/25/18 08:03 ; Start 08/24/18 at 14:00 Isosorbide Mononitrate (Imdur) 60 mg DAILY PO Last administered on 08/25/18 08 :01; Start 08/24/18 at 11:30 Pantoprazole Sodium (Protonix) 40 mg DAILYAC PO Last administered on 08/25/18 07:59; Start 08/24/18 at 11:30 Latanoprost (Xalatan) 1 drop QHS OU ; Start 08/24/18 at 21:00 Nicotine (Nicoderm Cq 21mg) 1 patch DAILY TD ; Start 08/24/18 at 11:30 Ketotifen Fumarate (Zaditor) 1 drop BID OU Last administered on 08/25/18at 08:05 ; Start 08/24/18 at 11:30 Oxycodone HCl (Roxicodone) 10 mg PRN Q4HRS PRN PO PAIN Last administered on 08/24/18at 12:29; Start 08/24/18 at 11:15; Stop 08/24/18 at 17:10; Status DC Paroxetine HCl (Paxil) 20 mg QHS PO Last administered on 08/24/18at 20:37; Start 08/24/18 at 21:00 Paroxetine HCl (Paxil) 30 mg DAILY PO Last administered on 08/25/18at 08:04; Start 08/24/18 at 11:30 Potassium Chloride (Klor-Con) 20 meq [id number] PO Last administered on at 08:01; Start 08/24/18 at 11:30 Spironolactone (Aldactone) 25 mg QHS PO Last administered on 08/24/18at 20:38; Start 08/24/18 at 21:00 Timolol Maleate (Timoptic 0.5% [facility] [place]) 1 drop BID OU Last administered on at 08:05; Start 08/24/18 at 11:30 Tizanidine HCl (Zanaflex) 4 mg PRN QID PRN PO MUSCLE SPASMS; Start 08/24/18 at 11:15 Linezolid/Dextrose 300 ml @ 300 mls/hr Q12HR IV Last administered on at 12:14; Start 08/24/18 at 11:30; Stop 08/24/18 at 12:52; Status DC Piperacillin Sod/ Tazobactam Sod 3.375 gm/Sodium Chloride 50 ml @ 100 mls/hr Q6HRS IV Last administered on 08/25/18at 12:15; Start 08/24/18 at 12:00 Piperacillin Sod/ Tazobactam Sod (Zosyn Per Pharmacy) 1 each PRN DAILY PRN MC SEE COMMENTS; Start 08/24/18 at 11:00 Acetaminophen (Tylenol) 650 mg PRN Q6HRS PRN PO FEVER; Start 08/24/18 at 11:00 Ondansetron HCl (Zofran) 4 mg PRN Q6HRS PRN IV NAUSEA/VOMITING; Start 08/24/18 at 11:00 Morphine Sulfate (Morphine Sulfate) 2 mg PRN Q2HR PRN IV MODERATE TO SEVERE PAIN; Start 08/24/18 at 11:00 Tramadol HCl (Ultram) 50 mg PRN Q6HRS PRN PO MILD TO MODERATE PAIN; Start 08/24 at 11:00 Docusate Sodium (Colace) 100 mg PRN DAILY PRN PO CONSTIPATION Last administered on 08/24/18at 12:29; Start 08/24/18 at 11:00 Azithromycin (Zithromax) 250 mg DAILY PO Last administered on 08/25/18at 08:02; Start 08/24/18 at 13:00 Insulin Human Lispro (HumaLOG) 0-9 UNITS TIDWMEALS SQ ; Start 08/24/18 at 17:00 ; Stop 08/25/18 at 05:59; Status DC Dextrose (Dextrose 50%-Water Syringe) 12.5 gm PRN Q15MIN PRN IV SEE COMMENTS; Start 08/24/18 at 15:15; Stop 08/25/18 at 09:19; Status DC Alprazolam (Xanax) 0.5 mg QID PO Last administered on 08/25/18at 08:03; Start 08/24/18 at 17:00; Stop 08/25/18 at 09:27; Status DC Oxycodone HCl (Roxicodone) 10 mg QID PO Last administered on 08/25/18at 13:13; Start 08/24/18 at 17:00 Insulin Human Lispro (HumaLOG) 0-9 UNITS TIDWMEALS SQ Last administered on 08/25at 12:21; Start 08/25/18 at 08:00 Dextrose (Dextrose 50%-Water Syringe) 12.5 gm PRN Q15MIN PRN IV SEE COMMENTS; Start 08/24/18 at 17:15 Insulin Human Lispro (HumaLOG) 15 units 1X ONCE SQ Last administered on at 17:41; Start 08/24/18 at 08:00; Stop 08/24/18 at 17:15; Status DC Insulin Glargine (Lantus) 20 units QHS SQ ; Start 08/24/18 at 21:00; Stop at 21:00; Status DC Insulin Human Lispro (HumaLOG) 15 units 1X ONCE SQ Last administered on at 22:15; Start 08/24/18 at 21:30; Stop 08/24/18 at 21:31; Status DC Insulin Glargine (Lantus) 20 units QHS SQ Last administered on 08/24/18at 22:16 ; Start 08/24/18 at 22:00; Stop 08/25/18 at 09:27; Status DC Albuterol/ Ipratropium (Duoneb) 3 ml RTQID NEB Last administered on 08/25/18at 11:33; Start 08/25/18 at 12:00 Alprazolam (Xanax) 1 mg QID PO Last administered on 08/25/18at 13:13; Start 08/25/18 at 09:30 Insulin Glargine (Lantus) 30 units QHS SQ ; Start 08/25/18 at 21:00 Insulin Human Lispro (HumaLOG) 10 units TIDAC SQ Last administered on at 12:22; Start 08/25/18 at 11:30 Alprazolam (Xanax) 0.5 mg 1X ONCE PO Last administered on 08/25/18at 10:04; Start 08/25/18 at 09:45; Stop 08/25/18 at 09:51; Status DC Lactobacillus Rhamnosus (Culturelle) 1 cap BID PO ; Start 08/25/18 at 21:00 Active Scripts Active Reported Flomax (Tamsulosin Hcl) 0.4 Mg Cap.er.24h 1 Cap PO DAILY Vitamin D (Cholecalciferol (Vitamin D3)) 1,000 Unit Capsule 1 Cap PO DAILY Paroxetine Hcl 30 Mg Tablet 30 Mg PO DAILY Tizanidine Hcl 4 Mg Capsule 4 Mg PO QID PRN Isosorbide Mononitrate Er (Isosorbide Mononitrate) 60 Mg Tab.er.24h 1 Tab PO DAILY Timoptic 0.5% (Timolol Maleate) 10 Ml Drops 1 Drop EACHEYE BID Amiodarone Hcl 200 Mg Tablet 1 Tab PO DAILY Amlodipine Besylate 5 Mg Tablet 5 Mg PO DAILY Gabapentin 800 Mg Tablet 800 Mg PO QID Hydralazine Hcl 100 Mg Tablet 1 Tab PO TID Atorvastatin Calcium 20 Mg Tablet 1 Tab PO QHS Lasix (Furosemide) 80 Mg Tablet 1 Tab PO BID K-Tab (Potassium Chloride) 10 Meq Tablet.er 20 Meq PO DAILY NICODERM CQ 21mg (Nicotine) 1 Each Patch.td24 1 Patch TP DAILY Alphagan P (Brimonidine Tartrate) 5 Ml Drops 1 Drop EACHEYE BID Paxil (Paroxetine Hcl) 20 Mg Tablet 1 Tab PO HS Aspirin 81 Mg Tab.chew 1 Tab PO DAILY Clopidogrel (Clopidogrel Bisulfate) 75 Mg Tablet 1 Tab PO DAILY Spironolactone 25 Mg Tablet 1 Tab PO HS Latanoprost 2.5 Ml Drops 1 Drop EACHEYE QHS [place] (Olopatadine HCl) 2.5 Ml Drops 2.5 Ml OP DAILY Prevacid (Lansoprazole) 30 Mg Capsule.dr 1 Cap PO DAILY Oxycodone Hcl 10 Mg Tablet 1 Tab PO PRN Q4HRS PRN Baclofen 10 Mg Tablet 1.5 Tab PO QID Xanax (Alprazolam) 0.5 Mg Tablet 1 Tab PO TID Clonidine Hcl 0.1 Mg Tablet 0.1 Mg PO BID Pradaxa (Dabigatran Etexilate Mesylate) 150 Mg Capsule 150 Mg PO BID Vitals/I & O Vital Sign - Last 24 Hours 08/24/18 08/24/18 08/24/18 08/24/18 15:39 15:48 17:32 18:26 Temp 98.2 98.2 Pulse 60 Resp 17 B/P (MAP) 156/71 (99) Pulse Ox 95 94 94 94 O2 Delivery Nasal Cannula Nasal Cannula Nasal Cannula Nasal Cannula O2 Flow Rate 5.0 4.0 4.0 4.0 08/24/18 08/24/18 08/24/18 08/24/18 19:59 20:00 20:36 20:37 Temp 98.1 98.1 Pulse 53 53 Resp 16 18 B/P (MAP) 119/57 (77) 119/57 Pulse Ox 93 93 O2 Delivery Nasal Cannula Nasal Cannula Nasal Cannula O2 Flow Rate 3.0 9.0 3.0 08/24/18 08/24/18 08/24/18 08/25/18 20:39 21:40 23:11 00:10 Temp 97.5 97.5 Pulse 53 56 Resp 18 18 B/P (MAP) 119/57 113/56 (75) Pulse Ox 93 97 96 O2 Delivery Nasal Cannula Nasal Cannula BiPAP/CPAP O2 Flow Rate 3.0 3.0 08/25/18 08/25/18 08/25/18 08/25/18 01:55 03:37 03:59 07:00 Temp 97.6 97.4 97.6 97.4 Pulse 56 56 Resp 20 20 B/P (MAP) 143/71 (95) 146/74 (98) Pulse Ox 96 95 96 89 O2 Delivery BiPAP/CPAP BiPAP/CPAP BiPAP/CPAP Nasal Cannula 08/25/18 08/25/18 08/25/18 08/25/18 07:59 08:01 08:01 08:02 Pulse 60 60 60 60 08/25/18 08/25/18 08/25/18 08/25/18 08:03 08:10 08:15 11:00 Temp 97.5 97.5 Pulse 60 57 Resp 20 B/P (MAP) 138/76 (96) Pulse Ox 92 92 O2 Delivery Nasal Cannula Nasal Cannula Nasal Cannula O2 Flow Rate 4.0 3.0 08/25/18 11:33 Pulse Ox 91 O2 Delivery Nasal Cannula O2 Flow Rate 3.0 Intake and Output 08/24/18 08/24/18 08/25/18 15:00 23:00 07:00 Intake Total 300 ml 370 ml 500 ml Output Total 1200 ml 425 ml 200 ml Balance -900 ml -55 ml 300 ml NICOLAS FLYNN MD Aug 25, 2018 13:41
[2018-08-25 15:00] VITALS: BP 154/76
[2018-08-25] MEDS: GLIMEPIRIDE 2 MG TABLET. PO SCH (15:05)
[2018-08-25] MEDS ORDERED: POLYVINYL ALCOHOL 1.4% OPHTH SOLUTION 15ML BOTTLE. OU PRN (15:15)
[2018-08-25 17:06] LABS: PROTHROMBIN TIME PATIENT 14.6 SEC (11.7-14.0)
[2018-08-25 19:25] VITALS: BP 145/65
[2018-08-25] MEDS: LATANOPROST 0.005% OPHTH SOLUTION 2.5ML BOTTLE. OU SCH (21:16)
[2018-08-25] MEDS: SPIRONOLACTONE 25 MG TABLET PO SCH (21:20)
[2018-08-25] MEDS: LACTOBACILLUS RHAMNOSUS GG 1 CAPSULE. PO SCH (21:22)
[2018-08-25] MEDS: ATORVASTATIN CALCIUM 20 MG TABLET PO SCH (21:24)
[2018-08-25] MEDS: PARoxetine 20 MG TABLET PO SCH (21:26)
[2018-08-25] MEDS: INSULIN GLARGINE 300 UNITS/3 ML INSULN.PEN. SQ SCH (22:25)
[2018-08-25 22:45] VITALS: BP 132/67
[2018-08-26 03:00] VITALS: BP 169/77
[2018-08-26 05:27] LABS: BASO # 0.1 x10^3/uL (0.0-0.2); BASO % 1 % (0-3); EOS # 0.2 x10^3/uL (0.0-0.7); EOS % 2 % (0-3); HEMATOCRIT 33.1 % (39.0-53.0); HEMOGLOBIN 10.8 g/dL (13.0-17.5); LYMPH # 1.8 x10^3/uL (1.0-4.8); LYMPH % 17 % (24-48); MEAN CORPUSCULAR HEMOGLOBIN 29 pg (25-35); MEAN CORPUSCULAR HGB CONC 33 g/dL (31-37); MEAN CORPUSCULAR VOLUME 90 fL (79-100); MONO # 0.6 x10^3/uL (0.0-1.1); MONO % 6 % (0-9); NEUT # 8.1 x10^3uL (1.8-7.7); NEUT % 75 % (31-73); PLATELET COUNT 216 x10^3/uL (140-400); RED BLOOD COUNT 3.68 x10^6/uL (4.30-5.70); WHITE BLOOD COUNT 10.8 x10^3/uL (4.0-11.0)
[2018-08-26 05:49] LABS: CALCIUM 9.1 mg/dL (8.5-10.1); CREATININE 1.9 mg/dL (0.7-1.3); GFR 42.7; POTASSIUM 3.3 mmol/L (3.5-5.1)
[2018-08-26] MEDS: PIPERACILLIN/TAZOBACTAM 3.375 GM in IV NORMAL SALINE 50ML 50 ML IV SCH ×2 (06:42→13:39)
[2018-08-26 07:00] VITALS: BP 189/81
[2018-08-26] MEDS: INSULIN LISPRO 300 UNITS/3 ML INSULN.PEN. SQ SCH ×6 (08:00→17:00)
[2018-08-26] MEDS: IPRATRPIUM/ALBUTEROL 0.5/2.5MG 3 ML NEBU. NEB SCH ×4 (08:18→20:27)
[2018-08-26] MEDS: DABIGATRAN ETEXILATE 150 MG CAPSULE. PO SCH ×2 (08:39→20:43)
[2018-08-26] MEDS: oxyCODONE IR 5 MG TABLET PO SCH ×4 (08:39→20:42)
[2018-08-26] MEDS: POTASSIUM CHLORIDE 20 MEQ TABLET.ER. PO SCH (08:39)
[2018-08-26] MEDS: LACTOBACILLUS RHAMNOSUS GG 1 CAPSULE. PO SCH ×2 (08:39→20:43)
[2018-08-26] MEDS: PARoxetine 10 MG TABLET PO SCH (08:39)
[2018-08-26] MEDS: CLOPIDOGREL BISULFATE 75 MG TABLET PO SCH (08:40)
[2018-08-26] MEDS: FUROSEMIDE 80 MG TABLET. PO SCH ×2 (08:40→17:12)
[2018-08-26] MEDS: BACLOFEN 10 MG TABLET. PO SCH ×4 (08:40→20:43)
[2018-08-26] MEDS: GABAPENTIN 400 MG CAPSULE. PO SCH ×4 (08:40→20:43)
[2018-08-26] MEDS: ALPRAZolam 0.5 MG TABLET PO SCH ×4 (08:40→20:42)
[2018-08-26] MEDS: GLIMEPIRIDE 2 MG TABLET. PO SCH (08:41)
[2018-08-26] MEDS: amLODIPine BESYLATE 5 MG TABLET PO SCH (08:41)
[2018-08-26] MEDS: AZITHROMYCIN 250 MG TABLET. PO SCH (08:41)
[2018-08-26] MEDS: cloNIDine HCL 0.1 MG TABLET PO SCH ×2 (08:41→20:43)
[2018-08-26] MEDS: AMIODARONE HCL 200 MG TABLET. PO SCH (08:42)
[2018-08-26] MEDS: ISOSORBIDE MONONITRATE ER 30 MG TAB.ER.24H PO SCH (08:42)
[2018-08-26] MEDS: PANTOPRAZOLE 40 MG TABLET.DR. PO SCH (08:42)
[2018-08-26] MEDS: ASPIRIN CHEWABLE 81 MG TABLET. PO SCH (08:42)
[2018-08-26] MEDS: KETOTIFEN FUMARATE 0.025% OPHTH SOLUTION BOTTLE. OU SCH ×2 (08:43→20:44)
[2018-08-26] MEDS: TIMOLOL 0.5% OPHTH SOLUTION 5ML BOTTLE. OU SCH ×2 (08:43→20:44)
[2018-08-26] MEDS: BRIMONIDINE 0.2% OPHTH SOLUTION 5ML BOTTLE. OU SCH ×2 (08:43→20:44)
[2018-08-26] MEDS: NICOTINE 21MG PATCH. TD SCH (09:00)
[2018-08-26] MEDS ORDERED: POTASSIUM CHLORIDE 20 MEQ TABLET.ER. PO ONE (09:15)
[2018-08-26 10:47] VITALS: BP 169/72
--- NOTE | 2018-08-26 11:56 | PDOC ---
PROGRESS NOTES Chief Complaint Chief Complaint generalized weakness, 2/2 CAP possibly hemoptysis sepsis with CAP leukocytosis, fever pafib on pradaxa h/o CAD h/o CHF diastolic gerd HTN anxiety quit smoking morbid obesity chronic lumbago on opoids elevated trop, possible diastolic CHF exacerbation, also sepsis PTSD , anxiety new onset DM2, hba1c 9 plan: fu with card, pulm cont home meds check sputum cx, legi and strep urine IGg add lantus 30u qhs, aspart 10u tid, glimepiride, ssi monitor hemoptysis, on pradaxa,. asa, plavix, defer to card to see if can dc some of them add zosyn, add maycol , chest CT as per pulm showed left lung infiltrates with multiple possibilities increase xanax to 1mg qid as home dose, but told pt many times if pulm functions decrease, will only give 0.5mg labs daily PTOT recommend home with assistance check cdiff History of Present Illness History of Present Illness ROS: no fever, chills chest pain still hemoptysis, mild, better. on asa, plavix, pradaxa, with h/o Stents, afib, sinus now home on o2 NC 2l WHEN taking a nap, CPAP now NC 3l here c/o on xanax 1mg qid at home for PTSD, here 0.5mg which didnot help 08/26: several times of watery diarrhea today, wbc better tho bp high Vitals Vitals Vital Signs Date Time Temp Pulse Resp B/P (MAP) Pulse Ox O2 Delivery O2 Flow Rate FiO2 08/26/18 10:47 98.7 55 22 169/72 (104) 96 Nasal Cannula 2.0 98.7 Physical Exam General: Alert, Oriented X3, Cooperative, No acute distress Heart: Regular rate (SR), Other (distant heart sounds) Lungs: Crackles Abdomen: Soft, No tenderness, Other (obese) Extremities: No cyanosis Skin: No breakdown, No significant lesion Labs LABS Laboratory Tests Test 08/25/18 16:45 08/25/18 16:56 08/25/18 20:38 08/26/18 04:50 Prothrombin Time 14.6 SEC (11.7-14.0) Prothromb Time International Ratio 1.2 (0.8-1.1) Glucose (Fingerstick) 122 mg/dL (70-99) 141 mg/dL (70-99) White Blood Count 10.8 x10^3/uL (4.0-11.0) Red Blood Count 3.68 x10^6/uL (4.30-5.70) Hemoglobin 10.8 g/dL (13.0-17.5) Hematocrit 33.1 % (39.0-53.0) Mean Corpuscular Volume 90 fL (79-100) Mean Corpuscular Hemoglobin 29 pg (25-35) Mean Corpuscular Hemoglobin Concent 33 g/dL (31-37) Red Cell Distribution Width 15.0 % (11.5-14.5) Platelet Count 216 x10^3/uL (140-400) Neutrophils (%) (Auto) 75 % (31-73) Lymphocytes (%) (Auto) 17 % (24-48) Monocytes (%) (Auto) 6 % (0-9) Eosinophils (%) (Auto) 2 % (0-3) Basophils (%) (Auto) 1 % (0-3) Neutrophils # (Auto) 8.1 x10^3uL (1.8-7.7) Lymphocytes # (Auto) 1.8 x10^3/uL (1.0-4.8) Monocytes # (Auto) 0.6 x10^3/uL (0.0-1.1) Eosinophils # (Auto) 0.2 x10^3/uL (0.0-0.7) Basophils # (Auto) 0.1 x10^3/uL (0.0-0.2) Sodium Level 146 mmol/L (136-145) Potassium Level 3.3 mmol/L (3.5-5.1) Chloride Level 107 mmol/L (98-107) Carbon Dioxide Level 33 mmol/L (21-32) Anion Gap 6 (6-14) Blood Urea Nitrogen 28 mg/dL (8-26) Creatinine 1.9 mg/dL (0.7-1.3) Estimated GFR (Cockcroft-Gault) 42.7 Glucose Level 148 mg/dL (70-99) Calcium Level 9.1 mg/dL (8.5-10.1) Test 08/26/18 07:15 08/26/18 11:31 Glucose (Fingerstick) 135 mg/dL (70-99) 186 mg/dL (70-99) Assessment and Plan Assessmemt and Plan Problems Medical Problems: (1) Acute renal insufficiency Status: Acute (2) Elevated troponin Status: Acute (3) Hypoxia Status: Acute (4) Pneumonia Status: Acute (5) Weakness Status: Acute Comment Review of Relevant I have reviewed the following items rosas (where applicable) has been applied. Labs Laboratory Tests Test 08/24/18 16:59 08/24/18 20:53 08/25/18 04:05 08/25/18 07:46 Glucose (Fingerstick) 403 mg/dL (70-99) 366 mg/dL (70-99) 272 mg/dL (70-99) White Blood Count 17.1 x10^3/uL (4.0-11.0) Red Blood Count 3.85 x10^6/uL (4.30-5.70) Hemoglobin 11.3 g/dL (13.0-17.5) Hematocrit 34.1 % (39.0-53.0) Mean Corpuscular Volume 89 fL (79-100) Mean Corpuscular Hemoglobin 29 pg (25-35) Mean Corpuscular Hemoglobin Concent 33 g/dL (31-37) Red Cell Distribution Width 14.8 % (11.5-14.5) Platelet Count 184 x10^3/uL (140-400) Neutrophils (%) (Auto) 90 % (31-73) Lymphocytes (%) (Auto) 5 % (24-48) Monocytes (%) (Auto) 5 % (0-9) Eosinophils (%) (Auto) 0 % (0-3) Basophils (%) (Auto) 0 % (0-3) Neutrophils # (Auto) 15.3 x10^3uL (1.8-7.7) Lymphocytes # (Auto) 0.9 x10^3/uL (1.0-4.8) Monocytes # (Auto) 0.9 x10^3/uL (0.0-1.1) Eosinophils # (Auto) 0.0 x10^3/uL (0.0-0.7) Basophils # (Auto) 0.0 x10^3/uL (0.0-0.2) Sodium Level 142 mmol/L (136-145) Potassium Level 4.1 mmol/L (3.5-5.1) Chloride Level 104 mmol/L (98-107) Carbon Dioxide Level 29 mmol/L (21-32) Anion Gap 9 (6-14) Blood Urea Nitrogen 25 mg/dL (8-26) Creatinine 1.6 mg/dL (0.7-1.3) Estimated GFR (Cockcroft-Gault) 52.1 Glucose Level 260 mg/dL (70-99) Calcium Level 9.0 mg/dL (8.5-10.1) Test 08/25/18 11:49 08/25/18 16:45 08/25/18 16:56 08/25/18 20:38 Glucose (Fingerstick) 227 mg/dL (70-99) 122 mg/dL (70-99) 141 mg/dL (70-99) Prothrombin Time 14.6 SEC (11.7-14.0) Prothromb Time International Ratio 1.2 (0.8-1.1) Test 08/26/18 04:50 08/26/18 07:15 08/26/18 11:31 White Blood Count 10.8 x10^3/uL (4.0-11.0) Red Blood Count 3.68 x10^6/uL (4.30-5.70) Hemoglobin 10.8 g/dL (13.0-17.5) Hematocrit 33.1 % (39.0-53.0) Mean Corpuscular Volume 90 fL (79-100) Mean Corpuscular Hemoglobin 29 pg (25-35) Mean Corpuscular Hemoglobin Concent 33 g/dL (31-37) Red Cell Distribution Width 15.0 % (11.5-14.5) Platelet Count 216 x10^3/uL (140-400) Neutrophils (%) (Auto) 75 % (31-73) Lymphocytes (%) (Auto) 17 % (24-48) Monocytes (%) (Auto) 6 % (0-9) Eosinophils (%) (Auto) 2 % (0-3) Basophils (%) (Auto) 1 % (0-3) Neutrophils # (Auto) 8.1 x10^3uL (1.8-7.7) Lymphocytes # (Auto) 1.8 x10^3/uL (1.0-4.8) Monocytes # (Auto) 0.6 x10^3/uL (0.0-1.1) Eosinophils # (Auto) 0.2 x10^3/uL (0.0-0.7) Basophils # (Auto) 0.1 x10^3/uL (0.0-0.2) Sodium Level 146 mmol/L (136-145) Potassium Level 3.3 mmol/L (3.5-5.1) Chloride Level 107 mmol/L (98-107) Carbon Dioxide Level 33 mmol/L (21-32) Anion Gap 6 (6-14) Blood Urea Nitrogen 28 mg/dL (8-26) Creatinine 1.9 mg/dL (0.7-1.3) Estimated GFR (Cockcroft-Gault) 42.7 Glucose Level 148 mg/dL (70-99) Calcium Level 9.1 mg/dL (8.5-10.1) Glucose (Fingerstick) 135 mg/dL (70-99) 186 mg/dL (70-99) Laboratory Tests Test 08/25/18 16:45 08/25/18 16:56 08/25/18 20:38 08/26/18 04:50 Prothrombin Time 14.6 SEC (11.7-14.0) Prothromb Time International Ratio 1.2 (0.8-1.1) Glucose (Fingerstick) 122 mg/dL (70-99) 141 mg/dL (70-99) White Blood Count 10.8 x10^3/uL (4.0-11.0) Red Blood Count 3.68 x10^6/uL (4.30-5.70) Hemoglobin 10.8 g/dL (13.0-17.5) Hematocrit 33.1 % (39.0-53.0) Mean Corpuscular Volume 90 fL (79-100) Mean Corpuscular Hemoglobin 29 pg (25-35) Mean Corpuscular Hemoglobin Concent 33 g/dL (31-37) Red Cell Distribution Width 15.0 % (11.5-14.5) Platelet Count 216 x10^3/uL (140-400) Neutrophils (%) (Auto) 75 % (31-73) Lymphocytes (%) (Auto) 17 % (24-48) Monocytes (%) (Auto) 6 % (0-9) Eosinophils (%) (Auto) 2 % (0-3) Basophils (%) (Auto) 1 % (0-3) Neutrophils # (Auto) 8.1 x10^3uL (1.8-7.7) Lymphocytes # (Auto) 1.8 x10^3/uL (1.0-4.8) Monocytes # (Auto) 0.6 x10^3/uL (0.0-1.1) Eosinophils # (Auto) 0.2 x10^3/uL (0.0-0.7) Basophils # (Auto) 0.1 x10^3/uL (0.0-0.2) Sodium Level 146 mmol/L (136-145) Potassium Level 3.3 mmol/L (3.5-5.1) Chloride Level 107 mmol/L (98-107) Carbon Dioxide Level 33 mmol/L (21-32) Anion Gap 6 (6-14) Blood Urea Nitrogen 28 mg/dL (8-26) Creatinine 1.9 mg/dL (0.7-1.3) Estimated GFR (Cockcroft-Gault) 42.7 Glucose Level 148 mg/dL (70-99) Calcium Level 9.1 mg/dL (8.5-10.1) Test 08/26/18 07:15 08/26/18 11:31 Glucose (Fingerstick) 135 mg/dL (70-99) 186 mg/dL (70-99) Microbiology 08/23/18 Blood Culture - Preliminary, Resulted NO GROWTH AFTER 2 DAYS Medications Current Medications Sodium Chloride 1,000 ml @ 1,000 mls/hr 1X ONCE IV Last administered on at 23:44; Start 08/23/18 at 23:00; Stop 08/23/18 at 23:59; Status DC Acetaminophen (Tylenol) 500 mg 1X ONCE PO Last administered on 08/23/18at 23:42 ; Start 08/23/18 at 23:15; Stop 08/23/18 at 23:16; Status DC Albuterol/ Ipratropium (Duoneb) 3 ml 1X ONCE NEB Last administered on at 23:20; Start 08/23/18 at 23:15; Stop 08/23/18 at 23:16; Status DC Piperacillin Sod/ Tazobactam Sod 4.5 gm/Sodium Chloride 100 ml @ 200 mls/hr 1X ONCE IV Last administered on 08/24/18at 00:47; Start 08/24/18 at 00:30; Stop 08/24/18 at 00:59; Status DC Levofloxacin/ Dextrose 150 ml @ 100 mls/hr 1X ONCE IV Last administered on at 00:48; Start 08/24/18 at 00:30; Stop 08/24/18 at 01:59; Status DC Fentanyl Citrate (Fentanyl 2ml Vial) 50 mcg 1X ONCE IV Last administered on at 00:44; Start 08/24/18 at 00:30; Stop 08/24/18 at 00:31; Status DC Aspirin (Theo Aspirin) 325 mg 1X ONCE PO Last administered on 08/24/18at 01:01 ; Start 08/24/18 at 00:45; Stop 08/24/18 at 00:46; Status DC Ondansetron HCl (Zofran) 4 mg PRN Q8HRS PRN IV NAUSEA/VOMITING; Start 08/24/18 at 01:00; Stop 08/24/18 at 11:04; Status DC Fentanyl Citrate (Fentanyl 2ml Vial) 50 mcg PRN Q2HR PRN IV PAIN Last administered on 08/24/18at 08:19; Start 08/24/18 at 01:00; Stop 08/25/18 at 00:59 ; Status DC Acetaminophen (Tylenol) 650 mg PRN Q4HRS PRN PO FEVER; Start 08/24/18 at 01:00 ; Stop 08/24/18 at 11:04; Status DC Albuterol/ Ipratropium (Duoneb) 3 ml RTQID NEB Last administered on 08/25/18at 08:15; Start 08/24/18 at 08:00; Stop 08/25/18 at 07:59; Status DC Dexamethasone Sodium Phosphate (Decadron) 10 mg 1X ONCE IV Last administered on 08/24/18at 01:13; Start 08/24/18 at 01:00; Stop 08/24/18 at 01:02; Status DC Influenza Virus Vaccine (Afluria Trivalent [id number] Syringe) 0.5 ml ONCE ONCE VAX IM Last administered on 08/24/18at 08:23; Start 08/24/18 at 09:00; Stop 08/24/18 at 09:01; Status DC Alprazolam (Xanax) 0.5 mg TID PO Last administered on 08/24/18 13:34; Start 08/24/18 at 14:00; Stop 08/24/18 at 17:10; Status DC Amiodarone HCl (Cordarone) 200 mg DAILY PO Last administered on 08/26/18 08:42 ; Start 08/24/18 at 11:30 Amlodipine Besylate (Norvasc) 5 mg DAILY PO Last administered on 08/26/18 08: 41; Start 08/24/18 at 11:30 Aspirin (Children'S Aspirin) 81 mg DAILY PO Last administered on 08/26/18 08: 42; Start 08/24/18 at 11:30 Atorvastatin Calcium (Lipitor) 20 mg QHS PO Last administered on 08/25/18 21: 24; Start 08/24/18 at 21:00 Baclofen (Lioresal) 15 mg QID PO Last administered on 08/26/18 08:40; Start 08/24/18 at 13:00 Clonidine HCl (Catapres) 0.1 mg BID PO Last administered on 08/26/18 08:41; Start 08/24/18 at 11:30 Clopidogrel Bisulfate (Plavix) 75 mg DAILY PO Last administered on 08/26/18 08 :40; Start 08/24/18 at 11:30 Dabigatran (Pradaxa) 150 mg BID PO Last administered on 08/26/18 08:39; Start 08/24/18 at 11:30 Furosemide (Lasix) 80 mg BID94 PO Last administered on 08/26/18 08:40; Start 08/24/18 at 11:30 Brimonidine Tartrate (Alphagan) 1 drop BID OU Last administered on 08/26/18 08 :43; Start 08/24/18 at 11:30 Gabapentin (Neurontin) 800 mg QID PO Last administered on 08/26/18 08:40; Start 08/24/18 at 13:00 Hydralazine HCl (Apresoline) 100 mg TID PO Last administered on 08/26/18 08:41 ; Start 08/24/18 at 14:00 Isosorbide Mononitrate (Imdur) 60 mg DAILY PO Last administered on 08/26/18 08 :42; Start 08/24/18 at 11:30 Pantoprazole Sodium (Protonix) 40 mg DAILYAC PO Last administered on 08/26/18 08:42; Start 08/24/18 at 11:30 Latanoprost (Xalatan) 1 drop QHS OU Last administered on 08/25/18 21:16; Start 08/24/18 at 21:00 Nicotine (Nicoderm Cq 21mg) 1 patch DAILY TD ; Start 08/24/18 at 11:30 Ketotifen Fumarate (Zaditor) 1 drop BID OU Last administered on 08/26/18 08:43 ; Start 08/24/18 at 11:30 Oxycodone HCl (Roxicodone) 10 mg PRN Q4HRS PRN PO PAIN Last administered on 12:29; Start 08/24/18 at 11:15; Stop 08/24/18 at 17:10; Status DC Paroxetine HCl (Paxil) 20 mg QHS PO Last administered on 08/25/18 21:26; Start 08/24/18 at 21:00 Paroxetine HCl (Paxil) 30 mg DAILY PO Last administered on 08/26/18 08:39; Start 08/24/18 at 11:30 Potassium Chloride (Klor-Con) 20 meq [id number] PO Last administered on 08:39; Start 08/24/18 at 11:30 Spironolactone (Aldactone) 25 mg QHS PO Last administered on 08/25/18 21:20; Start 08/24/18 at 21:00 Timolol Maleate (Timoptic 0.5% [facility]) 1 drop BID OU Last administered on 08:43; Start 08/24/18 at 11:30 Tizanidine HCl (Zanaflex) 4 mg PRN QID PRN PO MUSCLE SPASMS; Start 08/24/18 at 11:15 Linezolid/Dextrose 300 ml @ 300 mls/hr Q12HR IV Last administered on at 12:14; Start 08/24/18 at 11:30; Stop 08/24/18 at 12:52; Status DC Piperacillin Sod/ Tazobactam Sod 3.375 gm/Sodium Chloride 50 ml @ 100 mls/hr Q6HRS IV Last administered on 08/26/18at 06:42; Start 08/24/18 at 12:00 Piperacillin Sod/ Tazobactam Sod (Zosyn Per Pharmacy) 1 each PRN DAILY PRN MC SEE COMMENTS; Start 08/24/18 at 11:00 Acetaminophen (Tylenol) 650 mg PRN Q6HRS PRN PO FEVER; Start 08/24/18 at 11:00 Ondansetron HCl (Zofran) 4 mg PRN Q6HRS PRN IV NAUSEA/VOMITING; Start 08/24/18 at 11:00 Morphine Sulfate (Morphine Sulfate) 2 mg PRN Q2HR PRN IV MODERATE TO SEVERE PAIN; Start 08/24/18 at 11:00 Tramadol HCl (Ultram) 50 mg PRN Q6HRS PRN PO MILD TO MODERATE PAIN; Start 08/24 at 11:00 Docusate Sodium (Colace) 100 mg PRN DAILY PRN PO CONSTIPATION Last administered on 08/24/18at 12:29; Start 08/24/18 at 11:00 Azithromycin (Zithromax) 250 mg DAILY PO Last administered on 08/26/18at 08:41; Start 08/24/18 at 13:00 Insulin Human Lispro (HumaLOG) 0-9 UNITS TIDWMEALS SQ ; Start 08/24/18 at 17:00 ; Stop 08/25/18 at 05:59; Status DC Dextrose (Dextrose 50%-Water Syringe) 12.5 gm PRN Q15MIN PRN IV SEE COMMENTS; Start 08/24/18 at 15:15; Stop 08/25/18 at 09:19; Status DC Alprazolam (Xanax) 0.5 mg QID PO Last administered on 08/25/18at 08:03; Start 08/24/18 at 17:00; Stop 08/25/18 at 09:27; Status DC Oxycodone HCl (Roxicodone) 10 mg QID PO Last administered on 08/26/18at 08:39; Start 08/24/18 at 17:00 Insulin Human Lispro (HumaLOG) 0-9 UNITS TIDWMEALS SQ Last administered on 08/25at 12:21; Start 08/25/18 at 08:00 Dextrose (Dextrose 50%-Water Syringe) 12.5 gm PRN Q15MIN PRN IV SEE COMMENTS; Start 08/24/18 at 17:15 Insulin Human Lispro (HumaLOG) 15 units 1X ONCE SQ Last administered on at 17:41; Start 08/24/18 at 08:00; Stop 08/24/18 at 17:15; Status DC Insulin Glargine (Lantus) 20 units QHS SQ ; Start 08/24/18 at 21:00; Stop at 21:00; Status DC Insulin Human Lispro (HumaLOG) 15 units 1X ONCE SQ Last administered on at 22:15; Start 08/24/18 at 21:30; Stop 08/24/18 at 21:31; Status DC Insulin Glargine (Lantus) 20 units QHS SQ Last administered on 08/24/18at 22:16 ; Start 08/24/18 at 22:00; Stop 08/25/18 at 09:27; Status DC Albuterol/ Ipratropium (Duoneb) 3 ml RTQID NEB Last administered on 08/26/18at 08:18; Start 08/25/18 at 12:00 Alprazolam (Xanax) 1 mg QID PO Last administered on 08/26/18at 08:40; Start 08/25/18 at 09:30 Insulin Glargine (Lantus) 30 units QHS SQ Last administered on 08/25/18at 22:25 ; Start 08/25/18 at 21:00 Insulin Human Lispro (HumaLOG) 10 units TIDAC SQ Last administered on at 08:55; Start 08/25/18 at 11:30 Alprazolam (Xanax) 0.5 mg 1X ONCE PO Last administered on 08/25/18at 10:04; Start 08/25/18 at 09:45; Stop 08/25/18 at 09:51; Status DC Lactobacillus Rhamnosus (Culturelle) 1 cap BID PO Last administered on at 08:39; Start 08/25/18 at 21:00 Glimepiride (Amaryl) 2 mg DAILY PO Last administered on 08/26/18at 08:41; Start 08/25/18 at 14:00 Artificial Tears (Artificial Tears) 1 drop PRN Q15MIN PRN OU DRY EYE Last administered on 08/25/18at 17:45; Start 08/25/18 at 15:15 Potassium Chloride (Klor-Con) 40 meq 1X ONCE PO ; Start 08/26/18 at 09:15; Stop 08/26/18 at 09:18; Status DC Active Scripts Active Reported Flomax (Tamsulosin Hcl) 0.4 Mg Cap.er.24h 1 Cap PO DAILY Vitamin D (Cholecalciferol (Vitamin D3)) 1,000 Unit Capsule 1 Cap PO DAILY Paroxetine Hcl 30 Mg Tablet 30 Mg PO DAILY Tizanidine Hcl 4 Mg Capsule 4 Mg PO QID PRN Isosorbide Mononitrate Er (Isosorbide Mononitrate) 60 Mg Tab.er.24h 1 Tab PO DAILY Timoptic 0.5% (Timolol Maleate) 10 Ml Drops 1 Drop EACHEYE BID Amiodarone Hcl 200 Mg Tablet 1 Tab PO DAILY Amlodipine Besylate 5 Mg Tablet 5 Mg PO DAILY Gabapentin 800 Mg Tablet 800 Mg PO QID Hydralazine Hcl 100 Mg Tablet 1 Tab PO TID Atorvastatin Calcium 20 Mg Tablet 1 Tab PO QHS Lasix (Furosemide) 80 Mg Tablet 1 Tab PO BID K-Tab (Potassium Chloride) 10 Meq Tablet.er 20 Meq PO DAILY NICODERM CQ 21mg (Nicotine) 1 Each Patch.td24 1 Patch TP DAILY Alphagan P (Brimonidine Tartrate) 5 Ml Drops 1 Drop EACHEYE BID Paxil (Paroxetine Hcl) 20 Mg Tablet 1 Tab PO HS Aspirin 81 Mg Tab.chew 1 Tab PO DAILY Clopidogrel (Clopidogrel Bisulfate) 75 Mg Tablet 1 Tab PO DAILY Spironolactone 25 Mg Tablet 1 Tab PO HS Latanoprost 2.5 Ml Drops 1 Drop EACHEYE QHS [place] (Olopatadine HCl) 2.5 Ml Drops 2.5 Ml OP DAILY Prevacid (Lansoprazole) 30 Mg Capsule.dr 1 Cap PO DAILY Oxycodone Hcl 10 Mg Tablet 1 Tab PO PRN Q4HRS PRN Baclofen 10 Mg Tablet 1.5 Tab PO QID Xanax (Alprazolam) 0.5 Mg Tablet 1 Tab PO TID Clonidine Hcl 0.1 Mg Tablet 0.1 Mg PO BID Pradaxa (Dabigatran Etexilate Mesylate) 150 Mg Capsule 150 Mg PO BID Vitals/I & O Vital Sign - Last 24 Hours 08/25/18 08/25/18 08/25/18 08/25/18 15:00 15:05 16:06 19:25 Temp 97.9 98.0 97.9 98.0 Pulse 64 60 55 Resp 20 20 B/P (MAP) 154/76 (102) 145/65 (91) Pulse Ox 100 91 O2 Delivery Room Air Nasal Cannula Nasal Cannula O2 Flow Rate 3.0 2.0 08/25/18 08/25/18 08/25/18 08/25/18 19:30 20:00 21:20 21:23 Pulse 55 55 B/P (MAP) 145/65 145/65 Pulse Ox 94 O2 Delivery Nasal Cannula Nasal Cannula O2 Flow Rate 3.0 4.0 08/25/18 08/25/18 08/25/18 08/25/18 21:26 22:26 22:45 22:55 Temp 98.0 98.0 Pulse 55 Resp 18 18 20 B/P (MAP) 132/67 (88) Pulse Ox 94 94 91 96 O2 Delivery Nasal Cannula Nasal Cannula Nasal Cannula BiPAP/CPAP O2 Flow Rate 3.0 3.0 2.0 08/26/18 08/26/18 08/26/18 08/26/18 00:31 03:00 03:10 07:00 Temp 97.1 97.4 97.1 97.4 Pulse 45 45 Resp 22 22 B/P (MAP) 169/77 (107) 189/81 (117) Pulse Ox 97 96 96 99 O2 Delivery BiPAP/CPAP BiPAP/CPAP BiPAP/CPAP BiPAP/CPAP 08/26/18 08/26/18 08/26/18 08/26/18 08:19 08:41 08:41 08:41 Pulse 60 60 60 Pulse Ox 91 O2 Delivery Nasal Cannula O2 Flow Rate 3.0 08/26/18 08/26/18 08/26/18 08:42 08:42 10:47 Temp 98.7 98.7 Pulse 60 60 55 Resp 22 B/P (MAP) 169/72 (104) Pulse Ox 96 O2 Delivery Nasal Cannula O2 Flow Rate 2.0 Intake and Output 08/25/18 08/25/18 08/26/18 15:00 23:00 07:00 Intake Total 240 ml 400 ml 630 ml Output Total 900 ml Balance 240 ml -500 ml 630 ml NICOLAS [id number] MD Aug 26, 2018 11:56
--- NOTE | 2018-08-26 14:01 | PDOC ---
PULMONARY PROGRESS NOTES Subjective COUGH AND BLOOD MIXED WITH BLOOD HAS IMPROVED OLD DARK MUCUS PT FEELS BETTER LESS NOISE IN CHEST Vitals Vital Signs Date Time Temp Pulse Resp B/P (MAP) Pulse Ox O2 Delivery O2 Flow Rate FiO2 08/26/18 13:50 60 08/26/18 12:08 94 Nasal Cannula 4.0 08/26/18 10:47 98.7 22 169/72 (104) 98.7 ROS: No Nausea, No Chest Pain, No Abdominal Pain, No Increase Cough General: Alert Lungs: Crackles Cardiovascular: S1, S2 Abdomen: Soft Neuro Exam: Alert Extremities: No Edema Skin: Warm Labs Laboratory Tests Test 08/24/18 16:59 08/24/18 20:53 08/25/18 04:05 08/25/18 07:46 Glucose (Fingerstick) 403 mg/dL (70-99) 366 mg/dL (70-99) 272 mg/dL (70-99) White Blood Count 17.1 x10^3/uL (4.0-11.0) Red Blood Count 3.85 x10^6/uL (4.30-5.70) Hemoglobin 11.3 g/dL (13.0-17.5) Hematocrit 34.1 % (39.0-53.0) Mean Corpuscular Volume 89 fL (79-100) Mean Corpuscular Hemoglobin 29 pg (25-35) Mean Corpuscular Hemoglobin Concent 33 g/dL (31-37) Red Cell Distribution Width 14.8 % (11.5-14.5) Platelet Count 184 x10^3/uL (140-400) Neutrophils (%) (Auto) 90 % (31-73) Lymphocytes (%) (Auto) 5 % (24-48) Monocytes (%) (Auto) 5 % (0-9) Eosinophils (%) (Auto) 0 % (0-3) Basophils (%) (Auto) 0 % (0-3) Neutrophils # (Auto) 15.3 x10^3uL (1.8-7.7) Lymphocytes # (Auto) 0.9 x10^3/uL (1.0-4.8) Monocytes # (Auto) 0.9 x10^3/uL (0.0-1.1) Eosinophils # (Auto) 0.0 x10^3/uL (0.0-0.7) Basophils # (Auto) 0.0 x10^3/uL (0.0-0.2) Sodium Level 142 mmol/L (136-145) Potassium Level 4.1 mmol/L (3.5-5.1) Chloride Level 104 mmol/L (98-107) Carbon Dioxide Level 29 mmol/L (21-32) Anion Gap 9 (6-14) Blood Urea Nitrogen 25 mg/dL (8-26) Creatinine 1.6 mg/dL (0.7-1.3) Estimated GFR (Cockcroft-Gault) 52.1 Glucose Level 260 mg/dL (70-99) Calcium Level 9.0 mg/dL (8.5-10.1) Test 08/25/18 11:49 08/25/18 16:45 08/25/18 16:56 08/25/18 20:38 Glucose (Fingerstick) 227 mg/dL (70-99) 122 mg/dL (70-99) 141 mg/dL (70-99) Prothrombin Time 14.6 SEC (11.7-14.0) Prothromb Time International Ratio 1.2 (0.8-1.1) Test 08/26/18 04:50 08/26/18 07:15 08/26/18 11:31 White Blood Count 10.8 x10^3/uL (4.0-11.0) Red Blood Count 3.68 x10^6/uL (4.30-5.70) Hemoglobin 10.8 g/dL (13.0-17.5) Hematocrit 33.1 % (39.0-53.0) Mean Corpuscular Volume 90 fL (79-100) Mean Corpuscular Hemoglobin 29 pg (25-35) Mean Corpuscular Hemoglobin Concent 33 g/dL (31-37) Red Cell Distribution Width 15.0 % (11.5-14.5) Platelet Count 216 x10^3/uL (140-400) Neutrophils (%) (Auto) 75 % (31-73) Lymphocytes (%) (Auto) 17 % (24-48) Monocytes (%) (Auto) 6 % (0-9) Eosinophils (%) (Auto) 2 % (0-3) Basophils (%) (Auto) 1 % (0-3) Neutrophils # (Auto) 8.1 x10^3uL (1.8-7.7) Lymphocytes # (Auto) 1.8 x10^3/uL (1.0-4.8) Monocytes # (Auto) 0.6 x10^3/uL (0.0-1.1) Eosinophils # (Auto) 0.2 x10^3/uL (0.0-0.7) Basophils # (Auto) 0.1 x10^3/uL (0.0-0.2) Sodium Level 146 mmol/L (136-145) Potassium Level 3.3 mmol/L (3.5-5.1) Chloride Level 107 mmol/L (98-107) Carbon Dioxide Level 33 mmol/L (21-32) Anion Gap 6 (6-14) Blood Urea Nitrogen 28 mg/dL (8-26) Creatinine 1.9 mg/dL (0.7-1.3) Estimated GFR (Cockcroft-Gault) 42.7 Glucose Level 148 mg/dL (70-99) Calcium Level 9.1 mg/dL (8.5-10.1) Glucose (Fingerstick) 135 mg/dL (70-99) 186 mg/dL (70-99) Laboratory Tests Test 08/25/18 16:45 08/25/18 16:56 08/25/18 20:38 08/26/18 04:50 Prothrombin Time 14.6 SEC (11.7-14.0) Prothromb Time International Ratio 1.2 (0.8-1.1) Glucose (Fingerstick) 122 mg/dL (70-99) 141 mg/dL (70-99) White Blood Count 10.8 x10^3/uL (4.0-11.0) Red Blood Count 3.68 x10^6/uL (4.30-5.70) Hemoglobin 10.8 g/dL (13.0-17.5) Hematocrit 33.1 % (39.0-53.0) Mean Corpuscular Volume 90 fL (79-100) Mean Corpuscular Hemoglobin 29 pg (25-35) Mean Corpuscular Hemoglobin Concent 33 g/dL (31-37) Red Cell Distribution Width 15.0 % (11.5-14.5) Platelet Count 216 x10^3/uL (140-400) Neutrophils (%) (Auto) 75 % (31-73) Lymphocytes (%) (Auto) 17 % (24-48) Monocytes (%) (Auto) 6 % (0-9) Eosinophils (%) (Auto) 2 % (0-3) Basophils (%) (Auto) 1 % (0-3) Neutrophils # (Auto) 8.1 x10^3uL (1.8-7.7) Lymphocytes # (Auto) 1.8 x10^3/uL (1.0-4.8) Monocytes # (Auto) 0.6 x10^3/uL (0.0-1.1) Eosinophils # (Auto) 0.2 x10^3/uL (0.0-0.7) Basophils # (Auto) 0.1 x10^3/uL (0.0-0.2) Sodium Level 146 mmol/L (136-145) Potassium Level 3.3 mmol/L (3.5-5.1) Chloride Level 107 mmol/L (98-107) Carbon Dioxide Level 33 mmol/L (21-32) Anion Gap 6 (6-14) Blood Urea Nitrogen 28 mg/dL (8-26) Creatinine 1.9 mg/dL (0.7-1.3) Estimated GFR (Cockcroft-Gault) 42.7 Glucose Level 148 mg/dL (70-99) Calcium Level 9.1 mg/dL (8.5-10.1) Test 08/26/18 07:15 08/26/18 11:31 Glucose (Fingerstick) 135 mg/dL (70-99) 186 mg/dL (70-99) Medications Active Scripts Medications Dose Route/Sig Max Daily Dose Days Date Category Vitamin D (Cholecalciferol (Vitamin D3)) 1,000 Unit Capsule 1 Cap PO DAILY 08/24/18 Reported Paroxetine Hcl 30 Mg Tablet 30 Mg PO DAILY 08/24/18 Reported Tizanidine Hcl 4 Mg Capsule 4 Mg PO QID PRN 08/24/18 Reported Isosorbide Mononitrate Er (Isosorbide Mononitrate) 60 Mg Tab.er.24h 1 Tab PO DAILY 08/24/18 Reported Timoptic 0.5% (Timolol Maleate) 10 Ml Drops 1 Drop EACHEYE BID 08/24/18 Reported Amiodarone Hcl 200 Mg Tablet 1 Tab PO DAILY 08/24/18 Reported Amlodipine Besylate 5 Mg Tablet 5 Mg PO DAILY 08/24/18 Reported Gabapentin 800 Mg Tablet 800 Mg PO QID 08/24/18 Reported Hydralazine Hcl 100 Mg Tablet 1 Tab PO TID 08/24/18 Reported Atorvastatin Calcium 20 Mg Tablet 1 Tab PO QHS 08/24/18 Reported Lasix (Furosemide) 80 Mg Tablet 1 Tab PO BID 01/08/17 Reported K-Tab (Potassium Chloride) 10 Meq Tablet.er 20 Meq PO DAILY 01/08/17 Reported NICODERM CQ 21mg (Nicotine) 1 Each Patch.td24 1 Patch TP DAILY 12/23/16 Reported Alphagan P (Brimonidine Tartrate) 5 Ml Drops 1 Drop EACHEYE BID 12/19/16 Reported Paxil (Paroxetine Hcl) 20 Mg Tablet 1 Tab PO HS 12/19/16 Reported Aspirin 81 Mg Tab.chew 1 Tab PO DAILY 12/19/16 Reported Clopidogrel (Clopidogrel Bisulfate) 75 Mg Tablet 1 Tab PO DAILY 10/29/16 Reported Spironolactone 25 Mg Tablet 1 Tab PO HS 10/28/16 Reported Latanoprost 2.5 Ml Drops 1 Drop EACHEYE QHS 10/28/16 Reported Pazeo (Olopatadine HCl) 2.5 Ml Drops 2.5 Ml OP DAILY 10/28/16 Reported Prevacid (Lansoprazole) 30 Mg Capsule.dr 1 Cap PO DAILY 10/28/16 Reported Oxycodone Hcl 10 Mg Tablet 1 Tab PO PRN Q4HRS PRN 10/28/16 Reported Baclofen 10 Mg Tablet 1.5 Tab PO QID 10/28/16 Reported Xanax (Alprazolam) 0.5 Mg Tablet 1 Tab PO TID 10/28/16 Reported Clonidine Hcl 0.1 Mg Tablet 0.1 Mg PO BID 10/28/16 Reported Pradaxa (Dabigatran Etexilate Mesylate) 150 Mg Capsule 150 Mg PO BID 10/28/16 Reported Impression . 1. Acute respiratory failure. 2. Ktbla-nm-vxetvsf systolic heart failure. 3. Possible pneumonia. 4. Hemoptysis. 5. Acute exacerbation of chronic obstructive pulmonary disease. 6. Fever. 7. Chronic renal insufficiency. 8. Elevated troponin secondary to a type 2 demand ischemia. 9. History of nonischemic or ischemic cardiomyopathy. 10. Systemic hypertension. 11. Morbid obesity. 12. Obstructive sleep apnea. Plan . CHANGE TO PO AUGMENTIN POSSIBLE D/C IN AM FOLLOW UP IN OFFICE IN 6-[address] REVIEWED COMPATIBLE WITH ALVEOLAR HEMORRHAGE AND PNEUMOBILIA WILL D/W CARD ON USE OF PRADAXA OR DIFFERENT AGENT FOR NOW CLINICALLY PT HAS LESS HEMOPTYSIS BINA EDWARD MD Aug 26, 2018 14:01
[2018-08-26 15:00] VITALS: BP 131/64
[2018-08-26] MEDS: MAG HYDROX/ALUMINUM HYD/SIMETH 30 ML ORAL.SUSP PO PRN (17:11)
[2018-08-26 19:27] VITALS: BP 140/66
[2018-08-26] MEDS: SPIRONOLACTONE 25 MG TABLET PO SCH (20:42)
[2018-08-26] MEDS: PARoxetine 20 MG TABLET PO SCH (20:43)
[2018-08-26] MEDS: ATORVASTATIN CALCIUM 20 MG TABLET PO SCH (20:43)
[2018-08-26] MEDS: AMOXICILLIN/K CLAV 875/125MG TABLET. PO SCH (20:43)
[2018-08-26] MEDS: LATANOPROST 0.005% OPHTH SOLUTION 2.5ML BOTTLE. OU SCH (20:44)
[2018-08-26] MEDS: INSULIN GLARGINE 300 UNITS/3 ML INSULN.PEN. SQ SCH (20:49)
[2018-08-26 23:44] VITALS: BP 148/70
[2018-08-27 03:00] VITALS: BP 168/81
[2018-08-27 07:15] VITALS: BP 156/80
[2018-08-27] MEDS: INSULIN LISPRO 300 UNITS/3 ML INSULN.PEN. SQ SCH ×5 (08:00→17:00)
[2018-08-27] MEDS: IPRATRPIUM/ALBUTEROL 0.5/2.5MG 3 ML NEBU. NEB SCH ×3 (08:21→16:10)
[2018-08-27] MEDS: BRIMONIDINE 0.2% OPHTH SOLUTION 5ML BOTTLE. OU SCH (08:46)
[2018-08-27] MEDS: KETOTIFEN FUMARATE 0.025% OPHTH SOLUTION BOTTLE. OU SCH (08:47)
[2018-08-27] MEDS: TIMOLOL 0.5% OPHTH SOLUTION 5ML BOTTLE. OU SCH (08:47)
[2018-08-27] MEDS: FUROSEMIDE 80 MG TABLET. PO SCH ×2 (08:48→16:36)
[2018-08-27] MEDS: AZITHROMYCIN 250 MG TABLET. PO SCH (08:48)
[2018-08-27] MEDS: ASPIRIN CHEWABLE 81 MG TABLET. PO SCH (08:48)
[2018-08-27] MEDS: ALPRAZolam 0.5 MG TABLET PO SCH ×3 (08:48→19:22)
[2018-08-27] MEDS: oxyCODONE IR 5 MG TABLET PO SCH ×3 (08:49→19:23)
[2018-08-27] MEDS: ISOSORBIDE MONONITRATE ER 30 MG TAB.ER.24H PO SCH (08:49)
[2018-08-27] MEDS: amLODIPine BESYLATE 5 MG TABLET PO SCH (08:50)
[2018-08-27] MEDS: PARoxetine 10 MG TABLET PO SCH (08:50)
[2018-08-27] MEDS: AMOXICILLIN/K CLAV 875/125MG TABLET. PO SCH ×2 (08:51→19:23)
[2018-08-27] MEDS: GLIMEPIRIDE 2 MG TABLET. PO SCH (08:51)
[2018-08-27] MEDS: GABAPENTIN 400 MG CAPSULE. PO SCH ×3 (08:51→19:23)
[2018-08-27] MEDS: DABIGATRAN ETEXILATE 150 MG CAPSULE. PO SCH (08:52)
[2018-08-27] MEDS: BACLOFEN 10 MG TABLET. PO SCH ×3 (08:52→19:23)
[2018-08-27] MEDS: CLOPIDOGREL BISULFATE 75 MG TABLET PO SCH (08:52)
[2018-08-27] MEDS: PANTOPRAZOLE 40 MG TABLET.DR. PO SCH (08:53)
[2018-08-27] MEDS: AMIODARONE HCL 200 MG TABLET. PO SCH (08:53)
[2018-08-27] MEDS: LACTOBACILLUS RHAMNOSUS GG 1 CAPSULE. PO SCH (08:53)
[2018-08-27] MEDS: POTASSIUM CHLORIDE 20 MEQ TABLET.ER. PO SCH (08:53)
[2018-08-27] MEDS: cloNIDine HCL 0.1 MG TABLET PO SCH (08:54)
[2018-08-27] MEDS: NICOTINE 21MG PATCH. TD SCH (08:54)
[2018-08-27 09:38] LABS: BASO # 0.1 x10^3/uL (0.0-0.2); BASO % 1 % (0-3); EOS # 0.3 x10^3/uL (0.0-0.7); EOS % 3 % (0-3); HEMATOCRIT 40.6 % (39.0-53.0); HEMOGLOBIN 13.5 g/dL (13.0-17.5); LYMPH # 1.5 x10^3/uL (1.0-4.8); LYMPH % 14 % (24-48); MEAN CORPUSCULAR HEMOGLOBIN 30 pg (25-35); MEAN CORPUSCULAR HGB CONC 33 g/dL (31-37); MEAN CORPUSCULAR VOLUME 90 fL (79-100); MONO # 0.7 x10^3/uL (0.0-1.1); MONO % 6 % (0-9); NEUT # 8.8 x10^3uL (1.8-7.7); NEUT % 77 % (31-73); PLATELET COUNT 259 x10^3/uL (140-400); RED BLOOD COUNT 4.52 x10^6/uL (4.30-5.70); RED CELL DISTRIBUTION WIDTH 15.1 % (11.5-14.5); WHITE BLOOD COUNT 11.3 x10^3/uL (4.0-11.0)
--- NOTE | 2018-08-27 09:45 | PDOC ---
PULMONARY PROGRESS NOTES Subjective VERY MINIMAL COUGH READY FOR D/C ST Vitals Vital Signs Date Time Temp Pulse Resp B/P (MAP) Pulse Ox O2 Delivery O2 Flow Rate FiO2 08/27/18 08:54 52 156/80 08/27/18 08:49 Room Air 08/27/18 08:23 92 4.0 08/27/18 07:15 98.1 20 98.1 ROS: No Nausea, No Chest Pain, No Abdominal Pain, No Increase Cough General: Alert Lungs: Crackles Cardiovascular: S1, S2 Abdomen: Soft Neuro Exam: Alert Extremities: No Edema Skin: Warm Labs Laboratory Tests Test 08/25/18 11:49 08/25/18 16:45 08/25/18 16:56 08/25/18 20:38 Glucose (Fingerstick) 227 mg/dL (70-99) 122 mg/dL (70-99) 141 mg/dL (70-99) Prothrombin Time 14.6 SEC (11.7-14.0) Prothromb Time International Ratio 1.2 (0.8-1.1) Test 08/26/18 04:50 08/26/18 07:15 08/26/18 11:31 08/26/18 16:56 White Blood Count 10.8 x10^3/uL (4.0-11.0) Red Blood Count 3.68 x10^6/uL (4.30-5.70) Hemoglobin 10.8 g/dL (13.0-17.5) Hematocrit 33.1 % (39.0-53.0) Mean Corpuscular Volume 90 fL (79-100) Mean Corpuscular Hemoglobin 29 pg (25-35) Mean Corpuscular Hemoglobin Concent 33 g/dL (31-37) Red Cell Distribution Width 15.0 % (11.5-14.5) Platelet Count 216 x10^3/uL (140-400) Neutrophils (%) (Auto) 75 % (31-73) Lymphocytes (%) (Auto) 17 % (24-48) Monocytes (%) (Auto) 6 % (0-9) Eosinophils (%) (Auto) 2 % (0-3) Basophils (%) (Auto) 1 % (0-3) Neutrophils # (Auto) 8.1 x10^3uL (1.8-7.7) Lymphocytes # (Auto) 1.8 x10^3/uL (1.0-4.8) Monocytes # (Auto) 0.6 x10^3/uL (0.0-1.1) Eosinophils # (Auto) 0.2 x10^3/uL (0.0-0.7) Basophils # (Auto) 0.1 x10^3/uL (0.0-0.2) Sodium Level 146 mmol/L (136-145) Potassium Level 3.3 mmol/L (3.5-5.1) Chloride Level 107 mmol/L (98-107) Carbon Dioxide Level 33 mmol/L (21-32) Anion Gap 6 (6-14) Blood Urea Nitrogen 28 mg/dL (8-26) Creatinine 1.9 mg/dL (0.7-1.3) Estimated GFR (Cockcroft-Gault) 42.7 Glucose Level 148 mg/dL (70-99) Calcium Level 9.1 mg/dL (8.5-10.1) Glucose (Fingerstick) 135 mg/dL (70-99) 186 mg/dL (70-99) 74 mg/dL (70-99) Test 08/26/18 20:42 08/27/18 07:03 08/27/18 08:45 Glucose (Fingerstick) 97 mg/dL (70-99) 114 mg/dL (70-99) White Blood Count 11.3 x10^3/uL (4.0-11.0) Red Blood Count 4.52 x10^6/uL (4.30-5.70) Hemoglobin 13.5 g/dL (13.0-17.5) Hematocrit 40.6 % (39.0-53.0) Mean Corpuscular Volume 90 fL (79-100) Mean Corpuscular Hemoglobin 30 pg (25-35) Mean Corpuscular Hemoglobin Concent 33 g/dL (31-37) Red Cell Distribution Width 15.1 % (11.5-14.5) Platelet Count 259 x10^3/uL (140-400) Neutrophils (%) (Auto) 77 % (31-73) Lymphocytes (%) (Auto) 14 % (24-48) Monocytes (%) (Auto) 6 % (0-9) Eosinophils (%) (Auto) 3 % (0-3) Basophils (%) (Auto) 1 % (0-3) Neutrophils # (Auto) 8.8 x10^3uL (1.8-7.7) Lymphocytes # (Auto) 1.5 x10^3/uL (1.0-4.8) Monocytes # (Auto) 0.7 x10^3/uL (0.0-1.1) Eosinophils # (Auto) 0.3 x10^3/uL (0.0-0.7) Basophils # (Auto) 0.1 x10^3/uL (0.0-0.2) Laboratory Tests Test 08/26/18 11:31 08/26/18 16:56 08/26/18 20:42 08/27/18 07:03 Glucose (Fingerstick) 186 mg/dL (70-99) 74 mg/dL (70-99) 97 mg/dL (70-99) 114 mg/dL (70-99) Test 08/27/18 08:45 White Blood Count 11.3 x10^3/uL (4.0-11.0) Red Blood Count 4.52 x10^6/uL (4.30-5.70) Hemoglobin 13.5 g/dL (13.0-17.5) Hematocrit 40.6 % (39.0-53.0) Mean Corpuscular Volume 90 fL (79-100) Mean Corpuscular Hemoglobin 30 pg (25-35) Mean Corpuscular Hemoglobin Concent 33 g/dL (31-37) Red Cell Distribution Width 15.1 % (11.5-14.5) Platelet Count 259 x10^3/uL (140-400) Neutrophils (%) (Auto) 77 % (31-73) Lymphocytes (%) (Auto) 14 % (24-48) Monocytes (%) (Auto) 6 % (0-9) Eosinophils (%) (Auto) 3 % (0-3) Basophils (%) (Auto) 1 % (0-3) Neutrophils # (Auto) 8.8 x10^3uL (1.8-7.7) Lymphocytes # (Auto) 1.5 x10^3/uL (1.0-4.8) Monocytes # (Auto) 0.7 x10^3/uL (0.0-1.1) Eosinophils # (Auto) 0.3 x10^3/uL (0.0-0.7) Basophils # (Auto) 0.1 x10^3/uL (0.0-0.2) Medications Active Scripts Medications Dose Route/Sig Max Daily Dose Days Date Category Vitamin D (Cholecalciferol (Vitamin D3)) 1,000 Unit Capsule 1 Cap PO DAILY 08/24/18 Reported Paroxetine Hcl 30 Mg Tablet 30 Mg PO DAILY 08/24/18 Reported Tizanidine Hcl 4 Mg Capsule 4 Mg PO QID PRN 08/24/18 Reported Isosorbide Mononitrate Er (Isosorbide Mononitrate) 60 Mg Tab.er.24h 1 Tab PO DAILY 08/24/18 Reported Timoptic 0.5% (Timolol Maleate) 10 Ml Drops 1 Drop EACHEYE BID 08/24/18 Reported Amiodarone Hcl 200 Mg Tablet 1 Tab PO DAILY 08/24/18 Reported Amlodipine Besylate 5 Mg Tablet 5 Mg PO DAILY 08/24/18 Reported Gabapentin 800 Mg Tablet 800 Mg PO QID 08/24/18 Reported Hydralazine Hcl 100 Mg Tablet 1 Tab PO TID 08/24/18 Reported Atorvastatin Calcium 20 Mg Tablet 1 Tab PO QHS 08/24/18 Reported Lasix (Furosemide) 80 Mg Tablet 1 Tab PO BID 01/08/17 Reported K-Tab (Potassium Chloride) 10 Meq Tablet.er 20 Meq PO DAILY 01/08/17 Reported NICODERM CQ 21mg (Nicotine) 1 Each Patch.td24 1 Patch TP DAILY 12/23/16 Reported Alphagan P (Brimonidine Tartrate) 5 Ml Drops 1 Drop EACHEYE BID 12/19/16 Reported Paxil (Paroxetine Hcl) 20 Mg Tablet 1 Tab PO HS 12/19/16 Reported Aspirin 81 Mg Tab.chew 1 Tab PO DAILY 12/19/16 Reported Clopidogrel (Clopidogrel Bisulfate) 75 Mg Tablet 1 Tab PO DAILY 10/29/16 Reported Spironolactone 25 Mg Tablet 1 Tab PO HS 10/28/16 Reported Latanoprost 2.5 Ml Drops 1 Drop EACHEYE QHS 10/28/16 Reported Pazeo (Olopatadine HCl) 2.5 Ml Drops 2.5 Ml OP DAILY 10/28/16 Reported Prevacid (Lansoprazole) 30 Mg Capsule.dr 1 Cap PO DAILY 10/28/16 Reported Oxycodone Hcl 10 Mg Tablet 1 Tab PO PRN Q4HRS PRN 10/28/16 Reported Baclofen 10 Mg Tablet 1.5 Tab PO QID 10/28/16 Reported Xanax (Alprazolam) 0.5 Mg Tablet 1 Tab PO TID 10/28/16 Reported Clonidine Hcl 0.1 Mg Tablet 0.1 Mg PO BID 10/28/16 Reported Pradaxa (Dabigatran Etexilate Mesylate) 150 Mg Capsule 150 Mg PO BID 10/28/16 Reported Impression . 1. Acute respiratory failure. 2. Kboyw-gv-gvclelz systolic heart failure. 3. Possible pneumonia. 4. Hemoptysis. 5. Acute exacerbation of chronic obstructive pulmonary disease. 6. Fever. 7. Chronic renal insufficiency. 8. Elevated troponin secondary to a type 2 demand ischemia. 9. History of nonischemic or ischemic cardiomyopathy. 10. Systemic hypertension. 11. Morbid obesity. 12. Obstructive sleep apnea. Plan . D/C OK BY ME OK TO D/C ANTIBX IN LIGHT OF DIARRHEA CT REVIEWED COMPATIBLE WITH ALVEOLAR HEMORRHAGE AND PNEUMOBILIA PT TO FOLLOW UP IN OFFICE APPT GIVEN BINA EDWARD MD Aug 27, 2018 09:45
[2018-08-27 10:01] LABS: CALCIUM 9.5 mg/dL (8.5-10.1); CREATININE 1.6 mg/dL (0.7-1.3); GFR 52.1; POTASSIUM 3.8 mmol/L (3.5-5.1)
[2018-08-27] MEDS: MAG HYDROX/ALUMINUM HYD/SIMETH 30 ML ORAL.SUSP PO PRN (10:05)
[2018-08-27 10:55] VITALS: BP 151/71
--- NOTE | 2018-08-27 14:04 | PDOC ---
PROGRESS NOTES Chief Complaint Chief Complaint generalized weakness, 2/2 CAP possibly hemoptysis sepsis with CAP leukocytosis, fever pafib on pradaxa h/o CAD h/o CHF diastolic gerd HTN anxiety quit smoking morbid obesity chronic lumbago on opoids elevated trop, possible diastolic CHF exacerbation, also sepsis PTSD , anxiety new onset DM2, hba1c 9 plan: fu with card, pulm cont home meds check sputum cx, legi and strep urine IGg all neg. decrease lantus 15u qhs, aspart 5u tid, glimepiride, ssi monitor hemoptysis, on pradaxa,. asa, plavix, defer to card to see if can dc some of them dc zosyn to augmentin, add maycol , chest CT as per pulm showed left lung infiltrates with multiple possibilities increase xanax to 1mg qid as home dose, but told pt many times if pulm functions decrease, will only give 0.5mg labs daily PTOT recommend home with assistance check cdiff, dc home if neg today 6 min walk History of Present Illness History of Present Illness ROS: no fever, chills chest pain still hemoptysis, mild, better. on asa, plavix, pradaxa, with h/o Stents, afib, sinus now home on o2 NC 2l WHEN taking a nap, CPAP now NC 3l here c/o on xanax 1mg qid at home for PTSD, here 0.5mg which didnot help 08/26: several times of watery diarrhea today, wbc better tho bp high 08/27 watery diarrhea since yesterday, still one time today. cdiff pending wbc slightly higher Vitals Vitals Vital Signs Date Time Temp Pulse Resp B/P (MAP) Pulse Ox O2 Delivery O2 Flow Rate FiO2 08/27/18 13:08 Nasal Cannula 5.0 08/27/18 10:55 97.7 51 18 151/71 (97) 96 97.7 Physical Exam General: Alert, Oriented X3, Cooperative, No acute distress Heart: Regular rate (SR), Other (distant heart sounds) Lungs: Crackles Abdomen: Soft, No tenderness, Other (obese) Extremities: No cyanosis Skin: No breakdown, No significant lesion Labs LABS Laboratory Tests Test 08/26/18 16:56 08/26/18 20:42 08/27/18 07:03 08/27/18 08:45 Glucose (Fingerstick) 74 mg/dL (70-99) 97 mg/dL (70-99) 114 mg/dL (70-99) White Blood Count 11.3 x10^3/uL (4.0-11.0) Red Blood Count 4.52 x10^6/uL (4.30-5.70) Hemoglobin 13.5 g/dL (13.0-17.5) Hematocrit 40.6 % (39.0-53.0) Mean Corpuscular Volume 90 fL (79-100) Mean Corpuscular Hemoglobin 30 pg (25-35) Mean Corpuscular Hemoglobin Concent 33 g/dL (31-37) Red Cell Distribution Width 15.1 % (11.5-14.5) Platelet Count 259 x10^3/uL (140-400) Neutrophils (%) (Auto) 77 % (31-73) Lymphocytes (%) (Auto) 14 % (24-48) Monocytes (%) (Auto) 6 % (0-9) Eosinophils (%) (Auto) 3 % (0-3) Basophils (%) (Auto) 1 % (0-3) Neutrophils # (Auto) 8.8 x10^3uL (1.8-7.7) Lymphocytes # (Auto) 1.5 x10^3/uL (1.0-4.8) Monocytes # (Auto) 0.7 x10^3/uL (0.0-1.1) Eosinophils # (Auto) 0.3 x10^3/uL (0.0-0.7) Basophils # (Auto) 0.1 x10^3/uL (0.0-0.2) Sodium Level 146 mmol/L (136-145) Potassium Level 3.8 mmol/L (3.5-5.1) Chloride Level 104 mmol/L (98-107) Carbon Dioxide Level 32 mmol/L (21-32) Anion Gap 10 (6-14) Blood Urea Nitrogen 22 mg/dL (8-26) Creatinine 1.6 mg/dL (0.7-1.3) Estimated GFR (Cockcroft-Gault) 52.1 Glucose Level 133 mg/dL (70-99) Calcium Level 9.5 mg/dL (8.5-10.1) Test 08/27/18 11:15 Glucose (Fingerstick) 146 mg/dL (70-99) Assessment and Plan Assessmemt and Plan Problems Medical Problems: (1) Acute renal insufficiency Status: Acute (2) Elevated troponin Status: Acute (3) Hypoxia Status: Acute (4) Pneumonia Status: Acute (5) Weakness Status: Acute Comment Review of Relevant I have reviewed the following items rosas (where applicable) has been applied. Labs Laboratory Tests Test 08/25/18 16:45 08/25/18 16:56 08/25/18 20:38 08/26/18 04:50 Prothrombin Time 14.6 SEC (11.7-14.0) Prothromb Time International Ratio 1.2 (0.8-1.1) Glucose (Fingerstick) 122 mg/dL (70-99) 141 mg/dL (70-99) White Blood Count 10.8 x10^3/uL (4.0-11.0) Red Blood Count 3.68 x10^6/uL (4.30-5.70) Hemoglobin 10.8 g/dL (13.0-17.5) Hematocrit 33.1 % (39.0-53.0) Mean Corpuscular Volume 90 fL (79-100) Mean Corpuscular Hemoglobin 29 pg (25-35) Mean Corpuscular Hemoglobin Concent 33 g/dL (31-37) Red Cell Distribution Width 15.0 % (11.5-14.5) Platelet Count 216 x10^3/uL (140-400) Neutrophils (%) (Auto) 75 % (31-73) Lymphocytes (%) (Auto) 17 % (24-48) Monocytes (%) (Auto) 6 % (0-9) Eosinophils (%) (Auto) 2 % (0-3) Basophils (%) (Auto) 1 % (0-3) Neutrophils # (Auto) 8.1 x10^3uL (1.8-7.7) Lymphocytes # (Auto) 1.8 x10^3/uL (1.0-4.8) Monocytes # (Auto) 0.6 x10^3/uL (0.0-1.1) Eosinophils # (Auto) 0.2 x10^3/uL (0.0-0.7) Basophils # (Auto) 0.1 x10^3/uL (0.0-0.2) Sodium Level 146 mmol/L (136-145) Potassium Level 3.3 mmol/L (3.5-5.1) Chloride Level 107 mmol/L (98-107) Carbon Dioxide Level 33 mmol/L (21-32) Anion Gap 6 (6-14) Blood Urea Nitrogen 28 mg/dL (8-26) Creatinine 1.9 mg/dL (0.7-1.3) Estimated GFR (Cockcroft-Gault) 42.7 Glucose Level 148 mg/dL (70-99) Calcium Level 9.1 mg/dL (8.5-10.1) Test 08/26/18 07:15 08/26/18 11:31 08/26/18 16:56 08/26/18 20:42 Glucose (Fingerstick) 135 mg/dL (70-99) 186 mg/dL (70-99) 74 mg/dL (70-99) 97 mg/dL (70-99) Test 08/27/18 07:03 08/27/18 08:45 08/27/18 11:15 Glucose (Fingerstick) 114 mg/dL (70-99) 146 mg/dL (70-99) White Blood Count 11.3 x10^3/uL (4.0-11.0) Red Blood Count 4.52 x10^6/uL (4.30-5.70) Hemoglobin 13.5 g/dL (13.0-17.5) Hematocrit 40.6 % (39.0-53.0) Mean Corpuscular Volume 90 fL (79-100) Mean Corpuscular Hemoglobin 30 pg (25-35) Mean Corpuscular Hemoglobin Concent 33 g/dL (31-37) Red Cell Distribution Width 15.1 % (11.5-14.5) Platelet Count 259 x10^3/uL (140-400) Neutrophils (%) (Auto) 77 % (31-73) Lymphocytes (%) (Auto) 14 % (24-48) Monocytes (%) (Auto) 6 % (0-9) Eosinophils (%) (Auto) 3 % (0-3) Basophils (%) (Auto) 1 % (0-3) Neutrophils # (Auto) 8.8 x10^3uL (1.8-7.7) Lymphocytes # (Auto) 1.5 x10^3/uL (1.0-4.8) Monocytes # (Auto) 0.7 x10^3/uL (0.0-1.1) Eosinophils # (Auto) 0.3 x10^3/uL (0.0-0.7) Basophils # (Auto) 0.1 x10^3/uL (0.0-0.2) Sodium Level 146 mmol/L (136-145) Potassium Level 3.8 mmol/L (3.5-5.1) Chloride Level 104 mmol/L (98-107) Carbon Dioxide Level 32 mmol/L (21-32) Anion Gap 10 (6-14) Blood Urea Nitrogen 22 mg/dL (8-26) Creatinine 1.6 mg/dL (0.7-1.3) Estimated GFR (Cockcroft-Gault) 52.1 Glucose Level 133 mg/dL (70-99) Calcium Level 9.5 mg/dL (8.5-10.1) Laboratory Tests Test 08/26/18 16:56 08/26/18 20:42 08/27/18 07:03 08/27/18 08:45 Glucose (Fingerstick) 74 mg/dL (70-99) 97 mg/dL (70-99) 114 mg/dL (70-99) White Blood Count 11.3 x10^3/uL (4.0-11.0) Red Blood Count 4.52 x10^6/uL (4.30-5.70) Hemoglobin 13.5 g/dL (13.0-17.5) Hematocrit 40.6 % (39.0-53.0) Mean Corpuscular Volume 90 fL (79-100) Mean Corpuscular Hemoglobin 30 pg (25-35) Mean Corpuscular Hemoglobin Concent 33 g/dL (31-37) Red Cell Distribution Width 15.1 % (11.5-14.5) Platelet Count 259 x10^3/uL (140-400) Neutrophils (%) (Auto) 77 % (31-73) Lymphocytes (%) (Auto) 14 % (24-48) Monocytes (%) (Auto) 6 % (0-9) Eosinophils (%) (Auto) 3 % (0-3) Basophils (%) (Auto) 1 % (0-3) Neutrophils # (Auto) 8.8 x10^3uL (1.8-7.7) Lymphocytes # (Auto) 1.5 x10^3/uL (1.0-4.8) Monocytes # (Auto) 0.7 x10^3/uL (0.0-1.1) Eosinophils # (Auto) 0.3 x10^3/uL (0.0-0.7) Basophils # (Auto) 0.1 x10^3/uL (0.0-0.2) Sodium Level 146 mmol/L (136-145) Potassium Level 3.8 mmol/L (3.5-5.1) Chloride Level 104 mmol/L (98-107) Carbon Dioxide Level 32 mmol/L (21-32) Anion Gap 10 (6-14) Blood Urea Nitrogen 22 mg/dL (8-26) Creatinine 1.6 mg/dL (0.7-1.3) Estimated GFR (Cockcroft-Gault) 52.1 Glucose Level 133 mg/dL (70-99) Calcium Level 9.5 mg/dL (8.5-10.1) Test 08/27/18 11:15 Glucose (Fingerstick) 146 mg/dL (70-99) Microbiology 08/23/18 Blood Culture - Preliminary, Resulted NO GROWTH AFTER 3 DAYS Medications Current Medications Sodium Chloride 1,000 ml @ 1,000 mls/hr 1X ONCE IV Last administered on at 23:44; Start 08/23/18 at 23:00; Stop 08/23/18 at 23:59; Status DC Acetaminophen (Tylenol) 500 mg 1X ONCE PO Last administered on 08/23/18at 23:42 ; Start 08/23/18 at 23:15; Stop 08/23/18 at 23:16; Status DC Albuterol/ Ipratropium (Duoneb) 3 ml 1X ONCE NEB Last administered on at 23:20; Start 08/23/18 at 23:15; Stop 08/23/18 at 23:16; Status DC Piperacillin Sod/ Tazobactam Sod 4.5 gm/Sodium Chloride 100 ml @ 200 mls/hr 1X ONCE IV Last administered on 08/24/18at 00:47; Start 08/24/18 at 00:30; Stop 08/24/18 at 00:59; Status DC Levofloxacin/ Dextrose 150 ml @ 100 mls/hr 1X ONCE IV Last administered on at 00:48; Start 08/24/18 at 00:30; Stop 08/24/18 at 01:59; Status DC Fentanyl Citrate (Fentanyl 2ml Vial) 50 mcg 1X ONCE IV Last administered on at 00:44; Start 08/24/18 at 00:30; Stop 08/24/18 at 00:31; Status DC Aspirin (Theo Aspirin) 325 mg 1X ONCE PO Last administered on 08/24/18at 01:01 ; Start 08/24/18 at 00:45; Stop 08/24/18 at 00:46; Status DC Ondansetron HCl (Zofran) 4 mg PRN Q8HRS PRN IV NAUSEA/VOMITING; Start 08/24/18 at 01:00; Stop 08/24/18 at 11:04; Status DC Fentanyl Citrate (Fentanyl 2ml Vial) 50 mcg PRN Q2HR PRN IV PAIN Last administered on 08/24/18at 08:19; Start 08/24/18 at 01:00; Stop 08/25/18 at 00:59 ; Status DC Acetaminophen (Tylenol) 650 mg PRN Q4HRS PRN PO FEVER; Start 08/24/18 at 01:00 ; Stop 08/24/18 at 11:04; Status DC Albuterol/ Ipratropium (Duoneb) 3 ml RTQID NEB Last administered on 08/25/18at 08:15; Start 08/24/18 at 08:00; Stop 08/25/18 at 07:59; Status DC Dexamethasone Sodium Phosphate (Decadron) 10 mg 1X ONCE IV Last administered on 08/24/18at 01:13; Start 08/24/18 at 01:00; Stop 08/24/18 at 01:02; Status DC Influenza Virus Vaccine (Afluria Trivalent [id number] Syringe) 0.5 ml ONCE ONCE VAX IM Last administered on 08/24/18at 08:23; Start 08/24/18 at 09:00; Stop 08/24/18 at 09:01; Status DC Alprazolam (Xanax) 0.5 mg TID PO Last administered on 11/5/18at 13:34; Start 08/24/18 at 14:00; Stop 08/24/18 at 17:10; Status DC Amiodarone HCl (Cordarone) 200 mg DAILY PO Last administered on 08/27/18 08:53 ; Start 08/24/18 at 11:30 Amlodipine Besylate (Norvasc) 5 mg DAILY PO Last administered on 08/27/18 08: 50; Start 08/24/18 at 11:30 Aspirin (Children'S Aspirin) 81 mg DAILY PO Last administered on 08/27/18 08: 48; Start 08/24/18 at 11:30 Atorvastatin Calcium (Lipitor) 20 mg QHS PO Last administered on 08/26/18 20: 43; Start 08/24/18 at 21:00 Baclofen (Lioresal) 15 mg QID PO Last administered on 08/27/18 13:07; Start 08/24/18 at 13:00 Clonidine HCl (Catapres) 0.1 mg BID PO Last administered on 08/27/18 08:54; Start 08/24/18 at 11:30 Clopidogrel Bisulfate (Plavix) 75 mg DAILY PO Last administered on 08/27/18 08 :52; Start 08/24/18 at 11:30 Dabigatran (Pradaxa) 150 mg BID PO Last administered on 08/27/18 08:52; Start 08/24/18 at 11:30 Furosemide (Lasix) 80 mg BID94 PO Last administered on 08/27/18 08:48; Start 08/24/18 at 11:30 Brimonidine Tartrate (Alphagan) 1 drop BID OU Last administered on 08/27/18 08 :46; Start 08/24/18 at 11:30 Gabapentin (Neurontin) 800 mg QID PO Last administered on 08/27/18 13:07; Start 08/24/18 at 13:00 Hydralazine HCl (Apresoline) 100 mg TID PO Last administered on 08/27/18 08:49 ; Start 08/24/18 at 14:00 Isosorbide Mononitrate (Imdur) 60 mg DAILY PO Last administered on 08/27/18 08 :49; Start 08/24/18 at 11:30 Pantoprazole Sodium (Protonix) 40 mg DAILYAC PO Last administered on 08/27/18 08:53; Start 08/24/18 at 11:30 Latanoprost (Xalatan) 1 drop QHS OU Last administered on 08/26/18 20:44; Start 08/24/18 at 21:00 Nicotine (Nicoderm Cq 21mg) 1 patch DAILY TD ; Start 08/24/18 at 11:30 Ketotifen Fumarate (Zaditor) 1 drop BID OU Last administered on 08/27/18 08:47 ; Start 08/24/18 at 11:30 Oxycodone HCl (Roxicodone) 10 mg PRN Q4HRS PRN PO PAIN Last administered on 12:29; Start 08/24/18 at 11:15; Stop 08/24/18 at 17:10; Status DC Paroxetine HCl (Paxil) 20 mg QHS PO Last administered on 08/26/18 20:43; Start 08/24/18 at 21:00 Paroxetine HCl (Paxil) 30 mg DAILY PO Last administered on 08/27/18 08:50; Start 08/24/18 at 11:30 Potassium Chloride (Klor-Con) 20 meq DAILYWBKFT PO Last administered on 08:53; Start 08/24/18 at 11:30 Spironolactone (Aldactone) 25 mg QHS PO Last administered on 08/26/18 20:42; Start 08/24/18 at 21:00 Timolol Maleate (Timoptic 0.5% [facility] [place]) 1 drop BID OU Last administered on 08:47; Start 08/24/18 at 11:30 Tizanidine HCl (Zanaflex) 4 mg PRN QID PRN PO MUSCLE SPASMS; Start 08/24/18 at 11:15 Linezolid/Dextrose 300 ml @ 300 mls/hr Q12HR IV Last administered on at 12:14; Start 08/24/18 at 11:30; Stop 08/24/18 at 12:52; Status DC Piperacillin Sod/ Tazobactam Sod 3.375 gm/Sodium Chloride 50 ml @ 100 mls/hr Q6HRS IV Last administered on 08/26/18at 13:39; Start 08/24/18 at 12:00; Stop 08/26/18 at 14:33; Status DC Piperacillin Sod/ Tazobactam Sod (Zosyn Per Pharmacy) 1 each PRN DAILY PRN MC SEE COMMENTS; Start 08/24/18 at 11:00 Acetaminophen (Tylenol) 650 mg PRN Q6HRS PRN PO FEVER; Start 08/24/18 at 11:00 Ondansetron HCl (Zofran) 4 mg PRN Q6HRS PRN IV NAUSEA/VOMITING; Start 08/24/18 at 11:00 Morphine Sulfate (Morphine Sulfate) 2 mg PRN Q2HR PRN IV MODERATE TO SEVERE PAIN; Start 08/24/18 at 11:00 Tramadol HCl (Ultram) 50 mg PRN Q6HRS PRN PO MILD TO MODERATE PAIN Last administered on 08/26/18at 22:32; Start 08/24/18 at 11:00 Docusate Sodium (Colace) 100 mg PRN DAILY PRN PO CONSTIPATION Last administered on 08/24/18at 12:29; Start 08/24/18 at 11:00 Azithromycin (Zithromax) 250 mg DAILY PO Last administered on 08/27/18at 08:48; Start 08/24/18 at 13:00 Insulin Human Lispro (HumaLOG) 0-9 UNITS TIDWMEALS SQ ; Start 08/24/18 at 17:00 ; Stop 08/25/18 at 05:59; Status DC Dextrose (Dextrose 50%-Water Syringe) 12.5 gm PRN Q15MIN PRN IV SEE COMMENTS; Start 08/24/18 at 15:15; Stop 08/25/18 at 09:19; Status DC Alprazolam (Xanax) 0.5 mg QID PO Last administered on 08/25/18at 08:03; Start 08/24/18 at 17:00; Stop 08/25/18 at 09:27; Status DC Oxycodone HCl (Roxicodone) 10 mg QID PO Last administered on 08/27/18at 13:08; Start 08/24/18 at 17:00 Insulin Human Lispro (HumaLOG) 0-9 UNITS TIDWMEALS SQ Last administered on 08/26at 13:49; Start 08/25/18 at 08:00 Dextrose (Dextrose 50%-Water Syringe) 12.5 gm PRN Q15MIN PRN IV SEE COMMENTS; Start 08/24/18 at 17:15 Insulin Human Lispro (HumaLOG) 15 units 1X ONCE SQ Last administered on at 17:41; Start 08/24/18 at 08:00; Stop 08/24/18 at 17:15; Status DC Insulin Glargine (Lantus) 20 units QHS SQ ; Start 08/24/18 at 21:00; Stop at 21:00; Status DC Insulin Human Lispro (HumaLOG) 15 units 1X ONCE SQ Last administered on at 22:15; Start 08/24/18 at 21:30; Stop 08/24/18 at 21:31; Status DC Insulin Glargine (Lantus) 20 units QHS SQ Last administered on 08/24/18at 22:16 ; Start 08/24/18 at 22:00; Stop 08/25/18 at 09:27; Status DC Albuterol/ Ipratropium (Duoneb) 3 ml RTQID NEB Last administered on 08/27/18at 11:14; Start 08/25/18 at 12:00 Alprazolam (Xanax) 1 mg QID PO Last administered on 08/27/18at 13:07; Start 08/25/18 at 09:30 Insulin Glargine (Lantus) 30 units QHS SQ Last administered on 08/26/18at 20:49 ; Start 08/25/18 at 21:00; Stop 08/27/18 at 09:04; Status DC Insulin Human Lispro (HumaLOG) 10 units TIDAC SQ Last administered on at 13:48; Start 08/25/18 at 11:30; Stop 08/27/18 at 09:04; Status DC Alprazolam (Xanax) 0.5 mg 1X ONCE PO Last administered on 08/25/18at 10:04; Start 08/25/18 at 09:45; Stop 08/25/18 at 09:51; Status DC Lactobacillus Rhamnosus (Culturelle) 1 cap BID PO Last administered on at 08:53; Start 08/25/18 at 21:00 Glimepiride (Amaryl) 2 mg DAILY PO Last administered on 08/27/18at 08:51; Start 08/25/18 at 14:00 Artificial Tears (Artificial Tears) 1 drop PRN Q15MIN PRN OU DRY EYE Last administered on 08/25/18at 17:45; Start 08/25/18 at 15:15 Potassium Chloride (Klor-Con) 40 meq 1X ONCE PO Last administered on at 13:37; Start 08/26/18 at 09:15; Stop 08/26/18 at 09:18; Status DC Amoxicillin/ Clavulanate Potassium (Augmentin 875/ 125mg) 1 tab BID PO Last administered on 08/27/18at 08:51; Start 08/26/18 at 21:00 Al Hydroxide/Mg Hydroxide (Mylanta Plus Xs) 30 ml PRN Q4HRS PRN PO HEARTBURN / GAS Last administered on 08/27/18at 10:05; Start 08/26/18 at 16:30 Insulin Glargine (Lantus) 15 units QHS SQ ; Start 08/27/18 at 21:00 Insulin Human Lispro (HumaLOG) 5 units TIDAC SQ Last administered on 08/27/18at 13:14; Start 08/27/18 at 11:30 Active Scripts Active Reported Flomax (Tamsulosin Hcl) 0.4 Mg Cap.er.24h 1 Cap PO DAILY Vitamin D (Cholecalciferol (Vitamin D3)) 1,000 Unit Capsule 1 Cap PO DAILY Paroxetine Hcl 30 Mg Tablet 30 Mg PO DAILY Tizanidine Hcl 4 Mg Capsule 4 Mg PO QID PRN Isosorbide Mononitrate Er (Isosorbide Mononitrate) 60 Mg Tab.er.24h 1 Tab PO DAILY Timoptic 0.5% (Timolol Maleate) 10 Ml Drops 1 Drop EACHEYE BID Amiodarone Hcl 200 Mg Tablet 1 Tab PO DAILY Amlodipine Besylate 5 Mg Tablet 5 Mg PO DAILY Gabapentin 800 Mg Tablet 800 Mg PO QID Hydralazine Hcl 100 Mg Tablet 1 Tab PO TID Atorvastatin Calcium 20 Mg Tablet 1 Tab PO QHS Lasix (Furosemide) 80 Mg Tablet 1 Tab PO BID K-Tab (Potassium Chloride) 10 Meq Tablet.er 20 Meq PO DAILY NICODERM CQ 21mg (Nicotine) 1 Each Patch.td24 1 Patch TP DAILY Alphagan P (Brimonidine Tartrate) 5 Ml Drops 1 Drop EACHEYE BID Paxil (Paroxetine Hcl) 20 Mg Tablet 1 Tab PO HS Aspirin 81 Mg Tab.chew 1 Tab PO DAILY Clopidogrel (Clopidogrel Bisulfate) 75 Mg Tablet 1 Tab PO DAILY Spironolactone 25 Mg Tablet 1 Tab PO HS Latanoprost 2.5 Ml Drops 1 Drop EACHEYE QHS [place]o (Olopatadine HCl) 2.5 Ml Drops 2.5 Ml OP DAILY Prevacid (Lansoprazole) 30 Mg Capsule.dr 1 Cap PO DAILY Oxycodone Hcl 10 Mg Tablet 1 Tab PO PRN Q4HRS PRN Baclofen 10 Mg Tablet 1.5 Tab PO QID Xanax (Alprazolam) 0.5 Mg Tablet 1 Tab PO TID Clonidine Hcl 0.1 Mg Tablet 0.1 Mg PO BID Pradaxa (Dabigatran Etexilate Mesylate) 150 Mg Capsule 150 Mg PO BID Vitals/I & O Vital Sign - Last 24 Hours 08/26/18 08/26/18 08/26/18 08/26/18 15:00 15:57 19:27 20:00 Temp 98.4 98.2 98.4 98.2 Pulse 51 46 Resp 16 18 B/P (MAP) 131/64 (86) 140/66 (90) Pulse Ox 93 93 O2 Delivery Nasal Cannula Nasal Cannula Nasal Cannula O2 Flow Rate 4.0 2.0 4.0 08/26/18 08/26/18 08/26/18 08/26/18 20:28 20:42 20:42 20:43 Pulse 59 59 B/P (MAP) 140/66 140/66 Pulse Ox 93 O2 Delivery Nasal Cannula Nasal Cannula O2 Flow Rate 4.0 4.0 08/26/18 08/26/18 08/26/18 08/26/18 21:42 22:32 23:32 23:44 Temp 98.2 98.2 Pulse 50 Resp 19 B/P (MAP) 148/70 (96) Pulse Ox 93 93 50 95 O2 Delivery Nasal Cannula BiPAP/CPAP BiPAP/CPAP O2 Flow Rate 4.0 08/26/18 08/27/18 08/27/18 08/27/18 23:46 03:00 03:00 07:15 Temp 98.2 98.1 98.2 98.1 Pulse 49 52 Resp 22 20 B/P (MAP) 168/81 (110) 156/80 (105) Pulse Ox 96 96 96 98 O2 Delivery BiPAP/CPAP BiPAP/CPAP Nasal Cannula Nasal Cannula O2 Flow Rate 3.0 3.0 08/27/18 08/27/18 08/27/18 08/27/18 08:23 08:49 08:49 08:49 Pulse 52 52 B/P (MAP) 156/80 156/80 Pulse Ox 92 O2 Delivery Nasal Cannula Room Air O2 Flow Rate 4.0 08/27/18 08/27/18 08/27/18 08/27/18 08:50 08:53 08:54 10:00 Pulse 52 52 52 B/P (MAP) 156/80 156/80 156/80 O2 Delivery Nasal Cannula O2 Flow Rate 5.0 08/27/18 08/27/18 08/27/18 10:55 11:15 13:08 Temp 97.7 97.7 Pulse 51 Resp 18 B/P (MAP) 151/71 (97) Pulse Ox 96 O2 Delivery Nasal Cannula Nasal Cannula Nasal Cannula O2 Flow Rate 3.0 4.0 5.0 Intake and Output 08/26/18 08/26/18 08/27/18 15:00 23:00 07:00 Intake Total 1400 ml 500 ml Output Total 500 ml 1300 ml Balance -500 ml 100 ml 500 ml NICOLAS FLYNN MD Aug 27, 2018 14:04
[2018-08-27 15:00] VITALS: BP 138/76
[2018-08-27] MEDS ORDERED: AMOX1TAB11 PO (16:49)
[2018-08-27] MEDS ORDERED: AZIT250T6 PO (16:49)
[2018-08-27] MEDS ORDERED: GLIM2TAB PO (16:49)
--- NOTE | 2018-08-27 16:51 | PDOC3 ---
Discharge Summary [facility] Date of Admission: Aug 24, 2018 Discharge Date: Aug 27, 2018 Admitting Diagnosis generalized weakness, 2/2 CAP possibly hemoptysis with lung hemarrhage, likely old, also on asa, plavix, pradaxa sepsis with CAP leukocytosis, fever pafib on pradaxa h/o CAD h/o CHF diastolic gerd HTN anxiety quit smoking morbid obesity chronic lumbago on opoids elevated trop, possible diastolic CHF exacerbation, also sepsis PTSD , anxiety new onset DM2, hba1c 9 CONSULTS pulm card Brief Hospital Course Patient is a 67 year old male presenting to the ED due to weakness. PT STARTED to feel generalized weakness yesterday, could not get out of bed. has chronic cough for months, with brownish sputum. Denies chest pain, denies fever, chills, T 102 in ER. denies runny nose, sore throat, sick contact. He coughed some bloody today. Denies chest pain, headache, abdominal pain, leg swelling, leg pain. Reports shortness of breath. Patient lives at home with , and is walker dependent. Patient does not wear oxygen at home, but does use CPAP at night for sleep apnea. wbc 18 in ER. pT still some sob, remaining on nc 3l, home o2 only 2l when sleeping, also on CPAP. CT showed left lung infiltrate ,differential diagosnosis including pna , old hemarrhage, also on asa, plavix, pradaxa with h/o afib, CAD. pt still coughing some dark bloody sputum. legi, strep, sputum cx neg. 6min walk 1-2 L while ambulating. dc with maycol, augmentin. also was found new onset dm2, hba1c 9, dc with Amyral. has diarrhea x2ds, neg cdiff. fu with PCP tmr for dm. dc time 35min. General: Alert, Oriented X3, Cooperative, No acute distress Heart: Regular rate (SR), Other (distant heart sounds) Lungs: bl coarse bs, no crackles or wheezing. Abdomen: Soft, No tenderness, Other (obese) Extremities: No cyanosis Skin: No breakdown, No significant lesion Disposition home CONDITION AT DISCHARGE: Improved Scheduled Alprazolam (Xanax), 1 TAB PO TID, (Reported) Amiodarone Hcl (Amiodarone Hcl), 1 TAB PO DAILY, (Reported) Amlodipine Besylate (Amlodipine Besylate), 5 MG PO DAILY, (Reported) Amoxicillin/Potassium Clav (Amox Tr-K Clv 875-125 Mg Tab), 1 TAB PO BID Aspirin (Aspirin), 1 TAB PO DAILY, (Reported) Atorvastatin Calcium (Atorvastatin Calcium), 1 TAB PO QHS, (Reported) Azithromycin (Azithromycin Tablet), 250 MG PO DAILY Baclofen (Baclofen), 1.5 TAB PO QID, (Reported) Brimonidine Tartrate (Alphagan P), 1 DROP EACHEYE BID, (Reported) Cholecalciferol (Vitamin D3) (Vitamin D), 1 CAP PO DAILY, (Reported) Clonidine Hcl (Clonidine Hcl), 0.1 MG PO BID, (Reported) Clopidogrel Bisulfate (Clopidogrel), 1 TAB PO DAILY, (Reported) Dabigatran Etexilate Mesylate (Pradaxa), 150 MG PO BID, (Reported) Furosemide (Lasix), 1 TAB PO BID, (Reported) Gabapentin (Gabapentin), 800 MG PO QID, (Reported) Glimepiride (Amaryl), 2 MG PO DAILY Hydralazine Hcl (Hydralazine Hcl), 1 TAB PO TID, (Reported) Isosorbide Mononitrate (Isosorbide Mononitrate Er), 1 TAB PO DAILY, (Reported) Lansoprazole (Prevacid), 1 CAP PO DAILY, (Reported) Latanoprost (Latanoprost), 1 DROP EACHEYE QHS, (Reported) Nicotine (NICODERM CQ 21mg), 1 PATCH TP DAILY, (Reported) Olopatadine HCl (Pazeo), 2.5 ML OP DAILY, (Reported) Paroxetine Hcl (Paxil), 1 TAB PO HS, (Reported) Paroxetine Hcl (Paroxetine Hcl), 30 MG PO DAILY, (Reported) Potassium Chloride (K-Tab), 20 MEQ PO DAILY, (Reported) Spironolactone (Spironolactone), 1 TAB PO HS, (Reported) Tamsulosin Hcl (Flomax), 1 CAP PO DAILY, (Reported) Timolol Maleate 0.5% (Timoptic 0.5%), 1 DROP EACHEYE BID, (Reported) Scheduled PRN Oxycodone Hcl (Oxycodone Hcl), 1 TAB PO PRN Q4HRS PRN for PAIN, (Reported) Tizanidine Hcl (Tizanidine Hcl), 4 MG PO QID PRN for MUSCLE SPASMS, (Reported) Discontinued Medications Atorvastatin Calcium (Atorvastatin Calcium), 1 TAB PO DAILY, (Reported) Cholecalciferol (Vitamin D3) (Vitamin D), 5 CAP PO DAILY, (Reported) Gabapentin (Gabapentin), 600 MG PO QID, (Reported) Hydralazine Hcl (Hydralazine Hcl), 1 TAB PO BID, (Reported) Lisinopril (Lisinopril), 0.5 TAB PO DAILY, (Reported) Lovastatin (Lovastatin), 40 MG PO HS, (Reported) Multivit-Min/FA/Lycopen/Lutein (Centrum Silver Men Tablet), 1 EACH PO DAILY, ( Reported) Tamsulosin Hcl (Flomax), 0.4 MG PO HS, (Reported) NICOLAS FLYNN MD Aug 27, 2018 16:51
[2018-08-27] MEDS ORDERED: INSULIN GLARGINE 300 UNITS/3 ML INSULN.PEN. SQ SCH (21:00)
== END 2018-08-27 21:00 | disposition home or self-care (01) | DRG 871 ==
LOC: ER 22:53 → 2 NORTH 08-24 01:17
PROVIDERS: ADMIT Family Medicine; ATTEND Family Medicine
PROC: 5A09457 Assistance with Respiratory Ventilation, 24-96 Consecutive Hours, Continuous Positive Airway Pressure (ICD-10-PCS; principal; 2018-08-24)
DX: A41.9 Sepsis, unspecified organism (principal); J18.9 Pneumonia, unspecified organism; I50.43 Acute on chronic combined systolic (congestive) and diastolic (congestive) heart failure; J96.01 Acute respiratory failure with hypoxia; I13.0 Hypertensive heart and chronic kidney disease with heart failure and stage 1 through stage 4 chronic kidney disease, or unspecified chronic kidney disease; I24.8 Other forms of acute ischemic heart disease; J44.0 Chronic obstructive pulmonary disease with (acute) lower respiratory infection; J44.1 Chronic obstructive pulmonary disease with (acute) exacerbation; E11.22 Type 2 diabetes mellitus with diabetic chronic kidney disease; G47.33 Obstructive sleep apnea (adult) (pediatric); F43.10 Post-traumatic stress disorder, unspecified; E78.5 Hyperlipidemia, unspecified; G89.29 Other chronic pain; H40.9 Unspecified glaucoma; E66.01 Morbid (severe) obesity due to excess calories; I25.10 Atherosclerotic heart disease of native coronary artery without angina pectoris; I25.5 Ischemic cardiomyopathy; I27.20 Pulmonary hypertension, unspecified; I48.0 Paroxysmal atrial fibrillation; K21.9 Gastro-esophageal reflux disease without esophagitis; N18.9 Chronic kidney disease, unspecified; Z82.49 Family history of ischemic heart disease and other diseases of the circulatory system; Z68.37 Body mass index [BMI] 37.0-37.9, adult; Z87.891 Personal history of nicotine dependence; Z79.899 Other long term (current) drug therapy; Z83.3 Family history of diabetes mellitus; Z95.5 Presence of coronary angioplasty implant and graft
CPT/HCPCS: 36415; 70450; 71045; 71250; 80048; 80053; 81001; 82140; 82553; 82962; 83036; 83605; 83735; 83880; 84484; 85007; 85025; 85610; 87040; 87449; 87493; 87804; 90471; 90756; 93005; 93306; 94618; 94640; 94660; 94760; 96365; 96375; 99291; J1100; J1815; J1956; J2020; J2543; J3010; J7030; J7620; Q0144; 97535; Q2035